=== PATIENT | female | born 1985 | race Two or more races ===

== ENCOUNTER 2018-01-14 18:18 | Inpatient (IN) | payer MEDICAID ==
[~2018-01-14] VITALS: Ht 157.5 cm; Wt 57.2 kg
[2018-01-14] VITALS (9 sets, daily range): BP systolic 92–117; BP diastolic 47–64
[2018-01-14] MEDS: HYDROmorphone 2 MG/ML VIAL IVP PRN (21:13)
[2018-01-14] MEDS: IV RINGERS,LACTATED 1000ML 1,000 ML IV SCH (21:35)
[2018-01-14] MEDS: PANTOPRAZOLE SODIUM IV DRIP 80 MG in IV NORMAL SALINE 100ML 100 ML IV SCH (22:22)
[2018-01-14] MEDS ORDERED: 0.9 % SODIUM CHLORIDE 10 ML DISP.SYRIN. IV PRN (23:45)
[2018-01-14] MEDS ORDERED: BISACODYL 10 MG SUPP.RECT. PR PRN (23:45)
[2018-01-15] VITALS (23 sets, daily range): BP systolic 93–112; BP diastolic 47–78
[2018-01-15] MEDS: ONDANSETRON PF 4 MG/2 ML VIAL. IV PRN ×2 (01:19→17:48)
[2018-01-15] MEDS: HYDROmorphone 2 MG/ML VIAL IVP PRN ×7 (01:20→21:33)
[2018-01-15] MEDS: PANTOPRAZOLE SODIUM IV DRIP 80 MG in IV NORMAL SALINE 100ML 100 ML IV SCH ×2 (06:08→21:33)
[2018-01-15 06:35] LABS: BASO % 1 % (0-3); EOS # 0.1 x10^3/uL (0.0-0.7); EOS % 1 % (0-3); HEMATOCRIT 23.3 % (36.0-47.0); LYMPH # 0.9 x10^3/uL (1.0-4.8); LYMPH % 17 % (24-48); MEAN CORPUSCULAR HEMOGLOBIN 20 pg (25-35); MEAN CORPUSCULAR HGB CONC 30 g/dL (31-37); MEAN CORPUSCULAR VOLUME 65 fL (79-100); MONO # 0.3 x10^3/uL (0.0-1.1); MONO % 5 % (0-9); NEUT # 4.2 x10^3uL (1.8-7.7); NEUT % 76 % (31-73); PLATELET COUNT 324 x10^3/uL (140-400); RED BLOOD COUNT 3.61 x10^6/uL (3.50-5.40); RED CELL DISTRIBUTION WIDTH 18.2 % (11.5-14.5); WHITE BLOOD COUNT 5.5 x10^3/uL (4.0-11.0)
[2018-01-15 06:46] LABS: PROTHROMBIN TIME PATIENT 13.1 SEC (11.7-14.0)
[2018-01-15 06:49] LABS: ALBUMIN/GLOBULIN RATIO 0.9 (1.0-1.7); CALCIUM 8.1 mg/dL (8.5-10.1); CREATININE 0.6 mg/dL (0.6-1.0); GFR 117.4; POTASSIUM 3.5 mmol/L (3.5-5.1); TOTAL BILIRUBIN 1.2 mg/dL (0.2-1.0); TOTAL PROTEIN 6.4 g/dL (6.4-8.2)
[2018-01-15 07:32] LABS: PLT ESTIMATE ADEQUATE (ADEQUATE)
[2018-01-15 07:33] LABS: ANISOCYTOSIS MOD; HYPOCHROMIA SLIGHT; POLYCHROMASIA SLIGHT
[2018-01-15 07:34] LABS: MICROCYTOSIS MARKED
[2018-01-15 07:35] LABS: OVALOCYTES MOD; TEAR DROP CELLS FEW
[2018-01-15 07:36] LABS: TARGET CELLS FEW
[2018-01-15] MEDS: IV RINGERS,LACTATED 1000ML 1,000 ML IV SCH ×4 (09:54→21:34)
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
[2018-01-15] MEDS ORDERED: fentaNYL PF VIAL 100 MCG/2 ML VIAL IV PRN ×4 (10:00→10:30)
[2018-01-15] MEDS ORDERED: MIDAZOLAM HCL/PF 2 MG/2 ML VIAL. IV PRN (10:00)
[2018-01-15] MEDS ORDERED: LIDOCAINE 1% PF 2 ML VIAL. ID PRN ×2 (10:00→10:30)
[2018-01-15] MEDS ORDERED: IV RINGERS,LACTATED 1000ML 1,000 ML IV SCH (10:17)
[2018-01-15] MEDS ORDERED: ONDANSETRON PF 4 MG/2 ML VIAL. IV PRN (10:30)
[2018-01-15] MEDS ORDERED: PROCHLORPERAZINE 10 MG/2 ML VIAL. IV PRN (10:30)
[2018-01-15] MEDS ORDERED: HYDROmorphone 2 MG/ML VIAL IV PRN (10:30)
[2018-01-15] MEDS ORDERED: MORPHINE SULFATE 2 MG/ML VIAL. IV PRN (10:30)
[2018-01-15] MEDS ORDERED: PROPOFOL 20 ML IV ONE (13:58)
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
[2018-01-15] MEDS ORDERED: EPINEPHrine SYRINGE 1 MG/10 ML SYRINGE ONE (14:23)
[2018-01-15] MEDS ORDERED: EPINEPHrine 1 MG/ML VIAL INJ ONE (14:24)
--- NOTE | 2018-01-15 14:28 | PDOC4 ---
PROCEDURE Procedure hematemesis, prior ulcer EGD anesthesia- propofol Findings- normal esophagus- MW tear at GE junction- injected with epi 2 cc- bleeding controlled- prior gastric bypass, endoclip in place but no ulcers or bleeding seen at anastomosis Plan- slowly advance diet monitor BRENNAN HE MD Jan 15, 2018 14:28
[2018-01-15 22:24] LABS: HEMATOCRIT 30.7 % (36.0-47.0); HEMOGLOBIN 9.8 g/dL (12.0-15.5); RED BLOOD COUNT 4.43 x10^6/uL (3.50-5.40); RED CELL DISTRIBUTION WIDTH 22.9 % (11.5-14.5); WHITE BLOOD COUNT 5.8 x10^3/uL (4.0-11.0)
[2018-01-16] MEDS: HYDROmorphone 2 MG/ML VIAL IVP PRN ×8 (00:44→22:21)
[2018-01-16 03:00] VITALS: BP 103/65
[2018-01-16 04:58] LABS: HEMATOCRIT 31.3 % (36.0-47.0); HEMOGLOBIN 10.2 g/dL (12.0-15.5); RED BLOOD COUNT 4.52 x10^6/uL (3.50-5.40); RED CELL DISTRIBUTION WIDTH 23.2 % (11.5-14.5); WHITE BLOOD COUNT 7.4 x10^3/uL (4.0-11.0)
[2018-01-16] MEDS: PANTOPRAZOLE SODIUM IV DRIP 80 MG in IV NORMAL SALINE 100ML 100 ML IV SCH (06:26)
[2018-01-16 07:00] VITALS: BP 100/60
[2018-01-16] MEDS ORDERED: ACETAMINOPHEN/CODEINE 300/30MG TABLET. PO PRN (09:00)
[2018-01-16] MEDS ORDERED: ONDANSETRON ODT 4 MG TAB.RAPDIS. PO PRN (09:00)
[2018-01-16] MEDS ORDERED: ONDANSETRON PF 4 MG/2 ML VIAL. IV PRN (09:00)
[2018-01-16] MEDS ORDERED: ACETAMINOPHEN 500 MG TABLET PO PRN (09:00)
[2018-01-16] MEDS: ONDANSETRON PF 4 MG/2 ML VIAL. IV PRN ×3 (09:19→22:21)
[2018-01-16] MEDS: HYDROcodone/APAP 5/325MG 1 TAB TABLET PO PRN ×2 (10:31→21:02)
[2018-01-16 11:00] VITALS: BP 101/61
--- NOTE | 2018-01-16 11:48 | PDOC ---
PROGRESS NOTES Chief Complaint Chief Complaint Hematemesis, anemia Large GI bleed via EGD 01/15 s/p epi injection Acute blood loss anemia s.p BT H/o PUD and Dieulafoy's w/ recurrent GI bleeding - says last EGD 3 weeks ago @ [facility], on Carafate and PPI S/p gastrojejunostomy revision w/ Charleen-en-Y reconstruction (2017) H/o Crohn's disease s/p colectomy w/ ileostomy and proctectomy - can document normal ileoscopy by Dr. Mendoza in 2017 Cholelithiasis - noted on CT ?h/o pancreatitis History of Present Illness History of Present Illness Showed me a picture of still significant hematemesis post-EGD yesterday Otherwise hemodynamically stable Hemoglobin 10 from 7 after transfusion On a PPI drip She has an indwelling ileostomy since age 14 She has a huge mid vertical incision scar from her multiple surgeries/total gastrectomy with what sounds like total colectomy some years back in [place] She is staying here now in [place] with her mother for good for emotional and personal support from her multiple med issues She is on disability and not working But she otherwise tells me she is otherwise active PLAN: CPM Still nauseus with current diet SLow progression of diet is in accord AMbulate ad obdulio PPI gtt Follow GI recs STill on HH q8 hrs Vitals Vitals Vital Signs Date Time Temp Pulse Resp B/P (MAP) Pulse Ox O2 Delivery O2 Flow Rate FiO2 01/16/18 11:00 98.6 69 16 101/61 (74) 97 Room Air 98.6 Physical Exam General: Alert, Oriented X3, Cooperative Heart: Regular rate, Normal S1, Normal S2 Lungs: Clear Abdomen: Normal bowel sounds, Soft, No tenderness, Other (indwelling right ileostomy, midline vertical incision scar) Extremities: No clubbing, No cyanosis, No edema Skin: No rashes, No breakdown, No significant lesion Labs LABS Laboratory Tests Test 01/15/18 13:45 01/15/18 18:10 01/15/18 22:05 01/16/18 04:00 Glucose (Fingerstick) 90 mg/dL (70-99) 140 mg/dL (70-99) White Blood Count 5.8 x10^3/uL (4.0-11.0) 7.4 x10^3/uL (4.0-11.0) Red Blood Count 4.43 x10^6/uL (3.50-5.40) 4.52 x10^6/uL (3.50-5.40) Hemoglobin 9.8 g/dL (12.0-15.5) 10.2 g/dL (12.0-15.5) Hematocrit 30.7 % (36.0-47.0) 31.3 % (36.0-47.0) Mean Corpuscular Volume 69 fL (79-100) 69 fL (79-100) Mean Corpuscular Hemoglobin 22 pg (25-35) 23 pg (25-35) Mean Corpuscular Hemoglobin Concent 32 g/dL (31-37) 33 g/dL (31-37) Red Cell Distribution Width 22.9 % (11.5-14.5) 23.2 % (11.5-14.5) Platelet Count 272 x10^3/uL (140-400) 273 x10^3/uL (140-400) Test 01/16/18 07:37 Glucose (Fingerstick) 78 mg/dL (70-99) Review of Systems Review of Systems Nausea, hematemesis, otherwise rest of ROS 14 point negative Comment Review of Relevant I have reviewed the following items china (where applicable) has been applied. Labs Laboratory Tests Test 01/14/18 21:15 01/15/18 06:20 01/15/18 13:45 01/15/18 18:10 Nasal Screen MRSA (PCR) Negative (Negative) White Blood Count 5.5 x10^3/uL (4.0-11.0) Red Blood Count 3.61 x10^6/uL (3.50-5.40) Hemoglobin 7.0 g/dL (12.0-15.5) Hematocrit 23.3 % (36.0-47.0) Mean Corpuscular Volume 65 fL (79-100) Mean Corpuscular Hemoglobin 20 pg (25-35) Mean Corpuscular Hemoglobin Concent 30 g/dL (31-37) Red Cell Distribution Width 18.2 % (11.5-14.5) Platelet Count 324 x10^3/uL (140-400) Neutrophils (%) (Auto) 76 % (31-73) Lymphocytes (%) (Auto) 17 % (24-48) Monocytes (%) (Auto) 5 % (0-9) Eosinophils (%) (Auto) 1 % (0-3) Basophils (%) (Auto) 1 % (0-3) Neutrophils # (Auto) 4.2 x10^3uL (1.8-7.7) Lymphocytes # (Auto) 0.9 x10^3/uL (1.0-4.8) Monocytes # (Auto) 0.3 x10^3/uL (0.0-1.1) Eosinophils # (Auto) 0.1 x10^3/uL (0.0-0.7) Basophils # (Auto) 0.0 x10^3/uL (0.0-0.2) Platelet Estimate Adequate (ADEQUATE) Large Platelets Few Polychromasia Slight Hypochromasia Slight Anisocytosis Mod Microcytosis Marked Target Cells Few Tear Drop Cells Few Ovalocytes Mod Prothrombin Time 13.1 SEC (11.7-14.0) Prothromb Time International Ratio 1.0 (0.8-1.1) Activated Partial Thromboplast Time 35 SEC (24-38) Sodium Level 141 mmol/L (136-145) Potassium Level 3.5 mmol/L (3.5-5.1) Chloride Level 108 mmol/L (98-107) Carbon Dioxide Level 25 mmol/L (21-32) Anion Gap 8 (6-14) Blood Urea Nitrogen 10 mg/dL (7-20) Creatinine 0.6 mg/dL (0.6-1.0) Estimated GFR (Cockcroft-Gault) 117.4 BUN/Creatinine Ratio 17 (6-20) Glucose Level 85 mg/dL (70-99) Calcium Level 8.1 mg/dL (8.5-10.1) Total Bilirubin 1.2 mg/dL (0.2-1.0) Aspartate Amino Transf (AST/SGOT) 11 U/L (15-37) Alanine Aminotransferase (ALT/SGPT) 16 U/L (14-59) Alkaline Phosphatase 77 U/L (46-116) Total Protein 6.4 g/dL (6.4-8.2) Albumin 3.0 g/dL (3.4-5.0) Albumin/Globulin Ratio 0.9 (1.0-1.7) Glucose (Fingerstick) 90 mg/dL (70-99) 140 mg/dL (70-99) Test 01/15/18 22:05 01/16/18 04:00 01/16/18 07:37 White Blood Count 5.8 x10^3/uL (4.0-11.0) 7.4 x10^3/uL (4.0-11.0) Red Blood Count 4.43 x10^6/uL (3.50-5.40) 4.52 x10^6/uL (3.50-5.40) Hemoglobin 9.8 g/dL (12.0-15.5) 10.2 g/dL (12.0-15.5) Hematocrit 30.7 % (36.0-47.0) 31.3 % (36.0-47.0) Mean Corpuscular Volume 69 fL (79-100) 69 fL (79-100) Mean Corpuscular Hemoglobin 22 pg (25-35) 23 pg (25-35) Mean Corpuscular Hemoglobin Concent 32 g/dL (31-37) 33 g/dL (31-37) Red Cell Distribution Width 22.9 % (11.5-14.5) 23.2 % (11.5-14.5) Platelet Count 272 x10^3/uL (140-400) 273 x10^3/uL (140-400) Glucose (Fingerstick) 78 mg/dL (70-99) Laboratory Tests Test 01/15/18 13:45 01/15/18 18:10 01/15/18 22:05 01/16/18 04:00 Glucose (Fingerstick) 90 mg/dL (70-99) 140 mg/dL (70-99) White Blood Count 5.8 x10^3/uL (4.0-11.0) 7.4 x10^3/uL (4.0-11.0) Red Blood Count 4.43 x10^6/uL (3.50-5.40) 4.52 x10^6/uL (3.50-5.40) Hemoglobin 9.8 g/dL (12.0-15.5) 10.2 g/dL (12.0-15.5) Hematocrit 30.7 % (36.0-47.0) 31.3 % (36.0-47.0) Mean Corpuscular Volume 69 fL (79-100) 69 fL (79-100) Mean Corpuscular Hemoglobin 22 pg (25-35) 23 pg (25-35) Mean Corpuscular Hemoglobin Concent 32 g/dL (31-37) 33 g/dL (31-37) Red Cell Distribution Width 22.9 % (11.5-14.5) 23.2 % (11.5-14.5) Platelet Count 272 x10^3/uL (140-400) 273 x10^3/uL (140-400) Test 01/16/18 07:37 Glucose (Fingerstick) 78 mg/dL (70-99) Medications Current Medications Hydromorphone HCl (Dilaudid) 0.5 mg PRN Q3HRS PRN IVP PAIN Last administered on 01/16/18at 09:19; Start 01/14/18 at 20:45 Ondansetron HCl (Zofran) 4 mg PRN Q6HRS PRN IV NAUSEA/VOMITING Last administered on 01/16/18at 09:19; Start 01/14/18 at 20:45 Ringer's Solution 1,000 ml @ 75 mls/hr [id number] IV Last administered on at 21:34; Start 01/14/18 at 20:45 Pantoprazole Sodium 80 mg/ Sodium Chloride 100 ml @ 10 mls/hr Q10H IV Last administered on 01/16/18at 06:26; Start 01/14/18 at 22:15 Sodium Chloride (Normal Saline Flush) 3 ml QSHIFT PRN IV AFTER MEDS AND BLOOD DRAWS; Start 01/14/18 at 23:45 Bisacodyl (Dulcolax Supp) 10 mg PRN DAILY PRN FL CONSTIPATION; Start 01/14/18 at 23:45 Midazolam HCl (Versed) 2 mg PRN 1X PRN IV PRIOR TO PROCEDURE; Start 01/15/18 at 10:00; Stop 01/15/18 at 18:00; Status DC Fentanyl Citrate (Fentanyl 2ml Vial) 25 mcg PRN Q5MIN PRN IV X 2 DOSES FOR PAIN ; Start 01/15/18 at 10:00; Stop 01/15/18 at 18:00; Status DC Fentanyl Citrate (Fentanyl 2ml Vial) 50 mcg PRN Q5MIN PRN IV X 2 DOSES FOR PAIN Last administered on 01/15/18at 15:01; Start 01/15/18 at 10:00; Stop at 18:00; Status DC Ringer's Solution 1,000 ml @ 125 mls/hr Q8H IV ; Start 01/15/18 at 09:54; Stop 01/15/18 at 21:53; Status DC Lidocaine HCl (Xylocaine-Mpf 1% 2ml Vial) 2 ml 1X PRN PRN ID IV START; Start 01/15/18 at 10:00; Stop 01/15/18 at 18:00; Status DC Ondansetron HCl (Zofran) 4 mg PRN Q6HRS PRN IV NAUSEA/VOMITING; Start at 10:30; Stop 01/15/18 at 19:00; Status DC Fentanyl Citrate (Fentanyl 2ml Vial) 25 mcg PRN Q5MIN PRN IV MILD PAIN; Start 01/15/18 at 10:30; Stop 01/16/18 at 10:29; Status UNV Fentanyl Citrate (Fentanyl 2ml Vial) 50 mcg PRN Q5MIN PRN IV MODERATE TO SEVERE PAIN; Start 01/15/18 at 10:30; Stop 01/16/18 at 10:29; Status UNV Morphine Sulfate (Morphine Sulfate) 1 mg PRN Q10MIN PRN IV SEVERE PAIN; Start 01/15/18 at 10:30; Stop 01/15/18 at 19:00; Status DC Ringer's Solution 1,000 ml @ 30 mls/hr Q24H IV ; Start 01/15/18 at 10:17; Stop 01/15/18 at 22:16; Status UNV Lidocaine HCl (Xylocaine-Mpf 1% 2ml Vial) 2 ml 1X PRN PRN ID IV START; Start 01/15/18 at 10:30; Stop 01/16/18 at 10:29; Status UNV Hydromorphone HCl (Dilaudid) 0.5 mg PRN Q10MIN PRN IV SEV PAIN, Second choice; Start 01/15/18 at 10:30; Stop 01/16/18 at 10:29; Status UNV Prochlorperazine Edisylate (Compazine) 5 mg PACU PRN PRN IV NAUSEA, MRX1; Start 01/15/18 at 10:30; Stop 01/15/18 at 19:00; Status DC Propofol 20 ml @ As Directed STK-MED ONCE IV ; Start 01/15/18 at 13:58; Stop 01/15/18 at 14:05; Status DC Epinephrine HCl (EPINEPHrine SYRINGE) 1 mg STK-MED ONCE .ROUTE ; Start at 14:23; Stop 01/15/18 at 14:24; Status DC Epinephrine HCl (Adrenalin) 1 mg STK-MED ONCE INJ Last administered on at 14:24; Start 01/15/18 at 14:24; Stop 01/15/18 at 14:25; Status DC Ondansetron HCl (Zofran) 4 mg PRN Q6HRS PRN IV NAUSEA/VOMITING; Start at 09:00; Status UNV Ondansetron HCl (Zofran Odt) 4 mg PRN Q6HRS PRN PO NAUSEA/VOMITING; Start at 09:00 Acetaminophen (Tylenol) 500 mg PRN Q6HRS PRN PO MILD PAIN / TEMP; Start at 09:00 Acetaminophen/ Codeine Phosphate (Tylenol #3) 1 tab PRN Q6HRS PRN PO MODERATE PAIN; Start 01/16/18 at 09:00 Acetaminophen/ Hydrocodone Bitart (Lortab 5/325) 1 tab PRN Q4HRS PRN PO SEVERE PAIN Last administered on 01/16/18at 10:31; Start 01/16/18 at 09:00 Vitals/I & O Vital Sign - Last 24 Hours 01/15/18 01/15/18 01/15/18 01/15/18 12:00 12:00 13:00 13:00 Temp 98.9 98.9 Pulse 65 74 74 Resp 29 18 18 B/P (MAP) 103/64 (77) 110/64 (79) 110/64 (79) Pulse Ox 98 97 97 O2 Delivery Room Air Room Air Room Air Room Air 01/15/18 01/15/18 01/15/18 01/15/18 13:00 13:32 13:41 14:29 Temp 98.2 98.2 98.2 98.2 Pulse 74 95 99 Resp 18 20 20 B/P (MAP) 110/64 (79) 131/79 Pulse Ox 97 97 100 O2 Delivery Room Air Room Air Nasal Cannula 01/15/18 01/15/18 01/15/18 01/15/18 14:45 15:00 15:01 15:29 Pulse 90 92 Resp 20 20 18 B/P (MAP) 111/68 111/62 Pulse Ox 100 98 100 100 O2 Delivery Room Air Room Air Room Air Room Air 01/15/18 01/15/18 01/15/18 01/15/18 15:37 16:00 16:04 17:40 Temp 99.4 98.4 99.4 98.4 Pulse 108 82 Resp 20 18 B/P (MAP) 112/62 (79) 101/78 (86) Pulse Ox 100 98 99 O2 Delivery Room Air Room Air Room Air 01/15/18 01/15/18 01/15/18 01/15/18 18:34 19:00 20:00 21:33 Temp 99.3 99.3 Pulse 69 Resp 16 B/P (MAP) 95/47 (63) Pulse Ox 100 98 O2 Delivery Room Air Room Air Room Air Room Air 01/15/18 01/16/18 01/16/18 01/16/18 23:00 00:44 03:00 03:41 Temp 98.8 99.0 98.8 99.0 Pulse 70 74 Resp 16 16 B/P (MAP) 94/60 (71) 103/65 (78) Pulse Ox 94 98 O2 Delivery Room Air Room Air Room Air Room Air 01/16/18 01/16/18 01/16/18 01/16/18 06:29 07:00 08:00 09:19 Temp 99.7 99.7 Pulse 83 Resp 14 B/P (MAP) 100/60 (73) Pulse Ox 96 96 O2 Delivery Room Air Room Air Room Air Room Air 01/16/18 01/16/18 01/16/18 10:31 10:39 11:00 Temp 98.6 98.6 Pulse 69 Resp 16 B/P (MAP) 101/61 (74) Pulse Ox 96 96 97 O2 Delivery Room Air Room Air Room Air Intake and Output 01/15/18 01/15/18 01/16/18 15:00 23:00 07:00 Intake Total 1000 ml 200 ml 360 ml Balance 1000 ml 200 ml 360 ml SYDNEY HALE MD Jan 16, 2018 11:48
--- NOTE | 2018-01-16 12:12 | PDOC ---
Subjective: Subjective: "Not doing too well" - has nausea and abd pain ("all over"). Says vomited a little blood overnight. Taking a few sips of clears. Objective: Objective: Getting Dilaudid and Lortab, also has Tylenol #3 ordered. Vital Signs: Vital Signs Date Time Temp Pulse Resp B/P (MAP) Pulse Ox O2 Delivery O2 Flow Rate FiO2 01/16/18 11:00 98.6 69 16 101/61 (74) 97 Room Air 98.6 Labs: Laboratory Tests Test 01/15/18 13:45 01/15/18 18:10 01/15/18 22:05 01/16/18 04:00 Glucose (Fingerstick) 90 mg/dL 140 mg/dL White Blood Count 5.8 x10^3/uL 7.4 x10^3/uL Red Blood Count 4.43 x10^6/uL 4.52 x10^6/uL Hemoglobin 9.8 g/dL 10.2 g/dL Hematocrit 30.7 % 31.3 % Mean Corpuscular Volume 69 fL 69 fL Mean Corpuscular Hemoglobin 22 pg 23 pg Mean Corpuscular Hemoglobin Concent 32 g/dL 33 g/dL Red Cell Distribution Width 22.9 % 23.2 % Platelet Count 272 x10^3/uL 273 x10^3/uL Test 01/16/18 07:37 Glucose (Fingerstick) 78 mg/dL Imaging: EGD 01/15 normal esophagus- MW tear at GE junction- injected with epi 2 cc- bleeding controlled- prior gastric bypass, endoclip in place but no ulcers or bleeding seen at anastomosis PE: GEN: NAD LUNGS: CTAB HEART: RRR ABD: RLQ ileostomy w/ light brown stool, tender to light touch diffusely NEURO/PSYCH: A & O 3 A/P: Recurrent hematemesis and abd pain -on EGD: MW tear s/p inj -h/o Charleen-en-Y w/ endoclip in place - no bleeding or ulcers Anemia - stable s/p transfusion 2 units yesterday H/o Crohn's disease s/p colectomy w/ ileostomy ?and proctectomy -?rectum present on CT -normal ileoscopy 2017 Cholelithiasis -- Still struggling w/ nausea and abd pain today - will review any additional recs w/ Dr. Latham. Pain meds probably not helping nausea. Still on PPI drip - can change to IV push and eventually PO when reliably taking. Resume Carafate. PATI HOUSER Jan 16, 2018 12:12
[2018-01-16] MEDS ORDERED: DICYCLOMINE HCL 10 MG CAPSULE PO PRN (12:15)
[2018-01-16] MEDS: SUCRALFATE 1 GM/10 ML ORAL.SUSP. PEG SCH ×3 (13:00→21:00)
[2018-01-16] MEDS ORDERED: PROMETHAZINE 12.5 MG TABLET. PO PRN (13:15)
[2018-01-16 14:24] LABS: HEMATOCRIT 29.9 % (36.0-47.0); HEMOGLOBIN 9.7 g/dL (12.0-15.5); RED BLOOD COUNT 4.33 x10^6/uL (3.50-5.40); WHITE BLOOD COUNT 4.8 x10^3/uL (4.0-11.0)
[2018-01-16 15:00] VITALS: BP 118/69
--- NOTE | 2018-01-16 15:36 | RAD ---
TYLER, 01/16/2018: HISTORY: Abdominal pain, nausea There are radiopacities overlying the right lateral flank region apparently related to the patient's known ileostomy. The abdominal gas pattern is unremarkable without evidence of obstruction. A rectangular lucency projected over the lower pelvis probably represents a vaginal tampon. Clinical correlation is suggested. There are numerous surgical sutures and clips in the abdomen. No organomegaly is seen. IMPRESSION: 1. Postsurgical changes. 2. No acute abdominal abnormality is detected. Electronically signed by: Murray Duffy MD (01/16/2018 3:33 PM) [facility]
[2018-01-16] MEDS: IV RINGERS,LACTATED 1000ML 1,000 ML IV SCH (16:00)
[2018-01-16 19:15] VITALS: BP 100/58
[2018-01-16 22:31] LABS: HEMOGLOBIN 10.6 g/dL (12.0-15.5); RED BLOOD COUNT 4.72 x10^6/uL (3.50-5.40); RED CELL DISTRIBUTION WIDTH 23.1 % (11.5-14.5)
[2018-01-16 23:26] VITALS: BP 111/69
[2018-01-17] MEDS: HYDROmorphone 2 MG/ML VIAL IVP PRN ×3 (01:26→07:51)
[2018-01-17 03:52] VITALS: BP 105/62
[2018-01-17] MEDS: ONDANSETRON PF 4 MG/2 ML VIAL. IV PRN ×3 (04:29→20:02)
[2018-01-17 07:05] VITALS: BP 97/58
[2018-01-17] MEDS ORDERED: PANTOPRAZOLE IV PUSH 40 MG VIAL. IVP SCH (07:30)
[2018-01-17] MEDS: SUCRALFATE 1 GM/10 ML ORAL.SUSP. PEG SCH ×4 (07:51→20:03)
--- NOTE | 2018-01-17 10:53 | PDOC ---
PROGRESS NOTES Chief Complaint Chief Complaint Hematemesis, anemia Large GI bleed via EGD 01/15 s/p epi injection Acute blood loss anemia s.p BT H/o PUD and Dieulafoy's w/ recurrent GI bleeding - says last EGD 3 weeks ago @ [facility], on Carafate and PPI S/p gastrojejunostomy revision w/ Charleen-en-Y reconstruction (2017) H/o Crohn's disease s/p colectomy w/ ileostomy and proctectomy - can document normal ileoscopy by Dr. Mendoza in 2017 Cholelithiasis - noted on CT ?h/o pancreatitis History of Present Illness History of Present Illness Some nausea with liquid diet today PPI gtt to consume then started on PPI IV by GI GI note reviewed, narcotics probably not helping with the nausea I discussed with her the changes I made with narcotics-she seemed initially considered but after heavy education she did not fight me on that SHe empties her indwelling colostomy maybe twice a day normally - now minimal output as her PO intake is also minimal Plan: DC IV Dilaudid DC Tylenol 3-she never did get any Morphine low-dose 1 mg IV every 2 when necessary Hydrocodone by mouth Advance diet as tolerated or as per GI orders PPI drip to consume Discussed with RN She claims she ambulates Vitals Vitals Vital Signs Date Time Temp Pulse Resp B/P (MAP) Pulse Ox O2 Delivery O2 Flow Rate FiO2 01/17/18 07:58 Room Air 01/17/18 07:51 100 01/17/18 07:05 98.2 61 18 97/58 (71) 98.2 Physical Exam General: Alert, Oriented X3, Cooperative Heart: Regular rate, Normal S1, Normal S2 Lungs: Clear Abdomen: Normal bowel sounds, Soft, No tenderness, Other (indwelling right ileostomy, midline vertical incision scar) Extremities: No clubbing, No cyanosis, No edema Skin: No rashes, No breakdown, No significant lesion Labs LABS Laboratory Tests Test 01/16/18 12:01 01/16/18 14:20 01/16/18 17:05 01/16/18 20:53 Glucose (Fingerstick) 106 mg/dL (70-99) 117 mg/dL (70-99) 90 mg/dL (70-99) White Blood Count 4.8 x10^3/uL (4.0-11.0) Red Blood Count 4.33 x10^6/uL (3.50-5.40) Hemoglobin 9.7 g/dL (12.0-15.5) Hematocrit 29.9 % (36.0-47.0) Mean Corpuscular Volume 69 fL (79-100) Mean Corpuscular Hemoglobin 23 pg (25-35) Mean Corpuscular Hemoglobin Concent 33 g/dL (31-37) Red Cell Distribution Width 23.0 % (11.5-14.5) Platelet Count 243 x10^3/uL (140-400) Test 01/16/18 22:20 01/17/18 07:09 White Blood Count 5.0 x10^3/uL (4.0-11.0) Red Blood Count 4.72 x10^6/uL (3.50-5.40) Hemoglobin 10.6 g/dL (12.0-15.5) Hematocrit 33.0 % (36.0-47.0) Mean Corpuscular Volume 70 fL (79-100) Mean Corpuscular Hemoglobin 22 pg (25-35) Mean Corpuscular Hemoglobin Concent 32 g/dL (31-37) Red Cell Distribution Width 23.1 % (11.5-14.5) Platelet Count 271 x10^3/uL (140-400) Glucose (Fingerstick) 95 mg/dL (70-99) Review of Systems Review of Systems nausea, the rest of ROS 14 point negative Comment Review of Relevant I have reviewed the following items [place] (where applicable) has been applied. Labs Laboratory Tests Test 01/15/18 13:45 01/15/18 18:10 01/15/18 22:05 01/16/18 04:00 Glucose (Fingerstick) 90 mg/dL (70-99) 140 mg/dL (70-99) White Blood Count 5.8 x10^3/uL (4.0-11.0) 7.4 x10^3/uL (4.0-11.0) Red Blood Count 4.43 x10^6/uL (3.50-5.40) 4.52 x10^6/uL (3.50-5.40) Hemoglobin 9.8 g/dL (12.0-15.5) 10.2 g/dL (12.0-15.5) Hematocrit 30.7 % (36.0-47.0) 31.3 % (36.0-47.0) Mean Corpuscular Volume 69 fL (79-100) 69 fL (79-100) Mean Corpuscular Hemoglobin 22 pg (25-35) 23 pg (25-35) Mean Corpuscular Hemoglobin Concent 32 g/dL (31-37) 33 g/dL (31-37) Red Cell Distribution Width 22.9 % (11.5-14.5) 23.2 % (11.5-14.5) Platelet Count 272 x10^3/uL (140-400) 273 x10^3/uL (140-400) Test 01/16/18 07:37 01/16/18 12:01 01/16/18 14:20 01/16/18 17:05 Glucose (Fingerstick) 78 mg/dL (70-99) 106 mg/dL (70-99) 117 mg/dL (70-99) White Blood Count 4.8 x10^3/uL (4.0-11.0) Red Blood Count 4.33 x10^6/uL (3.50-5.40) Hemoglobin 9.7 g/dL (12.0-15.5) Hematocrit 29.9 % (36.0-47.0) Mean Corpuscular Volume 69 fL (79-100) Mean Corpuscular Hemoglobin 23 pg (25-35) Mean Corpuscular Hemoglobin Concent 33 g/dL (31-37) Red Cell Distribution Width 23.0 % (11.5-14.5) Platelet Count 243 x10^3/uL (140-400) Test 01/16/18 20:53 01/16/18 22:20 01/17/18 07:09 Glucose (Fingerstick) 90 mg/dL (70-99) 95 mg/dL (70-99) White Blood Count 5.0 x10^3/uL (4.0-11.0) Red Blood Count 4.72 x10^6/uL (3.50-5.40) Hemoglobin 10.6 g/dL (12.0-15.5) Hematocrit 33.0 % (36.0-47.0) Mean Corpuscular Volume 70 fL (79-100) Mean Corpuscular Hemoglobin 22 pg (25-35) Mean Corpuscular Hemoglobin Concent 32 g/dL (31-37) Red Cell Distribution Width 23.1 % (11.5-14.5) Platelet Count 271 x10^3/uL (140-400) Laboratory Tests Test 01/16/18 12:01 01/16/18 14:20 01/16/18 17:05 01/16/18 20:53 Glucose (Fingerstick) 106 mg/dL (70-99) 117 mg/dL (70-99) 90 mg/dL (70-99) White Blood Count 4.8 x10^3/uL (4.0-11.0) Red Blood Count 4.33 x10^6/uL (3.50-5.40) Hemoglobin 9.7 g/dL (12.0-15.5) Hematocrit 29.9 % (36.0-47.0) Mean Corpuscular Volume 69 fL (79-100) Mean Corpuscular Hemoglobin 23 pg (25-35) Mean Corpuscular Hemoglobin Concent 33 g/dL (31-37) Red Cell Distribution Width 23.0 % (11.5-14.5) Platelet Count 243 x10^3/uL (140-400) Test 01/16/18 22:20 01/17/18 07:09 White Blood Count 5.0 x10^3/uL (4.0-11.0) Red Blood Count 4.72 x10^6/uL (3.50-5.40) Hemoglobin 10.6 g/dL (12.0-15.5) Hematocrit 33.0 % (36.0-47.0) Mean Corpuscular Volume 70 fL (79-100) Mean Corpuscular Hemoglobin 22 pg (25-35) Mean Corpuscular Hemoglobin Concent 32 g/dL (31-37) Red Cell Distribution Width 23.1 % (11.5-14.5) Platelet Count 271 x10^3/uL (140-400) Glucose (Fingerstick) 95 mg/dL (70-99) Medications Current Medications Hydromorphone HCl (Dilaudid) 0.5 mg PRN Q3HRS PRN IVP PAIN Last administered on 01/17/18at 07:51; Start 01/14/18 at 20:45; Stop 01/17/18 at 08:29; Status DC Ondansetron HCl (Zofran) 4 mg PRN Q6HRS PRN IV NAUSEA/VOMITING Last administered on 01/17/18at 04:29; Start 01/14/18 at 20:45 Ringer's Solution 1,000 ml @ 75 mls/hr [id number] IV Last administered on at 16:00; Start 01/14/18 at 20:45 Pantoprazole Sodium 80 mg/ Sodium Chloride 100 ml @ 10 mls/hr Q10H IV Last administered on 01/16/18at 06:26; Start 01/14/18 at 22:15; Stop 01/16/18 at 12 :10; Status DC Sodium Chloride (Normal Saline Flush) 3 ml QSHIFT PRN IV AFTER MEDS AND BLOOD DRAWS; Start 01/14/18 at 23:45 Bisacodyl (Dulcolax Supp) 10 mg PRN DAILY PRN [place] CONSTIPATION; Start 01/14/18 at 23:45 Midazolam HCl (Versed) 2 mg PRN 1X PRN IV PRIOR TO PROCEDURE; Start 01/15/18 at 10:00; Stop 01/15/18 at 18:00; Status DC Fentanyl Citrate (Fentanyl 2ml Vial) 25 mcg PRN Q5MIN PRN IV X 2 DOSES FOR PAIN ; Start 01/15/18 at 10:00; Stop 01/15/18 at 18:00; Status DC Fentanyl Citrate (Fentanyl 2ml Vial) 50 mcg PRN Q5MIN PRN IV X 2 DOSES FOR PAIN Last administered on 01/15/18at 15:01; Start 01/15/18 at 10:00; Stop at 18:00; Status DC Ringer's Solution 1,000 ml @ 125 mls/hr Q8H IV ; Start 01/15/18 at 09:54; Stop 01/15/18 at 21:53; Status DC Lidocaine HCl (Xylocaine-Mpf 1% 2ml Vial) 2 ml 1X PRN PRN ID IV START; Start 01/15/18 at 10:00; Stop 01/15/18 at 18:00; Status DC Ondansetron HCl (Zofran) 4 mg PRN Q6HRS PRN IV NAUSEA/VOMITING; Start at 10:30; Stop 01/15/18 at 19:00; Status DC Fentanyl Citrate (Fentanyl 2ml Vial) 25 mcg PRN Q5MIN PRN IV MILD PAIN; Start 01/15/18 at 10:30; Stop 01/16/18 at 10:29; Status UNV Fentanyl Citrate (Fentanyl 2ml Vial) 50 mcg PRN Q5MIN PRN IV MODERATE TO SEVERE PAIN; Start 01/15/18 at 10:30; Stop 01/16/18 at 10:29; Status UNV Morphine Sulfate (Morphine Sulfate) 1 mg PRN Q10MIN PRN IV SEVERE PAIN; Start 01/15/18 at 10:30; Stop 01/15/18 at 19:00; Status DC Ringer's Solution 1,000 ml @ 30 mls/hr Q24H IV ; Start 01/15/18 at 10:17; Stop 01/15/18 at 22:16; Status UNV Lidocaine HCl (Xylocaine-Mpf 1% 2ml Vial) 2 ml 1X PRN PRN ID IV START; Start 01/15/18 at 10:30; Stop 01/16/18 at 10:29; Status UNV Hydromorphone HCl (Dilaudid) 0.5 mg PRN Q10MIN PRN IV SEV PAIN, Second choice; Start 01/15/18 at 10:30; Stop 01/16/18 at 10:29; Status UNV Prochlorperazine Edisylate (Compazine) 5 mg PACU PRN PRN IV NAUSEA, MRX1; Start 01/15/18 at 10:30; Stop 01/15/18 at 19:00; Status DC Propofol 20 ml @ As Directed STK-MED ONCE IV ; Start 01/15/18 at 13:58; Stop 01/15/18 at 14:05; Status DC Epinephrine HCl (EPINEPHrine SYRINGE) 1 mg STK-MED ONCE .ROUTE ; Start at 14:23; Stop 01/15/18 at 14:24; Status DC Epinephrine HCl (Adrenalin) 1 mg STK-MED ONCE INJ Last administered on at 14:24; Start 01/15/18 at 14:24; Stop 01/15/18 at 14:25; Status DC Ondansetron HCl (Zofran) 4 mg PRN Q6HRS PRN IV NAUSEA/VOMITING; Start at 09:00; Status UNV Ondansetron HCl (Zofran Odt) 4 mg PRN Q6HRS PRN PO NAUSEA/VOMITING 1st choice; Start 01/16/18 at 09:00 Acetaminophen (Tylenol) 500 mg PRN Q6HRS PRN PO MILD PAIN / TEMP; Start at 09:00 Acetaminophen/ Codeine Phosphate (Tylenol #3) 1 tab PRN Q6HRS PRN PO MODERATE PAIN; Start 01/16/18 at 09:00; Stop 01/17/18 at 08:29; Status DC Acetaminophen/ Hydrocodone Bitart (Lortab 5/325) 1 tab PRN Q4HRS PRN PO SEVERE PAIN Last administered on 01/16/18at 21:02; Start 01/16/18 at 09:00 Pantoprazole Sodium (PROTONIX VIAL for IV PUSH) 40 mg DAILYAC IVP Last administered on 01/17/18at 07:51; Start 01/17/18 at 07:30 Sucralfate (Carafate) 1 gm QIDACHS PEG Last administered on 01/17/18at 07:51; Start 01/16/18 at 12:30 Dicyclomine HCl (Bentyl) 10 mg PRN QID PRN PO abd pain; Start 01/16/18 at 12: 15 Promethazine HCl (Phenergan) 12.5 mg PRN Q6HRS PRN PO NAUSEA/VOMITING 2ND CHOICE; Start 01/16/18 at 13:15 Morphine Sulfate (Morphine Sulfate) 1 mg PRN Q2HR PRN IV PAIN; Start 01/17/18 at 08:30 Vitals/I & O Vital Sign - Last 24 Hours 01/16/18 01/16/18 01/16/18 01/16/18 11:00 12:55 15:00 15:50 Temp 98.6 98.9 98.6 98.9 Pulse 69 75 Resp 16 16 B/P (MAP) 101/61 (74) 118/69 (85) Pulse Ox 97 97 98 98 O2 Delivery Room Air Room Air Room Air 01/16/18 01/16/18 01/16/18 01/16/18 16:08 19:10 19:13 19:15 Temp 98.9 98.9 Pulse 71 Resp 18 B/P (MAP) 100/58 (72) Pulse Ox 98 98 98 98 O2 Delivery Room Air Room Air Room Air 01/16/18 01/16/18 01/16/18 01/16/18 20:00 21:02 22:02 22:21 O2 Delivery Room Air Room Air Room Air Room Air 01/16/18 01/17/18 01/17/18 01/17/18 23:26 01:26 03:52 04:29 Temp 98.8 98.4 98.8 98.4 Pulse 78 63 Resp 18 18 B/P (MAP) 111/69 (83) 105/62 (76) Pulse Ox 99 99 O2 Delivery Room Air Room Air Room Air Room Air 01/17/18 01/17/18 01/17/18 01/17/18 04:59 07:05 07:51 07:58 Temp 98.2 98.2 Pulse 61 Resp 18 B/P (MAP) 97/58 (71) Pulse Ox 100 100 O2 Delivery Room Air Room Air Room Air Room Air Intake and Output 01/16/18 01/16/18 01/17/18 15:00 23:00 07:00 Intake Total 460 ml 300 ml Balance 460 ml 300 ml SYDNEY HALE MD Jan 17, 2018 10:53
[2018-01-17] MEDS: MORPHINE SULFATE 2 MG/ML VIAL. IV PRN ×5 (11:13→23:18)
[2018-01-17 11:14] VITALS: BP 105/64
[2018-01-17] MEDS: IV RINGERS,LACTATED 1000ML 1,000 ML IV SCH ×2 (12:05→23:19)
--- NOTE | 2018-01-17 13:14 | PDOC ---
Subjective: Subjective: "Hangin in there." Vomited bile yesterday, got up to walk around today, ate some but still nauseous. Objective: Objective: Per RN - ate biscuits and gravy for breakfast. Vital Signs: Vital Signs Date Time Temp Pulse Resp B/P (MAP) Pulse Ox O2 Delivery O2 Flow Rate FiO2 01/17/18 12:05 99 Room Air 01/17/18 11:14 97.9 60 18 105/64 (78) 97.9 Labs: Laboratory Tests Test 01/16/18 14:20 01/16/18 17:05 01/16/18 20:53 01/16/18 22:20 White Blood Count 4.8 x10^3/uL 5.0 x10^3/uL Red Blood Count 4.33 x10^6/uL 4.72 x10^6/uL Hemoglobin 9.7 g/dL 10.6 g/dL Hematocrit 29.9 % 33.0 % Mean Corpuscular Volume 69 fL 70 fL Mean Corpuscular Hemoglobin 23 pg 22 pg Mean Corpuscular Hemoglobin Concent 33 g/dL 32 g/dL Red Cell Distribution Width 23.0 % 23.1 % Platelet Count 243 x10^3/uL 271 x10^3/uL Glucose (Fingerstick) 117 mg/dL 90 mg/dL Test 01/17/18 07:09 01/17/18 11:51 Glucose (Fingerstick) 95 mg/dL 85 mg/dL PE: GEN: NAD - looks better than yesterday LUNGS: clear HEART: RRR ABD: RLQ ileostomy, tender NEURO/PSYCH: A & O 3 A/P: Recurrent hematemesis and abd pain -on EGD this week: MW tear s/p inj, Charleen-en-Y w/ endoclip in place -h/o Crohn's s/p colectomy w/ ileostomy, had ileoscopy in 2017 -had cholelithiasis on imaging Anemia - stable -- Reviewed w/ Dr. Latham.. Ideally would avoid morphine - will schedule dicyclomine. Back to full liquids (avoiding vomiting w/ MW tear) and look toward DC. D/w CLINT. PATI HOUSER Jan 17, 2018 13:14
[2018-01-17] MEDS: DICYCLOMINE HCL 10 MG CAPSULE PO SCH ×3 (13:45→20:02)
[2018-01-17 15:00] VITALS: BP 116/68
[2018-01-17] MEDS: PANTOPRAZOLE 40 MG TABLET.DR. PO SCH (15:20)
[2018-01-17 19:48] VITALS: BP 101/53
[2018-01-17 23:28] VITALS: BP 90/49
[2018-01-18 03:00] VITALS: BP 93/52
[2018-01-18] MEDS: MORPHINE SULFATE 2 MG/ML VIAL. IV PRN ×3 (03:23→08:12)
[2018-01-18] MEDS: IV RINGERS,LACTATED 1000ML 1,000 ML IV SCH (04:45)
[2018-01-18 05:26] LABS: ALBUMIN 3.1 g/dL (3.4-5.0); ALBUMIN/GLOBULIN RATIO 0.9 (1.0-1.7); CALCIUM 8.4 mg/dL (8.5-10.1); CREATININE 0.6 mg/dL (0.6-1.0); GFR 117.4; POTASSIUM 3.7 mmol/L (3.5-5.1); TOTAL BILIRUBIN 0.9 mg/dL (0.2-1.0); TOTAL PROTEIN 6.4 g/dL (6.4-8.2)
[2018-01-18 07:00] VITALS: BP 97/49
[2018-01-18] MEDS: SUCRALFATE 1 GM/10 ML ORAL.SUSP. PEG SCH ×2 (08:12→12:08)
[2018-01-18] MEDS: DICYCLOMINE HCL 10 MG CAPSULE PO SCH ×2 (08:13→12:48)
[2018-01-18] MEDS: PANTOPRAZOLE 40 MG TABLET.DR. PO SCH (08:13)
[2018-01-18] MEDS ORDERED: HYDR-2758 PO (09:23)
[2018-01-18] MEDS ORDERED: Pantoprazole PO (09:23)
[2018-01-18] MEDS ORDERED: ONDA4TAB12 PO (09:23)
[2018-01-18] MEDS ORDERED: PROM12.56 PO (09:23)
[2018-01-18] MEDS ORDERED: DICY10CA3 PO (09:23)
[2018-01-18] MEDS ORDERED: SUCR1ORA5 PEG (09:23)
[2018-01-18] MEDS: HYDROcodone/APAP 5/325MG 1 TAB TABLET PO PRN (10:35)
[2018-01-18 11:00] VITALS: BP 102/49
--- NOTE | 2018-01-18 11:31 | PDOC ---
Subjective: Subjective: Feels better, would like to go home - says her brother's birthday is coming up and her nephew has an important appointment on Sunday. Tolerating PO - apparently had scrambled eggs for breakfast. Ostomy functioning w/o issue. Nausea and abd pain still present but improved. Objective: Vital Signs: Vital Signs Date Time Temp Pulse Resp B/P (MAP) Pulse Ox O2 Delivery O2 Flow Rate FiO2 01/18/18 10:35 99 Room Air 01/18/18 07:00 97.9 56 24 97/49 (65) 97.9 Labs: Laboratory Tests Test 01/17/18 11:51 01/17/18 16:49 01/17/18 20:42 01/18/18 03:30 Glucose (Fingerstick) 85 mg/dL 84 mg/dL 77 mg/dL Sodium Level 143 mmol/L Potassium Level 3.7 mmol/L Chloride Level 107 mmol/L Carbon Dioxide Level 25 mmol/L Anion Gap 11 Blood Urea Nitrogen 3 mg/dL Creatinine 0.6 mg/dL Estimated GFR (Cockcroft-Gault) 117.4 BUN/Creatinine Ratio 5 Glucose Level 74 mg/dL Calcium Level 8.4 mg/dL Total Bilirubin 0.9 mg/dL Aspartate Amino Transf (AST/SGOT) 21 U/L Alanine Aminotransferase (ALT/SGPT) 33 U/L Alkaline Phosphatase 93 U/L Total Protein 6.4 g/dL Albumin 3.1 g/dL Albumin/Globulin Ratio 0.9 Test 01/18/18 07:44 Glucose (Fingerstick) 92 mg/dL PE: GEN: NAD LUNGS: CTAB HEART: RRR ABD: less tender, RLQ ostomy NEURO/PSYCH: A & O 3, smiling A/P: MW tear s/p inj - hematemesis resolved S/p Charleen-en-Y H/o Crohn's s/p colectomy w/ ileostomy Cholelithiasis -- Improved - DC per primary. Continue Carafate, PPI, and dicyclomine. Should follow-up w/ GI re: Crohn's at some point - says she normally goes to [place]. PATI HOUSER Jan 18, 2018 11:31
--- NOTE | 2018-01-18 12:30 | PDOC3 ---
Discharge Summary Visit Information Date of Admission: Jan 14, 2018 Date of Discharge: Jan 18, 2018 Admitting Diagnosis Comment: Hematemesis, anemia Large GI bleed via EGD 01/15 s/p epi injection Acute blood loss anemia s.p BT H/o PUD and Dieulafoy's w/ recurrent GI bleeding - says last EGD 3 weeks ago @ [facility], on Carafate and PPI S/p gastrojejunostomy revision w/ Charleen-en-Y reconstruction (2017) H/o Crohn's disease s/p colectomy w/ ileostomy and proctectomy - can document normal ileoscopy by Dr. Mendoza in 2017 Cholelithiasis - noted on CT ?h/o pancreatitis Brief Hospital Course Allergies Allergies Coded Allergies Type Severity Reaction Last Updated Verified Penicillins Allergy Intermediate 01/15/18 Yes ketorolac Allergy Intermediate 01/15/18 Yes Vital Signs Vital Signs Date Time Temp Pulse Resp B/P (MAP) Pulse Ox O2 Delivery O2 Flow Rate FiO2 01/18/18 11:53 99 Room Air 01/18/18 11:00 98.4 54 20 102/49 (66) 98.4 Lab Results Laboratory Tests Test 01/16/18 14:20 01/16/18 17:05 01/16/18 20:53 01/16/18 22:20 White Blood Count 4.8 x10^3/uL (4.0-11.0) 5.0 x10^3/uL (4.0-11.0) Red Blood Count 4.33 x10^6/uL (3.50-5.40) 4.72 x10^6/uL (3.50-5.40) Hemoglobin 9.7 g/dL (12.0-15.5) 10.6 g/dL (12.0-15.5) Hematocrit 29.9 % (36.0-47.0) 33.0 % (36.0-47.0) Mean Corpuscular Volume 69 fL (79-100) 70 fL (79-100) Mean Corpuscular Hemoglobin 23 pg (25-35) 22 pg (25-35) Mean Corpuscular Hemoglobin Concent 33 g/dL (31-37) 32 g/dL (31-37) Red Cell Distribution Width 23.0 % (11.5-14.5) 23.1 % (11.5-14.5) Platelet Count 243 x10^3/uL (140-400) 271 x10^3/uL (140-400) Glucose (Fingerstick) 117 mg/dL (70-99) 90 mg/dL (70-99) Test 01/17/18 07:09 01/17/18 11:51 01/17/18 16:49 01/17/18 20:42 Glucose (Fingerstick) 95 mg/dL (70-99) 85 mg/dL (70-99) 84 mg/dL (70-99) 77 mg/dL (70-99) Test 01/18/18 03:30 01/18/18 07:44 01/18/18 11:49 Sodium Level 143 mmol/L (136-145) Potassium Level 3.7 mmol/L (3.5-5.1) Chloride Level 107 mmol/L (98-107) Carbon Dioxide Level 25 mmol/L (21-32) Anion Gap 11 (6-14) Blood Urea Nitrogen 3 mg/dL (7-20) Creatinine 0.6 mg/dL (0.6-1.0) Estimated GFR (Cockcroft-Gault) 117.4 BUN/Creatinine Ratio 5 (6-20) Glucose Level 74 mg/dL (70-99) Calcium Level 8.4 mg/dL (8.5-10.1) Total Bilirubin 0.9 mg/dL (0.2-1.0) Aspartate Amino Transf (AST/SGOT) 21 U/L (15-37) Alanine Aminotransferase (ALT/SGPT) 33 U/L (14-59) Alkaline Phosphatase 93 U/L (46-116) Total Protein 6.4 g/dL (6.4-8.2) Albumin 3.1 g/dL (3.4-5.0) Albumin/Globulin Ratio 0.9 (1.0-1.7) Glucose (Fingerstick) 92 mg/dL (70-99) 103 mg/dL (70-99) Laboratory Tests Test 01/17/18 16:49 01/17/18 20:42 01/18/18 03:30 01/18/18 07:44 Glucose (Fingerstick) 84 mg/dL (70-99) 77 mg/dL (70-99) 92 mg/dL (70-99) Sodium Level 143 mmol/L (136-145) Potassium Level 3.7 mmol/L (3.5-5.1) Chloride Level 107 mmol/L (98-107) Carbon Dioxide Level 25 mmol/L (21-32) Anion Gap 11 (6-14) Blood Urea Nitrogen 3 mg/dL (7-20) Creatinine 0.6 mg/dL (0.6-1.0) Estimated GFR (Cockcroft-Gault) 117.4 BUN/Creatinine Ratio 5 (6-20) Glucose Level 74 mg/dL (70-99) Calcium Level 8.4 mg/dL (8.5-10.1) Total Bilirubin 0.9 mg/dL (0.2-1.0) Aspartate Amino Transf (AST/SGOT) 21 U/L (15-37) Alanine Aminotransferase (ALT/SGPT) 33 U/L (14-59) Alkaline Phosphatase 93 U/L (46-116) Total Protein 6.4 g/dL (6.4-8.2) Albumin 3.1 g/dL (3.4-5.0) Albumin/Globulin Ratio 0.9 (1.0-1.7) Test 01/18/18 11:49 Glucose (Fingerstick) 103 mg/dL (70-99) Brief Hospital Course Ms. Clemente is a 32 old female who was given a second chance of life so to speak. She came from [place] but decided to move to [place] to be with her mother after a very significant medical history ER course at [place]. She has a lot of abdominal history she is diagnosed with Crohn's and maybe UC, with hx of recurrent GI bleeding. She said she was in the hospital in [place] for 1 month. Now she has a total gastrectomy with indwelling colostomy (no more colon left she claims). She empties her colostomy bag maybe twice a day on regular days. She is on disability but is very active she claims with her nephews and nieces. She comes in because of a GI bleed which was quite large via EGD at 01/15 status post cautery epi injection etc. Hemodynamically stable now. Course remarkable for very slow progress to regular diet. She will now going home on Carafate PPI and other meds that I have prescribed - pls see chart /prescription Cleared by GI. Consults performed GI Procedures performed EGD with cautery of a large gastric bleed 01/15/18 Significant counseling etc. She tends to like her pain medicines. But she is easy to console about this Discharge Information Condition at Discharge: Improved, Stable Disposition/Orders: D/C to Home Scheduled Dicyclomine Hcl (Dicyclomine Hcl) 10 Mg Capsule, 10 MG PO QID, #30 Prescribed by: SYDNEY HALE on 01/18/18922 Sucralfate (Carafate) 1 Gm/10 Ml Oral.susp, 1 GM PEG QIDACHS, #60 Prescribed by: SYDNEY HALE on 01/18/18922 [Pantoprazole] 40 MG TABLET.DR, 40 MG PO DAILYAC for 60 Days Prescribed by: SYDNEY HALE on 01/18/18922 Scheduled PRN Hydrocodone Bit/Acetaminophen (Hydrocodone-Apap 5-325 ) 1 Each Tablet, 1 TAB PO PRN Q4HRS PRN for SEVERE PAIN, #15 Prescribed by: SYDNEY HALE on 01/18/18922 Ondansetron (Ondansetron Odt) 4 Mg Tab.rapdis, 4 MG PO PRN Q6HRS PRN for NAUSEA/ VOMITING 1st choice, #60 Prescribed by: SYDNEY HALE on 01/18/18922 Promethazine Hcl (Promethazine Hcl) 12.5 Mg Tablet, 12.5 MG PO PRN Q6HRS PRN for NAUSEA/VOMITING 2ND CHOICE, #30 Prescribed by: SYDNEY HALE on 01/18/18922 SYDNEY HALE MD Jan 18, 2018 12:30
[2018-01-18 14:59] VITALS: BP 103/67
== END 2018-01-18 15:15 | disposition home or self-care (01) | DRG 369 ==
LOC: MERGE 19:59 → UNMERGE 19:59 → 1 WEST ICU 19:59 → 6 SOUTH 01-15 17:22
PROVIDERS: ADMIT Internal Medicine; ATTEND Internal Medicine
PROC: 30233N1 Transfusion of Nonautologous Red Blood Cells into Peripheral Vein, Percutaneous Approach (ICD-10-PCS; 2018-01-15)
PROC: 3E0G8GC Introduction of Other Therapeutic Substance into Upper GI, Via Natural or Artificial Opening Endoscopic (ICD-10-PCS; principal; 2018-01-15 14:00)
DX: K22.6 Gastro-esophageal laceration-hemorrhage syndrome (principal); E44.0 Moderate protein-calorie malnutrition; D62 Acute posthemorrhagic anemia; E11.9 Type 2 diabetes mellitus without complications; F43.10 Post-traumatic stress disorder, unspecified; G89.29 Other chronic pain; K80.20 Calculus of gallbladder without cholecystitis without obstruction; Z62.810 Personal history of physical and sexual abuse in childhood; Z68.23 Body mass index [BMI] 23.0-23.9, adult; Z88.6 Allergy status to analgesic agent; Z88.0 Allergy status to penicillin; Z87.11 Personal history of peptic ulcer disease; Z87.442 Personal history of urinary calculi; Z86.718 Personal history of other venous thrombosis and embolism; Z98.84 Bariatric surgery status; Z90.3 Acquired absence of stomach [part of]; Z90.49 Acquired absence of other specified parts of digestive tract; Z93.3 Colostomy status; Z83.3 Family history of diabetes mellitus
CPT/HCPCS: 36415; 43239; 74018; 80053; 82962; 85025; 85027; 85610; 85730; 86850; 86900; 86901; 86920; 87641; C9113; J0171; J1170; J2270; J2405; J2704; J3010; J7120; P9016; Q0169

== ENCOUNTER 2018-01-22 14:48 | Inpatient (IN) | payer MEDICAID ==
[~2018-01-22] VITALS: Ht 157.5 cm; Wt 57.3 kg
[~2018-01-22 14:48] MED LIST: DICY10CA3 PO; HYDR-2758 PO; ONDA4TAB12 PO; PROM12.56 PO; Pantoprazole PO; SUCR1ORA5 PEG
[2018-01-22] MEDS ORDERED: ONDANSETRON PF 4 MG/2 ML VIAL. IV ONE (16:15)
[2018-01-22] MEDS ORDERED: IV NORMAL SALINE 1000ML BAG 1,000 ML IV ONE (16:15)
[2018-01-22] MEDS ORDERED: fentaNYL PF VIAL 100 MCG/2 ML VIAL IV ONE (16:15)
--- NOTE | 2018-01-22 16:23 | PHYS DOC ---
Past Medical History Past Medical History: Diabetes-Type II Additional Past Medical Histor: CHROHN'S DZ, PTSD, ULCERS Additional Past Surgical Histo: ILEOSTOMY Alcohol Use: None Drug Use: None Adult General Chief Complaint Chief Complaint: ABDOMINAL PAIN HPI HPI 32-year-old female presents to ER with complaints of nausea and vomiting with blood in her emesis. Patient reports she was just discharged from [place] on Sunday following an upper GI bleed. Patient reports yesterday she started having vomiting episodes again and today it was more bloody. Patient reports she has had generalized fatigue. Patient denies any fever, urinary symptoms, chest pain, or shortness of air. Patient reports she was sent home with Carafate, Bentyl, and nausea medicine but has been unable to keep anything down due to vomiting. She has been having trouble getting in to see a GI doctor due to no available appointments at [facility]. She reports she has ileostomy due to history of Crohn's and ulcerative colitis-she reports she had some blood tense output yesterday denying any blood today. LMP last week. Review of Systems Review of Systems Constitutional: Denies fever or chills. Reports fatigue Eyes: Denies change in visual acuity, redness, or eye pain [] HENT: Denies nasal congestion or sore throat [] Respiratory: Denies cough or shortness of breath [] Cardiovascular: No additional information not addressed in HPI [] GI: Reports mid abd pain with nausea and blood- reports blood in emesis. Reports yest. Ileostomy : Denies dysuria or hematuria [] Musculoskeletal: Denies back pain or joint pain [] Integument: Denies rash, swelling or skin lesions [] Neurologic: Denies headache, focal weakness or sensory changes [] All other systems were reviewed and found to be within normal limits, except as documented in this note. Current Medications Current Medications Current Medications Medications (Trade) Dose Ordered Sig/Tia Start Time Stop Time Status Last Admin Dose Admin Fentanyl Citrate (Fentanyl 2ml Vial) 25 mcg 1X ONCE 01/22/18 16:15 01/22/18 16:17 DC 01/22/18 16:49 25 MCG Ondansetron HCl (Zofran) 4 mg 1X ONCE 01/22/18 16:15 01/22/18 16:17 DC 01/22/18 16:50 4 MG Sodium Chloride 1,000 ml @ 1,000 mls/hr 1X ONCE 01/22/18 16:15 01/22/18 17:14 DC 01/22/18 16:48 1,000 MLS/HR Allergies Allergies Allergies Coded Allergies Type Severity Reaction Last Updated Verified Penicillins Allergy Intermediate 01/15/18 Yes ketorolac Allergy Intermediate 01/15/18 Yes Physical Exam Physical Exam Constitutional: Well developed, well nourished, no acute distress, non-toxic appearance. [] HENT: Normocephalic, atraumatic, bilateral ears normal, oropharynx moist, no oral exudates, nose normal. [] Eyes: pupils equal, conjunctiva normal, no discharge. [] Neck: Normal range of motion, no tenderness, supple, no stridor. [] Cardiovascular:Heart rate regular rhythm, no murmur [] Lungs & Thorax: Bilateral breath sounds clear to auscultation respirations equal and nonlabored Abdomen: Bowel sounds normal, soft/no rigidity or distention, no masses, no pulsatile masses. Ileostomy right lower abdomen with no visible blood. Tender to palpation and upper abdomen with no focal area Skin: Warm, dry, no erythema, no rash. [] Back: No tenderness, no CVA tenderness. [] Extremities: No tenderness, no cyanosis, no clubbing, ROM intact, no edema. [] Neurologic: Alert and oriented X 3, normal motor function, normal sensory function, no focal deficits noted. [] Psychologic: Affect normal, judgement normal, mood normal. [] Current Patient Data Vital Signs Vital Signs Date Time Temp Pulse Resp B/P (MAP) Pulse Ox O2 Delivery O2 Flow Rate FiO2 01/22/18 16:49 18 95 Room Air 01/22/18 16:46 69 104/72 (83) 01/22/18 16:01 98.4 98.4 Lab Values Laboratory Tests Test 01/22/18 15:46 01/22/18 15:53 01/22/18 16:14 Urine Collection Type Unknown Urine Color Yellow Urine Clarity Clear Urine pH 6.0 Urine Specific [place] 1.015 Urine Protein Negative mg/dL (NEG-TRACE) Urine Glucose (UA) Negative mg/dL (NEG) Urine Ketones (Stick) Negative mg/dL (NEG) Urine Blood Negative (NEG) Urine Nitrite Negative (NEG) Urine Bilirubin Negative (NEG) Urine Urobilinogen Dipstick 0.2 mg/dL (0.2 mg/dL) Urine Leukocyte Esterase Negative (NEG) Urine RBC 0 /HPF (0-2) Urine WBC Occ /HPF (0-4) Urine Squamous Epithelial Cells Mod /LPF Urine Bacteria Few /HPF (0-FEW) Urine Mucus Mod /LPF POC Urine HCG, Qualitative Hcg negative (Negative) White Blood Count 6.8 x10^3/uL (4.0-11.0) Red Blood Count 5.39 x10^6/uL (3.50-5.40) Hemoglobin 12.0 g/dL (12.0-15.5) Hematocrit 37.6 % (36.0-47.0) Mean Corpuscular Volume 70 fL (79-100) L Mean Corpuscular Hemoglobin 22 pg (25-35) L Mean Corpuscular Hemoglobin Concent 32 g/dL (31-37) Red Cell Distribution Width 24.7 % (11.5-14.5) H Platelet Count 261 x10^3/uL (140-400) Neutrophils (%) (Auto) 58 % (31-73) Lymphocytes (%) (Auto) 31 % (24-48) Monocytes (%) (Auto) 7 % (0-9) Eosinophils (%) (Auto) 4 % (0-3) H Basophils (%) (Auto) 1 % (0-3) Neutrophils # (Auto) 3.9 x10^3uL (1.8-7.7) Lymphocytes # (Auto) 2.1 x10^3/uL (1.0-4.8) Monocytes # (Auto) 0.4 x10^3/uL (0.0-1.1) Eosinophils # (Auto) 0.3 x10^3/uL (0.0-0.7) Basophils # (Auto) 0.1 x10^3/uL (0.0-0.2) Platelet Estimate Adequate (ADEQUATE) Hypochromasia Slight Anisocytosis Mod Microcytosis Slight Sodium Level 137 mmol/L (136-145) Potassium Level 3.7 mmol/L (3.5-5.1) Chloride Level 103 mmol/L (98-107) Carbon Dioxide Level 21 mmol/L (21-32) Anion Gap 13 (6-14) Blood Urea Nitrogen 21 mg/dL (7-20) H Creatinine 0.6 mg/dL (0.6-1.0) Estimated GFR (Cockcroft-Gault) 117.4 BUN/Creatinine Ratio 35 (6-20) H Glucose Level 85 mg/dL (70-99) Calcium Level 9.2 mg/dL (8.5-10.1) Total Bilirubin 0.7 mg/dL (0.2-1.0) Aspartate Amino Transferase (AST) 18 U/L (15-37) Alanine Aminotransferase (ALT) 30 U/L (14-59) Alkaline Phosphatase 93 U/L (46-116) Total Protein 8.2 g/dL (6.4-8.2) Albumin 4.0 g/dL (3.4-5.0) Albumin/Globulin Ratio 1.0 (1.0-1.7) Lipase 191 U/L (73-393) Laboratory Tests 01/22/18 16:14 Laboratory Tests 01/22/18 16:14 EKG EKG [] Radiology/Procedures Radiology/Procedures PROCEDURE: CT ABDOMEN PELVIS WO CONTRAST Examination: CT ABDOMEN PELVIS WO CONTRAST History: HEMATEMESIS Comparison/Correlation: None Findings: Axial images of the abdomen and pelvis were obtained without contrast. Sagittal and coronal reformatted images were provided. Visualized lung bases are clear. Unenhanced liver, spleen, pancreas, and adrenal glands are unremarkable. There is a 0.2 cm diameter right renal inferior pole calyceal calculus. There are no radiopaque left renal calculus. Cholelithiasis is present without findings of cholecystitis or biliary dilatation. Suture material is present involving anterior right mid abdominal and left upper quadrant small bowel. No ascites or extraluminal gas. No pelvic free fluid. No significant distention of bowel. Colon is not identified. Tampon is noted within the vagina. Fibroid involvement of the uterus noted. Bony structures are unremarkable. Impression: No definite obstruction. No ascites or pelvic free fluid. Fibroid involves the uterus. Nonobstructive right renal calculus. Electronically signed by: Julian Noland MD (01/22/2018 10:55 PM) [facility] DICTATED and SIGNED BY: JULIAN NOLAND MD DATE: 01/22/18 2241 Course & Med Decision Making Course & Med Decision Making Pertinent Labs and Imaging studies reviewed. (See chart for details) Patient return to hospital for complaints of abdominal pain, nausea, and blood in emesis. With patient's recent hospitalization with cautery of large GI bleed admission was discussed for further monitoring. Patient did remain stable while in the ER with H&H stable at 12.0/37.6. Pt reports some relief in pain with txs received while in ER. IV flds were given. Pt has had no reported episodes of vomiting while in ER. Test results were discussed with pt- abd/pelivs report with "No definite obstruction. No ascites or pelvic free fluid". Spoke with hospitalist and discussed pt's case along with admission plans. Will consult GI with admit orders. Dragon Disclaimer Dragon Disclaimer This electronic medical record was generated, in whole or in part, using a voice recognition dictation system. Departure Departure Impression: Primary Impression: Nausea & vomiting Additional Impressions: Abdominal pain Hematemesis Disposition: ADMITTED INPATIENT Admitting Physician: Heri Velazquez Condition: GUARDED Referrals: NO PCP (PCP) Problem Qualifiers LUPIS LUX APRN Jan 22, 2018 16:23
[2018-01-22 16:31] LABS: BASO # 0.1 x10^3/uL (0.0-0.2); BASO % 1 % (0-3); EOS # 0.3 x10^3/uL (0.0-0.7); EOS % 4 % (0-3); HEMATOCRIT 37.6 % (36.0-47.0); LYMPH # 2.1 x10^3/uL (1.0-4.8); LYMPH % 31 % (24-48); MEAN CORPUSCULAR HEMOGLOBIN 22 pg (25-35); MEAN CORPUSCULAR HGB CONC 32 g/dL (31-37); MEAN CORPUSCULAR VOLUME 70 fL (79-100); MONO # 0.4 x10^3/uL (0.0-1.1); MONO % 7 % (0-9); NEUT # 3.9 x10^3uL (1.8-7.7); NEUT % 58 % (31-73); PLATELET COUNT 261 x10^3/uL (140-400); RED BLOOD COUNT 5.39 x10^6/uL (3.50-5.40); RED CELL DISTRIBUTION WIDTH 24.7 % (11.5-14.5); WHITE BLOOD COUNT 6.8 x10^3/uL (4.0-11.0)
[2018-01-22 16:36] LABS: CALCIUM 9.2 mg/dL (8.5-10.1); CREATININE 0.6 mg/dL (0.6-1.0); GFR 117.4; POTASSIUM 3.7 mmol/L (3.5-5.1)
[2018-01-22 16:49] LABS: TOTAL BILIRUBIN 0.7 mg/dL (0.2-1.0); TOTAL PROTEIN 8.2 g/dL (6.4-8.2)
[2018-01-22 17:01] LABS: PLT ESTIMATE ADEQUATE (ADEQUATE)
[2018-01-22 17:02] LABS: ANISOCYTOSIS MOD; HYPOCHROMIA SLIGHT; MICROCYTOSIS SLIGHT
[2018-01-22 17:14] LABS: BILIRUBIN,URINE NEGATIVE (NEG); CLARITY,URINE CLEAR; COLOR,URINE YELLOW; NITRITE,URINE NEGATIVE (NEG); PROTEIN,URINE NEGATIVE (NEG-TRACE); UROBILINOGEN,URINE 0.2 mg/dL (0.2 mg/dL)
[2018-01-22 17:40] LABS: BACTERIA,URINE FEW /HPF (0-FEW); RBC,URINE 0 /HPF (0-2); SQUAMOUS EPITHELIAL CELL,UR MOD /LPF; WBC,URINE OCC /HPF (0-4)
--- NOTE | 2018-01-22 18:46 | PDOC1 ---
History and Physical Date of Admission Date of Admission DATE: 01/22/18 TIME: 18:46 Identification/Chief Complaint Chief Complaint seen in er with hematemesis Patient reports she was just discharged from [facility] on Sunday following an upper GI bleed. started having vomiting episodes again and today it was more bloody. Patient reports she has had generalized fatigue. Patient denies any fever, urinary symptoms, chest pain, or shortness of air. reports she was sent home with Carafate, Bentyl, and nausea medicine but has been unable to keep anything down due to vomiting. He has been having trouble getting in to see a GI doctor due to no available appointments at [facility]. reports she has ileostomy due to history of Crohn's and ulcerative colitis saw greater than 30cc of blood in her emesis today Past Medical History Past Medical History Past Medical History: Diabetes-Type II Additional Past Medical Histor: CHROHN'S DZ, PTSD, ULCERS / ugi bleed 12/2017 Additional Past Surgical Histo: ILEOSTOMY Alcohol Use: None Drug Use: None Infectious disease: No pertinent hx Family History Family History: High Cholestrol Social History Smoke: No ALCOHOL: none Drugs: None Current Problem List Problem List Problems Medical Problems: (1) Nausea & vomiting Status: Acute Current Medications Current Medications Current Medications Sodium Chloride 1,000 ml @ 1,000 mls/hr 1X ONCE IV Last administered on 01/22at 16:48; Start 01/22/18 at 16:15; Stop 01/22/18 at 17:14; Status DC Ondansetron HCl (Zofran) 4 mg 1X ONCE IV Last administered on 01/22/18at 16:50 ; Start 01/22/18 at 16:15; Stop 01/22/18 at 16:17; Status DC Fentanyl Citrate (Fentanyl 2ml Vial) 25 mcg 1X ONCE IV Last administered on at 16:49; Start 01/22/18 at 16:15; Stop 01/22/18 at 16:17; Status DC Active Scripts Active [Pantoprazole] 40 MG Tablet.dr 40 Mg PO DAILYAC 60 Days Carafate (Sucralfate) 1 Gm/10 Ml Oral.susp 1 Gm PEG QIDACHS Ondansetron Odt (Ondansetron) 4 Mg Tab.rapdis 4 Mg PO PRN Q6HRS PRN Hydrocodone-Apap 5-325 (Hydrocodone Bit/Acetaminophen) 1 Each Tablet 1 Tab PO PRN Q4HRS PRN Dicyclomine Hcl 10 Mg Capsule 10 Mg PO QID Promethazine Hcl 12.5 Mg Tablet 12.5 Mg PO PRN Q6HRS PRN Allergies Allergies: Coded Allergies: Penicillins (Verified Allergy, Intermediate, 01/15/18) ketorolac (Verified Allergy, Intermediate, 01/15/18) ROS Review of System Review of Systems Constitutional: Denies fever or chills [] Eyes: Denies change in visual acuity, redness, or eye pain [] HENT: Denies nasal congestion or sore throat [] Respiratory: Denies cough or shortness of breath [] Cardiovascular: No additional information not addressed in HPI [] GI: Denies abdominal pain, nausea, vomiting, bloody stools or diarrhea [] : Denies dysuria or hematuria [] Musculoskeletal: Denies back pain or joint pain [] Integument: Denies rash or skin lesions [] Neurologic: Denies headache, focal weakness or sensory changes [] Endocrine: Denies polyuria or polydipsia [] 14 pt systems were reviewed and found to be within normal limits, except as documented Physical Exam Physical Exam Physical Exam Physical Exam Constitutional: Well developed, well nourished, mild acute distress, non-toxic appearance. [] HENT: Normocephalic, atraumatic, bilateral ears normal, oropharynx moist, no oral exudates, nose normal. [] Eyes: pupils equal, conjunctiva normal, no discharge. [] Neck: Normal range of motion, no tenderness, supple, no stridor. [] Cardiovascular:Heart rate regular rhythm, no murmur [] Lungs & Thorax: Bilateral breath sounds clear to auscultation [] Abdomen: Bowel sounds normal, soft, no masses, no pulsatile masses. [] Skin: Warm, dry, no erythema, no rash. [] Back: No tenderness, no CVA tenderness. [] Extremities: No tenderness, no cyanosis, no clubbing, ROM intact, no edema. [] Neurologic: Alert and oriented X 3, normal motor function, normal sensory function, no focal deficits noted. [] Psychologic: Affect normal, judgement normal, mood normal. [] General: Oriented X3, Cooperative Lungs: Clear to auscultation Breasts: Not examined Abdomen: Soft Rectal Exam: not examined Neuro: Normal speech, Cranial nerves 3-12 NL Psych/Mental Status: Mental status NL, Mood NL Vitals Vitals Vital Signs Date Time Temp Pulse Resp B/P (MAP) Pulse Ox O2 Delivery O2 Flow Rate FiO2 01/22/18 16:49 18 95 Room Air 01/22/18 16:01 98.4 71 120/73 (89) 98.4 Labs Labs Laboratory Tests Test 01/22/18 15:46 01/22/18 15:53 01/22/18 16:14 Urine Collection Type Unknown Urine Color Yellow Urine Clarity Clear Urine pH 6.0 Urine Specific [place] 1.015 Urine Protein Negative mg/dL (NEG-TRACE) Urine Glucose (UA) Negative mg/dL (NEG) Urine Ketones (Stick) Negative mg/dL (NEG) Urine Blood Negative (NEG) Urine Nitrite Negative (NEG) Urine Bilirubin Negative (NEG) Urine Urobilinogen Dipstick 0.2 mg/dL (0.2 mg/dL) Urine Leukocyte Esterase Negative (NEG) Urine RBC 0 /HPF (0-2) Urine WBC Occ /HPF (0-4) Urine Squamous Epithelial Cells Mod /LPF Urine Bacteria Few /HPF (0-FEW) Urine Mucus Mod /LPF Bedside Urine HCG, Qualitative Hcg negative (Negative) White Blood Count 6.8 x10^3/uL (4.0-11.0) Red Blood Count 5.39 x10^6/uL (3.50-5.40) Hemoglobin 12.0 g/dL (12.0-15.5) Hematocrit 37.6 % (36.0-47.0) Mean Corpuscular Volume 70 fL (79-100) Mean Corpuscular Hemoglobin 22 pg (25-35) Mean Corpuscular Hemoglobin Concent 32 g/dL (31-37) Red Cell Distribution Width 24.7 % (11.5-14.5) Platelet Count 261 x10^3/uL (140-400) Neutrophils (%) (Auto) 58 % (31-73) Lymphocytes (%) (Auto) 31 % (24-48) Monocytes (%) (Auto) 7 % (0-9) Eosinophils (%) (Auto) 4 % (0-3) Basophils (%) (Auto) 1 % (0-3) Neutrophils # (Auto) 3.9 x10^3uL (1.8-7.7) Lymphocytes # (Auto) 2.1 x10^3/uL (1.0-4.8) Monocytes # (Auto) 0.4 x10^3/uL (0.0-1.1) Eosinophils # (Auto) 0.3 x10^3/uL (0.0-0.7) Basophils # (Auto) 0.1 x10^3/uL (0.0-0.2) Platelet Estimate Adequate (ADEQUATE) Hypochromasia Slight Anisocytosis Mod Microcytosis Slight Sodium Level 137 mmol/L (136-145) Potassium Level 3.7 mmol/L (3.5-5.1) Chloride Level 103 mmol/L (98-107) Carbon Dioxide Level 21 mmol/L (21-32) Anion Gap 13 (6-14) Blood Urea Nitrogen 21 mg/dL (7-20) Creatinine 0.6 mg/dL (0.6-1.0) Estimated GFR (Cockcroft-Gault) 117.4 BUN/Creatinine Ratio 35 (6-20) Glucose Level 85 mg/dL (70-99) Calcium Level 9.2 mg/dL (8.5-10.1) Total Bilirubin 0.7 mg/dL (0.2-1.0) Aspartate Amino Transf (AST/SGOT) 18 U/L (15-37) Alanine Aminotransferase (ALT/SGPT) 30 U/L (14-59) Alkaline Phosphatase 93 U/L (46-116) Total Protein 8.2 g/dL (6.4-8.2) Albumin 4.0 g/dL (3.4-5.0) Albumin/Globulin Ratio 1.0 (1.0-1.7) Lipase 191 U/L (73-393) Laboratory Tests Test 01/22/18 15:46 01/22/18 15:53 01/22/18 16:14 Urine Collection Type Unknown Urine Color Yellow Urine Clarity Clear Urine pH 6.0 Urine Specific [place] 1.015 Urine Protein Negative mg/dL (NEG-TRACE) Urine Glucose (UA) Negative mg/dL (NEG) Urine Ketones (Stick) Negative mg/dL (NEG) Urine Blood Negative (NEG) Urine Nitrite Negative (NEG) Urine Bilirubin Negative (NEG) Urine Urobilinogen Dipstick 0.2 mg/dL (0.2 mg/dL) Urine Leukocyte Esterase Negative (NEG) Urine RBC 0 /HPF (0-2) Urine WBC Occ /HPF (0-4) Urine Squamous Epithelial Cells Mod /LPF Urine Bacteria Few /HPF (0-FEW) Urine Mucus Mod /LPF Bedside Urine HCG, Qualitative Hcg negative (Negative) White Blood Count 6.8 x10^3/uL (4.0-11.0) Red Blood Count 5.39 x10^6/uL (3.50-5.40) Hemoglobin 12.0 g/dL (12.0-15.5) Hematocrit 37.6 % (36.0-47.0) Mean Corpuscular Volume 70 fL (79-100) Mean Corpuscular Hemoglobin 22 pg (25-35) Mean Corpuscular Hemoglobin Concent 32 g/dL (31-37) Red Cell Distribution Width 24.7 % (11.5-14.5) Platelet Count 261 x10^3/uL (140-400) Neutrophils (%) (Auto) 58 % (31-73) Lymphocytes (%) (Auto) 31 % (24-48) Monocytes (%) (Auto) 7 % (0-9) Eosinophils (%) (Auto) 4 % (0-3) Basophils (%) (Auto) 1 % (0-3) Neutrophils # (Auto) 3.9 x10^3uL (1.8-7.7) Lymphocytes # (Auto) 2.1 x10^3/uL (1.0-4.8) Monocytes # (Auto) 0.4 x10^3/uL (0.0-1.1) Eosinophils # (Auto) 0.3 x10^3/uL (0.0-0.7) Basophils # (Auto) 0.1 x10^3/uL (0.0-0.2) Platelet Estimate Adequate (ADEQUATE) Hypochromasia Slight Anisocytosis Mod Microcytosis Slight Sodium Level 137 mmol/L (136-145) Potassium Level 3.7 mmol/L (3.5-5.1) Chloride Level 103 mmol/L (98-107) Carbon Dioxide Level 21 mmol/L (21-32) Anion Gap 13 (6-14) Blood Urea Nitrogen 21 mg/dL (7-20) Creatinine 0.6 mg/dL (0.6-1.0) Estimated GFR (Cockcroft-Gault) 117.4 BUN/Creatinine Ratio 35 (6-20) Glucose Level 85 mg/dL (70-99) Calcium Level 9.2 mg/dL (8.5-10.1) Total Bilirubin 0.7 mg/dL (0.2-1.0) Aspartate Amino Transf (AST/SGOT) 18 U/L (15-37) Alanine Aminotransferase (ALT/SGPT) 30 U/L (14-59) Alkaline Phosphatase 93 U/L (46-116) Total Protein 8.2 g/dL (6.4-8.2) Albumin 4.0 g/dL (3.4-5.0) Albumin/Globulin Ratio 1.0 (1.0-1.7) Lipase 191 U/L (73-393) VTE Prophylaxis Ordered VTE Prophylaxis Devices: Yes VTE Pharmacological Prophylaxi: Contraindicated Assessment/Plan Assessment/Plan impression Hematemesis, anemia Large GI bleed via EGD 01/15 s/p epi injection Acute blood loss anemia s.p BT H/o PUD and Dieulafoy's w/ recurrent GI bleeding - says last EGD 3 weeks ago @ [facility], on Carafate and PPI S/p gastrojejunostomy revision w/ Charleen-en-Y reconstruction (2017) H/o Crohn's disease s/p colectomy w/ ileostomy and proctectomy - can document normal ileoscopy by Dr. Mendoza in 2017 Cholelithiasis - noted on CT ?h/o pancreatitis plan cvc admit gi consult h/h q 8 hrs npo iv fluids scd's protonix drip iv zofran q 4 hrs prn IMER PATE MD Jan 22, 2018 18:46
[2018-01-22] MEDS ORDERED: fentaNYL PF VIAL 100 MCG/2 ML VIAL IV PRN (19:00)
[2018-01-22] MEDS ORDERED: ONDANSETRON PF 4 MG/2 ML VIAL. IV PRN (19:00)
[2018-01-22 19:42] VITALS: BP 114/59
[2018-01-22] MEDS: MORPHINE SULFATE 2 MG/ML VIAL. IV PRN (21:12)
[2018-01-22] MEDS: DICYCLOMINE HCL 10 MG CAPSULE PO SCH (21:56)
[2018-01-22] MEDS: SUCRALFATE 1 GM/10 ML ORAL.SUSP. PEG SCH (21:56)
[2018-01-22] MEDS ORDERED: PROMETHAZINE 12.5 MG TABLET. PO PRN (22:00)
[2018-01-22] MEDS ORDERED: ONDANSETRON ODT 4 MG TAB.RAPDIS. PO PRN (22:00)
[2018-01-22] MEDS ORDERED: HYDROcodone/APAP 5/325MG 1 TAB TABLET PO PRN (22:00)
[2018-01-22] MEDS: IV NORMAL SALINE 1000ML BAG 1,000 ML IV SCH (22:24)
[2018-01-22] MEDS: PANTOPRAZOLE SODIUM IV DRIP 80 MG in IV NORMAL SALINE 100ML 100 ML IV SCH (22:24)
--- NOTE | 2018-01-22 22:58 | RAD ---
Examination: CT ABDOMEN PELVIS WO CONTRAST History: HEMATEMESIS Comparison/Correlation: None Findings: Axial images of the abdomen and pelvis were obtained without contrast. Sagittal and coronal reformatted images were provided. Visualized lung bases are clear. Unenhanced liver, spleen, pancreas, and adrenal glands are unremarkable. There is a 0.2 cm diameter right renal inferior pole calyceal calculus. There are no radiopaque left renal calculus. Cholelithiasis is present without findings of cholecystitis or biliary dilatation. Suture material is present involving anterior right mid abdominal and left upper quadrant small bowel. No ascites or extraluminal gas. No pelvic free fluid. No significant distention of bowel. Colon is not identified. Tampon is noted within the vagina. Fibroid involvement of the uterus noted. Bony structures are unremarkable. Impression: No definite obstruction. No ascites or pelvic free fluid. Fibroid involves the uterus. Nonobstructive right renal calculus. Electronically signed by: Julian Pablo MD (01/22/2018 10:55 PM) [facility]
[2018-01-22 23:07] VITALS: BP 107/65
[2018-01-23] MEDS: MORPHINE SULFATE 2 MG/ML VIAL. IV PRN ×4 (00:17→10:04)
[2018-01-23 03:23] VITALS: BP 98/55
[2018-01-23 05:45] LABS: BASO # 0.1 x10^3/uL (0.0-0.2); BASO % 1 % (0-3); EOS # 0.4 x10^3/uL (0.0-0.7); EOS % 7 % (0-3); HEMATOCRIT 34.6 % (36.0-47.0); LYMPH # 2.3 x10^3/uL (1.0-4.8); LYMPH % 34 % (24-48); MEAN CORPUSCULAR HEMOGLOBIN 22 pg (25-35); MEAN CORPUSCULAR HGB CONC 32 g/dL (31-37); MEAN CORPUSCULAR VOLUME 70 fL (79-100); MONO # 0.5 x10^3/uL (0.0-1.1); MONO % 7 % (0-9); NEUT # 3.5 x10^3uL (1.8-7.7); NEUT % 51 % (31-73); PLATELET COUNT 237 x10^3/uL (140-400); RED BLOOD COUNT 4.93 x10^6/uL (3.50-5.40); RED CELL DISTRIBUTION WIDTH 25.1 % (11.5-14.5); WHITE BLOOD COUNT 6.8 x10^3/uL (4.0-11.0)
[2018-01-23] MEDS: PANTOPRAZOLE SODIUM IV DRIP 80 MG in IV NORMAL SALINE 100ML 100 ML IV SCH (06:10)
[2018-01-23] MEDS: ONDANSETRON PF 4 MG/2 ML VIAL. IV PRN ×2 (06:15→13:12)
[2018-01-23] MEDS: SUCRALFATE 1 GM/10 ML ORAL.SUSP. PEG SCH ×2 (07:30→13:27)
[2018-01-23 07:40] VITALS: BP 88/54
[2018-01-23] MEDS: IV NORMAL SALINE 1000ML BAG 1,000 ML IV SCH (08:14)
[2018-01-23] MEDS: DICYCLOMINE HCL 10 MG CAPSULE PO SCH ×2 (08:28→13:27)
--- NOTE | 2018-01-23 09:00 | PDOC ---
Subjective: Subjective: Please see GI consult, EGD report, and progress notes from last week. [place] fairly well after DC on 01/18 - taking Carafate, Protonix, Bentyl, and anti -emetics at home and tolerating soups her mom made. Over the weekend had some vomiting w/ streaks of red blood "like I usually do," then vomited a blood clot yesterday. Did have some increased abd pain yesterday and took one hydrocodone. Ostomy is functioning - saw some scant red blood in bag yesterday but none today. Currently, has some stabbing pain in right chest over ribs, some to epigastrium. Chronic abd pain has been better w/ Bentyl. Says someone called either from the hospital or the office to check on her and they told her she needed to come back to the hospital. Came to ER, says she didn't want to be admitted but she wanted to do what the doctor said. Denies bleeding since arriving at the hospital. Objective: Vital Signs: Vital Signs Date Time Temp Pulse Resp B/P (MAP) Pulse Ox O2 Delivery O2 Flow Rate FiO2 01/23/18 07:40 98.4 67 16 88/54 (65) 96 Room Air 98.4 Labs: Laboratory Tests Test 01/22/18 15:46 01/22/18 15:53 01/22/18 16:14 01/22/18 20:33 Urine Collection Type Unknown Urine Color Yellow Urine Clarity Clear Urine pH 6.0 Urine Specific [place] 1.015 Urine Protein Negative mg/dL Urine Glucose (UA) Negative mg/dL Urine Ketones (Stick) Negative mg/dL Urine Blood Negative Urine Nitrite Negative Urine Bilirubin Negative Urine Urobilinogen Dipstick 0.2 mg/dL Urine Leukocyte Esterase Negative Urine RBC 0 /HPF Urine WBC Occ /HPF Urine Squamous Epithelial Cells Mod /LPF Urine Bacteria Few /HPF Urine Mucus Mod /LPF Bedside Urine HCG, Qualitative Hcg negative White Blood Count 6.8 x10^3/uL Red Blood Count 5.39 x10^6/uL Hemoglobin 12.0 g/dL Hematocrit 37.6 % Mean Corpuscular Volume 70 fL Mean Corpuscular Hemoglobin 22 pg Mean Corpuscular Hemoglobin Concent 32 g/dL Red Cell Distribution Width 24.7 % Platelet Count 261 x10^3/uL Neutrophils (%) (Auto) 58 % Lymphocytes (%) (Auto) 31 % Monocytes (%) (Auto) 7 % Eosinophils (%) (Auto) 4 % Basophils (%) (Auto) 1 % Neutrophils # (Auto) 3.9 x10^3uL Lymphocytes # (Auto) 2.1 x10^3/uL Monocytes # (Auto) 0.4 x10^3/uL Eosinophils # (Auto) 0.3 x10^3/uL Basophils # (Auto) 0.1 x10^3/uL Platelet Estimate Adequate Hypochromasia Slight Anisocytosis Mod Microcytosis Slight Sodium Level 137 mmol/L Potassium Level 3.7 mmol/L Chloride Level 103 mmol/L Carbon Dioxide Level 21 mmol/L Anion Gap 13 Blood Urea Nitrogen 21 mg/dL Creatinine 0.6 mg/dL Estimated GFR (Cockcroft-Gault) 117.4 BUN/Creatinine Ratio 35 Glucose Level 85 mg/dL Calcium Level 9.2 mg/dL Total Bilirubin 0.7 mg/dL Aspartate Amino Transf (AST/SGOT) 18 U/L Alanine Aminotransferase (ALT/SGPT) 30 U/L Alkaline Phosphatase 93 U/L Total Protein 8.2 g/dL Albumin 4.0 g/dL Albumin/Globulin Ratio 1.0 Lipase 191 U/L Glucose (Fingerstick) 107 mg/dL Test 01/23/18 05:10 White Blood Count 6.8 x10^3/uL Red Blood Count 4.93 x10^6/uL Hemoglobin 11.0 g/dL Hematocrit 34.6 % Mean Corpuscular Volume 70 fL Mean Corpuscular Hemoglobin 22 pg Mean Corpuscular Hemoglobin Concent 32 g/dL Red Cell Distribution Width 25.1 % Platelet Count 237 x10^3/uL Neutrophils (%) (Auto) 51 % Lymphocytes (%) (Auto) 34 % Monocytes (%) (Auto) 7 % Eosinophils (%) (Auto) 7 % Basophils (%) (Auto) 1 % Neutrophils # (Auto) 3.5 x10^3uL Lymphocytes # (Auto) 2.3 x10^3/uL Monocytes # (Auto) 0.5 x10^3/uL Eosinophils # (Auto) 0.4 x10^3/uL Basophils # (Auto) 0.1 x10^3/uL PE: GEN: NAD HEENT: Atraumatic, PERRL LUNGS: CTAB HEART: RRR ABD: NABS, S/ND, RLQ ostomy w/ light brown stool and gas, right chest/ribs tender w/ discomfort in epigastrium - less tender compared to last week EXTREMITY: No edema SKIN: No rashes, no jaundice NEURO/PSYCH: A & O 3 A/P: Recurrent hematemesis Chronic abd pain - better w/ Bentyl MW tear s/p inj 01/15/18 S/p Charleen-en-Y - no bleeding at anastomosis last week, did note endoclip in place , has been on Carafate and PPI H/o Crohn's s/p colectomy w/ ileostomy -- Hgb improved compared to last week, BUN was elevated at 21. Reviewed w/ Dr. Latham. Continue Carafate, PPI, and Bentyl. As last week, would avoid pain meds if possible - has morphine and hydrocodone ordered. Try clears - if tolerates, can advance to full liquids and consider DCPATI LEON Jan 23, 2018 09:00
[2018-01-23 10:11] LABS: CREATININE 0.6 mg/dL (0.6-1.0); GFR 117.4; POTASSIUM 3.7 mmol/L (3.5-5.1)
[2018-01-23 10:45] VITALS: BP 98/56
--- NOTE | 2018-01-23 12:23 | PDOC ---
PROGRESS NOTES Chief Complaint Chief Complaint Acute hematemesis Acute anemia H/o large GI bleed via EGD 01/15 s/p epi injection H/o PUD H/o gastrojejunostomy revision w/Charleen-en-Y reconstruction (2017) H/o Crohn's disease s/p colectomy w/ileostomy and proctectomy H/o cholelithiasis History of Present Illness History of Present Illness Pt seen and examined while sitting up in bed Discussed plan w/pt Discussed w/RN Vitals Vitals Vital Signs Date Time Temp Pulse Resp B/P (MAP) Pulse Ox O2 Delivery O2 Flow Rate FiO2 01/23/18 10:45 97.5 71 16 98/56 (70) 95 Room Air 97.5 Physical Exam Physical Exam HEENT: PORSCHE b/l Neck: Supple. No JVD General: Alert, Oriented X3, Cooperative, mild distress (abdominal pain and nauseated) Heart: Regular rate, No murmurs Lungs: Clear Abdomen: Soft, Other (Tender abdomen and epigastrum, RLQ ostomy) Extremities: No edema Skin: No rashes Labs LABS Laboratory Tests Test 01/22/18 15:46 01/22/18 15:53 01/22/18 16:14 01/22/18 20:33 Urine Collection Type Unknown Urine Color Yellow Urine Clarity Clear Urine pH 6.0 Urine Specific [place] 1.015 Urine Protein Negative mg/dL (NEG-TRACE) Urine Glucose (UA) Negative mg/dL (NEG) Urine Ketones (Stick) Negative mg/dL (NEG) Urine Blood Negative (NEG) Urine Nitrite Negative (NEG) Urine Bilirubin Negative (NEG) Urine Urobilinogen Dipstick 0.2 mg/dL (0.2 mg/dL) Urine Leukocyte Esterase Negative (NEG) Urine RBC 0 /HPF (0-2) Urine WBC Occ /HPF (0-4) Urine Squamous Epithelial Cells Mod /LPF Urine Bacteria Few /HPF (0-FEW) Urine Mucus Mod /LPF Bedside Urine HCG, Qualitative Hcg negative (Negative) White Blood Count 6.8 x10^3/uL (4.0-11.0) Red Blood Count 5.39 x10^6/uL (3.50-5.40) Hemoglobin 12.0 g/dL (12.0-15.5) Hematocrit 37.6 % (36.0-47.0) Mean Corpuscular Volume 70 fL (79-100) Mean Corpuscular Hemoglobin 22 pg (25-35) Mean Corpuscular Hemoglobin Concent 32 g/dL (31-37) Red Cell Distribution Width 24.7 % (11.5-14.5) Platelet Count 261 x10^3/uL (140-400) Neutrophils (%) (Auto) 58 % (31-73) Lymphocytes (%) (Auto) 31 % (24-48) Monocytes (%) (Auto) 7 % (0-9) Eosinophils (%) (Auto) 4 % (0-3) Basophils (%) (Auto) 1 % (0-3) Neutrophils # (Auto) 3.9 x10^3uL (1.8-7.7) Lymphocytes # (Auto) 2.1 x10^3/uL (1.0-4.8) Monocytes # (Auto) 0.4 x10^3/uL (0.0-1.1) Eosinophils # (Auto) 0.3 x10^3/uL (0.0-0.7) Basophils # (Auto) 0.1 x10^3/uL (0.0-0.2) Platelet Estimate Adequate (ADEQUATE) Hypochromasia Slight Anisocytosis Mod Microcytosis Slight Sodium Level 137 mmol/L (136-145) Potassium Level 3.7 mmol/L (3.5-5.1) Chloride Level 103 mmol/L (98-107) Carbon Dioxide Level 21 mmol/L (21-32) Anion Gap 13 (6-14) Blood Urea Nitrogen 21 mg/dL (7-20) Creatinine 0.6 mg/dL (0.6-1.0) Estimated GFR (Cockcroft-Gault) 117.4 BUN/Creatinine Ratio 35 (6-20) Glucose Level 85 mg/dL (70-99) Calcium Level 9.2 mg/dL (8.5-10.1) Total Bilirubin 0.7 mg/dL (0.2-1.0) Aspartate Amino Transf (AST/SGOT) 18 U/L (15-37) Alanine Aminotransferase (ALT/SGPT) 30 U/L (14-59) Alkaline Phosphatase 93 U/L (46-116) Total Protein 8.2 g/dL (6.4-8.2) Albumin 4.0 g/dL (3.4-5.0) Albumin/Globulin Ratio 1.0 (1.0-1.7) Lipase 191 U/L (73-393) Glucose (Fingerstick) 107 mg/dL (70-99) Test 01/23/18 05:10 01/23/18 09:30 White Blood Count 6.8 x10^3/uL (4.0-11.0) Red Blood Count 4.93 x10^6/uL (3.50-5.40) Hemoglobin 11.0 g/dL (12.0-15.5) Hematocrit 34.6 % (36.0-47.0) Mean Corpuscular Volume 70 fL (79-100) Mean Corpuscular Hemoglobin 22 pg (25-35) Mean Corpuscular Hemoglobin Concent 32 g/dL (31-37) Red Cell Distribution Width 25.1 % (11.5-14.5) Platelet Count 237 x10^3/uL (140-400) Neutrophils (%) (Auto) 51 % (31-73) Lymphocytes (%) (Auto) 34 % (24-48) Monocytes (%) (Auto) 7 % (0-9) Eosinophils (%) (Auto) 7 % (0-3) Basophils (%) (Auto) 1 % (0-3) Neutrophils # (Auto) 3.5 x10^3uL (1.8-7.7) Lymphocytes # (Auto) 2.3 x10^3/uL (1.0-4.8) Monocytes # (Auto) 0.5 x10^3/uL (0.0-1.1) Eosinophils # (Auto) 0.4 x10^3/uL (0.0-0.7) Basophils # (Auto) 0.1 x10^3/uL (0.0-0.2) Sodium Level 140 mmol/L (136-145) Potassium Level 3.7 mmol/L (3.5-5.1) Chloride Level 109 mmol/L (98-107) Carbon Dioxide Level 23 mmol/L (21-32) Anion Gap 8 (6-14) Blood Urea Nitrogen 8 mg/dL (7-20) Creatinine 0.6 mg/dL (0.6-1.0) Estimated GFR (Cockcroft-Gault) 117.4 Glucose Level 84 mg/dL (70-99) Calcium Level 8.0 mg/dL (8.5-10.1) Review of Systems Review of Systems C/o nausea and abdominal pain Pt stated she vomited once earlier today and reported about a teaspoon of blood in her vomit Assessment and Plan Assessmemt and Plan Problems Medical Problems: (1) Nausea & vomiting Status: Acute Assessment: Acute hematemesis Acute anemia H/o large GI bleed via EGD 01/15 s/p epi injection H/o PUD H/o gastrojejunostomy revision w/Charleen-en-Y reconstruction (2016) H/o Crohn's disease s/p colectomy w/ileostomy and proctectomy H/o cholelithiasis plan Appreciate GI PPI PRN pain meds PRN antiemetics Labs IVF DVT ppx Comment Review of Relevant I have reviewed the following items [place] (where applicable) has been applied. Labs Laboratory Tests Test 01/22/18 15:46 01/22/18 15:53 01/22/18 16:14 01/22/18 20:33 Urine Collection Type Unknown Urine Color Yellow Urine Clarity Clear Urine pH 6.0 Urine Specific [place] 1.015 Urine Protein Negative mg/dL (NEG-TRACE) Urine Glucose (UA) Negative mg/dL (NEG) Urine Ketones (Stick) Negative mg/dL (NEG) Urine Blood Negative (NEG) Urine Nitrite Negative (NEG) Urine Bilirubin Negative (NEG) Urine Urobilinogen Dipstick 0.2 mg/dL (0.2 mg/dL) Urine Leukocyte Esterase Negative (NEG) Urine RBC 0 /HPF (0-2) Urine WBC Occ /HPF (0-4) Urine Squamous Epithelial Cells Mod /LPF Urine Bacteria Few /HPF (0-FEW) Urine Mucus Mod /LPF Bedside Urine HCG, Qualitative Hcg negative (Negative) White Blood Count 6.8 x10^3/uL (4.0-11.0) Red Blood Count 5.39 x10^6/uL (3.50-5.40) Hemoglobin 12.0 g/dL (12.0-15.5) Hematocrit 37.6 % (36.0-47.0) Mean Corpuscular Volume 70 fL (79-100) Mean Corpuscular Hemoglobin 22 pg (25-35) Mean Corpuscular Hemoglobin Concent 32 g/dL (31-37) Red Cell Distribution Width 24.7 % (11.5-14.5) Platelet Count 261 x10^3/uL (140-400) Neutrophils (%) (Auto) 58 % (31-73) Lymphocytes (%) (Auto) 31 % (24-48) Monocytes (%) (Auto) 7 % (0-9) Eosinophils (%) (Auto) 4 % (0-3) Basophils (%) (Auto) 1 % (0-3) Neutrophils # (Auto) 3.9 x10^3uL (1.8-7.7) Lymphocytes # (Auto) 2.1 x10^3/uL (1.0-4.8) Monocytes # (Auto) 0.4 x10^3/uL (0.0-1.1) Eosinophils # (Auto) 0.3 x10^3/uL (0.0-0.7) Basophils # (Auto) 0.1 x10^3/uL (0.0-0.2) Platelet Estimate Adequate (ADEQUATE) Hypochromasia Slight Anisocytosis Mod Microcytosis Slight Sodium Level 137 mmol/L (136-145) Potassium Level 3.7 mmol/L (3.5-5.1) Chloride Level 103 mmol/L (98-107) Carbon Dioxide Level 21 mmol/L (21-32) Anion Gap 13 (6-14) Blood Urea Nitrogen 21 mg/dL (7-20) Creatinine 0.6 mg/dL (0.6-1.0) Estimated GFR (Cockcroft-Gault) 117.4 BUN/Creatinine Ratio 35 (6-20) Glucose Level 85 mg/dL (70-99) Calcium Level 9.2 mg/dL (8.5-10.1) Total Bilirubin 0.7 mg/dL (0.2-1.0) Aspartate Amino Transf (AST/SGOT) 18 U/L (15-37) Alanine Aminotransferase (ALT/SGPT) 30 U/L (14-59) Alkaline Phosphatase 93 U/L (46-116) Total Protein 8.2 g/dL (6.4-8.2) Albumin 4.0 g/dL (3.4-5.0) Albumin/Globulin Ratio 1.0 (1.0-1.7) Lipase 191 U/L (73-393) Glucose (Fingerstick) 107 mg/dL (70-99) Test 01/23/18 05:10 01/23/18 09:30 White Blood Count 6.8 x10^3/uL (4.0-11.0) Red Blood Count 4.93 x10^6/uL (3.50-5.40) Hemoglobin 11.0 g/dL (12.0-15.5) Hematocrit 34.6 % (36.0-47.0) Mean Corpuscular Volume 70 fL (79-100) Mean Corpuscular Hemoglobin 22 pg (25-35) Mean Corpuscular Hemoglobin Concent 32 g/dL (31-37) Red Cell Distribution Width 25.1 % (11.5-14.5) Platelet Count 237 x10^3/uL (140-400) Neutrophils (%) (Auto) 51 % (31-73) Lymphocytes (%) (Auto) 34 % (24-48) Monocytes (%) (Auto) 7 % (0-9) Eosinophils (%) (Auto) 7 % (0-3) Basophils (%) (Auto) 1 % (0-3) Neutrophils # (Auto) 3.5 x10^3uL (1.8-7.7) Lymphocytes # (Auto) 2.3 x10^3/uL (1.0-4.8) Monocytes # (Auto) 0.5 x10^3/uL (0.0-1.1) Eosinophils # (Auto) 0.4 x10^3/uL (0.0-0.7) Basophils # (Auto) 0.1 x10^3/uL (0.0-0.2) Sodium Level 140 mmol/L (136-145) Potassium Level 3.7 mmol/L (3.5-5.1) Chloride Level 109 mmol/L (98-107) Carbon Dioxide Level 23 mmol/L (21-32) Anion Gap 8 (6-14) Blood Urea Nitrogen 8 mg/dL (7-20) Creatinine 0.6 mg/dL (0.6-1.0) Estimated GFR (Cockcroft-Gault) 117.4 Glucose Level 84 mg/dL (70-99) Calcium Level 8.0 mg/dL (8.5-10.1) Laboratory Tests Test 01/22/18 15:46 01/22/18 15:53 01/22/18 16:14 01/22/18 20:33 Urine Collection Type Unknown Urine Color Yellow Urine Clarity Clear Urine pH 6.0 Urine Specific [place] 1.015 Urine Protein Negative mg/dL (NEG-TRACE) Urine Glucose (UA) Negative mg/dL (NEG) Urine Ketones (Stick) Negative mg/dL (NEG) Urine Blood Negative (NEG) Urine Nitrite Negative (NEG) Urine Bilirubin Negative (NEG) Urine Urobilinogen Dipstick 0.2 mg/dL (0.2 mg/dL) Urine Leukocyte Esterase Negative (NEG) Urine RBC 0 /HPF (0-2) Urine WBC Occ /HPF (0-4) Urine Squamous Epithelial Cells Mod /LPF Urine Bacteria Few /HPF (0-FEW) Urine Mucus Mod /LPF Bedside Urine HCG, Qualitative Hcg negative (Negative) White Blood Count 6.8 x10^3/uL (4.0-11.0) Red Blood Count 5.39 x10^6/uL (3.50-5.40) Hemoglobin 12.0 g/dL (12.0-15.5) Hematocrit 37.6 % (36.0-47.0) Mean Corpuscular Volume 70 fL (79-100) Mean Corpuscular Hemoglobin 22 pg (25-35) Mean Corpuscular Hemoglobin Concent 32 g/dL (31-37) Red Cell Distribution Width 24.7 % (11.5-14.5) Platelet Count 261 x10^3/uL (140-400) Neutrophils (%) (Auto) 58 % (31-73) Lymphocytes (%) (Auto) 31 % (24-48) Monocytes (%) (Auto) 7 % (0-9) Eosinophils (%) (Auto) 4 % (0-3) Basophils (%) (Auto) 1 % (0-3) Neutrophils # (Auto) 3.9 x10^3uL (1.8-7.7) Lymphocytes # (Auto) 2.1 x10^3/uL (1.0-4.8) Monocytes # (Auto) 0.4 x10^3/uL (0.0-1.1) Eosinophils # (Auto) 0.3 x10^3/uL (0.0-0.7) Basophils # (Auto) 0.1 x10^3/uL (0.0-0.2) Platelet Estimate Adequate (ADEQUATE) Hypochromasia Slight Anisocytosis Mod Microcytosis Slight Sodium Level 137 mmol/L (136-145) Potassium Level 3.7 mmol/L (3.5-5.1) Chloride Level 103 mmol/L (98-107) Carbon Dioxide Level 21 mmol/L (21-32) Anion Gap 13 (6-14) Blood Urea Nitrogen 21 mg/dL (7-20) Creatinine 0.6 mg/dL (0.6-1.0) Estimated GFR (Cockcroft-Gault) 117.4 BUN/Creatinine Ratio 35 (6-20) Glucose Level 85 mg/dL (70-99) Calcium Level 9.2 mg/dL (8.5-10.1) Total Bilirubin 0.7 mg/dL (0.2-1.0) Aspartate Amino Transf (AST/SGOT) 18 U/L (15-37) Alanine Aminotransferase (ALT/SGPT) 30 U/L (14-59) Alkaline Phosphatase 93 U/L (46-116) Total Protein 8.2 g/dL (6.4-8.2) Albumin 4.0 g/dL (3.4-5.0) Albumin/Globulin Ratio 1.0 (1.0-1.7) Lipase 191 U/L (73-393) Glucose (Fingerstick) 107 mg/dL (70-99) Test 01/23/18 05:10 01/23/18 09:30 White Blood Count 6.8 x10^3/uL (4.0-11.0) Red Blood Count 4.93 x10^6/uL (3.50-5.40) Hemoglobin 11.0 g/dL (12.0-15.5) Hematocrit 34.6 % (36.0-47.0) Mean Corpuscular Volume 70 fL (79-100) Mean Corpuscular Hemoglobin 22 pg (25-35) Mean Corpuscular Hemoglobin Concent 32 g/dL (31-37) Red Cell Distribution Width 25.1 % (11.5-14.5) Platelet Count 237 x10^3/uL (140-400) Neutrophils (%) (Auto) 51 % (31-73) Lymphocytes (%) (Auto) 34 % (24-48) Monocytes (%) (Auto) 7 % (0-9) Eosinophils (%) (Auto) 7 % (0-3) Basophils (%) (Auto) 1 % (0-3) Neutrophils # (Auto) 3.5 x10^3uL (1.8-7.7) Lymphocytes # (Auto) 2.3 x10^3/uL (1.0-4.8) Monocytes # (Auto) 0.5 x10^3/uL (0.0-1.1) Eosinophils # (Auto) 0.4 x10^3/uL (0.0-0.7) Basophils # (Auto) 0.1 x10^3/uL (0.0-0.2) Sodium Level 140 mmol/L (136-145) Potassium Level 3.7 mmol/L (3.5-5.1) Chloride Level 109 mmol/L (98-107) Carbon Dioxide Level 23 mmol/L (21-32) Anion Gap 8 (6-14) Blood Urea Nitrogen 8 mg/dL (7-20) Creatinine 0.6 mg/dL (0.6-1.0) Estimated GFR (Cockcroft-Gault) 117.4 Glucose Level 84 mg/dL (70-99) Calcium Level 8.0 mg/dL (8.5-10.1) Medications Current Medications Sodium Chloride 1,000 ml @ 1,000 mls/hr 1X ONCE IV Last administered on 01/22at 16:48; Start 01/22/18 at 16:15; Stop 01/22/18 at 17:14; Status DC Ondansetron HCl (Zofran) 4 mg 1X ONCE IV Last administered on 01/22/18at 16:50 ; Start 01/22/18 at 16:15; Stop 01/22/18 at 16:17; Status DC Fentanyl Citrate (Fentanyl 2ml Vial) 25 mcg 1X ONCE IV Last administered on at 16:49; Start 01/22/18 at 16:15; Stop 01/22/18 at 16:17; Status DC Ondansetron HCl (Zofran) 4 mg PRN Q8HRS PRN IV NAUSEA/VOMITING; Start at 19:00; Stop 01/22/18 at 21:51; Status DC Fentanyl Citrate (Fentanyl 2ml Vial) 25 mcg PRN Q2HR PRN IV PAIN Last administered on 01/22/18at 19:33; Start 01/22/18 at 19:00; Stop 01/23/18 at 18 :59 Morphine Sulfate (Morphine Sulfate) 2 mg PRN Q3HRS PRN IV MODERATE PAIN Last administered on 01/23/18at 10:04; Start 01/22/18 at 21:00 Morphine Sulfate (Morphine Sulfate) 3 mg PRN Q3HRS PRN IV SEVERE PAIN Last administered on 01/23/18at 03:27; Start 01/22/18 at 21:15 Pantoprazole Sodium 80 mg/ Sodium Chloride 100 ml @ 10 mls/hr Q10H IV Last administered on 01/23/18at 06:10; Start 01/22/18 at 22:00; Stop 01/23/18 at 08 :59; Status DC Dicyclomine HCl (Bentyl) 10 mg QID PO ; Start 01/22/18 at 22:00 Acetaminophen/ Hydrocodone Bitart (Lortab 5/325) 1 tab PRN Q4HRS PRN PO SEVERE PAIN; Start 01/22/18 at 22:00 Ondansetron HCl (Zofran Odt) 4 mg PRN Q6HRS PRN PO NAUSEA/VOMITING 1st choice; Start 01/22/18 at 22:00 Promethazine HCl (Phenergan) 12.5 mg PRN Q6HRS PRN PO NAUSEA/VOMITING 2ND CHOICE; Start 01/22/18 at 22:00 Sucralfate (Carafate) 1 gm QIDACHS PEG ; Start 01/22/18 at 22:00 Ondansetron HCl (Zofran) 4 mg PRN Q6HRS PRN IV NAUSEA/VOMITING 1ST CHOICE IV Last administered on 01/23/18at 06:15; Start 01/22/18 at 22:00 Sodium Chloride 1,000 ml @ 100 mls/hr Q10H IV Last administered on 01/23/18at 08:14; Start 01/22/18 at 22:00 Pantoprazole Sodium (Protonix) 40 mg BIDAC PO ; Start 01/23/18 at 16:30 Active Scripts Active [Pantoprazole] 40 MG Tablet.dr 40 Mg PO DAILYAC 60 Days Carafate (Sucralfate) 1 Gm/10 Ml Oral.susp 1 Gm PEG QIDACHS Ondansetron Odt (Ondansetron) 4 Mg Tab.rapdis 4 Mg PO PRN Q6HRS PRN Hydrocodone-Apap 5-325 (Hydrocodone Bit/Acetaminophen) 1 Each Tablet 1 Tab PO PRN Q4HRS PRN Dicyclomine Hcl 10 Mg Capsule 10 Mg PO QID Promethazine Hcl 12.5 Mg Tablet 12.5 Mg PO PRN Q6HRS PRN Vitals/I & O Vital Sign - Last 24 Hours 01/22/18 01/22/18 01/22/18 01/22/18 15:34 16:01 16:46 16:49 Temp 98.4 98.4 98.4 98.4 Pulse 71 71 69 Resp 18 18 16 18 B/P (MAP) 120/73 (89) 120/73 (89) 104/72 (83) Pulse Ox 100 100 97 95 O2 Delivery Room Air Room Air Room Air Room Air 01/22/18 01/22/18 01/22/18 01/22/18 17:46 18:46 19:30 19:33 Pulse 86 79 Resp 16 16 16 B/P (MAP) 112/66 (81) 111/56 (74) Pulse Ox 99 98 99 O2 Delivery Room Air Room Air Room Air Room Air 01/22/18 01/22/18 01/22/18 01/22/18 19:42 20:02 20:03 21:12 Temp 98.8 98.8 Pulse 64 Resp 16 B/P (MAP) 114/59 (77) Pulse Ox 97 97 97 97 O2 Delivery Room Air Room Air Room Air Room Air 01/22/18 01/23/18 01/23/18 01/23/18 23:07 00:17 03:23 03:27 Temp 98.7 98.6 98.7 98.6 Pulse 74 60 Resp 16 16 B/P (MAP) 107/65 (79) 98/55 (69) Pulse Ox 96 96 99 99 O2 Delivery Room Air Room Air Room Air Room Air 01/23/18 01/23/18 01/23/18 01/23/18 04:08 06:15 06:40 07:29 Pulse Ox 99 99 99 O2 Delivery Room Air Room Air Room Air Room Air 01/23/18 01/23/18 01/23/18 07:40 10:04 10:45 Temp 98.4 97.5 98.4 97.5 Pulse 67 71 Resp 16 16 B/P (MAP) 88/54 (65) 98/56 (70) Pulse Ox 96 96 95 O2 Delivery Room Air Room Air Room Air Intake and Output 01/22/18 01/22/18 01/23/18 15:00 23:00 07:00 Intake Total 1000 ml 100 ml Output Total 0 ml 0 ml Balance 1000 ml 100 ml CAROL GONZALES III DO Jan 23, 2018 12:23
[2018-01-23] MEDS ORDERED: PANTOPRAZOLE 40 MG TABLET.DR. PO SCH (16:30)
== END 2018-01-23 14:45 | disposition home or self-care (01) | DRG 378 ==
LOC: ER 14:48 → UNMERGE 17:45 → MERGE 17:45 → 2 NORTH 17:45
PROVIDERS: ADMIT Family Medicine; ATTEND Family Medicine
DX: K29.01 Acute gastritis with bleeding (principal); K50.90 Crohn's disease, unspecified, without complications; D62 Acute posthemorrhagic anemia; K92.0 Hematemesis; E11.9 Type 2 diabetes mellitus without complications; F43.10 Post-traumatic stress disorder, unspecified; G89.29 Other chronic pain; Z87.11 Personal history of peptic ulcer disease; Z90.49 Acquired absence of other specified parts of digestive tract; Z93.2 Ileostomy status; Z88.0 Allergy status to penicillin; Z88.8 Allergy status to other drugs, medicaments and biological substances
CPT/HCPCS: 36415; 74176; 80048; 80053; 81001; 81025; 82962; 83690; 85025; 96361; 96374; 96375; 96376; C9113; J2270; J2405; J3010; J7030; 99285-25

== ENCOUNTER 2018-01-29 18:10 | Inpatient (IN) | payer MEDICAID ==
[~2018-01-29] VITALS: Ht 157.5 cm; Wt 56.4 kg
[2018-01-29] MEDS ORDERED: MORPHINE SULFATE 2 MG/ML VIAL. IV PRN (19:45)
[2018-01-29] MEDS ORDERED: DEXTROSE 50% 25 GM / 50ML DISP.SYRIN. IV PRN (19:45)
[2018-01-29] MEDS: MORPHINE SULFATE 4 MG/ML VIAL. IV PRN (20:15)
[2018-01-29] MEDS: ONDANSETRON PF 4 MG/2 ML VIAL. IV PRN (20:15)
[2018-01-29 21:07] LABS: HEMATOCRIT 35.2 % (36.0-47.0); HEMOGLOBIN 11.4 g/dL (12.0-15.5)
[2018-01-29] MEDS: PANTOPRAZOLE SODIUM IV DRIP 80 MG in IV NORMAL SALINE 100ML 100 ML IV SCH (21:35)
[2018-01-29 23:00] VITALS: BP 103/51
[2018-01-30] MEDS: MORPHINE SULFATE 4 MG/ML VIAL. IV PRN ×6 (00:19→21:34)
[2018-01-30 03:00] VITALS: BP 112/66
[2018-01-30 06:08] LABS: BASO # 0.1 x10^3/uL (0.0-0.2); BASO % 1 % (0-3); EOS # 0.3 x10^3/uL (0.0-0.7); EOS % 4 % (0-3); HEMATOCRIT 33.8 % (36.0-47.0); HEMOGLOBIN 10.7 g/dL (12.0-15.5); LYMPH # 1.9 x10^3/uL (1.0-4.8); LYMPH % 24 % (24-48); MEAN CORPUSCULAR HEMOGLOBIN 22 pg (25-35); MEAN CORPUSCULAR HGB CONC 32 g/dL (31-37); MEAN CORPUSCULAR VOLUME 71 fL (79-100); MONO # 0.4 x10^3/uL (0.0-1.1); MONO % 6 % (0-9); NEUT # 5.4 x10^3uL (1.8-7.7); NEUT % 66 % (31-73); PLATELET COUNT 380 x10^3/uL (140-400); RED BLOOD COUNT 4.78 x10^6/uL (3.50-5.40); RED CELL DISTRIBUTION WIDTH 25.8 % (11.5-14.5); WHITE BLOOD COUNT 8.1 x10^3/uL (4.0-11.0)
[2018-01-30 07:00] VITALS: BP 116/72
[2018-01-30] MEDS: INSULIN LISPRO 300 UNITS/3 ML INSULN.PEN. SQ SCH ×3 (08:00→17:00)
[2018-01-30] MEDS: ONDANSETRON PF 4 MG/2 ML VIAL. IV PRN ×2 (08:37→21:30)
--- NOTE | 2018-01-30 09:00 | PDOC ---
Subjective: Subjective: 32 y/o female who we have seen three weeks in a row. Transferred from [facility] - last name is incorrect here and new chart was created. Please see other chart ( [id number]) w/ GI consult from 01/15/18 w/ following progress notes and EGD report, and also see progress note from brief admission last week (on 01/23/18). She shows me a picture of her appointment scheduled w/ PCP at [facility] for 03/29/18. She called them yesterday after an episode of hematemesis (recurrent - just like last time - shows me a picture on her phone - associated w/ abd pain). She says she asked if she could be seen in the office or if she should go to the [facility] but was told to come to the closet ER ([facility]) "to get papers" so she could be seen in the office sooner. She says she did not want to be admitted or transferred but was told she would have to sign out AMA which she did not want to do. She is moving to this side of town to be closed to family and is not sure if she must change her insurance again (from [employer]). She is also supposed to travel to see her sister in [place] tomorrow and would like to go home today. Still taking PPI, Carafate, Bentyl. Says was doing well after last discharge until yesterday. Told me Bentyl was controlling/improving her chronic abd pain and that she did not need additional pain meds at home. Objective: Vital Signs: Vital Signs Date Time Temp Pulse Resp B/P (MAP) Pulse Ox O2 Delivery O2 Flow Rate FiO2 01/30/18 07:00 98.3 71 18 116/72 (87) 99 Room Air 98.3 Labs: Laboratory Tests Test 01/29/18 21:02 01/30/18 08:02 Glucose (Fingerstick) 89 mg/dL (70-99) 80 mg/dL (70-99) PE: GEN: NAD HEENT: Atraumatic, PERRL LUNGS: CTAB HEART: RRR ABD: typical tenderness - better overall - RLQ ostomy w/ light brown stool EXTREMITY: No edema SKIN: No rashes, no jaundice NEURO/PSYCH: A & O 3, calm A/P: Recurrent hematemesis - 3rd admission in 3 weeks Anemia - Hgb 11 when discharged on 01/23, 10.7 today MW tear s/p inj 01/15/18 S/p Charleen-en-Y - no bleeding at anastomosis on EGD 2 weeks ago, did note endoclip in place, has been on Carafate and PPI Chronic abd pain - better w/ Bentyl H/o Crohn's s/p colectomy w/ ileostomy -- Staff aware of incorrect name/new chart situation. Will check with Dr. Latham to make sure no new GI recs - assume will start clear liquids, continue PPI, Carafate, and Bentyl, and discharge per primary w/o pursuing another EGD for chronic symptoms. Has morphine ordered - would avoid if possible - defer to primary. PATI HOUSER Jan 30, 2018 09:00
[2018-01-30 11:00] VITALS: BP 136/87
[2018-01-30] MEDS: PANTOPRAZOLE SODIUM IV DRIP 80 MG in IV NORMAL SALINE 100ML 100 ML IV SCH (11:05)
--- NOTE | 2018-01-30 11:09 | PDOC1 ---
History and Physical Date of Admission Date of Admission DATE: 01/30/18 TIME: 11:04 Identification/Chief Complaint Chief Complaint Hematemesis Source Source: Caregiver, Chart review, Patient History of Present Illness History of Present Illness 32-year-old female known to me, she has had 3 admissions maybe in the last 2 months for the same reason, hematemesis She has a very complicated gastric history started at [place] but now has moved here in [place] to be with her mother so that they can take care of each other. She comes in again, shows me a picture of her hematemesis. She claims she is still throwing up, on liquid diet. She wants her PPI to be IV. She is status post PPI drip and shifted to PPI twice a day oral by GI. She was also restarted of Carafate. I'm still waiting on home medications. Apparently there is some record mismatch as name is not the same as what we currently have. In any case, admin knows about that. GIs plan is conservative treatment-watch in / observation. Patient has had recent numerous EGDs etc. Of course we will transfuse if needed, but so far hemoglobin has been stable-even in the last 2 admissions. I have noted GIs note that they would not recommend morphine. But patient is adamant that the morphine is helping her pain, and she requests it only to be every 4 hours Past Medical History GI: GERD, GI bleed, Inflam bowel disease Psych: Addictions, Depression Past Surgical History Past Surgical History: Colon Resection, No pertinent history (indwelling colostomy) Social History Smoke: No ALCOHOL: none Drugs: None Current Medications Current Medications Current Medications Morphine Sulfate (Morphine Sulfate) 2 mg PRN Q4HRS PRN IV PAIN MODERATE; Start 01/29/18 at 19:45; Stop 01/30/18 at 09:28; Status DC Morphine Sulfate (Morphine Sulfate) 4 mg PRN Q4HRS PRN IV PAIN SEVERE Last administered on 01/30/18at 08:45; Start 01/29/18 at 19:45 Ondansetron HCl (Zofran) 4 mg PRN Q6HRS PRN IV NAUSEA/VOMITING Last administered on 01/30/18at 08:37; Start 01/29/18 at 19:45 Pantoprazole Sodium 80 mg/ Sodium Chloride 100 ml @ 10 mls/hr Q10H IV Last administered on 01/29/18at 21:35; Start 01/29/18 at 20:00; Stop 01/30/18 at 08:57 ; Status DC Insulin Human Lispro (HumaLOG) 0-7 UNITS TIDWMEALS SQ ; Start 01/30/18 at 08:00 Dextrose (Dextrose 50%-Water Syringe) 12.5 gm PRN Q15MIN PRN IV SEE COMMENTS; Start 01/29/18 at 19:45 Pantoprazole Sodium (Protonix) 40 mg BIDAC PO ; Start 01/30/18 at 09:00 Sucralfate (Carafate) 1 gm QIDACHS PO ; Start 01/30/18 at 11:30 Dicyclomine HCl (Bentyl) 10 mg QID PO ; Start 01/30/18 at 09:00 Allergies Allergies: Coded Allergies: Penicillins (Verified Allergy, Severe, 01/29/18) ketorolac (Verified Allergy, Severe, 01/29/18) ROS Review of System *History of present illness, the rest of ROS 14 point negative Physical Exam General: Alert, Oriented X3, Cooperative, No acute distress HEENT: Atraumatic, PERRLA, EOMI Lungs: Clear to auscultation, Normal air movement Heart: S1S2, RRR, no thrills, no rubs, no gallops, no murmurs Cardiovascular: S1, S2 Breasts: Normal, Rt breast nml w/o mass, Lt breast nml w/o mass, Nipples normal Abdomen: Soft, Other (normoactive bowel sounds-indwelling colostomy with loose stools-chronic normal) Rectal Exam: not examined PELVIC: Nml ext genitalia Extremities: No clubbing, No cyanosis, No edema, Normal pulses, No tenderness/ swelling Skin: No rashes, No breakdown, No significant lesion Neuro: Normal gait, Normal speech, Strength at 5/5 X4 ext, Normal tone, Sensation intact, Cranial nerves 3-12 NL, Reflexes 2+ Psych/Mental Status: Mental status NL, Mood NL Vitals Vitals Vital Signs Date Time Temp Pulse Resp B/P (MAP) Pulse Ox O2 Delivery O2 Flow Rate FiO2 01/30/18 08:45 16 Room Air 01/30/18 07:00 98.3 71 116/72 (87) 99 98.3 Labs Labs Laboratory Tests Test 01/29/18 19:50 01/29/18 21:02 01/30/18 05:47 01/30/18 08:02 Hemoglobin 11.4 g/dL (12.0-15.5) 10.7 g/dL (12.0-15.5) Hematocrit 35.2 % (36.0-47.0) 33.8 % (36.0-47.0) Glucose (Fingerstick) 89 mg/dL (70-99) 80 mg/dL (70-99) White Blood Count 8.1 x10^3/uL (4.0-11.0) Red Blood Count 4.78 x10^6/uL (3.50-5.40) Mean Corpuscular Volume 71 fL (79-100) Mean Corpuscular Hemoglobin 22 pg (25-35) Mean Corpuscular Hemoglobin Concent 32 g/dL (31-37) Red Cell Distribution Width 25.8 % (11.5-14.5) Platelet Count 380 x10^3/uL (140-400) Neutrophils (%) (Auto) 66 % (31-73) Lymphocytes (%) (Auto) 24 % (24-48) Monocytes (%) (Auto) 6 % (0-9) Eosinophils (%) (Auto) 4 % (0-3) Basophils (%) (Auto) 1 % (0-3) Neutrophils # (Auto) 5.4 x10^3uL (1.8-7.7) Lymphocytes # (Auto) 1.9 x10^3/uL (1.0-4.8) Monocytes # (Auto) 0.4 x10^3/uL (0.0-1.1) Eosinophils # (Auto) 0.3 x10^3/uL (0.0-0.7) Basophils # (Auto) 0.1 x10^3/uL (0.0-0.2) SD-Wmr-I-Type Natriuretic Peptide 47 pg/mL (0-124) Laboratory Tests Test 01/29/18 19:50 01/29/18 21:02 01/30/18 05:47 01/30/18 08:02 Hemoglobin 11.4 g/dL (12.0-15.5) 10.7 g/dL (12.0-15.5) Hematocrit 35.2 % (36.0-47.0) 33.8 % (36.0-47.0) Glucose (Fingerstick) 89 mg/dL (70-99) 80 mg/dL (70-99) White Blood Count 8.1 x10^3/uL (4.0-11.0) Red Blood Count 4.78 x10^6/uL (3.50-5.40) Mean Corpuscular Volume 71 fL (79-100) Mean Corpuscular Hemoglobin 22 pg (25-35) Mean Corpuscular Hemoglobin Concent 32 g/dL (31-37) Red Cell Distribution Width 25.8 % (11.5-14.5) Platelet Count 380 x10^3/uL (140-400) Neutrophils (%) (Auto) 66 % (31-73) Lymphocytes (%) (Auto) 24 % (24-48) Monocytes (%) (Auto) 6 % (0-9) Eosinophils (%) (Auto) 4 % (0-3) Basophils (%) (Auto) 1 % (0-3) Neutrophils # (Auto) 5.4 x10^3uL (1.8-7.7) Lymphocytes # (Auto) 1.9 x10^3/uL (1.0-4.8) Monocytes # (Auto) 0.4 x10^3/uL (0.0-1.1) Eosinophils # (Auto) 0.3 x10^3/uL (0.0-0.7) Basophils # (Auto) 0.1 x10^3/uL (0.0-0.2) IC-Bik-R-Type Natriuretic Peptide 47 pg/mL (0-124) VTE Prophylaxis Ordered VTE Prophylaxis Devices: Contraindicated VTE Pharmacological Prophylaxi: Contraindicated Assessment/Plan Assessment/Plan Recurrent hematemesis - 3rd admission in 3 weeks Anemia - Hgb 11 when discharged on 01/23, 10.7 today MW tear s/p inj 01/15/18 S/p Charleen-en-Y - no bleeding at anastomosis on EGD 2 weeks ago, did note endoclip in place, has been on Carafate and PPI Chronic abd pain - better w/ Bentyl H/o Crohn's s/p colectomy w/ ileostomy PLAN: conservative treatment Transfuse if needed Liquid diet then ADA T Cutback on morphine make it 2 mg IV every 4 hours By mouth pain meds PPI I maintained at oral, continue Carafate oral Awaiting home meds She knows the plan SYDNEY HALE MD Jan 30, 2018 11:09
[2018-01-30 11:56] LABS: PLT ESTIMATE ADEQUATE (ADEQUATE)
[2018-01-30 11:58] LABS: ANISOCYTOSIS PRESENT; HYPOCHROMIA PRESENT; MICROCYTOSIS PRESENT; OVALOCYTES PRESENT
[2018-01-30] MEDS: DICYCLOMINE HCL 10 MG CAPSULE PO SCH ×4 (12:21→20:05)
[2018-01-30] MEDS: SUCRALFATE 1 GM TABLET. PO SCH ×3 (12:21→21:00)
[2018-01-30] MEDS: PANTOPRAZOLE 40 MG TABLET.DR. PO SCH ×2 (12:22→16:59)
[2018-01-30 15:00] VITALS: BP 120/72
[2018-01-30 19:00] VITALS: BP 102/56
[2018-01-30 23:00] VITALS: BP_SYST 110; BP_SYST 165; BP_DIAS 59; BP_DIAS 88
[2018-01-31] MEDS: MORPHINE SULFATE 4 MG/ML VIAL. IV PRN ×3 (01:55→10:17)
[2018-01-31 03:00] VITALS: BP 104/58
[2018-01-31 07:00] VITALS: BP 91/51
[2018-01-31] MEDS: INSULIN LISPRO 300 UNITS/3 ML INSULN.PEN. SQ SCH ×2 (08:00→11:55)
--- NOTE | 2018-01-31 09:31 | PDOC ---
Subjective: Subjective: Feeling better today and asks to leave. Says vomiting/bleeding occurred once yesterday after I saw her. Objective: Objective: D/w RN yesterday afternoon - pt reported nausea and then asked to eat a sandwich and then said she vomited w/ blood. Has a regular diet ordered. Looks like refused Carafate. 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 Considering past surgeries and recurrent symptoms, would recommend modifying diet - maybe sandwiches and biscuits and gravy aren't the most ideal foods to attempt with nausea. Hemogram ordered. Would low dose Reglan be beneficial? PATI HOUSER Jan 31, 2018 09:31
[2018-01-31 09:41] LABS: HEMATOCRIT 34.1 % (36.0-47.0); RED BLOOD COUNT 4.83 x10^6/uL (3.50-5.40); RED CELL DISTRIBUTION WIDTH 25.7 % (11.5-14.5); WHITE BLOOD COUNT 6.7 x10^3/uL (4.0-11.0)
[2018-01-31] MEDS: PANTOPRAZOLE 40 MG TABLET.DR. PO SCH (09:48)
[2018-01-31] MEDS: DICYCLOMINE HCL 10 MG CAPSULE PO SCH ×2 (09:48→12:48)
[2018-01-31] MEDS: ONDANSETRON PF 4 MG/2 ML VIAL. IV PRN (09:48)
[2018-01-31] MEDS: SUCRALFATE 1 GM TABLET. PO SCH ×2 (09:48→12:48)
--- NOTE | 2018-01-31 10:33 | PDOC3 ---
Discharge Summary Visit Information Date of Admission: Jan 29, 2018 Date of Discharge: Jan 31, 2018 Admitting Diagnosis Comment: Recurrent hematemesis - 3rd admission in 3 weeks Anemia - Hgb 11 when discharged on 01/23, 10.7 today MW tear s/p inj 01/15/18 S/p Charleen-en-Y - no bleeding at anastomosis on EGD 2 weeks ago, did note endoclip in place, has been on Carafate and PPI Chronic abd pain - better w/ Bentyl H/o Crohn's s/p colectomy w/ ileostomy Brief Hospital Course Allergies Allergies Coded Allergies Type Severity Reaction Last Updated Verified Penicillins Allergy Severe 01/29/18 Yes ketorolac Allergy Severe 01/29/18 Yes Vital Signs Vital Signs Date Time Temp Pulse Resp B/P (MAP) Pulse Ox O2 Delivery O2 Flow Rate FiO2 01/31/18 10:17 20 98 Room Air 01/31/18 07:00 98.1 65 91/51 (64) 98.1 Lab Results Laboratory Tests Test 01/29/18 19:50 01/29/18 21:02 01/30/18 05:47 01/30/18 08:02 Hemoglobin 11.4 g/dL (12.0-15.5) 10.7 g/dL (12.0-15.5) Hematocrit 35.2 % (36.0-47.0) 33.8 % (36.0-47.0) Glucose (Fingerstick) 89 mg/dL (70-99) 80 mg/dL (70-99) White Blood Count 8.1 x10^3/uL (4.0-11.0) Red Blood Count 4.78 x10^6/uL (3.50-5.40) Mean Corpuscular Volume 71 fL (79-100) Mean Corpuscular Hemoglobin 22 pg (25-35) Mean Corpuscular Hemoglobin Concent 32 g/dL (31-37) Red Cell Distribution Width 25.8 % (11.5-14.5) Platelet Count 380 x10^3/uL (140-400) Neutrophils (%) (Auto) 66 % (31-73) Lymphocytes (%) (Auto) 24 % (24-48) Monocytes (%) (Auto) 6 % (0-9) Eosinophils (%) (Auto) 4 % (0-3) Basophils (%) (Auto) 1 % (0-3) Neutrophils # (Auto) 5.4 x10^3uL (1.8-7.7) Lymphocytes # (Auto) 1.9 x10^3/uL (1.0-4.8) Monocytes # (Auto) 0.4 x10^3/uL (0.0-1.1) Eosinophils # (Auto) 0.3 x10^3/uL (0.0-0.7) Basophils # (Auto) 0.1 x10^3/uL (0.0-0.2) Platelet Estimate Adequate (ADEQUATE) Hypochromasia Present Anisocytosis Present Microcytosis Present Macrocytosis Present Ovalocytes Present PR-Uxe-L-Type Natriuretic Peptide 47 pg/mL (0-124) Test 01/30/18 16:58 01/30/18 20:29 01/31/18 07:26 01/31/18 09:00 Glucose (Fingerstick) 80 mg/dL (70-99) 87 mg/dL (70-99) 83 mg/dL (70-99) White Blood Count 6.7 x10^3/uL (4.0-11.0) Red Blood Count 4.83 x10^6/uL (3.50-5.40) Hemoglobin 11.0 g/dL (12.0-15.5) Hematocrit 34.1 % (36.0-47.0) Mean Corpuscular Volume 71 fL (79-100) Mean Corpuscular Hemoglobin 23 pg (25-35) Mean Corpuscular Hemoglobin Concent 32 g/dL (31-37) Red Cell Distribution Width 25.7 % (11.5-14.5) Platelet Count 393 x10^3/uL (140-400) Laboratory Tests Test 01/30/18 16:58 01/30/18 20:29 01/31/18 07:26 01/31/18 09:00 Glucose (Fingerstick) 80 mg/dL (70-99) 87 mg/dL (70-99) 83 mg/dL (70-99) White Blood Count 6.7 x10^3/uL (4.0-11.0) Red Blood Count 4.83 x10^6/uL (3.50-5.40) Hemoglobin 11.0 g/dL (12.0-15.5) Hematocrit 34.1 % (36.0-47.0) Mean Corpuscular Volume 71 fL (79-100) Mean Corpuscular Hemoglobin 23 pg (25-35) Mean Corpuscular Hemoglobin Concent 32 g/dL (31-37) Red Cell Distribution Width 25.7 % (11.5-14.5) Platelet Count 393 x10^3/uL (140-400) Brief Hospital Course Ms. Clemente is a 32 old [sex] who presented with [ ] 32-year-old female known to me, she has had 3 admissions maybe in the last 2 months for the same reason, hematemesis She has a very complicated gastric history started at [place] but now has moved here in [place] to be with her mother so that they can take care of each other. She comes in again, shows me a picture of her hematemesis. She claims she is still throwing up, on liquid diet. She is status post PPI drip and shifted to PPI twice a day oral by GI. She was also restarted of Carafate. Since she has had multiple EGDs and workup she was an observation stay with watch and wait plan. Hematemesis has resolved. Hemodynamically stable. Since we are watching and waiting diet can be tolerated at home or this can easily be done at home. She agrees for home discharge today with no Rx needed for me as she just got Rx for me the last recent admission this month. consult: GI Procedures performed none at all Discharge Information Condition at Discharge: Improved Disposition/Orders: D/C to Home SYDNEY HALE MD Jan 31, 2018 10:33
[2018-01-31 11:00] VITALS: BP 99/50
== END 2018-01-31 13:30 | disposition home or self-care (01) | DRG 379 ==
LOC: 5 NORTH 19:17 → MERGE 19:17
PROVIDERS: ADMIT Internal Medicine; ATTEND Internal Medicine
DX: K92.0 Hematemesis (principal); K21.9 Gastro-esophageal reflux disease without esophagitis; F32.9 Major depressive disorder, single episode, unspecified; D64.9 Anemia, unspecified; G89.29 Other chronic pain; E11.9 Type 2 diabetes mellitus without complications; Z90.49 Acquired absence of other specified parts of digestive tract; Z88.6 Allergy status to analgesic agent; Z88.0 Allergy status to penicillin; Z93.2 Ileostomy status
CPT/HCPCS: 36415; 82962; 83880; 85014; 85018; 85025; 85027; 90471; 90756; C9113; J1815; J2270; J2405; Q2035

== ENCOUNTER 2018-04-27 16:15 | Emergency (ER) | payer MEDICAID ==
[~2018-04-27] VITALS: Ht 149.9 cm; Wt 57.2 kg
[~2018-04-27 16:15] MED LIST changes: -HYDR-2758 PO; +HYDR-2761 PO; -PROM12.56 PO; +PROM12.58 PO
[2018-04-27] MEDS ORDERED: MORPHINE SULFATE 4 MG/ML VIAL. IV ONE (16:30)
[2018-04-27] MEDS ORDERED: IV NORMAL SALINE 1000ML BAG 1,000 ML IV ONE (16:30)
[2018-04-27] MEDS ORDERED: ONDANSETRON PF 4 MG/2 ML VIAL. IV ONE (16:30)
--- NOTE | 2018-04-27 16:34 | PHYS DOC ---
Past Medical History Past Medical History: Diabetes-Type II Additional Past Medical Histor: CHROHN'S DZ, PTSD, ULCERS Additional Past Surgical Histo: ILEOSTOMY Alcohol Use: None Drug Use: None Adult General Chief Complaint Chief Complaint: NAUSEA/VOMITING/DIARRHA HPI HPI Patient is a 32 year old female with a history of Crohn's disease, colitis, ileostomy, who presents today complaining of nausea as well as vomiting included blood in her vomit since yesterday. Patient is also complaining of generalized 8 out of 10 abdominal pain. Denies any fever. She also states her output is less than normal in the colostomy bag, she states it emerson when she voids. She states her doctor is at [facility] and she is currently at [facility] because she was around this part of town arranging for her wedding. Review of Systems Review of Systems Constitutional: Denies fever or chills [] Eyes: Denies change in visual acuity, redness, or eye pain [] HENT: Denies nasal congestion or sore throat [] Respiratory: Denies cough or shortness of breath [] Cardiovascular: No additional information not addressed in HPI [] GI: Reports abdominal pain generalized, nausea, vomiting, denies bloody stools or diarrhea [] : Denies dysuria or hematuria [] Musculoskeletal: Denies back pain or joint pain [] Integument: Denies rash or skin lesions [] Neurologic: Denies headache, focal weakness or sensory changes [] All other systems were reviewed and found to be within normal limits, except as documented in this note. Current Medications Current Medications Current Medications Medications (Trade) Dose Ordered Sig/[facility] Start Time Stop Time Status Last Admin Dose Admin Famotidine (Pepcid Vial) 20 mg 1X ONCE 04/27/18 16:45 04/27/18 16:46 DC 04/27/18 17:14 20 MG Info (CONTRAST GIVEN -- Rx MONITORING) 1 each PRN DAILY PRN 04/27/18 17:15 04/29/18 17:14 Iohexol (Omnipaque 300 Mg/ml) 100 ml 1X ONCE 04/27/18 17:15 04/27/18 17:16 DC 04/27/18 18:05 75 ML Morphine Sulfate (Morphine Sulfate) 5 mg 1X ONCE 04/27/18 18:15 04/27/18 18:16 DC 04/27/18 18:21 5 MG Multi-Ingredient Mouthwash/Gargle (Gi Cocktail) 20 ml 1X ONCE 04/27/18 18:15 04/27/18 18:16 DC 04/27/18 18:21 20 ML Ondansetron HCl (Zofran) 4 mg 1X ONCE 04/27/18 16:30 04/27/18 16:31 DC 04/27/18 16:26 4 MG Sodium Chloride 1,000 ml @ 1,000 mls/hr 1X ONCE 04/27/18 16:30 04/27/18 17:29 DC 04/27/18 16:20 1,000 MLS/HR Allergies Allergies Allergies Coded Allergies Type Severity Reaction Last Updated Verified Penicillins Allergy Intermediate 01/15/18 Yes ketorolac Allergy Intermediate 01/15/18 Yes Physical Exam Physical Exam Constitutional: Well developed, well nourished, no acute distress, non-toxic appearance. [] HENT: Normocephalic, atraumatic, bilateral external ears normal, oropharynx moist, no oral exudates, nose normal. [] Eyes: PERRLA, EOMI, conjunctiva normal, no discharge. [] Neck: Normal range of motion, no tenderness, supple, no stridor. [] Cardiovascular:Heart rate regular rhythm, no murmur [] Lungs & Thorax: Bilateral breath sounds clear to auscultation [] Abdomen: Ileostomy noted to the right upper quadrant with nonbloody stool. Old healed surgical incisions noted midline abdomen. Bowel sounds normal, soft, diffuse tenderness throughout the abdomen, no masses, no pulsatile masses. [] Skin: Warm, dry, no erythema, no rash. [] Back: No tenderness, no CVA tenderness. [] Extremities: No tenderness, no cyanosis, no clubbing, ROM intact, no edema. [] Neurologic: Alert and oriented X 3, normal motor function, normal sensory function, no focal deficits noted. [] Psychologic: Affect normal, judgement normal, mood normal. [] Current Patient Data Vital Signs Vital Signs Date Time Temp Pulse Resp B/P (MAP) Pulse Ox O2 Delivery O2 Flow Rate FiO2 04/27/18 18:21 18 100 Room Air 04/27/18 16:27 98.3 99 126/75 (92) 98.3 Lab Values Laboratory Tests Test 04/27/18 16:40 04/27/18 17:26 04/27/18 17:37 White Blood Count 7.4 x10^3/uL (4.0-11.0) Red Blood Count 4.18 x10^6/uL (3.50-5.40) Hemoglobin 8.7 g/dL (12.0-15.5) L Hematocrit 28.5 % (36.0-47.0) L Mean Corpuscular Volume 68 fL (79-100) L Mean Corpuscular Hemoglobin 21 pg (25-35) L Mean Corpuscular Hemoglobin Concent 30 g/dL (31-37) L Red Cell Distribution Width 18.5 % (11.5-14.5) H Platelet Count 532 x10^3/uL (140-400) H Neutrophils (%) (Auto) 67 % (31-73) Lymphocytes (%) (Auto) 25 % (24-48) Monocytes (%) (Auto) 4 % (0-9) Eosinophils (%) (Auto) 3 % (0-3) Basophils (%) (Auto) 1 % (0-3) Neutrophils # (Auto) 4.9 x10^3uL (1.8-7.7) Lymphocytes # (Auto) 1.8 x10^3/uL (1.0-4.8) Monocytes # (Auto) 0.3 x10^3/uL (0.0-1.1) Eosinophils # (Auto) 0.2 x10^3/uL (0.0-0.7) Basophils # (Auto) 0.1 x10^3/uL (0.0-0.2) Platelet Estimate Increased (ADEQUATE) Hypochromasia Marked Poikilocytosis Slight Anisocytosis Slight Microcytosis Mod Ovalocytes Few Sodium Level 143 mmol/L (136-145) Potassium Level 3.7 mmol/L (3.5-5.1) Chloride Level 105 mmol/L (98-107) Carbon Dioxide Level 25 mmol/L (21-32) Anion Gap 13 (6-14) Blood Urea Nitrogen 16 mg/dL (7-20) Creatinine 0.7 mg/dL (0.6-1.0) Estimated GFR (Cockcroft-Gault) 98.3 BUN/Creatinine Ratio 23 (6-20) H Glucose Level 93 mg/dL (70-99) Calcium Level 8.9 mg/dL (8.5-10.1) Total Bilirubin 0.4 mg/dL (0.2-1.0) Aspartate Amino Transferase (AST) 17 U/L (15-37) Alanine Aminotransferase (ALT) 21 U/L (14-59) Alkaline Phosphatase 90 U/L (46-116) Total Protein 7.9 g/dL (6.4-8.2) Albumin 3.6 g/dL (3.4-5.0) Albumin/Globulin Ratio 0.8 (1.0-1.7) L Lipase 128 U/L (73-393) Ethyl Alcohol Level < 10 mg/dL (0-10) Urine Collection Type Unknown Urine Color Yellow Urine Clarity Cloudy Urine pH 7.0 Urine Specific [place] 1.025 Urine Protein >=300 mg/dL (NEG-TRACE) Urine Glucose (UA) Negative mg/dL (NEG) Urine Ketones (Stick) Negative mg/dL (NEG) Urine Blood Large (NEG) Urine Nitrite Negative (NEG) Urine Bilirubin Negative (NEG) Urine Urobilinogen Dipstick 0.2 mg/dL (0.2 mg/dL) Urine Leukocyte Esterase Moderate (NEG) Urine RBC >40 /HPF (0-2) Urine WBC >40 /HPF (0-4) Urine Squamous Epithelial Cells Mod /LPF Urine Bacteria Moderate /HPF (0-FEW) Urine Opiates Screen Pos (NEG) Urine Methadone Screen Neg (NEG) Urine Barbiturates Neg (NEG) Urine Phencyclidine Screen Neg (NEG) Urine Amphetamine/Methamphetamine Neg (NEG) Urine Benzodiazepines Screen Neg (NEG) Urine Cocaine Screen Neg (NEG) Urine Cannabinoids Screen Neg (NEG) Urine Ethyl Alcohol Neg (NEG) POC Urine HCG, Qualitative Hcg negative (Negative) Laboratory Tests 04/27/18 16:40 Laboratory Tests 04/27/18 16:40 EKG EKG [] Radiology/Procedures Radiology/Procedures []PROCEDURE: CT ABD PELV W/ IV CONTRST ONLY EXAM: CT Abdomen and Pelvis with IV contrast CLINICAL HISTORY: abd pain, vomiting blood hx of ileostomy COMPARISON: 01/22/2018 TECHNIQUE: Helical CT of the abdomen and pelvis was performed following the administration of intravenous contrast. Axial, coronal and sagittal reformatted images were generated. PQRS compliance statement - One or more of the following individualized dose reduction techniques were utilized for this study: 1. Automated exposure control 2. Adjustment of the mA and/or kV according to patient size 3. Use of iterative reconstruction technique FINDINGS: Lower chest: Nodular opacity seen in the posterior left lower lobe measuring 1.1 cm, new compared to prior CT 01/22/2018. Abdomen and Pelvis: Subcentimeter hypodense right hepatic lobe lesion is too small to characterize. Several gallstones are seen within the gallbladder. No biliary ductal dilatation. Pancreas is unremarkable. Adrenal glands are normal. Focal hypodense lesion within the spleen is too small to accurately characterize. Symmetric nephrograms. No focal renal lesion. No hydronephrosis. No hydroureter. There is diffuse fat infiltration about the decompressed bladder, likely cystitis. Right lower quadrant ostomy is seen. Anastomotic suture line is seen within the left upper abdomen and right lower abdomen. No abnormal small or large bowel dilatation although the stomach is distended. A tampon is seen within the vaginal canal. High density structure within the endometrium possibly hemorrhagic products although abnormal uterine morphology such as subcutaneous uterus may have similar appearance. Bones: Osseous structures are grossly stable. No definite aggressive osseous lesion is identified. IMPRESSION: 1. No abnormal small or large bowel dilatation is seen to suggest bowel obstruction. 2. Wall thickening with fat infiltration about the bladder, may be seen with cystitis. 3. Left lower lobe nodular opacity is new compared to prior CT 01/22/2018. Although this size nodule of the greater than expected for malignancy and is favored to represent atelectasis or consolidative process, follow-up to resolution is recommended. 4. Linear high density within the endometrium, although may represent hemorrhagic products, abnormal uterine morphology such as septate uterus may result in similar appearance. Ultrasound may provide additional details as clinically indicated. Electronically signed by: Francesco Lee MD (04/27/2018 6:19 PM) [facility] DICTATED and SIGNED BY: FRANCESCO LEE MD DATE: 04/27/181809 Course & Med Decision Making Course & Med Decision Making Pertinent Labs and Imaging studies reviewed. (See chart for details) This is a 32-year-old female patient with history of Crohn's/colitis currently with an ileostomy presenting to the ED today complaining of nausea, bloody emesis symptoms began yesterday. Patient was given famotidine, IV fluids, morphine on arrival to the ED. She did have one episode of bloody emesis. CBC with a normal WBC, hemoglobin 8.7 hematocrit 28.5, patient runs a low hemoglobin and hematocrit. CMP with no acute findings, urine analysis is noted for moderate amount of leukocytes. CT of the abdomen and pelvic with IV contrast-No abnormal small or large bowel dilatation is seen to suggest bowel obstruction. Wall thickening with fat infiltration about the bladder, may be seen with cystitis. Left lower lobe nodular opacity is new compared to prior CT 01/22/2018. Although this size nodule of the greater than expected for malignancy and is favored to represent atelectasis or consolidative process, follow-up to resolution is recommended. Linear high density within the endometrium, although may represent hemorrhagic products, abnormal uterine morphology such as septate uterus may result in similar appearance. Ultrasound may provide additional details as clinically indicated. Above CT results discussed with patient. Patient was offered admission, she declined. She was discharged on cipro. Instructed to take famotidine every day. Instructed to return to the ED at any point symptoms worsen. She states she'll follow-up with her doctor next week. Dragon Disclaimer Dragon Disclaimer This electronic medical record was generated, in whole or in part, using a voice recognition dictation system. Departure Departure Impression: Primary Impression: Hematemesis Additional Impressions: Acute cystitis Abdominal pain Disposition: 01 HOME, SELF-CARE Condition: STABLE Referrals: NO PCP (PCP) follow up next week Patient Instructions: Abdominal Pain, Hematemesis, Urinary Tract Infection Additional Instructions: You were evaluated in the ED. Your CT is noted for bladder infection. Your CT is also noted for possible mass in your lungs or pneumonia. Complete the prescribed antibiotics. There is a copy of your CT in your paperwork, ensure you give it to your doctor. Come back to the ED at any point symptoms worsen. Scripts Ciprofloxacin Hcl (CIPRO) 500 Mg Tablet 1 TAB PO BID, #14 TAB Prov: MUTUNGA,REYNALDO [employer] 04/27/18 Famotidine (FAMOTIDINE) 20 Mg Tablet 20 MG PO DAILY, #7 TAB Prov: MUTUNGA,REYNALDO [employer]/STEWARDESS 04/27/18 Problem Qualifiers Primary Impression: Hematemesis Nausea presence: without nausea Qualified Codes: K92.0 - Hematemesis Additional Impressions: Acute cystitis Hematuria presence: without hematuria Qualified Codes: N30.00 - Acute cystitis without hematuria Abdominal pain Abdominal location: unspecified location Qualified Codes: R10.9 - Unspecified abdominal pain REYNALDO LOBO APRN Apr 27, 2018 16:34
[2018-04-27] MEDS ORDERED: FAMOTIDINE 20 MG/2 ML VIAL IVP ONE (16:45)
[2018-04-27 16:56] LABS: BASO # 0.1 x10^3/uL (0.0-0.2); BASO % 1 % (0-3); EOS # 0.2 x10^3/uL (0.0-0.7); EOS % 3 % (0-3); HEMATOCRIT 28.5 % (36.0-47.0); HEMOGLOBIN 8.7 g/dL (12.0-15.5); LYMPH # 1.8 x10^3/uL (1.0-4.8); LYMPH % 25 % (24-48); MEAN CORPUSCULAR HEMOGLOBIN 21 pg (25-35); MEAN CORPUSCULAR HGB CONC 30 g/dL (31-37); MEAN CORPUSCULAR VOLUME 68 fL (79-100); MONO # 0.3 x10^3/uL (0.0-1.1); MONO % 4 % (0-9); NEUT # 4.9 x10^3uL (1.8-7.7); NEUT % 67 % (31-73); PLATELET COUNT 532 x10^3/uL (140-400); RED BLOOD COUNT 4.18 x10^6/uL (3.50-5.40); RED CELL DISTRIBUTION WIDTH 18.5 % (11.5-14.5); WHITE BLOOD COUNT 7.4 x10^3/uL (4.0-11.0)
[2018-04-27 17:06] LABS: CALCIUM 8.9 mg/dL (8.5-10.1); CREATININE 0.7 mg/dL (0.6-1.0); GFR 98.3; POTASSIUM 3.7 mmol/L (3.5-5.1)
[2018-04-27 17:11] LABS: ALBUMIN 3.6 g/dL (3.4-5.0); ALBUMIN/GLOBULIN RATIO 0.8 (1.0-1.7); TOTAL BILIRUBIN 0.4 mg/dL (0.2-1.0); TOTAL PROTEIN 7.9 g/dL (6.4-8.2)
[2018-04-27] MEDS ORDERED: CONTRAST GIVEN. MC PRN (17:15)
[2018-04-27] MEDS ORDERED: IOHEXOL 300 MG/ML 100ML VIAL. IV ONE (17:15)
[2018-04-27 17:47] LABS: BILIRUBIN,URINE NEGATIVE (NEG); CLARITY,URINE CLOUDY; COLOR,URINE YELLOW; NITRITE,URINE NEGATIVE (NEG); PROTEIN,URINE >=300 mg/dL (NEG-TRACE); UROBILINOGEN,URINE 0.2 mg/dL (0.2 mg/dL)
[2018-04-27 17:55] LABS: BACTERIA,URINE MODERATE /HPF (0-FEW); RBC,URINE >40 /HPF (0-2); SQUAMOUS EPITHELIAL CELL,UR MOD /LPF; WBC,URINE >40 /HPF (0-4)
[2018-04-27 18:02] LABS: BARBITURATES NEG (NEG); BENZODIAZEPINES NEG (NEG); CANNABINOIDS NEG (NEG); COCAINE NEG (NEG); METHADONE NEG (NEG); OPIATES POS (NEG); PHENCYCLIDINE NEG (NEG)
[2018-04-27 18:07] LABS: PLT ESTIMATE INCREASED (ADEQUATE)
[2018-04-27 18:08] LABS: ANISOCYTOSIS SLIGHT; HYPOCHROMIA MARKED; MICROCYTOSIS MOD; OVALOCYTES FEW; POIKILOCYTOSIS SLIGHT
[2018-04-27 18:09] LABS: AMPHETAMINE/METHAMPHETAMINE NEG (NEG)
[2018-04-27] MEDS ORDERED: LIDO:MAALOX 1:1 20 ML SINGLE DOSE. SWSW ONE (18:15)
[2018-04-27] MEDS ORDERED: MORPHINE SULFATE 10 MG/ML VIAL. IV ONE (18:15)
--- NOTE | 2018-04-27 18:24 | RAD ---
EXAM: CT Abdomen and Pelvis with IV contrast CLINICAL HISTORY: abd pain, vomiting blood hx of ileostomy COMPARISON: 01/22/2018 TECHNIQUE: Helical CT of the abdomen and pelvis was performed following the administration of intravenous contrast. Axial, coronal and sagittal reformatted images were generated. PQRS compliance statement - One or more of the following individualized dose reduction techniques were utilized for this study: 1. Automated exposure control 2. Adjustment of the mA and/or kV according to patient size 3. Use of iterative reconstruction technique FINDINGS: Lower chest: Nodular opacity seen in the posterior left lower lobe measuring 1.1 cm, new compared to prior CT 01/22/2018. Abdomen and Pelvis: Subcentimeter hypodense right hepatic lobe lesion is too small to characterize. Several gallstones are seen within the gallbladder. No biliary ductal dilatation. Pancreas is unremarkable. Adrenal glands are normal. Focal hypodense lesion within the spleen is too small to accurately characterize. Symmetric nephrograms. No focal renal lesion. No hydronephrosis. No hydroureter. There is diffuse fat infiltration about the decompressed bladder, likely cystitis. Right lower quadrant ostomy is seen. Anastomotic suture line is seen within the left upper abdomen and right lower abdomen. No abnormal small or large bowel dilatation although the stomach is distended. A tampon is seen within the vaginal canal. High density structure within the endometrium possibly hemorrhagic products although abnormal uterine morphology such as subcutaneous uterus may have similar appearance. Bones: Osseous structures are grossly stable. No definite aggressive osseous lesion is identified. IMPRESSION: 1. No abnormal small or large bowel dilatation is seen to suggest bowel obstruction. 2. Wall thickening with fat infiltration about the bladder, may be seen with cystitis. 3. Left lower lobe nodular opacity is new compared to prior CT 01/22/2018. Although this size nodule of the greater than expected for malignancy and is favored to represent atelectasis or consolidative process, follow-up to resolution is recommended. 4. Linear high density within the endometrium, although may represent hemorrhagic products, abnormal uterine morphology such as septate uterus may result in similar appearance. Ultrasound may provide additional details as clinically indicated. Electronically signed by: Francesco Lee MD (04/27/2018 6:19 PM) [facility]
[2018-04-27 18:30] VITALS: BP 108/57
[2018-04-27] MEDS ORDERED: FAMO20TA5 PO (18:48)
[2018-04-27] MEDS ORDERED: CIPR500T94 PO (18:48)
== END 2018-04-27 19:00 | disposition home or self-care (01) ==
LOC: ER 16:15
DX: N30.00 Acute cystitis without hematuria (principal); K92.0 Hematemesis; R10.84 Generalized abdominal pain; K50.90 Crohn's disease, unspecified, without complications; E11.9 Type 2 diabetes mellitus without complications; Z93.2 Ileostomy status; Z88.0 Allergy status to penicillin; Z88.8 Allergy status to other drugs, medicaments and biological substances
CPT/HCPCS: 36415; 74177; 80053; 80307; 81001; 81025; 83690; 85025; 96361; 96374; 96375; 96376; 99284; G0480; J2270; J2405; J3490; J7030; Q9967; 87086

== ENCOUNTER 2018-07-27 18:26 | Inpatient (IN) | payer MEDICAID ==
[~2018-07-27] VITALS: Ht 152.4 cm; Wt 55.8 kg
[~2018-07-27 18:26] MED LIST changes: +CIPR500T94 PO; +FAMO20TA5 PO
[2018-07-27] MEDS ORDERED: IV NORMAL SALINE 1000ML BAG 1,000 ML IV ONE (19:15)
[2018-07-27] MEDS ORDERED: fentaNYL PF VIAL 100 MCG/2 ML VIAL IV ONE (19:15)
[2018-07-27] MEDS ORDERED: ONDANSETRON PF 4 MG/2 ML VIAL. IV ONE (19:15)
[2018-07-27 19:40] LABS: BASO % 1 % (0-3); EOS # 0.2 x10^3/uL (0.0-0.7); EOS % 3 % (0-3); HEMATOCRIT 36.5 % (36.0-47.0); LYMPH # 2.5 x10^3/uL (1.0-4.8); LYMPH % 38 % (24-48); MEAN CORPUSCULAR HEMOGLOBIN 28 pg (25-35); MEAN CORPUSCULAR HGB CONC 33 g/dL (31-37); MEAN CORPUSCULAR VOLUME 87 fL (79-100); MONO # 0.5 x10^3/uL (0.0-1.1); MONO % 7 % (0-9); NEUT # 3.5 x10^3uL (1.8-7.7); NEUT % 52 % (31-73); PLATELET COUNT 313 x10^3/uL (140-400); RED BLOOD COUNT 4.21 x10^6/uL (3.50-5.40); RED CELL DISTRIBUTION WIDTH 27.1 % (11.5-14.5); WHITE BLOOD COUNT 6.7 x10^3/uL (4.0-11.0)
[2018-07-27 19:45] LABS: CALCIUM 8.4 mg/dL (8.5-10.1); CREATININE 0.6 mg/dL (0.6-1.0); GFR 117.4; POTASSIUM 3.8 mmol/L (3.5-5.1)
[2018-07-27 19:45] LABS: BILIRUBIN,URINE NEGATIVE (NEG); CLARITY,URINE CLEAR; COLOR,URINE YELLOW; NITRITE,URINE NEGATIVE (NEG); PROTEIN,URINE NEGATIVE (NEG-TRACE); UROBILINOGEN,URINE 0.2 mg/dL (0.2 mg/dL)
[2018-07-27 19:50] LABS: PROTHROMBIN TIME PATIENT 11.8 SEC (11.7-14.0)
[2018-07-27 19:52] LABS: ALBUMIN 3.7 g/dL (3.4-5.0); TOTAL BILIRUBIN 0.3 mg/dL (0.2-1.0); TOTAL PROTEIN 7.4 g/dL (6.4-8.2)
[2018-07-27 19:57] LABS: FECAL OB PT POSITIVE (NEG)
[2018-07-27 20:08] LABS: BACTERIA,URINE FEW /HPF (0-FEW); RBC,URINE OCC /HPF (0-2); SQUAMOUS EPITHELIAL CELL,UR FEW /LPF
[2018-07-27] MEDS: PANTOPRAZOLE SODIUM IV DRIP 80 MG in IV NORMAL SALINE 100ML 100 ML IV SCH (20:16)
[2018-07-27] MEDS ORDERED: MORPHINE SULFATE 2 MG/ML VIAL. IV PRN (21:00)
[2018-07-27 21:03] LABS: HYPOCHROMIA SLIGHT; MICROCYTOSIS SLIGHT; OVALOCYTES OCC; PLT ESTIMATE ADEQUATE (ADEQUATE)
--- NOTE | 2018-07-27 21:23 | PDOC1 ---
History and Physical Date of Admission Date of Admission DATE: 07/27/18 TIME: 21:23 Source Source: Chart review, Patient History of Present Illness History of Present Illness Ms. Clemente admit, seen in the ER complaining of vomiting blood. she was admitted 3x last year for similar, has hx crohns disease, had ileostomy placed as a child, but has had more recent Charleen-en-y surg due to abd pain and gastritis and recurrent abd gastric bleeding. She had done well, but was admit here last december fo rMallory Bowles tear and acute GI bleeding. she now has chills due to severe pain, severe abd pain, but has vomited blood three times today and did notice blood in her ostomy bag. Past Medical History Infectious disease: No pertinent hx Family History Family History: High Cholestrol Social History Smoke: No ALCOHOL: none Drugs: None Current Medications Current Medications Current Medications Fentanyl Citrate (Fentanyl 2ml Vial) 50 mcg 1X ONCE IV Last administered on 07/27/18at 20:15; Start 07/27/18 at 19:15; Stop 07/27/18 at 19:16; Status DC Ondansetron HCl (Zofran) 4 mg 1X ONCE IV Last administered on 07/27/18at 20:15; Start 07/27/18 at 19:15; Stop 07/27/18 at 19:16; Status DC Sodium Chloride 1,000 ml @ 1,000 mls/hr 1X ONCE IV Last administered on 07/27/18at 20:15; Start 07/27/18 at 19:15; Stop 07/27/18 at 20:14; Status DC Pantoprazole Sodium 80 mg/ Sodium Chloride 100 ml @ 10 mls/hr Q10H IV Last administered on 07/27/18at 20:16; Start 07/27/18 at 19:30 Levofloxacin/ Dextrose 100 ml @ 100 mls/hr 1X ONCE IV Last administered on 07/27/18at 20:54; Start 07/27/18 at 20:15; Stop 07/27/18 at 21:14; Status DC Ondansetron HCl (Zofran) 4 mg PRN Q8HRS PRN IV NAUSEA/VOMITING; Start 07/27/18 at 21:00; Stop 07/28/18 at 20:59 Morphine Sulfate (Morphine Sulfate) 2 mg PRN Q2HR PRN IV PAIN Last administered on 07/27/18at 21:19; Start 07/27/18 at 21:00; Stop 07/28/18 at 20:59 Sodium Chloride 1,000 ml @ 100 mls/hr Q10H IV ; Start 07/27/18 at 20:48; Stop 07/28/18 at 20:47 Active Scripts Active Cipro (Ciprofloxacin Hcl) 500 Mg Tablet 1 Tab PO BID Famotidine 20 Mg Tablet 20 Mg PO DAILY [Pantoprazole] 40 MG Tablet.dr 40 Mg PO DAILYAC 60 Days Carafate (Sucralfate) 1 Gm/10 Ml Oral.susp 1 Gm PEG QIDACHS Ondansetron Odt (Ondansetron) 4 Mg Tab.rapdis 4 Mg PO PRN Q6HRS PRN Hydrocodone-Apap 5-325 (Hydrocodone Bit/Acetaminophen) 1 Each Tablet 1 Tab PO PRN Q4HRS PRN Dicyclomine Hcl 10 Mg Capsule 10 Mg PO QID Promethazine Hcl 12.5 Mg Tablet 12.5 Mg PO PRN Q6HRS PRN Allergies Allergies: Coded Allergies: Penicillins (Verified Allergy, Intermediate, 01/15/18) ketorolac (Verified Allergy, Intermediate, 01/15/18) ROS General: YES: Chills, Fatigue PSYCHOLOGICAL ROS: No: Anxiety, Behavioral Disorder, Concentration difficultie, Decreased libido, Depression, Disorientation, Hallucinations, Hostility, Irritablity, Memory difficulties, Mood Swings, Obsessive thoughts, Physical abuse, Sexual abuse, Sleep disturbances, Suicidal ideation, Other Eyes: No Blurry vision, No Decreased vision, No Double vision, No Dry eyes, No Excessive tearing, No Eye Pain, No Itchy Eyes, No Loss of vision, No Photophobia, No Scotomata, No Uses contacts, No Uses glasses, No Other Respiratory: No: Cough, Hemoptysis, Orthopnea, Pleuritic Pain, Shortness of breath, SOB with excertion, Sputum Changes, Stridor, Tachypnea, Wheezing, Other Cardiovascular: No Chest Pain, No Palpitations, No Orthopnea, No Paroxysmal Noc. Dyspnea, No Edema, No Lt Headedness, No Other Gastrointestinal: Yes Nausea, Yes Vomiting, Yes Abdominal Pain, Yes Other; No Diarrhea, No Constipation, No Melena, No Hematochezia Genitourinary: No Dysuria, No Frequency, No Incontinence, No Hematuria, No Retention, No Discharge, No Urgency, No Pain, No Flank Pain, No Other, No , No , No , No , No , No , No Musculoskeletal: No Gait Disturbance, No Joint Pain, No Joint Stiffness, No Joint Swelling, No Muscle Pain, No Muscular Weakness, No Pain In:, No Swelling I n:, No Other Neurological: No Behavorial Changes, No Bowel/Bladder ControlChng, No Confusion, No Dizziness, No Gait Disturbance, No Headaches, No Impaired Coord/balance, No Memory Loss, No Numbness/Tingling, No Seizures, No Speech Pro blems, No Tremors, No Visual Changes, No Weakness, No Other Skin: Yes Dry Skin; No Eczema, No Hair Changes, No Lumps, No Mole Changes, No Mottling, No Nail Changes, No Pruritus, No Rash, No Skin Lesion Changes, No Other, No Acne Physical Exam General: Alert, Cooperative, No acute distress HEENT: Mucous membr. moist/pink Lungs: Clear to auscultation Heart: S1S2, no gallops, no murmurs Abdomen: Normal bowel sounds, Soft, Other (ostomy with stool and dark blood) Rectal Exam: not examined Extremities: No edema Skin: No rashes Neuro: Cranial nerves 3-12 NL Psych/Mental Status: Mental status NL, Mood NL Vitals Vitals Vital Signs Date Time Temp Pulse Resp B/P (MAP) Pulse Ox O2 Delivery O2 Flow Rate FiO2 07/27/18 21:19 16 99 Room Air 07/27/18 20:00 86 123/73 (90) 07/27/18 19:00 98.0 98.0 Labs Labs Laboratory Tests Test 07/27/18 19:23 07/27/18 19:30 White Blood Count 6.7 x10^3/uL (4.0-11.0) Red Blood Count 4.21 x10^6/uL (3.50-5.40) Hemoglobin 12.0 g/dL (12.0-15.5) Hematocrit 36.5 % (36.0-47.0) Mean Corpuscular Volume 87 fL (79-100) Mean Corpuscular Hemoglobin 28 pg (25-35) Mean Corpuscular Hemoglobin Concent 33 g/dL (31-37) Red Cell Distribution Width 27.1 % (11.5-14.5) Platelet Count 313 x10^3/uL (140-400) Neutrophils (%) (Auto) 52 % (31-73) Lymphocytes (%) (Auto) 38 % (24-48) Monocytes (%) (Auto) 7 % (0-9) Eosinophils (%) (Auto) 3 % (0-3) Basophils (%) (Auto) 1 % (0-3) Neutrophils # (Auto) 3.5 x10^3uL (1.8-7.7) Lymphocytes # (Auto) 2.5 x10^3/uL (1.0-4.8) Monocytes # (Auto) 0.5 x10^3/uL (0.0-1.1) Eosinophils # (Auto) 0.2 x10^3/uL (0.0-0.7) Basophils # (Auto) 0.0 x10^3/uL (0.0-0.2) Platelet Estimate Adequate (ADEQUATE) Hypochromasia Slight Microcytosis Slight Macrocytosis Slight Ovalocytes Occ Prothrombin Time 11.8 SEC (11.7-14.0) Prothromb Time International Ratio 0.9 (0.8-1.1) Maternal Serum HCG Beta Subunit < 1 mIU/mL (0-5) Sodium Level 139 mmol/L (136-145) Potassium Level 3.8 mmol/L (3.5-5.1) Chloride Level 104 mmol/L (98-107) Carbon Dioxide Level 24 mmol/L (21-32) Anion Gap 11 (6-14) Blood Urea Nitrogen 12 mg/dL (7-20) Creatinine 0.6 mg/dL (0.6-1.0) Estimated GFR (Cockcroft-Gault) 117.4 BUN/Creatinine Ratio 20 (6-20) Glucose Level 87 mg/dL (70-99) Calcium Level 8.4 mg/dL (8.5-10.1) Total Bilirubin 0.3 mg/dL (0.2-1.0) Aspartate Amino Transf (AST/SGOT) 14 U/L (15-37) Alanine Aminotransferase (ALT/SGPT) 20 U/L (14-59) Alkaline Phosphatase 106 U/L (46-116) Total Protein 7.4 g/dL (6.4-8.2) Albumin 3.7 g/dL (3.4-5.0) Albumin/Globulin Ratio 1.0 (1.0-1.7) Lipase 153 U/L (73-393) Urine Collection Type Unknown Urine Color Yellow Urine Clarity Clear Urine pH 6.0 Urine Specific [place] 1.025 Urine Protein Negative mg/dL (NEG-TRACE) Urine Glucose (UA) Negative mg/dL (NEG) Urine Ketones (Stick) Negative mg/dL (NEG) Urine Blood Negative (NEG) Urine Nitrite Negative (NEG) Urine Bilirubin Negative (NEG) Urine Urobilinogen Dipstick 0.2 mg/dL (0.2 mg/dL) Urine Leukocyte Esterase Small (NEG) Urine RBC Occ /HPF (0-2) Urine WBC 11-20 /HPF (0-4) Urine Squamous Epithelial Cells Few /LPF Urine Bacteria Few /HPF (0-FEW) Urine Mucus Marked /LPF Stool Occult Blood Positive (NEG) Laboratory Tests Test 07/27/18 19:23 07/27/18 19:30 White Blood Count 6.7 x10^3/uL (4.0-11.0) Red Blood Count 4.21 x10^6/uL (3.50-5.40) Hemoglobin 12.0 g/dL (12.0-15.5) Hematocrit 36.5 % (36.0-47.0) Mean Corpuscular Volume 87 fL (79-100) Mean Corpuscular Hemoglobin 28 pg (25-35) Mean Corpuscular Hemoglobin Concent 33 g/dL (31-37) Red Cell Distribution Width 27.1 % (11.5-14.5) Platelet Count 313 x10^3/uL (140-400) Neutrophils (%) (Auto) 52 % (31-73) Lymphocytes (%) (Auto) 38 % (24-48) Monocytes (%) (Auto) 7 % (0-9) Eosinophils (%) (Auto) 3 % (0-3) Basophils (%) (Auto) 1 % (0-3) Neutrophils # (Auto) 3.5 x10^3uL (1.8-7.7) Lymphocytes # (Auto) 2.5 x10^3/uL (1.0-4.8) Monocytes # (Auto) 0.5 x10^3/uL (0.0-1.1) Eosinophils # (Auto) 0.2 x10^3/uL (0.0-0.7) Basophils # (Auto) 0.0 x10^3/uL (0.0-0.2) Platelet Estimate Adequate (ADEQUATE) Hypochromasia Slight Microcytosis Slight Macrocytosis Slight Ovalocytes Occ Prothrombin Time 11.8 SEC (11.7-14.0) Prothromb Time International Ratio 0.9 (0.8-1.1) Maternal Serum HCG Beta Subunit < 1 mIU/mL (0-5) Sodium Level 139 mmol/L (136-145) Potassium Level 3.8 mmol/L (3.5-5.1) Chloride Level 104 mmol/L (98-107) Carbon Dioxide Level 24 mmol/L (21-32) Anion Gap 11 (6-14) Blood Urea Nitrogen 12 mg/dL (7-20) Creatinine 0.6 mg/dL (0.6-1.0) Estimated GFR (Cockcroft-Gault) 117.4 BUN/Creatinine Ratio 20 (6-20) Glucose Level 87 mg/dL (70-99) Calcium Level 8.4 mg/dL (8.5-10.1) Total Bilirubin 0.3 mg/dL (0.2-1.0) Aspartate Amino Transf (AST/SGOT) 14 U/L (15-37) Alanine Aminotransferase (ALT/SGPT) 20 U/L (14-59) Alkaline Phosphatase 106 U/L (46-116) Total Protein 7.4 g/dL (6.4-8.2) Albumin 3.7 g/dL (3.4-5.0) Albumin/Globulin Ratio 1.0 (1.0-1.7) Lipase 153 U/L (73-393) Urine Collection Type Unknown Urine Color Yellow Urine Clarity Clear Urine pH 6.0 Urine Specific [place]aret 1.025 Urine Protein Negative mg/dL (NEG-TRACE) Urine Glucose (UA) Negative mg/dL (NEG) Urine Ketones (Stick) Negative mg/dL (NEG) Urine Blood Negative (NEG) Urine Nitrite Negative (NEG) Urine Bilirubin Negative (NEG) Urine Urobilinogen Dipstick 0.2 mg/dL (0.2 mg/dL) Urine Leukocyte Esterase Small (NEG) Urine RBC Occ /HPF (0-2) Urine WBC 11-20 /HPF (0-4) Urine Squamous Epithelial Cells Few /LPF Urine Bacteria Few /HPF (0-FEW) Urine Mucus Marked /LPF Stool Occult Blood Positive (NEG) VTE Prophylaxis Ordered VTE Prophylaxis Devices: No VTE Pharmacological Prophylaxi: Contraindicated Assessment/Plan Assessment/Plan Recurrent hematemesis - 3admits last year Hx of MW tear in dec 2017 crohns disease, with bleeding and pain, blood in ileostomy may need course of prednisone, GI consult S/p Charleen-en-Y - no bleeding at anastomosis on EGD 2 weeks ago, did note endoclip in place, has been on Carafate and PPI Chronic abd pain - better w/ Bentyl seizure disorder on keppra, missed home dose due to vomiting, will replace IV until she can take PO ALFONZO GONZALEZ MD July 27, 2018 21:23
--- NOTE | 2018-07-27 22:30 | NUR ---
The patient, MILO ROBERTS, 32 y/o, F admitted by ALFONZO GONZALEZ MD, was given written information regarding hospital policies, unit procedures and contact persons. Valuables were checked and left with her.
[2018-07-27 23:00] VITALS: BP 109/74
[2018-07-27] MEDS: MORPHINE SULFATE 4 MG/ML VIAL. IV PRN (23:55)
[2018-07-27] MEDS: IV NORMAL SALINE 1000ML BAG 1,000 ML IV SCH (23:56)
[2018-07-27] MEDS: levETIRAcetam 500 MG in IV DEXTROSE 5% 100ML 100 ML IV SCH (23:57)
[2018-07-28] MEDS ORDERED: SALIVA STIMULANT AGENT 44ML SPRAY BOTTLE. PO PRN
[2018-07-28] MEDS: MORPHINE SULFATE 4 MG/ML VIAL. IV PRN ×10 (02:05→21:20)
[2018-07-28 03:00] VITALS: BP 89/47
--- NOTE | 2018-07-28 04:07 | PHYS DOC ---
Past Medical History Past Medical History: Diabetes-Type II, Seizure Additional Past Medical Histor: CROHN'S DZ, PTSD, ULCERS Additional Past Surgical Histo: COLECTOMY W/ ILEOSTOMY, STOMACH REMOVED, PROCTECTOMY Alcohol Use: None Drug Use: None Adult General Chief Complaint Chief Complaint: ABDOMINAL PAIN HPI HPI Patient is a 32 year old female presenting with chief complaint of throwing up blood occurred approximately 4 times today there were some blood clots in it was more than she is used to seeing she has long history of Crohn's disease she's had an ileostomy since she was 12 years old she said her JUANCARLOS EN Y to severe gastric bleeding she had". Place on the last EGD. She has chronic abdominal pain described as cramping and burning pain worse associated with hematemesis earlier today she came to the emergency room for evaluation. No fever no chest pain Has Bentyl at home minimal relief also has seizure disorder has not been able to take her medications Review of Systems Review of Systems Constitutional: Denies fever or chills [] Eyes: Denies change in visual acuity, redness, or eye pain [] HENT: Denies nasal congestion or sore throat [] Respiratory: Denies cough or shortness of breath [] Cardiovascular: No additional information not addressed in HPI [] Integument: Denies rash or skin lesions [] Neurologic: Denies headache, focal weakness or sensory changes [] Endocrine: Denies polyuria or polydipsia [] All other systems were reviewed and found to be within normal limits, except as documented in this note. Current Medications Current Medications Current Medications Medications (Trade) Dose Ordered Sig/Tia Start Time Stop Time Status Last Admin Dose Admin Fentanyl Citrate (Fentanyl 2ml Vial) 50 mcg 1X ONCE 07/27/18 19:15 07/27/18 19:16 DC 07/27/18 20:15 50 MCG Levofloxacin/ Dextrose 100 ml @ 100 mls/hr 1X ONCE 07/27/18 20:15 07/27/18 21:14 DC 07/27/18 20:54 100 MLS/HR Ondansetron HCl (Zofran) 4 mg 1X ONCE 07/27/18 19:15 07/27/18 19:16 DC 07/27/18 20:15 4 MG Pantoprazole Sodium 80 mg/ Sodium Chloride 100 ml @ 10 mls/hr Q10H 07/27/18 19:30 07/27/18 20:16 10 MLS/HR Sodium Chloride 1,000 ml @ 1,000 mls/hr 1X ONCE 07/27/18 19:15 07/27/18 20:14 DC 07/27/18 20:15 1,000 MLS/HR Allergies Allergies Allergies Coded Allergies Type Severity Reaction Last Updated Verified Penicillins Allergy Intermediate 01/15/18 Yes ketorolac Allergy Intermediate 01/15/18 Yes Physical Exam Physical Exam Constitutional: Chronically ill-appearing pale HENT: Normocephalic, atraumatic, bilateral external ears normal, oropharynx moist, no oral exudates, nose normal. [] Eyes: PERRLA, EOMI, conjunctiva normal, no discharge. [] Neck: Normal range of motion, no tenderness, supple, no stridor. [] Cardiovascular:Heart rate regular rhythm, no murmur [] Lungs & Thorax: Bilateral breath sounds clear to auscultation [] Abdomen: Bowel sounds normal, soft, epigastric but no peritoneal signs tenderness, no masses, no pulsatile masses. [] There is some blood in ileostomy bag Skin: Warm, dry, no erythema, no rash. [] Back: No tenderness, no CVA tenderness. [] Extremities: No tenderness, no cyanosis, no clubbing, ROM intact, no edema. [] Neurologic: Alert and oriented X 3, normal motor function, normal sensory function, no focal deficits noted. [] Psychologic: Affect normal, judgement normal, mood normal. [] Current Patient Data Vital Signs Vital Signs Date Time Temp Pulse Resp B/P (MAP) Pulse Ox O2 Delivery O2 Flow Rate FiO2 07/27/18 20:15 100 Room Air 07/27/18 20:00 86 16 123/73 (90) 07/27/18 19:00 98.0 98.0 Lab Values Laboratory Tests Test 07/27/18 19:23 07/27/18 19:30 White Blood Count 6.7 x10^3/uL (4.0-11.0) Red Blood Count 4.21 x10^6/uL (3.50-5.40) Hemoglobin 12.0 g/dL (12.0-15.5) Hematocrit 36.5 % (36.0-47.0) Mean Corpuscular Volume 87 fL (79-100) Mean Corpuscular Hemoglobin 28 pg (25-35) Mean Corpuscular Hemoglobin Concent 33 g/dL (31-37) Red Cell Distribution Width 27.1 % (11.5-14.5) H Platelet Count 313 x10^3/uL (140-400) Neutrophils (%) (Auto) 52 % (31-73) Lymphocytes (%) (Auto) 38 % (24-48) Monocytes (%) (Auto) 7 % (0-9) Eosinophils (%) (Auto) 3 % (0-3) Basophils (%) (Auto) 1 % (0-3) Neutrophils # (Auto) 3.5 x10^3uL (1.8-7.7) Lymphocytes # (Auto) 2.5 x10^3/uL (1.0-4.8) Monocytes # (Auto) 0.5 x10^3/uL (0.0-1.1) Eosinophils # (Auto) 0.2 x10^3/uL (0.0-0.7) Basophils # (Auto) 0.0 x10^3/uL (0.0-0.2) Platelet Estimate Adequate (ADEQUATE) Hypochromasia Slight Microcytosis Slight Macrocytosis Slight Ovalocytes Occ Prothrombin Time 11.8 SEC (11.7-14.0) Prothrombin Time INR 0.9 (0.8-1.1) Maternal Serum HCG Beta Subunit < 1 mIU/mL (0-5) Sodium Level 139 mmol/L (136-145) Potassium Level 3.8 mmol/L (3.5-5.1) Chloride Level 104 mmol/L (98-107) Carbon Dioxide Level 24 mmol/L (21-32) Anion Gap 11 (6-14) Blood Urea Nitrogen 12 mg/dL (7-20) Creatinine 0.6 mg/dL (0.6-1.0) Estimated GFR (Cockcroft-Gault) 117.4 BUN/Creatinine Ratio 20 (6-20) Glucose Level 87 mg/dL (70-99) Calcium Level 8.4 mg/dL (8.5-10.1) L Total Bilirubin 0.3 mg/dL (0.2-1.0) Aspartate Amino Transferase (AST) 14 U/L (15-37) L Alanine Aminotransferase (ALT) 20 U/L (14-59) Alkaline Phosphatase 106 U/L (46-116) Total Protein 7.4 g/dL (6.4-8.2) Albumin 3.7 g/dL (3.4-5.0) Albumin/Globulin Ratio 1.0 (1.0-1.7) Lipase 153 U/L (73-393) Urine Collection Type Unknown Urine Color Yellow Urine Clarity Clear Urine pH 6.0 Urine Specific [place] 1.025 Urine Protein Negative mg/dL (NEG-TRACE) Urine Glucose (UA) Negative mg/dL (NEG) Urine Ketones (Stick) Negative mg/dL (NEG) Urine Blood Negative (NEG) Urine Nitrite Negative (NEG) Urine Bilirubin Negative (NEG) Urine Urobilinogen Dipstick 0.2 mg/dL (0.2 mg/dL) Urine Leukocyte Esterase Small (NEG) Urine RBC Occ /HPF (0-2) Urine WBC 11-20 /HPF (0-4) Urine Squamous Epithelial Cells Few /LPF Urine Bacteria Few /HPF (0-FEW) Urine Mucus Marked /LPF Stool Occult Blood Positive (NEG) Laboratory Tests 07/27/18 19:23 Laboratory Tests 07/27/18 19:23 EKG EKG [] Radiology/Procedures Radiology/Procedures [] Course & Med Decision Making Course & Med Decision Making Pertinent Labs and Imaging studies reviewed. (See chart for details) []UTI LEVAQUIN GIVEN HX OF CROHNS DISEASE MULTIPLE EPISODES OF BLEEDING IN THE PAST HIGH RISK STABLE IN ER STABLE CBC, STABLE BP D/W LISA PROTONIX DRIP INTIAITED PT GIVEN SOME PAIN CONTROL. NO PERITONEAL SIGNS ON EXAM, DEFER CT FOR NOW GIVEN YOUNG AGE. Dragon Disclaimer Dragon Disclaimer This electronic medical record was generated, in whole or in part, using a voice recognition dictation system. Departure Departure Impression: Primary Impression: Abdominal pain Disposition: ADMITTED INPATIENT Admitting Physician: Grazyna Blackburn Condition: STABLE Referrals: NO PCP (PCP) JENNI DUDLEY MD July 28, 2018 04:07
[2018-07-28] MEDS: ONDANSETRON PF 4 MG/2 ML VIAL. IV PRN ×2 (06:40→19:25)
[2018-07-28] MEDS: PANTOPRAZOLE SODIUM IV DRIP 80 MG in IV NORMAL SALINE 100ML 100 ML IV SCH ×2 (06:41→17:18)
[2018-07-28 07:00] VITALS: BP 83/46
[2018-07-28 07:58] LABS: BASO # 0.1 x10^3/uL (0.0-0.2); BASO % 1 % (0-3); EOS # 0.2 x10^3/uL (0.0-0.7); EOS % 4 % (0-3); HEMOGLOBIN 11.7 g/dL (12.0-15.5); LYMPH # 1.9 x10^3/uL (1.0-4.8); LYMPH % 44 % (24-48); MEAN CORPUSCULAR HEMOGLOBIN 29 pg (25-35); MEAN CORPUSCULAR HGB CONC 32 g/dL (31-37); MEAN CORPUSCULAR VOLUME 88 fL (79-100); MONO # 0.3 x10^3/uL (0.0-1.1); MONO % 6 % (0-9); NEUT # 1.9 x10^3uL (1.8-7.7); NEUT % 45 % (31-73); PLATELET COUNT 282 x10^3/uL (140-400); RED BLOOD COUNT 4.07 x10^6/uL (3.50-5.40); RED CELL DISTRIBUTION WIDTH 26.9 % (11.5-14.5); WHITE BLOOD COUNT 4.3 x10^3/uL (4.0-11.0)
[2018-07-28] MEDS: levETIRAcetam 500 MG in IV DEXTROSE 5% 100ML 100 ML IV SCH ×2 (08:57→21:03)
--- NOTE | 2018-07-28 10:19 | PDOC ---
PROGRESS NOTES History of Present Illness History of Present Illness Assessment/Plan Assessment/Plan Recurrent hematemesis - persisted today 5/5 MW tear in dec 2017 crohns disease, with bleeding and pain, blood in ileostomy may need course of prednisone, GI consult S/p Charleen-en-Y - no bleeding at anastomosis on EGD 2 weeks ago, did note endoclip in place, has been on Carafate and PPI Chronic abd pain - better w/ Bentyl seizure disorder on keppra, missed home dose due to vomiting, will replace IV until she can take PO 46 min pt exam, chart review, > 50% of time spent with exam, chart review, pt care coordination Vitals Vitals Vital Signs Date Time Temp Pulse Resp B/P (MAP) Pulse Ox O2 Delivery O2 Flow Rate FiO2 07/28/18 08:57 19 100 Room Air 07/28/18 07:00 98.1 56 83/46 (58) 98.1 Physical Exam General: Alert, Oriented X3, Cooperative, No acute distress Heart: Regular rate, Normal S1, Normal S2, No murmurs Lungs: Clear Abdomen: Normal bowel sounds, Soft, Other (ostomy with stool and dark blood) Extremities: No cyanosis, No edema, Normal pulses Skin: No rashes Labs LABS Laboratory Tests Test 07/27/18 19:23 07/27/18 19:30 07/28/18 07:20 White Blood Count 6.7 x10^3/uL (4.0-11.0) 4.3 x10^3/uL (4.0-11.0) Red Blood Count 4.21 x10^6/uL (3.50-5.40) 4.07 x10^6/uL (3.50-5.40) Hemoglobin 12.0 g/dL (12.0-15.5) 11.7 g/dL (12.0-15.5) Hematocrit 36.5 % (36.0-47.0) 36.0 % (36.0-47.0) Mean Corpuscular Volume 87 fL (79-100) 88 fL (79-100) Mean Corpuscular Hemoglobin 28 pg (25-35) 29 pg (25-35) Mean Corpuscular Hemoglobin Concent 33 g/dL (31-37) 32 g/dL (31-37) Red Cell Distribution Width 27.1 % (11.5-14.5) 26.9 % (11.5-14.5) Platelet Count 313 x10^3/uL (140-400) 282 x10^3/uL (140-400) Neutrophils (%) (Auto) 52 % (31-73) 45 % (31-73) Lymphocytes (%) (Auto) 38 % (24-48) 44 % (24-48) Monocytes (%) (Auto) 7 % (0-9) 6 % (0-9) Eosinophils (%) (Auto) 3 % (0-3) 4 % (0-3) Basophils (%) (Auto) 1 % (0-3) 1 % (0-3) Neutrophils # (Auto) 3.5 x10^3uL (1.8-7.7) 1.9 x10^3uL (1.8-7.7) Lymphocytes # (Auto) 2.5 x10^3/uL (1.0-4.8) 1.9 x10^3/uL (1.0-4.8) Monocytes # (Auto) 0.5 x10^3/uL (0.0-1.1) 0.3 x10^3/uL (0.0-1.1) Eosinophils # (Auto) 0.2 x10^3/uL (0.0-0.7) 0.2 x10^3/uL (0.0-0.7) Basophils # (Auto) 0.0 x10^3/uL (0.0-0.2) 0.1 x10^3/uL (0.0-0.2) Platelet Estimate Adequate (ADEQUATE) Hypochromasia Slight Microcytosis Slight Macrocytosis Slight Ovalocytes Occ Prothrombin Time 11.8 SEC (11.7-14.0) Prothromb Time International Ratio 0.9 (0.8-1.1) Maternal Serum HCG Beta Subunit < 1 mIU/mL (0-5) Sodium Level 139 mmol/L (136-145) Potassium Level 3.8 mmol/L (3.5-5.1) Chloride Level 104 mmol/L (98-107) Carbon Dioxide Level 24 mmol/L (21-32) Anion Gap 11 (6-14) Blood Urea Nitrogen 12 mg/dL (7-20) Creatinine 0.6 mg/dL (0.6-1.0) Estimated GFR (Cockcroft-Gault) 117.4 BUN/Creatinine Ratio 20 (6-20) Glucose Level 87 mg/dL (70-99) Calcium Level 8.4 mg/dL (8.5-10.1) Total Bilirubin 0.3 mg/dL (0.2-1.0) Aspartate Amino Transf (AST/SGOT) 14 U/L (15-37) Alanine Aminotransferase (ALT/SGPT) 20 U/L (14-59) Alkaline Phosphatase 106 U/L (46-116) Total Protein 7.4 g/dL (6.4-8.2) Albumin 3.7 g/dL (3.4-5.0) Albumin/Globulin Ratio 1.0 (1.0-1.7) Lipase 153 U/L (73-393) Urine Collection Type Unknown Urine Color Yellow Urine Clarity Clear Urine pH 6.0 Urine Specific [place] 1.025 Urine Protein Negative mg/dL (NEG-TRACE) Urine Glucose (UA) Negative mg/dL (NEG) Urine Ketones (Stick) Negative mg/dL (NEG) Urine Blood Negative (NEG) Urine Nitrite Negative (NEG) Urine Bilirubin Negative (NEG) Urine Urobilinogen Dipstick 0.2 mg/dL (0.2 mg/dL) Urine Leukocyte Esterase Small (NEG) Urine RBC Occ /HPF (0-2) Urine WBC 11-20 /HPF (0-4) Urine Squamous Epithelial Cells Few /LPF Urine Bacteria Few /HPF (0-FEW) Urine Mucus Marked /LPF Stool Occult Blood Positive (NEG) Comment Review of Relevant I have reviewed the following items [place] (where applicable) has been applied. Labs Laboratory Tests Test 07/27/18 19:23 07/27/18 19:30 07/28/18 07:20 White Blood Count 6.7 x10^3/uL (4.0-11.0) 4.3 x10^3/uL (4.0-11.0) Red Blood Count 4.21 x10^6/uL (3.50-5.40) 4.07 x10^6/uL (3.50-5.40) Hemoglobin 12.0 g/dL (12.0-15.5) 11.7 g/dL (12.0-15.5) Hematocrit 36.5 % (36.0-47.0) 36.0 % (36.0-47.0) Mean Corpuscular Volume 87 fL (79-100) 88 fL (79-100) Mean Corpuscular Hemoglobin 28 pg (25-35) 29 pg (25-35) Mean Corpuscular Hemoglobin Concent 33 g/dL (31-37) 32 g/dL (31-37) Red Cell Distribution Width 27.1 % (11.5-14.5) 26.9 % (11.5-14.5) Platelet Count 313 x10^3/uL (140-400) 282 x10^3/uL (140-400) Neutrophils (%) (Auto) 52 % (31-73) 45 % (31-73) Lymphocytes (%) (Auto) 38 % (24-48) 44 % (24-48) Monocytes (%) (Auto) 7 % (0-9) 6 % (0-9) Eosinophils (%) (Auto) 3 % (0-3) 4 % (0-3) Basophils (%) (Auto) 1 % (0-3) 1 % (0-3) Neutrophils # (Auto) 3.5 x10^3uL (1.8-7.7) 1.9 x10^3uL (1.8-7.7) Lymphocytes # (Auto) 2.5 x10^3/uL (1.0-4.8) 1.9 x10^3/uL (1.0-4.8) Monocytes # (Auto) 0.5 x10^3/uL (0.0-1.1) 0.3 x10^3/uL (0.0-1.1) Eosinophils # (Auto) 0.2 x10^3/uL (0.0-0.7) 0.2 x10^3/uL (0.0-0.7) Basophils # (Auto) 0.0 x10^3/uL (0.0-0.2) 0.1 x10^3/uL (0.0-0.2) Platelet Estimate Adequate (ADEQUATE) Hypochromasia Slight Microcytosis Slight Macrocytosis Slight Ovalocytes Occ Prothrombin Time 11.8 SEC (11.7-14.0) Prothromb Time International Ratio 0.9 (0.8-1.1) Maternal Serum HCG Beta Subunit < 1 mIU/mL (0-5) Sodium Level 139 mmol/L (136-145) Potassium Level 3.8 mmol/L (3.5-5.1) Chloride Level 104 mmol/L (98-107) Carbon Dioxide Level 24 mmol/L (21-32) Anion Gap 11 (6-14) Blood Urea Nitrogen 12 mg/dL (7-20) Creatinine 0.6 mg/dL (0.6-1.0) Estimated GFR (Cockcroft-Gault) 117.4 BUN/Creatinine Ratio 20 (6-20) Glucose Level 87 mg/dL (70-99) Calcium Level 8.4 mg/dL (8.5-10.1) Total Bilirubin 0.3 mg/dL (0.2-1.0) Aspartate Amino Transf (AST/SGOT) 14 U/L (15-37) Alanine Aminotransferase (ALT/SGPT) 20 U/L (14-59) Alkaline Phosphatase 106 U/L (46-116) Total Protein 7.4 g/dL (6.4-8.2) Albumin 3.7 g/dL (3.4-5.0) Albumin/Globulin Ratio 1.0 (1.0-1.7) Lipase 153 U/L (73-393) Urine Collection Type Unknown Urine Color Yellow Urine Clarity Clear Urine pH 6.0 Urine Specific [place] 1.025 Urine Protein Negative mg/dL (NEG-TRACE) Urine Glucose (UA) Negative mg/dL (NEG) Urine Ketones (Stick) Negative mg/dL (NEG) Urine Blood Negative (NEG) Urine Nitrite Negative (NEG) Urine Bilirubin Negative (NEG) Urine Urobilinogen Dipstick 0.2 mg/dL (0.2 mg/dL) Urine Leukocyte Esterase Small (NEG) Urine RBC Occ /HPF (0-2) Urine WBC 11-20 /HPF (0-4) Urine Squamous Epithelial Cells Few /LPF Urine Bacteria Few /HPF (0-FEW) Urine Mucus Marked /LPF Stool Occult Blood Positive (NEG) Laboratory Tests Test 07/27/18 19:23 07/27/18 19:30 07/28/18 07:20 White Blood Count 6.7 x10^3/uL (4.0-11.0) 4.3 x10^3/uL (4.0-11.0) Red Blood Count 4.21 x10^6/uL (3.50-5.40) 4.07 x10^6/uL (3.50-5.40) Hemoglobin 12.0 g/dL (12.0-15.5) 11.7 g/dL (12.0-15.5) Hematocrit 36.5 % (36.0-47.0) 36.0 % (36.0-47.0) Mean Corpuscular Volume 87 fL (79-100) 88 fL (79-100) Mean Corpuscular Hemoglobin 28 pg (25-35) 29 pg (25-35) Mean Corpuscular Hemoglobin Concent 33 g/dL (31-37) 32 g/dL (31-37) Red Cell Distribution Width 27.1 % (11.5-14.5) 26.9 % (11.5-14.5) Platelet Count 313 x10^3/uL (140-400) 282 x10^3/uL (140-400) Neutrophils (%) (Auto) 52 % (31-73) 45 % (31-73) Lymphocytes (%) (Auto) 38 % (24-48) 44 % (24-48) Monocytes (%) (Auto) 7 % (0-9) 6 % (0-9) Eosinophils (%) (Auto) 3 % (0-3) 4 % (0-3) Basophils (%) (Auto) 1 % (0-3) 1 % (0-3) Neutrophils # (Auto) 3.5 x10^3uL (1.8-7.7) 1.9 x10^3uL (1.8-7.7) Lymphocytes # (Auto) 2.5 x10^3/uL (1.0-4.8) 1.9 x10^3/uL (1.0-4.8) Monocytes # (Auto) 0.5 x10^3/uL (0.0-1.1) 0.3 x10^3/uL (0.0-1.1) Eosinophils # (Auto) 0.2 x10^3/uL (0.0-0.7) 0.2 x10^3/uL (0.0-0.7) Basophils # (Auto) 0.0 x10^3/uL (0.0-0.2) 0.1 x10^3/uL (0.0-0.2) Platelet Estimate Adequate (ADEQUATE) Hypochromasia Slight Microcytosis Slight Macrocytosis Slight Ovalocytes Occ Prothrombin Time 11.8 SEC (11.7-14.0) Prothromb Time International Ratio 0.9 (0.8-1.1) Maternal Serum HCG Beta Subunit < 1 mIU/mL (0-5) Sodium Level 139 mmol/L (136-145) Potassium Level 3.8 mmol/L (3.5-5.1) Chloride Level 104 mmol/L (98-107) Carbon Dioxide Level 24 mmol/L (21-32) Anion Gap 11 (6-14) Blood Urea Nitrogen 12 mg/dL (7-20) Creatinine 0.6 mg/dL (0.6-1.0) Estimated GFR (Cockcroft-Gault) 117.4 BUN/Creatinine Ratio 20 (6-20) Glucose Level 87 mg/dL (70-99) Calcium Level 8.4 mg/dL (8.5-10.1) Total Bilirubin 0.3 mg/dL (0.2-1.0) Aspartate Amino Transf (AST/SGOT) 14 U/L (15-37) Alanine Aminotransferase (ALT/SGPT) 20 U/L (14-59) Alkaline Phosphatase 106 U/L (46-116) Total Protein 7.4 g/dL (6.4-8.2) Albumin 3.7 g/dL (3.4-5.0) Albumin/Globulin Ratio 1.0 (1.0-1.7) Lipase 153 U/L (73-393) Urine Collection Type Unknown Urine Color Yellow Urine Clarity Clear Urine pH 6.0 Urine Specific [place] 1.025 Urine Protein Negative mg/dL (NEG-TRACE) Urine Glucose (UA) Negative mg/dL (NEG) Urine Ketones (Stick) Negative mg/dL (NEG) Urine Blood Negative (NEG) Urine Nitrite Negative (NEG) Urine Bilirubin Negative (NEG) Urine Urobilinogen Dipstick 0.2 mg/dL (0.2 mg/dL) Urine Leukocyte Esterase Small (NEG) Urine RBC Occ /HPF (0-2) Urine WBC 11-20 /HPF (0-4) Urine Squamous Epithelial Cells Few /LPF Urine Bacteria Few /HPF (0-FEW) Urine Mucus Marked /LPF Stool Occult Blood Positive (NEG) Medications Current Medications Fentanyl Citrate (Fentanyl 2ml Vial) 50 mcg 1X ONCE IV Last administered on 20:15; Start 07/27/18 at 19:15; Stop 07/27/18 at 19:16; Status DC Ondansetron HCl (Zofran) 4 mg 1X ONCE IV Last administered on 07/27/18 20:15; Start 07/27/18 at 19:15; Stop 07/27/18 at 19:16; Status DC Sodium Chloride 1,000 ml @ 1,000 mls/hr 1X ONCE IV Last administered on 07/27/18 20:15; Start 07/27/18 at 19:15; Stop 07/27/18 at 20:14; Status DC Pantoprazole Sodium 80 mg/ Sodium Chloride 100 ml @ 10 mls/hr Q10H IV Last administered on 07/28/18 06:41; Start 07/27/18 at 19:30 Levofloxacin/ Dextrose 100 ml @ 100 mls/hr 1X ONCE IV Last administered on 07/27/18 20:54; Start 07/27/18 at 20:15; Stop 07/27/18 at 21:14; Status DC Ondansetron HCl (Zofran) 4 mg PRN Q8HRS PRN IV NAUSEA/VOMITING Last administered on 07/28/18 06:40; Start 07/27/18 at 21:00; Stop 07/28/18 at 20:59 Morphine Sulfate (Morphine Sulfate) 2 mg PRN Q2HR PRN IV PAIN Last administered on 07/27/18 21:19; Start 07/27/18 at 21:00; Stop 07/27/18 at 21:25; Status DC Sodium Chloride 1,000 ml @ 100 mls/hr Q10H IV Last administered on 07/27/18 23:56; Start 07/27/18 at 20:48; Stop 07/28/18 at 20:47 Morphine Sulfate (Morphine Sulfate) 4 mg PRN Q2HR PRN IV PAIN Last administered on 07/28/18 08:57; Start 07/27/18 at 21:30 Levetiracetam 500 mg/Dextrose 105 ml @ 420 mls/hr Q12HR IV Last administered on 07/28/18at 08:57; Start 07/27/18 at 22:00 Saliva Substitute (Biotene Moisturizing Mouth) 2 spray PRN Q15MIN PRN PO DRY MOUTH; Start 07/28/18 at 00:00 Active Scripts Active Cipro (Ciprofloxacin Hcl) 500 Mg Tablet 1 Tab PO BID Famotidine 20 Mg Tablet 20 Mg PO DAILY [Pantoprazole] 40 MG Tablet.dr 40 Mg PO DAILYAC 60 Days Carafate (Sucralfate) 1 Gm/10 Ml Oral.susp 1 Gm PEG QIDACHS Ondansetron Odt (Ondansetron) 4 Mg Tab.rapdis 4 Mg PO PRN Q6HRS PRN Hydrocodone-Apap 5-325 (Hydrocodone Bit/Acetaminophen) 1 Each Tablet 1 Tab PO PRN Q4HRS PRN Dicyclomine Hcl 10 Mg Capsule 10 Mg PO QID Promethazine Hcl 12.5 Mg Tablet 12.5 Mg PO PRN Q6HRS PRN Vitals/I & O Vital Sign - Last 24 Hours 07/27/18 07/27/18 07/27/18 07/27/18 19:00 19:00 20:00 20:15 Temp 98.0 98.0 Pulse 80 87 86 Resp 16 16 16 B/P (MAP) 124/75 (91) 124/75 (91) 123/73 (90) Pulse Ox 100 100 100 100 O2 Delivery Room Air Room Air Room Air Room Air 07/27/18 07/27/18 07/27/18 07/27/18 21:00 21:19 21:34 22:30 Pulse 75 91 Resp 16 16 15 B/P (MAP) 102/69 (80) 123/66 (85) Pulse Ox 99 99 99 O2 Delivery Room Air Room Air Room Air Room Air 07/27/18 07/27/18 07/28/18 07/28/18 23:00 23:55 02:05 03:00 Temp 98.5 98.4 98.5 98.4 Pulse 81 54 Resp 16 18 18 16 B/P (MAP) 109/74 (86) 89/47 (61) Pulse Ox 99 99 99 99 O2 Delivery Room Air Room Air Room Air Room Air 07/28/18 07/28/18 07/28/18 07/28/18 04:17 04:47 06:40 07:00 Temp 98.1 98.1 Pulse 56 Resp 18 18 18 16 B/P (MAP) 83/46 (58) Pulse Ox 99 99 99 100 O2 Delivery Room Air Room Air Room Air Room Air 07/28/18 08:57 Resp 19 Pulse Ox 100 O2 Delivery Room Air Intake and Output 07/27/18 07/27/18 07/28/18 15:00 23:00 07:00 Intake Total 1010 ml 225 ml Output Total 0 ml Balance 1010 ml 225 ml IMER PATE MD July 28, 2018 10:19
[2018-07-28] MEDS: IV NORMAL SALINE 1000ML BAG 1,000 ML IV SCH ×2 (10:46→20:58)
[2018-07-28 11:00] VITALS: BP 103/64
[2018-07-28 14:53] VITALS: BP 93/56
[2018-07-28 19:00] VITALS: BP 105/64
[2018-07-28] MEDS: HYDROmorphone 2 MG/ML VIAL IVP PRN (22:52)
[2018-07-28 23:00] VITALS: BP 83/49
[2018-07-29] MEDS ORDERED: METO10TA81 PO (02:41)
[2018-07-29 03:00] VITALS: BP 125/70
[2018-07-29] MEDS: HYDROmorphone 2 MG/ML VIAL IVP PRN ×5 (03:23→20:23)
[2018-07-29] MEDS: PANTOPRAZOLE SODIUM IV DRIP 80 MG in IV NORMAL SALINE 100ML 100 ML IV SCH (03:27)
[2018-07-29 05:07] LABS: BASO # 0.1 x10^3/uL (0.0-0.2); BASO % 1 % (0-3); EOS # 0.2 x10^3/uL (0.0-0.7); EOS % 3 % (0-3); HEMATOCRIT 37.1 % (36.0-47.0); HEMOGLOBIN 11.9 g/dL (12.0-15.5); LYMPH % 17 % (24-48); MEAN CORPUSCULAR HEMOGLOBIN 29 pg (25-35); MEAN CORPUSCULAR HGB CONC 32 g/dL (31-37); MEAN CORPUSCULAR VOLUME 91 fL (79-100); MONO # 0.3 x10^3/uL (0.0-1.1); MONO % 5 % (0-9); NEUT # 4.7 x10^3uL (1.8-7.7); NEUT % 75 % (31-73); PLATELET COUNT 174 x10^3/uL (140-400); RED BLOOD COUNT 4.09 x10^6/uL (3.50-5.40); RED CELL DISTRIBUTION WIDTH 26.6 % (11.5-14.5); WHITE BLOOD COUNT 6.3 x10^3/uL (4.0-11.0)
[2018-07-29 05:32] LABS: CALCIUM 8.3 mg/dL (8.5-10.1); CREATININE 0.6 mg/dL (0.6-1.0); GFR 117.4; POTASSIUM 3.8 mmol/L (3.5-5.1)
[2018-07-29 07:00] VITALS: BP 94/53
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
--- NOTE | 2018-07-29 10:14 | PDOC ---
PROGRESS NOTES History of Present Illness History of Present Illness Assessment/Plan Assessment/Plan Recurrent hematemesis - persisted today 5/ MW tear in dec 2017 crohns disease, with bleeding and pain, blood in ileostomy may need course of prednisone, GI consult S/p Charleen-en-Y - no bleeding at anastomosis on EGD 2 weeks ago, did note endoclip in place, has been on Carafate and PPI Chronic abd pain - better w/ Bentyl seizure disorder on keppra, missed home dose due to vomiting, will replace IV until she can take PO HEADACHE TODAY 07/29, worse 36 min pt exam, chart review, > 50% of time spent with exam, chart review, pt care coordination Vitals Vitals Vital Signs Date Time Temp Pulse Resp B/P (MAP) Pulse Ox O2 Delivery O2 Flow Rate FiO2 07/29/18 08:08 18 99 Room Air 07/29/18 07:00 97.8 64 94/53 (67) 97.8 Physical Exam General: Alert, Oriented X3, Cooperative, No acute distress, mild distress Heart: Regular rate, Normal S1, Normal S2, No murmurs Lungs: Clear Abdomen: Normal bowel sounds, Soft, Other (ostomy with stool and dark blood) Extremities: No cyanosis, No edema, Normal pulses Skin: No rashes Labs LABS Laboratory Tests Test 07/29/18 04:35 White Blood Count 6.3 x10^3/uL (4.0-11.0) Red Blood Count 4.09 x10^6/uL (3.50-5.40) Hemoglobin 11.9 g/dL (12.0-15.5) Hematocrit 37.1 % (36.0-47.0) Mean Corpuscular Volume 91 fL (79-100) Mean Corpuscular Hemoglobin 29 pg (25-35) Mean Corpuscular Hemoglobin Concent 32 g/dL (31-37) Red Cell Distribution Width 26.6 % (11.5-14.5) Platelet Count 174 x10^3/uL (140-400) Neutrophils (%) (Auto) 75 % (31-73) Lymphocytes (%) (Auto) 17 % (24-48) Monocytes (%) (Auto) 5 % (0-9) Eosinophils (%) (Auto) 3 % (0-3) Basophils (%) (Auto) 1 % (0-3) Neutrophils # (Auto) 4.7 x10^3uL (1.8-7.7) Lymphocytes # (Auto) 1.0 x10^3/uL (1.0-4.8) Monocytes # (Auto) 0.3 x10^3/uL (0.0-1.1) Eosinophils # (Auto) 0.2 x10^3/uL (0.0-0.7) Basophils # (Auto) 0.1 x10^3/uL (0.0-0.2) Sodium Level 141 mmol/L (136-145) Potassium Level 3.8 mmol/L (3.5-5.1) Chloride Level 108 mmol/L (98-107) Carbon Dioxide Level 26 mmol/L (21-32) Anion Gap 7 (6-14) Blood Urea Nitrogen 3 mg/dL (7-20) Creatinine 0.6 mg/dL (0.6-1.0) Estimated GFR (Cockcroft-Gault) 117.4 Glucose Level 93 mg/dL (70-99) Calcium Level 8.3 mg/dL (8.5-10.1) Comment Review of Relevant I have reviewed the following items [place] (where applicable) has been applied. Labs Laboratory Tests Test 07/27/18 19:23 07/27/18 19:30 07/28/18 07:20 07/28/18 07:38 White Blood Count 6.7 x10^3/uL (4.0-11.0) 4.3 x10^3/uL (4.0-11.0) Red Blood Count 4.21 x10^6/uL (3.50-5.40) 4.07 x10^6/uL (3.50-5.40) Hemoglobin 12.0 g/dL (12.0-15.5) 11.7 g/dL (12.0-15.5) Hematocrit 36.5 % (36.0-47.0) 36.0 % (36.0-47.0) Mean Corpuscular Volume 87 fL (79-100) 88 fL (79-100) Mean Corpuscular Hemoglobin 28 pg (25-35) 29 pg (25-35) Mean Corpuscular Hemoglobin Concent 33 g/dL (31-37) 32 g/dL (31-37) Red Cell Distribution Width 27.1 % (11.5-14.5) 26.9 % (11.5-14.5) Platelet Count 313 x10^3/uL (140-400) 282 x10^3/uL (140-400) Neutrophils (%) (Auto) 52 % (31-73) 45 % (31-73) Lymphocytes (%) (Auto) 38 % (24-48) 44 % (24-48) Monocytes (%) (Auto) 7 % (0-9) 6 % (0-9) Eosinophils (%) (Auto) 3 % (0-3) 4 % (0-3) Basophils (%) (Auto) 1 % (0-3) 1 % (0-3) Neutrophils # (Auto) 3.5 x10^3uL (1.8-7.7) 1.9 x10^3uL (1.8-7.7) Lymphocytes # (Auto) 2.5 x10^3/uL (1.0-4.8) 1.9 x10^3/uL (1.0-4.8) Monocytes # (Auto) 0.5 x10^3/uL (0.0-1.1) 0.3 x10^3/uL (0.0-1.1) Eosinophils # (Auto) 0.2 x10^3/uL (0.0-0.7) 0.2 x10^3/uL (0.0-0.7) Basophils # (Auto) 0.0 x10^3/uL (0.0-0.2) 0.1 x10^3/uL (0.0-0.2) Platelet Estimate Adequate (ADEQUATE) Hypochromasia Slight Microcytosis Slight Macrocytosis Slight Ovalocytes Occ Prothrombin Time 11.8 SEC (11.7-14.0) Prothromb Time International Ratio 0.9 (0.8-1.1) Maternal Serum HCG Beta Subunit < 1 mIU/mL (0-5) Sodium Level 139 mmol/L (136-145) Potassium Level 3.8 mmol/L (3.5-5.1) Chloride Level 104 mmol/L (98-107) Carbon Dioxide Level 24 mmol/L (21-32) Anion Gap 11 (6-14) Blood Urea Nitrogen 12 mg/dL (7-20) Creatinine 0.6 mg/dL (0.6-1.0) Estimated GFR (Cockcroft-Gault) 117.4 BUN/Creatinine Ratio 20 (6-20) Glucose Level 87 mg/dL (70-99) Calcium Level 8.4 mg/dL (8.5-10.1) Total Bilirubin 0.3 mg/dL (0.2-1.0) Aspartate Amino Transf (AST/SGOT) 14 U/L (15-37) Alanine Aminotransferase (ALT/SGPT) 20 U/L (14-59) Alkaline Phosphatase 106 U/L (46-116) Total Protein 7.4 g/dL (6.4-8.2) Albumin 3.7 g/dL (3.4-5.0) Albumin/Globulin Ratio 1.0 (1.0-1.7) Lipase 153 U/L (73-393) Urine Collection Type Unknown Urine Color Yellow Urine Clarity Clear Urine pH 6.0 Urine Specific [place] 1.025 Urine Protein Negative mg/dL (NEG-TRACE) Urine Glucose (UA) Negative mg/dL (NEG) Urine Ketones (Stick) Negative mg/dL (NEG) Urine Blood Negative (NEG) Urine Nitrite Negative (NEG) Urine Bilirubin Negative (NEG) Urine Urobilinogen Dipstick 0.2 mg/dL (0.2 mg/dL) Urine Leukocyte Esterase Small (NEG) Urine RBC Occ /HPF (0-2) Urine WBC 11-20 /HPF (0-4) Urine Squamous Epithelial Cells Few /LPF Urine Bacteria Few /HPF (0-FEW) Urine Mucus Marked /LPF Stool Occult Blood Positive (NEG) Glucose (Fingerstick) 77 mg/dL (70-99) Test 07/29/18 04:35 White Blood Count 6.3 x10^3/uL (4.0-11.0) Red Blood Count 4.09 x10^6/uL (3.50-5.40) Hemoglobin 11.9 g/dL (12.0-15.5) Hematocrit 37.1 % (36.0-47.0) Mean Corpuscular Volume 91 fL (79-100) Mean Corpuscular Hemoglobin 29 pg (25-35) Mean Corpuscular Hemoglobin Concent 32 g/dL (31-37) Red Cell Distribution Width 26.6 % (11.5-14.5) Platelet Count 174 x10^3/uL (140-400) Neutrophils (%) (Auto) 75 % (31-73) Lymphocytes (%) (Auto) 17 % (24-48) Monocytes (%) (Auto) 5 % (0-9) Eosinophils (%) (Auto) 3 % (0-3) Basophils (%) (Auto) 1 % (0-3) Neutrophils # (Auto) 4.7 x10^3uL (1.8-7.7) Lymphocytes # (Auto) 1.0 x10^3/uL (1.0-4.8) Monocytes # (Auto) 0.3 x10^3/uL (0.0-1.1) Eosinophils # (Auto) 0.2 x10^3/uL (0.0-0.7) Basophils # (Auto) 0.1 x10^3/uL (0.0-0.2) Sodium Level 141 mmol/L (136-145) Potassium Level 3.8 mmol/L (3.5-5.1) Chloride Level 108 mmol/L (98-107) Carbon Dioxide Level 26 mmol/L (21-32) Anion Gap 7 (6-14) Blood Urea Nitrogen 3 mg/dL (7-20) Creatinine 0.6 mg/dL (0.6-1.0) Estimated GFR (Cockcroft-Gault) 117.4 Glucose Level 93 mg/dL (70-99) Calcium Level 8.3 mg/dL (8.5-10.1) Laboratory Tests Test 07/29/18 04:35 White Blood Count 6.3 x10^3/uL (4.0-11.0) Red Blood Count 4.09 x10^6/uL (3.50-5.40) Hemoglobin 11.9 g/dL (12.0-15.5) Hematocrit 37.1 % (36.0-47.0) Mean Corpuscular Volume 91 fL (79-100) Mean Corpuscular Hemoglobin 29 pg (25-35) Mean Corpuscular Hemoglobin Concent 32 g/dL (31-37) Red Cell Distribution Width 26.6 % (11.5-14.5) Platelet Count 174 x10^3/uL (140-400) Neutrophils (%) (Auto) 75 % (31-73) Lymphocytes (%) (Auto) 17 % (24-48) Monocytes (%) (Auto) 5 % (0-9) Eosinophils (%) (Auto) 3 % (0-3) Basophils (%) (Auto) 1 % (0-3) Neutrophils # (Auto) 4.7 x10^3uL (1.8-7.7) Lymphocytes # (Auto) 1.0 x10^3/uL (1.0-4.8) Monocytes # (Auto) 0.3 x10^3/uL (0.0-1.1) Eosinophils # (Auto) 0.2 x10^3/uL (0.0-0.7) Basophils # (Auto) 0.1 x10^3/uL (0.0-0.2) Sodium Level 141 mmol/L (136-145) Potassium Level 3.8 mmol/L (3.5-5.1) Chloride Level 108 mmol/L (98-107) Carbon Dioxide Level 26 mmol/L (21-32) Anion Gap 7 (6-14) Blood Urea Nitrogen 3 mg/dL (7-20) Creatinine 0.6 mg/dL (0.6-1.0) Estimated GFR (Cockcroft-Gault) 117.4 Glucose Level 93 mg/dL (70-99) Calcium Level 8.3 mg/dL (8.5-10.1) Medications Current Medications Fentanyl Citrate (Fentanyl 2ml Vial) 50 mcg 1X ONCE IV Last administered on 07/27/18at 20:15; Start 07/27/18 at 19:15; Stop 07/27/18 at 19:16; Status DC Ondansetron HCl (Zofran) 4 mg 1X ONCE IV Last administered on 07/27/18at 20:15; Start 07/27/18 at 19:15; Stop 07/27/18 at 19:16; Status DC Sodium Chloride 1,000 ml @ 1,000 mls/hr 1X ONCE IV Last administered on 07/27/18at 20:15; Start 07/27/18 at 19:15; Stop 07/27/18 at 20:14; Status DC Pantoprazole Sodium 80 mg/ Sodium Chloride 100 ml @ 10 mls/hr Q10H IV Last administered on 07/29/18at 03:27; Start 07/27/18 at 19:30 Levofloxacin/ Dextrose 100 ml @ 100 mls/hr 1X ONCE IV Last administered on 07/27/18 20:54; Start 07/27/18 at 20:15; Stop 07/27/18 at 21:14; Status DC Ondansetron HCl (Zofran) 4 mg PRN Q8HRS PRN IV NAUSEA/VOMITING Last administer ed on 07/28/18 19:25; Start 07/27/18 at 21:00; Stop 07/28/18 at 20:59; Status DC Morphine Sulfate (Morphine Sulfate) 2 mg PRN Q2HR PRN IV PAIN Last administered on 07/27/18 21:19; Start 07/27/18 at 21:00; Stop 07/27/18 at 21:25; Status DC Sodium Chloride 1,000 ml @ 100 mls/hr Q10H IV Last administered on 07/28/18at 20:58; Start 07/27/18 at 20:48; Stop 07/28/18 at 20:47; Status DC Morphine Sulfate (Morphine Sulfate) 4 mg PRN Q2HR PRN IV PAIN Last administered on 07/28/18 21:20; Start 07/27/18 at 21:30; Stop 07/28/18 at 22:40; Status DC Levetiracetam 500 mg/Dextrose 105 ml @ 420 mls/hr Q12HR IV Last administered on 07/28/18 21:03; Start 07/27/18 at 22:00 Saliva Substitute (Biotene Moisturizing Mouth) 2 spray PRN Q15MIN PRN PO DRY MOUTH; Start 07/28/18 at 00:00 Hydromorphone HCl (Dilaudid) 1 mg PRN Q4HRS PRN IVP PAIN Last administered on 07/29/18at 07:38; Start 07/28/18 at 22:45 Active Scripts Active Cipro (Ciprofloxacin Hcl) 500 Mg Tablet 1 Tab PO BID Famotidine 20 Mg Tablet 20 Mg PO DAILY [Pantoprazole] 40 MG Tablet.dr 40 Mg PO DAILYAC 60 Days Carafate (Sucralfate) 1 Gm/10 Ml Oral.susp 1 Gm PEG QIDACHS Ondansetron Odt (Ondansetron) 4 Mg Tab.rapdis 4 Mg PO PRN Q6HRS PRN Hydrocodone-Apap 5-325 (Hydrocodone Bit/Acetaminophen) 1 Each Tablet 1 Tab PO PRN Q4HRS PRN Dicyclomine Hcl 10 Mg Capsule 10 Mg PO QID Promethazine Hcl 12.5 Mg Tablet 12.5 Mg PO PRN Q6HRS PRN Reported Reglan (Metoclopramide Hcl) 10 Mg Tablet 10 Mg PO QIDACHS Vitals/I & O Vital Sign - Last 24 Hours 07/28/18 07/28/18 07/28/18 07/28/18 11:00 11:01 13:12 14:53 Temp 98.1 98.1 98.1 98.1 Pulse 62 66 Resp 16 16 14 16 B/P (MAP) 103/64 (77) 93/56 (68) Pulse Ox 99 100 100 99 O2 Delivery Room Air Room Air Room Air Room Air 07/28/18 07/28/18 07/28/18 07/28/18 15:10 17:18 19:00 19:25 Temp 97.5 97.5 Pulse 57 Resp 14 16 18 B/P (MAP) 105/64 (78) Pulse Ox 99 99 99 O2 Delivery Room Air Room Air Room Air 07/28/18 07/28/18 07/28/18 07/28/18 20:00 21:20 21:50 22:52 Resp 18 18 18 Pulse Ox 99 99 99 O2 Delivery Room Air Room Air Room Air Room Air 07/28/18 07/29/18 07/29/18 07/29/18 23:00 03:00 03:23 07:00 Temp 97.6 97.3 97.8 97.6 97.3 97.8 Pulse 61 54 64 Resp 16 18 18 14 B/P (MAP) 83/49 (60) 125/70 (88) 94/53 (67) Pulse Ox 98 99 99 100 O2 Delivery Room Air Room Air Room Air Room Air 07/29/18 07/29/18 07/29/18 07:38 08:00 08:08 Resp 14 18 Pulse Ox 99 99 O2 Delivery Room Air Room Air Room Air Intake and Output 07/28/18 07/28/18 07/29/18 15:00 23:00 07:00 Intake Total 470 ml 1795 ml 600 ml Balance 470 ml 1795 ml 600 ml IMER PATE MD July 29, 2018 10:14
[2018-07-29] MEDS: levETIRAcetam 500 MG in IV DEXTROSE 5% 100ML 100 ML IV SCH ×2 (10:44→20:37)
[2018-07-29] MEDS: ONDANSETRON PF 4 MG/2 ML VIAL. IV PRN (11:01)
[2018-07-29 11:06] VITALS: BP 105/65
[2018-07-29] MEDS: SUCRALFATE 1 GM/10 ML ORAL.SUSP. PEG SCH ×3 (11:46→20:30)
[2018-07-29] MEDS: PANTOPRAZOLE 40 MG TABLET.DR. PO SCH ×2 (11:49→15:14)
[2018-07-29] MEDS ORDERED: ACETAMINOPHEN 325 MG TABLET. PO PRN (12:00)
--- NOTE | 2018-07-29 14:08 | NUR ---
SW following pt for anticipated dc needs. Chart reviewed. Pt lives at home with family. No discharge needs noted at this time.
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
[2018-07-29] MEDS ORDERED: SUMAtriptan SUCC 6 MG/0.5 ML VIAL. SQ ONE (15:00)
[2018-07-29 15:02] VITALS: BP 102/60
[2018-07-29] MEDS: IV NORMAL SALINE 1000ML BAG 1,000 ML IV SCH (15:15)
[2018-07-29 19:00] VITALS: BP 94/57
[2018-07-29] MEDS: DICYCLOMINE HCL 10 MG CAPSULE PO PRN (20:22)
[2018-07-29 22:36] VITALS: BP 80/44
[2018-07-30] MEDS: HYDROmorphone 2 MG/ML VIAL IVP PRN ×6 (00:52→22:45)
[2018-07-30] MEDS: IV NORMAL SALINE 1000ML BAG 1,000 ML IV SCH ×3 (00:52→20:15)
[2018-07-30 02:40] VITALS: BP 84/44
[2018-07-30 06:31] VITALS: BP 80/45
[2018-07-30] MEDS ORDERED: fentaNYL PF VIAL 100 MCG/2 ML VIAL IV PRN ×2 (07:00)
[2018-07-30] MEDS ORDERED: MORPHINE SULFATE 2 MG/ML VIAL. IV PRN (07:00)
[2018-07-30] MEDS ORDERED: IV RINGERS,LACTATED 1000ML 1,000 ML IV SCH (07:00)
[2018-07-30] MEDS ORDERED: HYDROmorphone 2 MG/ML VIAL IV PRN (07:00)
[2018-07-30] MEDS: ONDANSETRON PF 4 MG/2 ML VIAL. IV PRN (08:42)
--- NOTE | 2018-07-30 08:58 | EEG ---
DATE OF SERVICE: 07/30/2018 ELECTROENCEPHALOGRAM REPORT: EEG NUMBER: [id number]. OBJECTIVE: The patient is a 32-year-old female with history of seizures. DESCRIPTION: This is a digital study. Electrodes are placed according to the International 10-20 system. Bipolar and referential montages are available. Activation procedures typically include hyperventilation and intermittent photic stimulation. INTERPRETATION: The waking background consists of 8-9 Hz, 20-50 microvolt activity, symmetrically distributed over parietooccipital regions and reactive to eye opening. Hyperventilation and intermittent photic stimulation are noncontributory, although, hyperventilation was cut little bit short because the patient developed increased headache. Stage 2 sleep is achieved with normal electroencephalogram patterns. IMPRESSION: This electroencephalogram with the patient awake and asleep is within normal limits. There is no focal, paroxysmal, or epileptiform activity. Thank you for letting us help with the patient's care. SOBIA DEL ROSARIO MD DR: LIZ/augusto JOB#: [id number] / [id number] ALFONZO Kirkpatrick MD
[2018-07-30] MEDS: levETIRAcetam 500 MG in IV DEXTROSE 5% 100ML 100 ML IV SCH (09:33)
--- NOTE | 2018-07-30 09:46 | NUR ---
Lactated Ringers - non-admin - surgery area only
[2018-07-30] MEDS: PANTOPRAZOLE 40 MG TABLET.DR. PO SCH ×2 (09:51→17:43)
[2018-07-30] MEDS: SUCRALFATE 1 GM/10 ML ORAL.SUSP. PEG SCH ×4 (09:51→21:06)
--- NOTE | 2018-07-30 09:51 | NUR ---
Patient back in room after procedure, for morning medications.
[2018-07-30] MEDS: CITALOPRAM 20 MG TABLET. PO SCH (10:06)
--- NOTE | 2018-07-30 10:30 | PDOC ---
PROGRESS NOTES Assessment New headache, migraine, Excellent response to sumatriptan injection History of epilepsy, normal EEG this morning Acute illness, gastrointestinal, which may have precipitated the migraine rather than vice versa. She has been taking a little bit orally. Plan Await MRI of the brain Continue levetiracetam, switch to by mouth Oral sumatriptan PRN Citalopram for migraine prophylaxis. Side effects discussed including risk of serotonin syndrome. Discharge when medically stable Follow-up with me in 4-6 weeks. Subjective Headache much better with the sumatriptan but she thinks it may be coming back. Objective Vital Signs Date Time Temp Pulse Resp B/P (MAP) Pulse Ox O2 Delivery O2 Flow Rate FiO2 07/30/18 10:06 99 Room Air 07/30/18 06:31 98.7 64 15 80/45 (57) 98.7 Intake and Output 07/30/18 06:59 Intake Total 1945 ml Output Total 0 ml Balance 1945 ml Intake Oral 740 ml IV Total 1205 ml Output Urine Total 0 ml # Voids 1 # Bowel Movements 1 PHYSICAL EXAM Alert. Oriented to time, place and person. PERRL. EOMI. CN: no focal findings. Muscle tone: normal. Muscle strength: 5/5 DTR: 2+ Plantar reflex: flexor Gait: not examined in bed. Sensory exam: no abnormal findings. No cerebellar signs elicited. Review of Relevant I have reviewed the following items [place] (where applicable) has been applied. Labs Laboratory Tests Test 07/29/18 04:35 White Blood Count 6.3 x10^3/uL (4.0-11.0) Red Blood Count 4.09 x10^6/uL (3.50-5.40) Hemoglobin 11.9 g/dL (12.0-15.5) Hematocrit 37.1 % (36.0-47.0) Mean Corpuscular Volume 91 fL (79-100) Mean Corpuscular Hemoglobin 29 pg (25-35) Mean Corpuscular Hemoglobin Concent 32 g/dL (31-37) Red Cell Distribution Width 26.6 % (11.5-14.5) Platelet Count 174 x10^3/uL (140-400) Neutrophils (%) (Auto) 75 % (31-73) Lymphocytes (%) (Auto) 17 % (24-48) Monocytes (%) (Auto) 5 % (0-9) Eosinophils (%) (Auto) 3 % (0-3) Basophils (%) (Auto) 1 % (0-3) Neutrophils # (Auto) 4.7 x10^3uL (1.8-7.7) Lymphocytes # (Auto) 1.0 x10^3/uL (1.0-4.8) Monocytes # (Auto) 0.3 x10^3/uL (0.0-1.1) Eosinophils # (Auto) 0.2 x10^3/uL (0.0-0.7) Basophils # (Auto) 0.1 x10^3/uL (0.0-0.2) Sodium Level 141 mmol/L (136-145) Potassium Level 3.8 mmol/L (3.5-5.1) Chloride Level 108 mmol/L (98-107) Carbon Dioxide Level 26 mmol/L (21-32) Anion Gap 7 (6-14) Blood Urea Nitrogen 3 mg/dL (7-20) Creatinine 0.6 mg/dL (0.6-1.0) Estimated GFR (Cockcroft-Gault) 117.4 Glucose Level 93 mg/dL (70-99) Calcium Level 8.3 mg/dL (8.5-10.1) Microbiology 07/27/18 Urine Culture - Final, Complete 07/27/18 Urine Culture Result 1 (JONNY) - Final, Complete Medications Current Medications Fentanyl Citrate (Fentanyl 2ml Vial) 50 mcg 1X ONCE IV Last administered on 07/27/18at 20:15; Start 07/27/18 at 19:15; Stop 07/27/18 at 19:16; Status DC Ondansetron HCl (Zofran) 4 mg 1X ONCE IV Last administered on 07/27/18at 20:15; Start 07/27/18 at 19:15; Stop 07/27/18 at 19:16; Status DC Sodium Chloride 1,000 ml @ 1,000 mls/hr 1X ONCE IV Last administered on 07/27/18at 20:15; Start 07/27/18 at 19:15; Stop 07/27/18 at 20:14; Status DC Pantoprazole Sodium 80 mg/ Sodium Chloride 100 ml @ 10 mls/hr Q10H IV Last administered on 07/29/18at 03:27; Start 07/27/18 at 19:30; Stop 07/29/18 at 10:47; Status DC Levofloxacin/ Dextrose 100 ml @ 100 mls/hr 1X ONCE IV Last administered on 07/27/18 20:54; Start 07/27/18 at 20:15; Stop 07/27/18 at 21:14; Status DC Ondansetron HCl (Zofran) 4 mg PRN Q8HRS PRN IV NAUSEA/VOMITING Last administered on 07/28/18 19:25; Start 07/27/18 at 21:00; Stop 07/28/18 at 20:59; Status DC Morphine Sulfate (Morphine Sulfate) 2 mg PRN Q2HR PRN IV PAIN Last administered on 07/27/18 21:19; Start 07/27/18 at 21:00; Stop 07/27/18 at 21:25; Status DC Sodium Chloride 1,000 ml @ 100 mls/hr Q10H IV Last administered on 07/28/18 20:58; Start 07/27/18 at 20:48; Stop 07/28/18 at 20:47; Status DC Morphine Sulfate (Morphine Sulfate) 4 mg PRN Q2HR PRN IV PAIN Last administered on 07/28/18 21:20; Start 07/27/18 at 21:30; Stop 07/28/18 at 22:40; Status DC Levetiracetam 500 mg/Dextrose 105 ml @ 420 mls/hr Q12HR IV Last administered on 07/30/18 09:33; Start 07/27/18 at 22:00 Saliva Substitute (Biotene Moisturizing Mouth) 2 spray PRN Q15MIN PRN PO DRY MOUTH; Start 07/28/18 at 00:00 Hydromorphone HCl (Dilaudid) 1 mg PRN Q4HRS PRN IVP PAIN Last administered on 07/30/18 09:32; Start 07/28/18 at 22:45 Pantoprazole Sodium (Protonix) 40 mg BIDAC PO Last administered on 07/30/18 09:51; Start 07/29/18 at 11:30 Sucralfate (Carafate) 1 gm QIDACHS PEG Last administered on 07/30/18 09:51; Start 07/29/18 at 11:30 Dicyclomine HCl (Bentyl) 10 mg QID PRN PO abd pain Last administered on 07/29/18at 20:22; Start 07/29/18 at 10:45 Ondansetron HCl (Zofran) 4 mg PRN Q8HRS PRN IV NAUSEA/VOMITING Last administered on 07/30/18at 08:42; Start 07/29/18 at 11:00 Acetaminophen (Tylenol) 650 mg PRN Q6HRS PRN PO HEADACHE Last administered on 07/29/18at 12:16; Start 07/29/18 at 12:00 Sodium Chloride 1,000 ml @ 100 mls/hr Q10H IV Last administered on 07/30/18at 10:09; Start 07/29/18 at 14:15 Sumatriptan Succinate (Imitrex) 6 mg 1X ONCE SQ Last administered on 07/29/18at 15:18; Start 07/29/18 at 15:00; Stop 07/29/18 at 15:01; Status DC Fentanyl Citrate (Fentanyl 2ml Vial) 25 mcg PRN Q5MIN PRN IV MILD PAIN; Start 07/30/18 at 07:00; Stop 07/31/18 at 06:59 Fentanyl Citrate (Fentanyl 2ml Vial) 50 mcg PRN Q5MIN PRN IV MODERATE TO SEVERE PAIN; Start 07/30/18 at 07:00; Stop 07/31/18 at 06:59 Morphine Sulfate (Morphine Sulfate) 1 mg PRN Q10MIN PRN IV SEVERE PAIN; Start 07/30/18 at 07:00; Stop 07/31/18 at 06:59 Ringer's Solution 1,000 ml @ 30 mls/hr Q24H IV ; Start 07/30/18 at 07:00; Stop 07/30/18 at 18:59 Hydromorphone HCl (Dilaudid) 0.5 mg PRN Q10MIN PRN IV SEV PAIN, Second choice; Start 07/30/18 at 07:00; Stop 07/31/18 at 06:59 Sumatriptan Succinate (Imitrex) 100 mg PRN Q2HR PRN PO MIGRAINE HEADACHE; Start 07/30/18 at 09:15 Citalopram Hydrobromide (CeleXA) 20 mg DAILY PO Last administered on 07/30/18at 10:06; Start 07/30/18 at 09:15 Active Scripts Active Cipro (Ciprofloxacin Hcl) 500 Mg Tablet 1 Tab PO BID Famotidine 20 Mg Tablet 20 Mg PO DAILY [Pantoprazole] 40 MG Tablet.dr 40 Mg PO DAILYAC 60 Days Carafate (Sucralfate) 1 Gm/10 Ml Oral.susp 1 Gm PEG QIDACHS Ondansetron Odt (Ondansetron) 4 Mg Tab.rapdis 4 Mg PO PRN Q6HRS PRN Hydrocodone-Apap 5-325 (Hydrocodone Bit/Acetaminophen) 1 Each Tablet 1 Tab PO PRN Q4HRS PRN Dicyclomine Hcl 10 Mg Capsule 10 Mg PO QID Promethazine Hcl 12.5 Mg Tablet 12.5 Mg PO PRN Q6HRS PRN Reported Reglan (Metoclopramide Hcl) 10 Mg Tablet 10 Mg PO QIDACHS Vitals/I & O Vital Sign - Last 24 Hours 07/29/18 07/29/18 07/29/18 07/29/18 11:06 11:44 15:02 16:04 Temp 98.3 98.0 98.3 98.0 Pulse 69 55 Resp 16 16 14 16 B/P (MAP) 105/65 (78) 102/60 (74) Pulse Ox 100 100 99 99 O2 Delivery Room Air Room Air Room Air Room Air 07/29/18 07/29/18 07/29/18 07/29/18 19:00 20:00 20:23 22:36 Temp 98.0 98.6 98.0 98.6 Pulse 69 72 Resp 15 18 16 B/P (MAP) 94/57 (69) 80/44 (56) Pulse Ox 100 100 98 O2 Delivery Room Air Room Air Room Air Room Air 07/30/18 07/30/18 07/30/18 07/30/18 00:52 02:40 05:11 05:41 Temp 98.3 98.3 Pulse 61 Resp 18 15 18 18 B/P (MAP) 84/44 (57) Pulse Ox 98 98 98 O2 Delivery Room Air Room Air Room Air 07/30/18 07/30/18 07/30/18 06:31 09:32 10:06 Temp 98.7 98.7 Pulse 64 Resp 15 B/P (MAP) 80/45 (57) Pulse Ox 99 99 99 O2 Delivery Room Air Room Air Room Air Intake and Output 07/29/18 07/29/18 07/30/18 14:59 22:59 06:59 Intake Total 100 ml 645 ml 1200 ml Output Total 0 ml Balance 100 ml 645 ml 1200 ml SOBIA DEL ROSARIO MD July 30, 2018 10:30
--- NOTE | 2018-07-30 10:40 | PDOC ---
PROGRESS NOTES History of Present Illness History of Present Illness Assessment/Plan Assessment/Plan Recurrent hematemesis - persisted today 07/30 MW tear in dec 2017 crohns disease, with bleeding and pain, blood in ileostomy may need course of prednisone, GI consult S/p Charleen-en-Y - no bleeding at anastomosis on EGD 2 weeks ago, did note endoclip in place, has been on Carafate and PPI Chronic abd pain - better w/ Bentyl seizure disorder on keppra, HEADACHE TODAY 07/29, worse here is no structural abnormality to account for patient's seizures. vomiting blood streaks today 07/30 46 min pt exam, chart review, > 50% of time spent with exam, chart review, pt care coordination Vitals Vitals Vital Signs Date Time Temp Pulse Resp B/P (MAP) Pulse Ox O2 Delivery O2 Flow Rate FiO2 07/30/18 10:06 99 Room Air 07/30/18 06:31 98.7 64 15 80/45 (57) 98.7 Physical Exam General: Alert, Oriented X3, Cooperative, No acute distress, mild distress Heart: Regular rate, Normal S1, Normal S2, No murmurs Lungs: Clear Abdomen: Normal bowel sounds, Soft, Other (ostomy with stool and dark blood) Extremities: No clubbing, No cyanosis, No edema, Normal pulses Skin: No rashes Labs LABS SEX: F EXAM STATUS: ADM IN ORD. PHYSICIAN: SOBIA DEL ROSARIO MD REASON: headache, h/o sz, needs anesthesia sedation PROCEDURE: BRAIN W/O CONTRAST EXAMINATION: Magnetic resonance imaging (MRI) of the brain and brainstem without contrast 07/30/2018 2:33 PM HISTORY: Headache with history of seizures TECHNIQUE: Multiplanar multi-weighted MRI of the brain and brainstem was performed without intravenous contrast using the general brain protocol. COMPARISON: None available. FINDINGS: The scalp and calvarium are normal. The superior sagittal sinus demonstrates normal venous flow. The corpus callosum is normal in shape and signal intensity. The posterior fossa is unremarkable. The pituitary and sella are normal. The brainstem and craniocervical junction are unremarkable. Hippocampi are symmetric in signal intensity and morphology. There is no heterotopic larios matter identified. No confirmation of cortical development is suspected. Diffusion weighted images reveal no hyperintensities to suggest acute cerebral infarction. The susceptibility weighted sequences reveal no evidence of acute or chronic hemorrhage. The ventricles are normal in size and position without evidence of hydrocephalus. The paranasal sinuses are normal. The visualized portions of the mastoids are unremarkable. The orbits appear normal. Normal flow voids are demonstrated in the carotid arteries and basilar artery. IMPRESSION: There is no structural abnormality to account for patient's seizures. Electronically signed by: Can Hensley MD (07/30/2018 4:40 PM) [id number] DICTATED and SIGNED BY: CAN HENSLEY MD DATE: 07/30/18 1640 Comment Review of Relevant I have reviewed the following items [place] (where applicable) has been applied. Labs Laboratory Tests Test 07/29/18 04:35 White Blood Count 6.3 x10^3/uL (4.0-11.0) Red Blood Count 4.09 x10^6/uL (3.50-5.40) Hemoglobin 11.9 g/dL (12.0-15.5) Hematocrit 37.1 % (36.0-47.0) Mean Corpuscular Volume 91 fL (79-100) Mean Corpuscular Hemoglobin 29 pg (25-35) Mean Corpuscular Hemoglobin Concent 32 g/dL (31-37) Red Cell Distribution Width 26.6 % (11.5-14.5) Platelet Count 174 x10^3/uL (140-400) Neutrophils (%) (Auto) 75 % (31-73) Lymphocytes (%) (Auto) 17 % (24-48) Monocytes (%) (Auto) 5 % (0-9) Eosinophils (%) (Auto) 3 % (0-3) Basophils (%) (Auto) 1 % (0-3) Neutrophils # (Auto) 4.7 x10^3uL (1.8-7.7) Lymphocytes # (Auto) 1.0 x10^3/uL (1.0-4.8) Monocytes # (Auto) 0.3 x10^3/uL (0.0-1.1) Eosinophils # (Auto) 0.2 x10^3/uL (0.0-0.7) Basophils # (Auto) 0.1 x10^3/uL (0.0-0.2) Sodium Level 141 mmol/L (136-145) Potassium Level 3.8 mmol/L (3.5-5.1) Chloride Level 108 mmol/L (98-107) Carbon Dioxide Level 26 mmol/L (21-32) Anion Gap 7 (6-14) Blood Urea Nitrogen 3 mg/dL (7-20) Creatinine 0.6 mg/dL (0.6-1.0) Estimated GFR (Cockcroft-Gault) 117.4 Glucose Level 93 mg/dL (70-99) Calcium Level 8.3 mg/dL (8.5-10.1) Microbiology 07/27/18 Urine Culture - Final, Complete 07/27/18 Urine Culture Result 1 (JONNY) - Final, Complete Medications Current Medications Fentanyl Citrate (Fentanyl 2ml Vial) 50 mcg 1X ONCE IV Last administered on 07/27/18 20:15; Start 07/27/18 at 19:15; Stop 07/27/18 at 19:16; Status DC Ondansetron HCl (Zofran) 4 mg 1X ONCE IV Last administered on 07/27/18 20:15; Start 07/27/18 at 19:15; Stop 07/27/18 at 19:16; Status DC Sodium Chloride 1,000 ml @ 1,000 mls/hr 1X ONCE IV Last administered on 07/27/18at 20:15; Start 07/27/18 at 19:15; Stop 07/27/18 at 20:14; Status DC Pantoprazole Sodium 80 mg/ Sodium Chloride 100 ml @ 10 mls/hr Q10H IV Last administered on 07/29/18at 03:27; Start 07/27/18 at 19:30; Stop 07/29/18 at 10:47; Status DC Levofloxacin/ Dextrose 100 ml @ 100 mls/hr 1X ONCE IV Last administered on 07/27/18at 20:54; Start 07/27/18 at 20:15; Stop 07/27/18 at 21:14; Status DC Ondansetron HCl (Zofran) 4 mg PRN Q8HRS PRN IV NAUSEA/VOMITING Last administered on 07/28/18 19:25; Start 07/27/18 at 21:00; Stop 07/28/18 at 20:59; Status DC Morphine Sulfate (Morphine Sulfate) 2 mg PRN Q2HR PRN IV PAIN Last administered on 07/27/18at 21:19; Start 07/27/18 at 21:00; Stop 07/27/18 at 21:25; Status DC Sodium Chloride 1,000 ml @ 100 mls/hr Q10H IV Last administered on 07/28/18 20:58; Start 07/27/18 at 20:48; Stop 07/28/18 at 20:47; Status DC Morphine Sulfate (Morphine Sulfate) 4 mg PRN Q2HR PRN IV PAIN Last administered on 07/28/18 21:20; Start 07/27/18 at 21:30; Stop 07/28/18 at 22:40; Status DC Levetiracetam 500 mg/Dextrose 105 ml @ 420 mls/hr Q12HR IV Last administered on 07/30/18 09:33; Start 07/27/18 at 22:00; Stop 07/30/18 at 10:32; Status DC Saliva Substitute (Biotene Moisturizing Mouth) 2 spray PRN Q15MIN PRN PO DRY MOUTH; Start 07/28/18 at 00:00 Hydromorphone HCl (Dilaudid) 1 mg PRN Q4HRS PRN IVP PAIN Last administered on 07/30/18 09:32; Start 07/28/18 at 22:45 Pantoprazole Sodium (Protonix) 40 mg BIDAC PO Last administered on 07/30/18 0 9:51; Start 07/29/18 at 11:30 Sucralfate (Carafate) 1 gm QIDACHS PEG Last administered on 07/30/18 09:51; Start 07/29/18 at 11:30 Dicyclomine HCl (Bentyl) 10 mg QID PRN PO abd pain Last administered on 07/29/18 20:22; Start 07/29/18 at 10:45 Ondansetron HCl (Zofran) 4 mg PRN Q8HRS PRN IV NAUSEA/VOMITING Last administered on 07/30/18 08:42; Start 07/29/18 at 11:00 Acetaminophen (Tylenol) 650 mg PRN Q6HRS PRN PO HEADACHE Last administered on 07/29/18 12:16; Start 07/29/18 at 12:00 Sodium Chloride 1,000 ml @ 100 mls/hr Q10H IV Last administered on 5/7/19at 10:09; Start 07/29/18 at 14:15 Sumatriptan Succinate (Imitrex) 6 mg 1X ONCE SQ Last administered on 07/29/18at 15:18; Start 07/29/18 at 15:00; Stop 07/29/18 at 15:01; Status DC Fentanyl Citrate (Fentanyl 2ml Vial) 25 mcg PRN Q5MIN PRN IV MILD PAIN; Start 07/30/18 at 07:00; Stop 07/31/18 at 06:59 Fentanyl Citrate (Fentanyl 2ml Vial) 50 mcg PRN Q5MIN PRN IV MODERATE TO SEVERE PAIN; Start 07/30/18 at 07:00; Stop 07/31/18 at 06:59 Morphine Sulfate (Morphine Sulfate) 1 mg PRN Q10MIN PRN IV SEVERE PAIN; Start 07/30/18 at 07:00; Stop 07/31/18 at 06:59 Ringer's Solution 1,000 ml @ 30 mls/hr Q24H IV ; Start 07/30/18 at 07:00; Stop 07/30/18 at 18:59 Hydromorphone HCl (Dilaudid) 0.5 mg PRN Q10MIN PRN IV SEV PAIN, Second choice; Start 07/30/18 at 07:00; Stop 07/31/18 at 06:59 Sumatriptan Succinate (Imitrex) 100 mg PRN Q2HR PRN PO MIGRAINE HEADACHE; Sta rt 07/30/18 at 09:15 Citalopram Hydrobromide (CeleXA) 20 mg DAILY PO Last administered on 07/30/18at 10:06; Start 07/30/18 at 09:15 Levetiracetam (Keppra) 500 mg BID PO ; Start 07/30/18 at 21:00 Active Scripts Active Cipro (Ciprofloxacin Hcl) 500 Mg Tablet 1 Tab PO BID Famotidine 20 Mg Tablet 20 Mg PO DAILY [Pantoprazole] 40 MG Tablet.dr 40 Mg PO DAILYAC 60 Days Carafate (Sucralfate) 1 Gm/10 Ml Oral.susp 1 Gm PEG QIDACHS Ondansetron Odt (Ondansetron) 4 Mg Tab.rapdis 4 Mg PO PRN Q6HRS PRN Hydrocodone-Apap 5-325 (Hydrocodone Bit/Acetaminophen) 1 Each Tablet 1 Tab PO PRN Q4HRS PRN Dicyclomine Hcl 10 Mg Capsule 10 Mg PO QID Promethazine Hcl 12.5 Mg Tablet 12.5 Mg PO PRN Q6HRS PRN Reported Reglan (Metoclopramide Hcl) 10 Mg Tablet 10 Mg PO QIDACHS Vitals/I & O Vital Sign - Last 24 Hours 07/29/18 07/29/18 07/29/18 07/29/18 11:06 11:44 15:02 16:04 Temp 98.3 98.0 98.3 98.0 Pulse 69 55 Resp 16 16 14 16 B/P (MAP) 105/65 (78) 102/60 (74) Pulse Ox 100 100 99 99 O2 Delivery Room Air Room Air Room Air Room Air 07/29/18 07/29/18 07/29/18 07/29/18 19:00 20:00 20:23 22:36 Temp 98.0 98.6 98.0 98.6 Pulse 69 72 Resp 15 18 16 B/P (MAP) 94/57 (69) 80/44 (56) Pulse Ox 100 100 98 O2 Delivery Room Air Room Air Room Air Room Air 07/30/18 07/30/18 07/30/18 07/30/18 00:52 02:40 05:11 05:41 Temp 98.3 98.3 Pulse 61 Resp 18 15 18 18 B/P (MAP) 84/44 (57) Pulse Ox 98 98 98 O2 Delivery Room Air Room Air Room Air 07/30/18 07/30/18 07/30/18 06:31 09:32 10:06 Temp 98.7 98.7 Pulse 64 Resp 15 B/P (MAP) 80/45 (57) Pulse Ox 99 99 99 O2 Delivery Room Air Room Air Room Air Intake and Output 07/29/18 07/29/18 07/30/18 15:00 23:00 07:00 Intake Total 100 ml 645 ml 1200 ml Output Total 0 ml Balance 100 ml 645 ml 1200 ml IMER PATE MD July 30, 2018 10:40
[2018-07-30 11:07] VITALS: BP 102/62
--- NOTE | 2018-07-30 13:37 | PDOC ---
Subjective: Subjective: Try clears still, vomited a little red blood earlier, c/o headache and says she's to have an MRI. Objective: Vital Signs: Vital Signs Date Time Temp Pulse Resp B/P (MAP) Pulse Ox O2 Delivery O2 Flow Rate FiO2 07/30/18 11:07 98.3 68 16 102/62 (75) 100 Room Air 98.3 Imaging: EEG IMPRESSION: This electroencephalogram with the patient awake and asleep is within normal limits. There is no focal, paroxysmal, or epileptiform activity. PE: GEN: was asleep, looks uncomfortable when awakens, minimal amount of thin red blood in emesis basin LUNGS: CTAB HEART: RRR ABD: tender to light palpation (stable), brown stool in ostomy NEURO/PSYCH: A & O 3 A/P: Recurrent hematemesis, chronic abd pain, +fecal occult -multiple EGDs in the past, last 12/2017 -s/p Charleen-en-Y, h/o MW tear, on chronic Carafate and PPI -has cholelithiasis and remote h/o pancreatitis -h/o Crohn's s/p colectomy w/ ileostomy, off steroids >1 year, last ileoscopy in 2017 Headache -- Can try full liquid diet - had orders to [facility] yesterday. Reviewed w/ Dr. Latham - same issues as in the past (workup per consult note). Monitor Hgb and hold on EGD for now. Continue PPI and Carafate, also has Bentyl. Getting Dilaudid, hopefully can wean this. PATI HOUSER July 30, 2018 13:37
[2018-07-30] MEDS ORDERED: MIDAZOLAM HCL/PF 2 MG/2 ML VIAL. ONE ×2 (15:27)
[2018-07-30] MEDS ORDERED: fentaNYL PF VIAL 250 MCG/5 ML VIAL ONE (15:28)
--- NOTE | 2018-07-30 16:43 | RAD ---
EXAMINATION: Magnetic resonance imaging (MRI) of the brain and brainstem without contrast 07/30/2018 2:33 PM HISTORY: Headache with history of seizures TECHNIQUE: Multiplanar multi-weighted MRI of the brain and brainstem was performed without intravenous contrast using the general brain protocol. COMPARISON: None available. FINDINGS: The scalp and calvarium are normal. The superior sagittal sinus demonstrates normal venous flow. The corpus callosum is normal in shape and signal intensity. The posterior fossa is unremarkable. The pituitary and sella are normal. The brainstem and craniocervical junction are unremarkable. Hippocampi are symmetric in signal intensity and morphology. There is no heterotopic larios matter identified. No confirmation of cortical development is suspected. Diffusion weighted images reveal no hyperintensities to suggest acute cerebral infarction. The susceptibility weighted sequences reveal no evidence of acute or chronic hemorrhage. The ventricles are normal in size and position without evidence of hydrocephalus. The paranasal sinuses are normal. The visualized portions of the mastoids are unremarkable. The orbits appear normal. Normal flow voids are demonstrated in the carotid arteries and basilar artery. IMPRESSION: There is no structural abnormality to account for patient's seizures. Electronically signed by: Suyapa Rowe MD (07/30/2018 4:40 PM) [id number]
[2018-07-30 17:32] LABS: HEMATOCRIT 37.2 % (36.0-47.0); RED BLOOD COUNT 4.16 x10^6/uL (3.50-5.40); RED CELL DISTRIBUTION WIDTH 26.3 % (11.5-14.5); WHITE BLOOD COUNT 4.6 x10^3/uL (4.0-11.0)
[2018-07-30 19:00] VITALS: BP 97/47
[2018-07-30] MEDS: levETIRAcetam 500 MG TABLET PO SCH (21:06)
[2018-07-30 23:00] VITALS: BP 100/59
[2018-07-31] MEDS: IV NORMAL SALINE 1000ML BAG 1,000 ML IV SCH ×2 (02:59→16:14)
[2018-07-31 03:00] VITALS: BP 110/61
[2018-07-31] MEDS: HYDROmorphone 2 MG/ML VIAL IVP PRN ×5 (03:00→20:31)
[2018-07-31 07:00] VITALS: BP 105/61
[2018-07-31] MEDS: PANTOPRAZOLE 40 MG TABLET.DR. PO SCH ×2 (07:39→16:12)
[2018-07-31] MEDS: SUCRALFATE 1 GM/10 ML ORAL.SUSP. PEG SCH ×4 (07:39→20:31)
[2018-07-31 08:28] LABS: BASO # 0.1 x10^3/uL (0.0-0.2); BASO % 1 % (0-3); EOS # 0.2 x10^3/uL (0.0-0.7); EOS % 6 % (0-3); HEMATOCRIT 36.6 % (36.0-47.0); HEMOGLOBIN 11.7 g/dL (12.0-15.5); LYMPH # 1.5 x10^3/uL (1.0-4.8); LYMPH % 36 % (24-48); MEAN CORPUSCULAR HEMOGLOBIN 29 pg (25-35); MEAN CORPUSCULAR HGB CONC 32 g/dL (31-37); MEAN CORPUSCULAR VOLUME 89 fL (79-100); MONO # 0.3 x10^3/uL (0.0-1.1); MONO % 7 % (0-9); NEUT # 2.1 x10^3uL (1.8-7.7); NEUT % 51 % (31-73); PLATELET COUNT 232 x10^3/uL (140-400); RED BLOOD COUNT 4.11 x10^6/uL (3.50-5.40); RED CELL DISTRIBUTION WIDTH 25.5 % (11.5-14.5); WHITE BLOOD COUNT 4.2 x10^3/uL (4.0-11.0)
[2018-07-31 08:40] LABS: CALCIUM 8.5 mg/dL (8.5-10.1); CREATININE 0.6 mg/dL (0.6-1.0); GFR 117.4; POTASSIUM 3.4 mmol/L (3.5-5.1)
[2018-07-31] MEDS: SUMAtriptan SUCCINATE 100 MG TABLET PO PRN (08:50)
[2018-07-31] MEDS: levETIRAcetam 500 MG TABLET PO SCH ×2 (08:50→20:31)
[2018-07-31] MEDS: CITALOPRAM 20 MG TABLET. PO SCH (08:51)
--- NOTE | 2018-07-31 09:35 | PDOC ---
PROGRESS NOTES Assessment New headache, migraine, Excellent response to sumatriptan injection History of epilepsy, normal EEG and MRI brain Acute illness, gastrointestinal, which may have precipitated the migraine rather than vice versa. She has been taking a little bit orally. Plan Continue levetiracetam, orally Oral sumatriptan PRN, she has not asked for it yet, does have a mild headache now so she will request Citalopram for migraine prophylaxis. Discharge when medically stable Follow-up with me in 4-6 weeks. Subjective Has a mild headache this morning, still has hematemesis Objective Vital Signs Date Time Temp Pulse Resp B/P (MAP) Pulse Ox O2 Delivery O2 Flow Rate FiO2 07/31/18 08:10 16 Room Air 07/31/18 07:00 99.0 62 105/61 (76) 99 99.0 Intake and Output 07/31/18 07:00 Intake Total 1300 ml Balance 1300 ml Intake Oral 300 ml IV Total 1000 ml # Voids 2 PHYSICAL EXAM Alert. Oriented to time, place and person. PERRL. EOMI. CN: no focal findings. Muscle tone: normal. Muscle strength: 5/5 DTR: 2+ Plantar reflex: flexor Gait: not examined in bed. Sensory exam: no abnormal findings. No cerebellar signs elicited. Review of Relevant I have reviewed the following items [place] (where applicable) has been applied. Labs Laboratory Tests Test 07/30/18 17:25 07/31/18 07:11 White Blood Count 4.6 x10^3/uL (4.0-11.0) 4.2 x10^3/uL (4.0-11.0) Red Blood Count 4.16 x10^6/uL (3.50-5.40) 4.11 x10^6/uL (3.50-5.40) Hemoglobin 12.0 g/dL (12.0-15.5) 11.7 g/dL (12.0-15.5) Hematocrit 37.2 % (36.0-47.0) 36.6 % (36.0-47.0) Mean Corpuscular Volume 90 fL (79-100) 89 fL (79-100) Mean Corpuscular Hemoglobin 29 pg (25-35) 29 pg (25-35) Mean Corpuscular Hemoglobin Concent 32 g/dL (31-37) 32 g/dL (31-37) Red Cell Distribution Width 26.3 % (11.5-14.5) 25.5 % (11.5-14.5) Platelet Count 237 x10^3/uL (140-400) 232 x10^3/uL (140-400) Neutrophils (%) (Auto) 51 % (31-73) Lymphocytes (%) (Auto) 36 % (24-48) Monocytes (%) (Auto) 7 % (0-9) Eosinophils (%) (Auto) 6 % (0-3) Basophils (%) (Auto) 1 % (0-3) Neutrophils # (Auto) 2.1 x10^3uL (1.8-7.7) Lymphocytes # (Auto) 1.5 x10^3/uL (1.0-4.8) Monocytes # (Auto) 0.3 x10^3/uL (0.0-1.1) Eosinophils # (Auto) 0.2 x10^3/uL (0.0-0.7) Basophils # (Auto) 0.1 x10^3/uL (0.0-0.2) Sodium Level 141 mmol/L (136-145) Potassium Level 3.4 mmol/L (3.5-5.1) Chloride Level 107 mmol/L (98-107) Carbon Dioxide Level 25 mmol/L (21-32) Anion Gap 9 (6-14) Blood Urea Nitrogen 5 mg/dL (7-20) Creatinine 0.6 mg/dL (0.6-1.0) Estimated GFR (Cockcroft-Gault) 117.4 Glucose Level 69 mg/dL (70-99) Calcium Level 8.5 mg/dL (8.5-10.1) Laboratory Tests Test 07/30/18 17:25 07/31/18 07:11 White Blood Count 4.6 x10^3/uL (4.0-11.0) 4.2 x10^3/uL (4.0-11.0) Red Blood Count 4.16 x10^6/uL (3.50-5.40) 4.11 x10^6/uL (3.50-5.40) Hemoglobin 12.0 g/dL (12.0-15.5) 11.7 g/dL (12.0-15.5) Hematocrit 37.2 % (36.0-47.0) 36.6 % (36.0-47.0) Mean Corpuscular Volume 90 fL (79-100) 89 fL (79-100) Mean Corpuscular Hemoglobin 29 pg (25-35) 29 pg (25-35) Mean Corpuscular Hemoglobin Concent 32 g/dL (31-37) 32 g/dL (31-37) Red Cell Distribution Width 26.3 % (11.5-14.5) 25.5 % (11.5-14.5) Platelet Count 237 x10^3/uL (140-400) 232 x10^3/uL (140-400) Neutrophils (%) (Auto) 51 % (31-73) Lymphocytes (%) (Auto) 36 % (24-48) Monocytes (%) (Auto) 7 % (0-9) Eosinophils (%) (Auto) 6 % (0-3) Basophils (%) (Auto) 1 % (0-3) Neutrophils # (Auto) 2.1 x10^3uL (1.8-7.7) Lymphocytes # (Auto) 1.5 x10^3/uL (1.0-4.8) Monocytes # (Auto) 0.3 x10^3/uL (0.0-1.1) Eosinophils # (Auto) 0.2 x10^3/uL (0.0-0.7) Basophils # (Auto) 0.1 x10^3/uL (0.0-0.2) Sodium Level 141 mmol/L (136-145) Potassium Level 3.4 mmol/L (3.5-5.1) Chloride Level 107 mmol/L (98-107) Carbon Dioxide Level 25 mmol/L (21-32) Anion Gap 9 (6-14) Blood Urea Nitrogen 5 mg/dL (7-20) Creatinine 0.6 mg/dL (0.6-1.0) Estimated GFR (Cockcroft-Gault) 117.4 Glucose Level 69 mg/dL (70-99) Calcium Level 8.5 mg/dL (8.5-10.1) Microbiology 07/27/18 Urine Culture - Final, Complete 07/27/18 Urine Culture Result 1 (JONNY) - Final, Complete Medications Current Medications Fentanyl Citrate (Fentanyl 2ml Vial) 50 mcg 1X ONCE IV Last administered on 07/27/18 20:15; Start 07/27/18 at 19:15; Stop 07/27/18 at 19:16; Status DC Ondansetron HCl (Zofran) 4 mg 1X ONCE IV Last administered on 07/27/18 20:15; Start 07/27/18 at 19:15; Stop 07/27/18 at 19:16; Status DC Sodium Chloride 1,000 ml @ 1,000 mls/hr 1X ONCE IV Last administered on 07/27/18at 20:15; Start 07/27/18 at 19:15; Stop 07/27/18 at 20:14; Status DC Pantoprazole Sodium 80 mg/ Sodium Chloride 100 ml @ 10 mls/hr Q10H IV Last administered on 07/29/18at 03:27; Start 07/27/18 at 19:30; Stop 07/29/18 at 10:47; Status DC Levofloxacin/ Dextrose 100 ml @ 100 mls/hr 1X ONCE IV Last administered on 07/27/18at 20:54; Start 07/27/18 at 20:15; Stop 07/27/18 at 21:14; Status DC Ondansetron HCl (Zofran) 4 mg PRN Q8HRS PRN IV NAUSEA/VOMITING Last adm inistered on 07/28/18 19:25; Start 07/27/18 at 21:00; Stop 07/28/18 at 20:59; Status DC Morphine Sulfate (Morphine Sulfate) 2 mg PRN Q2HR PRN IV PAIN Last administered on 07/27/18 21:19; Start 07/27/18 at 21:00; Stop 07/27/18 at 21:25; Status DC Sodium Chloride 1,000 ml @ 100 mls/hr Q10H IV Last administered on 07/28/18 20:58; Start 07/27/18 at 20:48; Stop 07/28/18 at 20:47; Status DC Morphine Sulfate (Morphine Sulfate) 4 mg PRN Q2HR PRN IV PAIN Last administered on 07/28/18 21:20; Start 07/27/18 at 21:30; Stop 07/28/18 at 22:40; Status DC Levetiracetam 500 mg/Dextrose 105 ml @ 420 mls/hr Q12HR IV Last administered on 07/30/18 09:33; Start 07/27/18 at 22:00; Stop 07/30/18 at 10:32; Status DC Saliva Substitute (Biotene Moisturizing Mouth) 2 spray PRN Q15MIN PRN PO DRY MOUTH; Start 07/28/18 at 00:00 Hydromorphone HCl (Dilaudid) 1 mg PRN Q4HRS PRN IVP PAIN Last administered on 07/31/18 07:40; Start 07/28/18 at 22:45 Pantoprazole Sodium (Protonix) 40 mg BIDAC PO Last administered on 07/31/18 07:39; Start 07/29/18 at 11:30 Sucralfate (Carafate) 1 gm QIDACHS PEG Last administered on 07/31/18 07:39; Start 07/29/18 at 11:30 Dicyclomine HCl (Bentyl) 10 mg QID PRN PO abd pain Last administered on 07/29/18 20:22; Start 07/29/18 at 10:45 Ondansetron HCl (Zofran) 4 mg PRN Q8HRS PRN IV NAUSEA/VOMITING Last administered on 07/30/18 08:42; Start 07/29/18 at 11:00 Acetaminophen (Tylenol) 650 mg PRN Q6HRS PRN PO HEADACHE Last administered on 07/29/18 12:16; Start 07/29/18 at 12:00 Sodium Chloride 1,000 ml @ 100 mls/hr Q10H IV Last administered on 07/31/18 02:59; Start 07/29/18 at 14:15 Sumatriptan Succinate (Imitrex) 6 mg 1X ONCE SQ Last administered on 07/29/18 15:18; Start 07/29/18 at 15:00; Stop 07/29/18 at 15:01; Status DC Fentanyl Citrate (Fentanyl 2ml Vial) 25 mcg PRN Q5MIN PRN IV MILD PAIN; Start 07/30/18 at 07:00; Stop 07/31/18 at 06:59; Status DC Fentanyl Citrate (Fentanyl 2ml Vial) 50 mcg PRN Q5MIN PRN IV MODERATE TO SEVERE PAIN; Start 07/30/18 at 07:00; Stop 07/31/18 at 06:59; Status DC Morphine Sulfate (Morphine Sulfate) 1 mg PRN Q10MIN PRN IV SEVERE PAIN; Start 07/30/18 at 07:00; Stop 07/31/18 at 06:59; Status DC Ringer's Solution 1,000 ml @ 30 mls/hr Q24H IV ; Start 07/30/18 at 07:00; Stop 07/30/18 at 18:59; Status DC Hydromorphone HCl (Dilaudid) 0.5 mg PRN Q10MIN PRN IV SEV PAIN, Second choice; Start 07/30/18 at 07:00; Stop 07/31/18 at 06:59; Status DC Sumatriptan Succinate (Imitrex) 100 mg PRN Q2HR PRN PO MIGRAINE HEADACHE Last administered on 07/31/18at 08:50; Start 07/30/18 at 09:15 Citalopram Hydrobromide (CeleXA) 20 mg DAILY PO Last administered on 07/31/18at 08:51; Start 07/30/18 at 09:15 Levetiracetam (Keppra) 500 mg BID PO Last administered on 07/31/18at 08:50; Start 07/30/18 at 21:00 Midazolam HCl (Versed) 2 mg STK-MED ONCE .ROUTE ; Start 07/30/18 at 15:27; Stop 07/30/18 at 15:28; Status DC Midazolam HCl (Versed) 2 mg STK-MED ONCE .ROUTE ; Start 07/30/18 at 15:27; Stop 07/30/18 at 15:28; Status DC Fentanyl Citrate (Fentanyl 5ml Vial) 250 mcg STK-MED ONCE .ROUTE ; Start 07/30/18 at 15:28; Stop 07/30/18 at 15:29; Status DC Active Scripts Active Cipro (Ciprofloxacin Hcl) 500 Mg Tablet 1 Tab PO BID Famotidine 20 Mg Tablet 20 Mg PO DAILY [Pantoprazole] 40 MG Tablet.dr 40 Mg PO DAILYAC 60 Days Carafate (Sucralfate) 1 Gm/10 Ml Oral.susp 1 Gm PEG QIDACHS Ondansetron Odt (Ondansetron) 4 Mg Tab.rapdis 4 Mg PO PRN Q6HRS PRN Hydrocodone-Apap 5-325 (Hydrocodone Bit/Acetaminophen) 1 Each Tablet 1 Tab PO PRN Q4HRS PRN Dicyclomine Hcl 10 Mg Capsule 10 Mg PO QID Promethazine Hcl 12.5 Mg Tablet 12.5 Mg PO PRN Q6HRS PRN Reported Reglan (Metoclopramide Hcl) 10 Mg Tablet 10 Mg PO QIDACHS Vitals/I & O Vital Sign - Last 24 Hours 07/30/18 07/30/18 07/30/18 07/30/18 11:07 13:58 16:12 16:27 Temp 98.3 97.4 98.3 97.4 Pulse 68 62 52 Resp 16 14 16 B/P (MAP) 102/62 (75) 97/53 102/60 Pulse Ox 100 100 98 100 O2 Delivery Room Air Room Air Room Air Room Air 07/30/18 07/30/18 07/30/18 07/30/18 16:42 18:13 18:43 19:00 Temp 99.0 99.0 Pulse 52 62 Resp 14 15 B/P (MAP) 105/62 97/47 (64) Pulse Ox 100 100 100 100 O2 Delivery Room Air Room Air Room Air 07/30/18 07/31/18 07/31/18 07/31/18 23:00 03:00 07:00 07:40 Temp 99.2 98.9 99.0 99.2 98.9 99.0 Pulse 73 70 62 Resp 15 15 18 18 B/P (MAP) 100/59 (73) 110/61 (77) 105/61 (76) Pulse Ox 99 99 99 O2 Delivery Room Air Room Air Room Air Room Air 07/31/18 08:10 Resp 16 O2 Delivery Room Air Intake and Output 07/30/18 07/30/18 07/31/18 15:00 23:00 07:00 Intake Total 0 ml 1300 ml Balance 0 ml 1300 ml Images Magnetic resonance imaging (MRI) of the brain and brainstem without contrast 07/30/2018 2:33 PM HISTORY: Headache with history of seizures TECHNIQUE: Multiplanar multi-weighted MRI of the brain and brainstem was performed without intravenous contrast using the general brain protocol. COMPARISON: None available. FINDINGS: The scalp and calvarium are normal. The superior sagittal sinus demonstrates normal venous flow. The corpus callosum is normal in shape and signal intensity. The posterior fossa is unremarkable. The pituitary and sella are normal. The brainstem and craniocervical junction are unremarkable. Hippocampi are symmetric in signal intensity and morphology. There is no heterotopic larios matter identified. No confirmation of cortical development is suspected. Diffusion weighted images reveal no hyperintensities to suggest acute cerebral infarction. The susceptibility weighted sequences reveal no evidence of acute or chronic hemorrhage. The ventricles are normal in size and position without evidence of hydrocephalus. The paranasal sinuses are normal. The visualized portions of the mastoids are unremarkable. The orbits appear normal. Normal flow voids are demonstrated in the carotid arteries and basilar artery. IMPRESSION: There is no structural abnormality to account for patient's seizures. SOBIA DEL ROSARIO MD July 31, 2018 09:35
--- NOTE | 2018-07-31 10:17 | PDOC ---
PROGRESS NOTES History of Present Illness History of Present Illness Assessment/Plan Assessment/Plan Recurrent hematemesis - persisted today 07/30 MW tear in dec 2017 crohns disease, with bleeding and pain, blood in ileostomy may need course of prednisone, GI consult S/p Charleen-en-Y - no bleeding at anastomosis on EGD 2 weeks ago, did note endoclip in place, has been on Carafate and PPI Chronic abd pain - better w/ Bentyl seizure disorder on keppra, HEADACHE TODAY 07/29, worse here is no structural abnormality to account for patient's seizures. vomiting blood streaks today 07/30 07/31 feels taste of bllod in throat 36 min pt exam, chart review, > 50% of time spent with exam, chart review, pt care coordination Vitals Vitals Vital Signs Date Time Temp Pulse Resp B/P (MAP) Pulse Ox O2 Delivery O2 Flow Rate FiO2 07/31/18 08:10 16 Room Air 07/31/18 07:00 99.0 62 105/61 (76) 99 99.0 Physical Exam General: Alert, Oriented X3, Cooperative, No acute distress, mild distress Heart: Regular rate, Normal S1, Normal S2, No murmurs Lungs: Clear Abdomen: Normal bowel sounds, Soft, Other (ostomy with stool and dark blood) Extremities: No clubbing, No cyanosis, No edema, Normal pulses Skin: No rashes Labs LABS Laboratory Tests Test 07/30/18 17:25 07/31/18 07:11 White Blood Count 4.6 x10^3/uL (4.0-11.0) 4.2 x10^3/uL (4.0-11.0) Red Blood Count 4.16 x10^6/uL (3.50-5.40) 4.11 x10^6/uL (3.50-5.40) Hemoglobin 12.0 g/dL (12.0-15.5) 11.7 g/dL (12.0-15.5) Hematocrit 37.2 % (36.0-47.0) 36.6 % (36.0-47.0) Mean Corpuscular Volume 90 fL (79-100) 89 fL (79-100) Mean Corpuscular Hemoglobin 29 pg (25-35) 29 pg (25-35) Mean Corpuscular Hemoglobin Concent 32 g/dL (31-37) 32 g/dL (31-37) Red Cell Distribution Width 26.3 % (11.5-14.5) 25.5 % (11.5-14.5) Platelet Count 237 x10^3/uL (140-400) 232 x10^3/uL (140-400) Neutrophils (%) (Auto) 51 % (31-73) Lymphocytes (%) (Auto) 36 % (24-48) Monocytes (%) (Auto) 7 % (0-9) Eosinophils (%) (Auto) 6 % (0-3) Basophils (%) (Auto) 1 % (0-3) Neutrophils # (Auto) 2.1 x10^3uL (1.8-7.7) Lymphocytes # (Auto) 1.5 x10^3/uL (1.0-4.8) Monocytes # (Auto) 0.3 x10^3/uL (0.0-1.1) Eosinophils # (Auto) 0.2 x10^3/uL (0.0-0.7) Basophils # (Auto) 0.1 x10^3/uL (0.0-0.2) Sodium Level 141 mmol/L (136-145) Potassium Level 3.4 mmol/L (3.5-5.1) Chloride Level 107 mmol/L (98-107) Carbon Dioxide Level 25 mmol/L (21-32) Anion Gap 9 (6-14) Blood Urea Nitrogen 5 mg/dL (7-20) Creatinine 0.6 mg/dL (0.6-1.0) Estimated GFR (Cockcroft-Gault) 117.4 Glucose Level 69 mg/dL (70-99) Calcium Level 8.5 mg/dL (8.5-10.1) Comment Review of Relevant I have reviewed the following items [place] (where applicable) has been applied. Labs Laboratory Tests Test 07/30/18 17:25 07/31/18 07:11 White Blood Count 4.6 x10^3/uL (4.0-11.0) 4.2 x10^3/uL (4.0-11.0) Red Blood Count 4.16 x10^6/uL (3.50-5.40) 4.11 x10^6/uL (3.50-5.40) Hemoglobin 12.0 g/dL (12.0-15.5) 11.7 g/dL (12.0-15.5) Hematocrit 37.2 % (36.0-47.0) 36.6 % (36.0-47.0) Mean Corpuscular Volume 90 fL (79-100) 89 fL (79-100) Mean Corpuscular Hemoglobin 29 pg (25-35) 29 pg (25-35) Mean Corpuscular Hemoglobin Concent 32 g/dL (31-37) 32 g/dL (31-37) Red Cell Distribution Width 26.3 % (11.5-14.5) 25.5 % (11.5-14.5) Platelet Count 237 x10^3/uL (140-400) 232 x10^3/uL (140-400) Neutrophils (%) (Auto) 51 % (31-73) Lymphocytes (%) (Auto) 36 % (24-48) Monocytes (%) (Auto) 7 % (0-9) Eosinophils (%) (Auto) 6 % (0-3) Basophils (%) (Auto) 1 % (0-3) Neutrophils # (Auto) 2.1 x10^3uL (1.8-7.7) Lymphocytes # (Auto) 1.5 x10^3/uL (1.0-4.8) Monocytes # (Auto) 0.3 x10^3/uL (0.0-1.1) Eosinophils # (Auto) 0.2 x10^3/uL (0.0-0.7) Basophils # (Auto) 0.1 x10^3/uL (0.0-0.2) Sodium Level 141 mmol/L (136-145) Potassium Level 3.4 mmol/L (3.5-5.1) Chloride Level 107 mmol/L (98-107) Carbon Dioxide Level 25 mmol/L (21-32) Anion Gap 9 (6-14) Blood Urea Nitrogen 5 mg/dL (7-20) Creatinine 0.6 mg/dL (0.6-1.0) Estimated GFR (Cockcroft-Gault) 117.4 Glucose Level 69 mg/dL (70-99) Calcium Level 8.5 mg/dL (8.5-10.1) Laboratory Tests Test 07/30/18 17:25 07/31/18 07:11 White Blood Count 4.6 x10^3/uL (4.0-11.0) 4.2 x10^3/uL (4.0-11.0) Red Blood Count 4.16 x10^6/uL (3.50-5.40) 4.11 x10^6/uL (3.50-5.40) Hemoglobin 12.0 g/dL (12.0-15.5) 11.7 g/dL (12.0-15.5) Hematocrit 37.2 % (36.0-47.0) 36.6 % (36.0-47.0) Mean Corpuscular Volume 90 fL (79-100) 89 fL (79-100) Mean Corpuscular Hemoglobin 29 pg (25-35) 29 pg (25-35) Mean Corpuscular Hemoglobin Concent 32 g/dL (31-37) 32 g/dL (31-37) Red Cell Distribution Width 26.3 % (11.5-14.5) 25.5 % (11.5-14.5) Platelet Count 237 x10^3/uL (140-400) 232 x10^3/uL (140-400) Neutrophils (%) (Auto) 51 % (31-73) Lymphocytes (%) (Auto) 36 % (24-48) Monocytes (%) (Auto) 7 % (0-9) Eosinophils (%) (Auto) 6 % (0-3) Basophils (%) (Auto) 1 % (0-3) Neutrophils # (Auto) 2.1 x10^3uL (1.8-7.7) Lymphocytes # (Auto) 1.5 x10^3/uL (1.0-4.8) Monocytes # (Auto) 0.3 x10^3/uL (0.0-1.1) Eosinophils # (Auto) 0.2 x10^3/uL (0.0-0.7) Basophils # (Auto) 0.1 x10^3/uL (0.0-0.2) Sodium Level 141 mmol/L (136-145) Potassium Level 3.4 mmol/L (3.5-5.1) Chloride Level 107 mmol/L (98-107) Carbon Dioxide Level 25 mmol/L (21-32) Anion Gap 9 (6-14) Blood Urea Nitrogen 5 mg/dL (7-20) Creatinine 0.6 mg/dL (0.6-1.0) Estimated GFR (Cockcroft-Gault) 117.4 Glucose Level 69 mg/dL (70-99) Calcium Level 8.5 mg/dL (8.5-10.1) Microbiology 07/27/18 Urine Culture - Final, Complete 07/27/18 Urine Culture Result 1 (JONNY) - Final, Complete Medications Current Medications Fentanyl Citrate (Fentanyl 2ml Vial) 50 mcg 1X ONCE IV Last administered on 07/27/18 20:15; Start 07/27/18 at 19:15; Stop 07/27/18 at 19:16; Status DC Ondansetron HCl (Zofran) 4 mg 1X ONCE IV Last administered on 07/27/18 20:15; Start 07/27/18 at 19:15; Stop 07/27/18 at 19:16; Status DC Sodium Chloride 1,000 ml @ 1,000 mls/hr 1X ONCE IV Last administered on 07/27/18at 20:15; Start 07/27/18 at 19:15; Stop 07/27/18 at 20:14; Status DC Pantoprazole Sodium 80 mg/ Sodium Chloride 100 ml @ 10 mls/hr Q10H IV Last administered on 07/29/18at 03:27; Start 07/27/18 at 19:30; Stop 07/29/18 at 10:47; Status DC Levofloxacin/ Dextrose 100 ml @ 100 mls/hr 1X ONCE IV Last administered on 07/27/18at 20:54; Start 07/27/18 at 20:15; Stop 07/27/18 at 21:14; Status DC Ondansetron HCl (Zofran) 4 mg PRN Q8HRS PRN IV NAUSEA/VOMITING Last administered on 07/28/18 19:25; Start 07/27/18 at 21:00; Stop 07/28/18 at 20:59; Status DC Morphine Sulfate (Morphine Sulfate) 2 mg PRN Q2HR PRN IV PAIN Last administered on 07/27/18at 21:19; Start 07/27/18 at 21:00; Stop 07/27/18 at 21:25; Status DC Sodium Chloride 1,000 ml @ 100 mls/hr Q10H IV Last administered on 07/28/18 20:58; Start 07/27/18 at 20:48; Stop 07/28/18 at 20:47; Status DC Morphine Sulfate (Morphine Sulfate) 4 mg PRN Q2HR PRN IV PAIN Last administered on 07/28/18 21:20; Start 07/27/18 at 21:30; Stop 07/28/18 at 22:40; Status DC Levetiracetam 500 mg/Dextrose 105 ml @ 420 mls/hr Q12HR IV Last administered on 07/30/18 09:33; Start 07/27/18 at 22:00; Stop 07/30/18 at 10:32; Status DC Saliva Substitute (Biotene Moisturizing Mouth) 2 spray PRN Q15MIN PRN PO DRY MOUTH; Start 07/28/18 at 00:00 Hydromorphone HCl (Dilaudid) 1 mg PRN Q4HRS PRN IVP PAIN Last administered on 07:40; Start 07/28/18 at 22:45 Pantoprazole Sodium (Protonix) 40 mg BIDAC PO Last administered on 07/31/18 07:39; Start 07/29/18 at 11:30 Sucralfate (Carafate) 1 gm QIDACHS PEG Last administered on 07/31/18 07:39; Start 07/29/18 at 11:30 Dicyclomine HCl (Bentyl) 10 mg QID PRN PO abd pain Last administered on 07/29/18 20:22; Start 07/29/18 at 10:45 Ondansetron HCl (Zofran) 4 mg PRN Q8HRS PRN IV NAUSEA/VOMITING Last administered on 07/30/18 08:42; Start 07/29/18 at 11:00 Acetaminophen (Tylenol) 650 mg PRN Q6HRS PRN PO HEADACHE Last administered on 07/29/18 12:16; Start 07/29/18 at 12:00 Sodium Chloride 1,000 ml @ 100 mls/hr Q10H IV Last administered on 07/31/18 02:59; Start 07/29/18 at 14:15 Sumatriptan Succinate (Imitrex) 6 mg 1X ONCE SQ Last administered on 07/29/18at 15:18; Start 07/29/18 at 15:00; Stop 07/29/18 at 15:01; Status DC Fentanyl Citrate (Fentanyl 2ml Vial) 25 mcg PRN Q5MIN PRN IV MILD PAIN; Start 07/30/18 at 07:00; Stop 07/31/18 at 06:59; Status DC Fentanyl Citrate (Fentanyl 2ml Vial) 50 mcg PRN Q5MIN PRN IV MODERATE TO SEVERE PAIN; Start 07/30/18 at 07:00; Stop 07/31/18 at 06:59; Status DC Morphine Sulfate (Morphine Sulfate) 1 mg PRN Q10MIN PRN IV SEVERE PAIN; Start 07/30/18 at 07:00; Stop 07/31/18 at 06:59; Status DC Ringer's Solution 1,000 ml @ 30 mls/hr Q24H IV ; Start 07/30/18 at 07:00; Stop 07/30/18 at 18:59; Status DC Hydromorphone HCl (Dilaudid) 0.5 mg PRN Q10MIN PRN IV SEV PAIN, Second choice; Start 07/30/18 at 07:00; Stop 07/31/18 at 06:59; Status DC Sumatriptan Succinate (Imitrex) 100 mg PRN Q2HR PRN PO MIGRAINE HEADACHE Last administered on 07/31/18at 08:50; Start 07/30/18 at 09:15 Citalopram Hydrobromide (CeleXA) 20 mg DAILY PO Last administered on 07/31/18at 08:51; Start 07/30/18 at 09:15 Levetiracetam (Keppra) 500 mg BID PO Last administered on 07/31/18at 08:50; Start 07/30/18 at 21:00 Midazolam HCl (Versed) 2 mg STK-MED ONCE .ROUTE ; Start 07/30/18 at 15:27; Stop 07/30/18 at 15:28; Status DC Midazolam HCl (Versed) 2 mg STK-MED ONCE .ROUTE ; Start 07/30/18 at 15:27; Stop 07/30/18 at 15:28; Status DC Fentanyl Citrate (Fentanyl 5ml Vial) 250 mcg STK-MED ONCE .ROUTE ; Start 07/30/18 at 15:28; Stop 07/30/18 at 15:29; Status DC Active Scripts Active Cipro (Ciprofloxacin Hcl) 500 Mg Tablet 1 Tab PO BID Famotidine 20 Mg Tablet 20 Mg PO DAILY [Pantoprazole] 40 MG Tablet.dr 40 Mg PO DAILYAC 60 Days Carafate (Sucralfate) 1 Gm/10 Ml Oral.susp 1 Gm PEG QIDACHS Ondansetron Odt (Ondansetron) 4 Mg Tab.rapdis 4 Mg PO PRN Q6HRS PRN Hydrocodone-Apap 5-325 (Hydrocodone Bit/Acetaminophen) 1 Each Tablet 1 Tab PO PRN Q4HRS PRN Dicyclomine Hcl 10 Mg Capsule 10 Mg PO QID Promethazine Hcl 12.5 Mg Tablet 12.5 Mg PO PRN Q6HRS PRN Reported Reglan (Metoclopramide Hcl) 10 Mg Tablet 10 Mg PO QIDACHS Vitals/I & O Vital Sign - Last 24 Hours 07/30/18 07/30/18 07/30/18 07/30/18 11:07 13:58 16:12 16:27 Temp 98.3 97.4 98.3 97.4 Pulse 68 62 52 Resp 16 14 16 B/P (MAP) 102/62 (75) 97/53 102/60 Pulse Ox 100 100 98 100 O2 Delivery Room Air Room Air Room Air Room Air 07/30/18 07/30/18 07/30/18 07/30/18 16:42 18:13 18:43 19:00 Temp 99.0 99.0 Pulse 52 62 Resp 14 15 B/P (MAP) 105/62 97/47 (64) Pulse Ox 100 100 100 100 O2 Delivery Room Air Room Air Room Air 07/30/18 07/31/18 07/31/18 07/31/18 23:00 03:00 07:00 07:40 Temp 99.2 98.9 99.0 99.2 98.9 99.0 Pulse 73 70 62 Resp 15 15 18 18 B/P (MAP) 100/59 (73) 110/61 (77) 105/61 (76) Pulse Ox 99 99 99 O2 Delivery Room Air Room Air Room Air Room Air 07/31/18 08:10 Resp 16 O2 Delivery Room Air Intake and Output 07/30/18 07/30/18 07/31/18 15:00 23:00 07:00 Intake Total 0 ml 1300 ml Balance 0 ml 1300 ml IMER PATE MD July 31, 2018 10:17
[2018-07-31 10:28] LABS: PLT ESTIMATE ADEQUATE (ADEQUATE)
[2018-07-31 10:29] LABS: ANISOCYTOSIS MARKED
[2018-07-31 11:00] VITALS: BP 118/65
[2018-07-31] MEDS: DICYCLOMINE HCL 10 MG CAPSULE PO PRN (11:57)
--- NOTE | 2018-07-31 12:59 | PDOC ---
Subjective: Subjective: Try full liquids, tastes blood in her throat, no vomiting. Objective: Objective: Reviewed w/ RN - nausea, no vomiting/bleeding. Vital Signs: Vital Signs Date Time Temp Pulse Resp B/P (MAP) Pulse Ox O2 Delivery O2 Flow Rate FiO2 07/31/18 11:57 18 Room Air 07/31/18 11:00 98.6 64 118/65 (82) 100 98.6 Labs: Laboratory Tests Test 07/30/18 17:25 07/31/18 07:11 07/31/18 11:18 White Blood Count 4.6 x10^3/uL 4.2 x10^3/uL Red Blood Count 4.16 x10^6/uL 4.11 x10^6/uL Hemoglobin 12.0 g/dL 11.7 g/dL Hematocrit 37.2 % 36.6 % Mean Corpuscular Volume 90 fL 89 fL Mean Corpuscular Hemoglobin 29 pg 29 pg Mean Corpuscular Hemoglobin Concent 32 g/dL 32 g/dL Red Cell Distribution Width 26.3 % 25.5 % Platelet Count 237 x10^3/uL 232 x10^3/uL Neutrophils (%) (Auto) 51 % Lymphocytes (%) (Auto) 36 % Monocytes (%) (Auto) 7 % Eosinophils (%) (Auto) 6 % Basophils (%) (Auto) 1 % Neutrophils # (Auto) 2.1 x10^3uL Lymphocytes # (Auto) 1.5 x10^3/uL Monocytes # (Auto) 0.3 x10^3/uL Eosinophils # (Auto) 0.2 x10^3/uL Basophils # (Auto) 0.1 x10^3/uL Platelet Estimate Adequate Anisocytosis Marked Sodium Level 141 mmol/L Potassium Level 3.4 mmol/L Chloride Level 107 mmol/L Carbon Dioxide Level 25 mmol/L Anion Gap 9 Blood Urea Nitrogen 5 mg/dL Creatinine 0.6 mg/dL Estimated GFR (Cockcroft-Gault) 117.4 Glucose Level 69 mg/dL Calcium Level 8.5 mg/dL Glucose (Fingerstick) 88 mg/dL PE: GEN: NAD - looks better today LUNGS: CTAB HEART: RRR ABD: BS+, tender per usual, brown stool in ostomy bag NEURO/PSYCH: A & O 3 A/P: Recurrent hematemesis, chronic abd pain -past workup per previous notes Headache -- ?better, Hgb stable still. Continue same per GI, will review w/ Dr. Latham. PATI HOUSER July 31, 2018 12:59
[2018-07-31] MEDS: POTASSIUM CHL 20MEQ PREMIX 50 ML IV SCH ×2 (13:53→16:09)
[2018-07-31 15:00] VITALS: BP 93/43
[2018-07-31] MEDS ORDERED: DEXTROSE 50% 25 GM / 50ML DISP.SYRIN. IV PRN (16:45)
[2018-07-31] MEDS ORDERED: INSULIN LISPRO 300 UNITS/3 ML INSULN.PEN. SQ SCH (17:00)
[2018-07-31 19:22] VITALS: BP 110/65
[2018-07-31 23:00] VITALS: BP 109/55
[2018-08-01] MEDS: HYDROmorphone 2 MG/ML VIAL IVP PRN ×3 (00:39→08:57)
[2018-08-01] MEDS: IV NORMAL SALINE 1000ML BAG 1,000 ML IV SCH ×3 (02:01→21:05)
[2018-08-01 02:31] VITALS: BP 101/65
[2018-08-01 07:00] VITALS: BP 97/48
[2018-08-01 08:21] LABS: BASO % 1 % (0-3); EOS # 0.3 x10^3/uL (0.0-0.7); EOS % 7 % (0-3); HEMATOCRIT 36.1 % (36.0-47.0); HEMOGLOBIN 11.7 g/dL (12.0-15.5); LYMPH # 1.7 x10^3/uL (1.0-4.8); LYMPH % 39 % (24-48); MEAN CORPUSCULAR HEMOGLOBIN 29 pg (25-35); MEAN CORPUSCULAR HGB CONC 32 g/dL (31-37); MEAN CORPUSCULAR VOLUME 89 fL (79-100); MONO # 0.4 x10^3/uL (0.0-1.1); MONO % 8 % (0-9); NEUT % 45 % (31-73); PLATELET COUNT 242 x10^3/uL (140-400); RED BLOOD COUNT 4.06 x10^6/uL (3.50-5.40); RED CELL DISTRIBUTION WIDTH 25.2 % (11.5-14.5); WHITE BLOOD COUNT 4.4 x10^3/uL (4.0-11.0)
[2018-08-01 08:27] LABS: CALCIUM 8.2 mg/dL (8.5-10.1); CREATININE 0.5 mg/dL (0.6-1.0); GFR 144.9; POTASSIUM 3.5 mmol/L (3.5-5.1)
[2018-08-01] MEDS: SUCRALFATE 1 GM/10 ML ORAL.SUSP. PEG SCH ×4 (08:56→21:01)
[2018-08-01] MEDS: DICYCLOMINE HCL 10 MG CAPSULE PO PRN (08:56)
--- NOTE | 2018-08-01 09:33 | PDOC ---
PROGRESS NOTES History of Present Illness History of Present Illness Assessment/Plan Assessment/Plan Recurrent hematemesis - persisted today 07/30, 07/31/ 08/01 MW tear in dec 2017 crohns disease, with bleeding and pain, blood in ileostomy may need course of prednisone, GI consult S/p Charleen-en-Y - no bleeding at anastomosis on EGD 2 weeks ago, did note endoclip in place, has been on Carafate and PPI Chronic abd pain - better w/ Bentyl seizure disorder on keppra, HEADACHE TODAY 07/29, worse here is no structural abnormality to account for patient's seizures. vomiting blood streaks today 07/30, 08/01 07/31 feels taste of blood in throat left lower lobe nodular opacity is new compared to prior CT 01/22/2018. Although this size nodule of the greater than expected for malignancy and is favored to represent atelectasis or consolidative process, follow-up to resolution is recommended. plan ct chest 08/01 46 min pt exam, chart review, > 50% of time spent with exam, chart review, pt care coordination Vitals Vitals Vital Signs Date Time Temp Pulse Resp B/P (MAP) Pulse Ox O2 Delivery O2 Flow Rate FiO2 08/01/18 08:57 18 97 Room Air 08/01/18 07:00 98.3 59 97/48 (64) 98.3 Physical Exam General: Alert, Oriented X3, Cooperative, No acute distress, mild distress Heart: Regular rate, Normal S1, Normal S2, No murmurs Lungs: Clear Abdomen: Normal bowel sounds, Soft, Other (ostomy with stool and dark blood) Extremities: No clubbing, No cyanosis, No edema, Normal pulses Skin: No rashes, No breakdown, No significant lesion Labs LABS STATUS: REG ER ORD. PHYSICIAN: REYNALDO LOBO APRN REASON: abd pain, vomiting blood hx of illeostomy PROCEDURE: CT ABD PELV W/ IV CONTRST ONLY EXAM: CT Abdomen and Pelvis with IV contrast CLINICAL HISTORY: abd pain, vomiting blood hx of ileostomy COMPARISON: 01/22/2018 TECHNIQUE: Helical CT of the abdomen and pelvis was performed following the administration of intravenous contrast. Axial, coronal and sagittal reformatted images were generated. PQRS compliance statement - One or more of the following individualized dose reduction techniques were utilized for this study: 1. Automated exposure control 2. Adjustment of the mA and/or kV according to patient size 3. Use of iterative reconstruction technique FINDINGS: Lower chest: Nodular opacity seen in the posterior left lower lobe measuring 1.1 cm, new compared to prior CT 01/22/2018. Abdomen and Pelvis: Subcentimeter hypodense right hepatic lobe lesion is too small to characterize. Several gallstones are seen within the gallbladder. No biliary ductal dilatation. Pancreas is unremarkable. Adrenal glands are normal. Focal hypodense lesion within the spleen is too small to accurately characterize. Symmetric nephrograms. No focal renal lesion. No hydronephrosis. No hydroureter. There is diffuse fat infiltration about the decompressed bladder, likely cystitis. Right lower quadrant ostomy is seen. Anastomotic suture line is seen within the left upper abdomen and right lower abdomen. No abnormal small or large bowel dilatation although the stomach is distended. A tampon is seen within the vaginal canal. High density structure within the endometrium possibly hemorrhagic products although abnormal uterine morphology such as subcutaneous uterus may have similar appearance. Bones: Osseous structures are grossly stable. No definite aggressive osseous lesion is identified. IMPRESSION: 1. No abnormal small or large bowel dilatation is seen to suggest bowel obstruction. 2. Wall thickening with fat infiltration about the bladder, may be seen with cystitis. 3. Left lower lobe nodular opacity is new compared to prior CT 01/22/2018. Although this size nodule of the greater than expected for malignancy and is favored to represent atelectasis or consolidative process, follow-up to resolution is recommended. 4. Linear high density within the endometrium, although may represent hemorrhagic products, abnormal uterine morphology such as septate uterus may result in similar appearance. Ultrasound may provide additional details as clinically indicated. Electronically signed by: Francesco Lee MD (04/27/2018 6:19 PM) [facility] Laboratory Tests Test 07/31/18 11:18 07/31/18 16:27 08/01/18 06:47 Glucose (Fingerstick) 88 mg/dL (70-99) 88 mg/dL (70-99) White Blood Count 4.4 x10^3/uL (4.0-11.0) Red Blood Count 4.06 x10^6/uL (3.50-5.40) Hemoglobin 11.7 g/dL (12.0-15.5) Hematocrit 36.1 % (36.0-47.0) Mean Corpuscular Volume 89 fL (79-100) Mean Corpuscular Hemoglobin 29 pg (25-35) Mean Corpuscular Hemoglobin Concent 32 g/dL (31-37) Red Cell Distribution Width 25.2 % (11.5-14.5) Platelet Count 242 x10^3/uL (140-400) Neutrophils (%) (Auto) 45 % (31-73) Lymphocytes (%) (Auto) 39 % (24-48) Monocytes (%) (Auto) 8 % (0-9) Eosinophils (%) (Auto) 7 % (0-3) Basophils (%) (Auto) 1 % (0-3) Neutrophils # (Auto) 2.0 x10^3uL (1.8-7.7) Lymphocytes # (Auto) 1.7 x10^3/uL (1.0-4.8) Monocytes # (Auto) 0.4 x10^3/uL (0.0-1.1) Eosinophils # (Auto) 0.3 x10^3/uL (0.0-0.7) Basophils # (Auto) 0.0 x10^3/uL (0.0-0.2) Sodium Level 140 mmol/L (136-145) Potassium Level 3.5 mmol/L (3.5-5.1) Chloride Level 106 mmol/L (98-107) Carbon Dioxide Level 25 mmol/L (21-32) Anion Gap 9 (6-14) Blood Urea Nitrogen 6 mg/dL (7-20) Creatinine 0.5 mg/dL (0.6-1.0) Estimated GFR (Cockcroft-Gault) 144.9 Glucose Level 79 mg/dL (70-99) Calcium Level 8.2 mg/dL (8.5-10.1) Comment Review of Relevant I have reviewed the following items [place] (where applicable) has been applied. Labs Laboratory Tests Test 07/30/18 17:25 07/31/18 07:11 07/31/18 11:18 07/31/18 16:27 White Blood Count 4.6 x10^3/uL (4.0-11.0) 4.2 x10^3/uL (4.0-11.0) Red Blood Count 4.16 x10^6/uL (3.50-5.40) 4.11 x10^6/uL (3.50-5.40) Hemoglobin 12.0 g/dL (12.0-15.5) 11.7 g/dL (12.0-15.5) Hematocrit 37.2 % (36.0-47.0) 36.6 % (36.0-47.0) Mean Corpuscular Volume 90 fL (79-100) 89 fL (79-100) Mean Corpuscular Hemoglobin 29 pg (25-35) 29 pg (25-35) Mean Corpuscular Hemoglobin Concent 32 g/dL (31-37) 32 g/dL (31-37) Red Cell Distribution Width 26.3 % (11.5-14.5) 25.5 % (11.5-14.5) Platelet Count 237 x10^3/uL (140-400) 232 x10^3/uL (140-400) Neutrophils (%) (Auto) 51 % (31-73) Lymphocytes (%) (Auto) 36 % (24-48) Monocytes (%) (Auto) 7 % (0-9) Eosinophils (%) (Auto) 6 % (0-3) Basophils (%) (Auto) 1 % (0-3) Neutrophils # (Auto) 2.1 x10^3uL (1.8-7.7) Lymphocytes # (Auto) 1.5 x10^3/uL (1.0-4.8) Monocytes # (Auto) 0.3 x10^3/uL (0.0-1.1) Eosinophils # (Auto) 0.2 x10^3/uL (0.0-0.7) Basophils # (Auto) 0.1 x10^3/uL (0.0-0.2) Platelet Estimate Adequate (ADEQUATE) Anisocytosis Marked Sodium Level 141 mmol/L (136-145) Potassium Level 3.4 mmol/L (3.5-5.1) Chloride Level 107 mmol/L (98-107) Carbon Dioxide Level 25 mmol/L (21-32) Anion Gap 9 (6-14) Blood Urea Nitrogen 5 mg/dL (7-20) Creatinine 0.6 mg/dL (0.6-1.0) Estimated GFR (Cockcroft-Gault) 117.4 Glucose Level 69 mg/dL (70-99) Calcium Level 8.5 mg/dL (8.5-10.1) Glucose (Fingerstick) 88 mg/dL (70-99) 88 mg/dL (70-99) Test 08/01/18 06:47 White Blood Count 4.4 x10^3/uL (4.0-11.0) Red Blood Count 4.06 x10^6/uL (3.50-5.40) Hemoglobin 11.7 g/dL (12.0-15.5) Hematocrit 36.1 % (36.0-47.0) Mean Corpuscular Volume 89 fL (79-100) Mean Corpuscular Hemoglobin 29 pg (25-35) Mean Corpuscular Hemoglobin Concent 32 g/dL (31-37) Red Cell Distribution Width 25.2 % (11.5-14.5) Platelet Count 242 x10^3/uL (140-400) Neutrophils (%) (Auto) 45 % (31-73) Lymphocytes (%) (Auto) 39 % (24-48) Monocytes (%) (Auto) 8 % (0-9) Eosinophils (%) (Auto) 7 % (0-3) Basophils (%) (Auto) 1 % (0-3) Neutrophils # (Auto) 2.0 x10^3uL (1.8-7.7) Lymphocytes # (Auto) 1.7 x10^3/uL (1.0-4.8) Monocytes # (Auto) 0.4 x10^3/uL (0.0-1.1) Eosinophils # (Auto) 0.3 x10^3/uL (0.0-0.7) Basophils # (Auto) 0.0 x10^3/uL (0.0-0.2) Sodium Level 140 mmol/L (136-145) Potassium Level 3.5 mmol/L (3.5-5.1) Chloride Level 106 mmol/L (98-107) Carbon Dioxide Level 25 mmol/L (21-32) Anion Gap 9 (6-14) Blood Urea Nitrogen 6 mg/dL (7-20) Creatinine 0.5 mg/dL (0.6-1.0) Estimated GFR (Cockcroft-Gault) 144.9 Glucose Level 79 mg/dL (70-99) Calcium Level 8.2 mg/dL (8.5-10.1) Laboratory Tests Test 07/31/18 11:18 07/31/18 16:27 08/01/18 06:47 Glucose (Fingerstick) 88 mg/dL (70-99) 88 mg/dL (70-99) White Blood Count 4.4 x10^3/uL (4.0-11.0) Red Blood Count 4.06 x10^6/uL (3.50-5.40) Hemoglobin 11.7 g/dL (12.0-15.5) Hematocrit 36.1 % (36.0-47.0) Mean Corpuscular Volume 89 fL (79-100) Mean Corpuscular Hemoglobin 29 pg (25-35) Mean Corpuscular Hemoglobin Concent 32 g/dL (31-37) Red Cell Distribution Width 25.2 % (11.5-14.5) Platelet Count 242 x10^3/uL (140-400) Neutrophils (%) (Auto) 45 % (31-73) Lymphocytes (%) (Auto) 39 % (24-48) Monocytes (%) (Auto) 8 % (0-9) Eosinophils (%) (Auto) 7 % (0-3) Basophils (%) (Auto) 1 % (0-3) Neutrophils # (Auto) 2.0 x10^3uL (1.8-7.7) Lymphocytes # (Auto) 1.7 x10^3/uL (1.0-4.8) Monocytes # (Auto) 0.4 x10^3/uL (0.0-1.1) Eosinophils # (Auto) 0.3 x10^3/uL (0.0-0.7) Basophils # (Auto) 0.0 x10^3/uL (0.0-0.2) Sodium Level 140 mmol/L (136-145) Potassium Level 3.5 mmol/L (3.5-5.1) Chloride Level 106 mmol/L (98-107) Carbon Dioxide Level 25 mmol/L (21-32) Anion Gap 9 (6-14) Blood Urea Nitrogen 6 mg/dL (7-20) Creatinine 0.5 mg/dL (0.6-1.0) Estimated GFR (Cockcroft-Gault) 144.9 Glucose Level 79 mg/dL (70-99) Calcium Level 8.2 mg/dL (8.5-10.1) Microbiology 07/27/18 Urine Culture - Final, Complete 07/27/18 Urine Culture Result 1 (JONNY) - Final, Complete Medications Current Medications Fentanyl Citrate (Fentanyl 2ml Vial) 50 mcg 1X ONCE IV Last administered on 07/27/18 20:15; Start 07/27/18 at 19:15; Stop 07/27/18 at 19:16; Status DC Ondansetron HCl (Zofran) 4 mg 1X ONCE IV Last administered on 07/27/18 20:15; Start 07/27/18 at 19:15; Stop 07/27/18 at 19:16; Status DC Sodium Chloride 1,000 ml @ 1,000 mls/hr 1X ONCE IV Last administered on 07/27/18at 20:15; Start 07/27/18 at 19:15; Stop 07/27/18 at 20:14; Status DC Pantoprazole Sodium 80 mg/ Sodium Chloride 100 ml @ 10 mls/hr Q10H IV Last administered on 07/29/18at 03:27; Start 07/27/18 at 19:30; Stop 07/29/18 at 10:47; Status DC Levofloxacin/ Dextrose 100 ml @ 100 mls/hr 1X ONCE IV Last administered on 07/27/18 20:54; Start 07/27/18 at 20:15; Stop 07/27/18 at 21:14; Status DC Ondansetron HCl (Zofran) 4 mg PRN Q8HRS PRN IV NAUSEA/VOMITING Last administered on 07/28/18 19:25; Start 07/27/18 at 21:00; Stop 07/28/18 at 20:59; Status DC Morphine Sulfate (Morphine Sulfate) 2 mg PRN Q2HR PRN IV PAIN Last administered on 07/27/18 21:19; Start 07/27/18 at 21:00; Stop 07/27/18 at 21:25; Status DC Sodium Chloride 1,000 ml @ 100 mls/hr Q10H IV Last administered on 07/28/18at 20:58; Start 07/27/18 at 20:48; Stop 07/28/18 at 20:47; Status DC Morphine Sulfate (Morphine Sulfate) 4 mg PRN Q2HR PRN IV PAIN Last administered on 07/28/18 21:20; Start 07/27/18 at 21:30; Stop 07/28/18 at 22:40; Status DC Levetiracetam 500 mg/Dextrose 105 ml @ 420 mls/hr Q12HR IV Last administered on 07/30/18 09:33; Start 07/27/18 at 22:00; Stop 07/30/18 at 10:32; Status DC Saliva Substitute (Biotene Moisturizing Mouth) 2 spray PRN Q15MIN PRN PO DRY MOUTH; Start 07/28/18 at 00:00 Hydromorphone HCl (Dilaudid) 1 mg PRN Q4HRS PRN IVP PAIN Last administered on 08/01/18 08:57; Start 07/28/18 at 22:45 Pantoprazole Sodium (Protonix) 40 mg BIDAC PO Last administered on 07/31/18 16:12; Start 07/29/18 at 11:30 Sucralfate (Carafate) 1 gm QIDACHS PEG Last administered on 08/01/18 08:56; Start 07/29/18 at 11:30 Dicyclomine HCl (Bentyl) 10 mg QID PRN PO abd pain Last administered on 08/01/18 08:56; Start 07/29/18 at 10:45 Ondansetron HCl (Zofran) 4 mg PRN Q8HRS PRN IV NAUSEA/VOMITING Last administered on 07/30/18 08:42; Start 07/29/18 at 11:00 Acetaminophen (Tylenol) 650 mg PRN Q6HRS PRN PO HEADACHE Last administered on 07/29/18 12:16; Start 07/29/18 at 12:00 Sodium Chloride 1,000 ml @ 100 mls/hr Q10H IV Last administered on 08/01/18 02:01; Start 07/29/18 at 14:15 Sumatriptan Succinate (Imitrex) 6 mg 1X ONCE SQ Last administered on 07/29/18 15:18; Start 07/29/18 at 15:00; Stop 07/29/18 at 15:01; Status DC Fentanyl Citrate (Fentanyl 2ml Vial) 25 mcg PRN Q5MIN PRN IV MILD PAIN; Start 07/30/18 at 07:00; Stop 07/31/18 at 06:59; Status DC Fentanyl Citrate (Fentanyl 2ml Vial) 50 mcg PRN Q5MIN PRN IV MODERATE TO SEVERE PAIN; Start 07/30/18 at 07:00; Stop 07/31/18 at 06:59; Status DC Morphine Sulfate (Morphine Sulfate) 1 mg PRN Q10MIN PRN IV SEVERE PAIN; Start 07/30/18 at 07:00; Stop 07/31/18 at 06:59; Status DC Ringer's Solution 1,000 ml @ 30 mls/hr Q24H IV ; Start 07/30/18 at 07:00; Stop 07/30/18 at 18:59; Status DC Hydromorphone HCl (Dilaudid) 0.5 mg PRN Q10MIN PRN IV SEV PAIN, Second choice; Start 07/30/18 at 07:00; Stop 07/31/18 at 06:59; Status DC Sumatriptan Succinate (Imitrex) 100 mg PRN Q2HR PRN PO MIGRAINE HEADACHE Last administered on 07/31/18at 08:50; Start 07/30/18 at 09:15 Citalopram Hydrobromide (CeleXA) 20 mg DAILY PO Last administered on 07/31/18at 08:51; Start 07/30/18 at 09:15 Levetiracetam (Keppra) 500 mg BID PO Last administered on 07/31/18at 20:31; Start 07/30/18 at 21:00 Midazolam HCl (Versed) 2 mg STK-MED ONCE .ROUTE ; Start 07/30/18 at 15:27; Stop 07/30/18 at 15:28; Status DC Midazolam HCl (Versed) 2 mg STK-MED ONCE .ROUTE ; Start 07/30/18 at 15:27; Stop 07/30/18 at 15:28; Status DC Fentanyl Citrate (Fentanyl 5ml Vial) 250 mcg STK-MED ONCE .ROUTE ; Start 07/30/18 at 15:28; Stop 07/30/18 at 15:29; Status DC Potassium Chloride/Water 50 ml @ 50 mls/hr Q1H IV Last administered on 07/31/18at 16:09; Start 07/31/18 at 13:00; Stop 07/31/18 at 14:59; Status DC Insulin Human Lispro (HumaLOG) 0-5 UNITS TIDWMEALS SQ ; Start 07/31/18 at 17:00; Stop 07/31/18 at 17:19; Status DC Dextrose (Dextrose 50%-Water Syringe) 12.5 gm PRN Q15MIN PRN IV SEE COMMENTS; Start 07/31/18 at 16:45; Status Cancel Active Scripts Active Cipro (Ciprofloxacin Hcl) 500 Mg Tablet 1 Tab PO BID Famotidine 20 Mg Tablet 20 Mg PO DAILY [Pantoprazole] 40 MG Tablet.dr 40 Mg PO DAILYAC 60 Days Carafate (Sucralfate) 1 Gm/10 Ml Oral.susp 1 Gm PEG QIDACHS Ondansetron Odt (Ondansetron) 4 Mg Tab.rapdis 4 Mg PO PRN Q6HRS PRN Hydrocodone-Apap 5-325 (Hydrocodone Bit/Acetaminophen) 1 Each Tablet 1 Tab PO PRN Q4HRS PRN Dicyclomine Hcl 10 Mg Capsule 10 Mg PO QID Promethazine Hcl 12.5 Mg Tablet 12.5 Mg PO PRN Q6HRS PRN Reported Reglan (Metoclopramide Hcl) 10 Mg Tablet 10 Mg PO QIDACHS Vitals/I & O Vital Sign - Last 24 Hours 07/31/18 07/31/18 07/31/18 07/31/18 11:00 11:57 15:00 16:10 Temp 98.6 98.8 98.6 98.8 Pulse 64 64 Resp 18 18 18 16 B/P (MAP) 118/65 (82) 93/43 (60) Pulse Ox 100 98 O2 Delivery Room Air Room Air Room Air Room Air 07/31/18 07/31/18 07/31/18 08/01/18 16:40 19:22 23:00 02:31 Temp 98.5 98.6 98.4 98.5 98.6 98.4 Pulse 66 64 61 Resp 16 15 17 16 B/P (MAP) 110/65 (80) 109/55 (73) 101/65 (77) Pulse Ox 97 99 98 O2 Delivery Room Air Room Air Room Air Room Air 08/01/18 08/01/18 07:00 08:57 Temp 98.3 98.3 Pulse 59 Resp 18 18 B/P (MAP) 97/48 (64) Pulse Ox 97 97 O2 Delivery Room Air Room Air Intake and Output 07/31/18 07/31/18 08/01/18 15:00 23:00 07:00 Intake Total 1400 ml Output Total 0 ml 2 ml Balance 0 ml -2 ml 1400 ml IMER PATE MD August 01, 2018 09:33
[2018-08-01] MEDS: PANTOPRAZOLE 40 MG TABLET.DR. PO SCH ×2 (09:50→16:30)
[2018-08-01] MEDS: levETIRAcetam 500 MG TABLET PO SCH ×2 (09:50→21:01)
[2018-08-01] MEDS: SUMAtriptan SUCCINATE 100 MG TABLET PO PRN (09:50)
[2018-08-01] MEDS: CITALOPRAM 20 MG TABLET. PO SCH (09:50)
--- NOTE | 2018-08-01 10:11 | PDOC ---
Subjective: Subjective: Didn't feel like eating this morning but asks to advance diet to soft. Objective: Objective: Reviewed w/ RN - vomited some blood yesterday - about 30mL. Getting lots of Dilaudid. Vital Signs: Vital Signs Date Time Temp Pulse Resp B/P (MAP) Pulse Ox O2 Delivery O2 Flow Rate FiO2 08/01/18 08:57 18 97 Room Air 08/01/18 07:00 98.3 59 97/48 (64) 98.3 Labs: Laboratory Tests Test 07/31/18 11:18 07/31/18 16:27 08/01/18 06:47 Glucose (Fingerstick) 88 mg/dL 88 mg/dL White Blood Count 4.4 x10^3/uL Red Blood Count 4.06 x10^6/uL Hemoglobin 11.7 g/dL Hematocrit 36.1 % Mean Corpuscular Volume 89 fL Mean Corpuscular Hemoglobin 29 pg Mean Corpuscular Hemoglobin Concent 32 g/dL Red Cell Distribution Width 25.2 % Platelet Count 242 x10^3/uL Neutrophils (%) (Auto) 45 % Lymphocytes (%) (Auto) 39 % Monocytes (%) (Auto) 8 % Eosinophils (%) (Auto) 7 % Basophils (%) (Auto) 1 % Neutrophils # (Auto) 2.0 x10^3uL Lymphocytes # (Auto) 1.7 x10^3/uL Monocytes # (Auto) 0.4 x10^3/uL Eosinophils # (Auto) 0.3 x10^3/uL Basophils # (Auto) 0.0 x10^3/uL Sodium Level 140 mmol/L Potassium Level 3.5 mmol/L Chloride Level 106 mmol/L Carbon Dioxide Level 25 mmol/L Anion Gap 9 Blood Urea Nitrogen 6 mg/dL Creatinine 0.5 mg/dL Estimated GFR (Cockcroft-Gault) 144.9 Glucose Level 79 mg/dL Calcium Level 8.2 mg/dL PE: GEN: NAD LUNGS: CTAB HEART: RRR ABD: stable tenderness, brown stool in ostomy NEURO/PSYCH: A & O 3 A/P: Recurrent hematemesis, chronic abd pain -please refer to consult note for past workup -- Hgb remains stable. Recommend weaning Dilaudid as during past admissions. She requests soft diet. Continue Carafate and PPI. Update by RN later - now has CT chest and UGI w/ SBFT ordered, also c/o increased pain (now that Dilaudid stopped). PATI HOUSER August 01, 2018 10:11
[2018-08-01] MEDS: ONDANSETRON PF 4 MG/2 ML VIAL. IV PRN (10:39)
--- NOTE | 2018-08-01 10:41 | NUR ---
Pt c/o severe nausea r/t "taste of blood in the back of her throat". Walked into pt room to admin zofran ivp, pt was throwing up dark red, thick, blood. no clots, no granulation. C/o pain in abdomen, 12/03. Will rely information to providers. Will continue to monitor. Blood output approx. 30 ml.
[2018-08-01 11:00] VITALS: BP 119/68
[2018-08-01 12:24] LABS: BARBITURATES NEG (NEG); BENZODIAZEPINES NEG (NEG); CANNABINOIDS NEG (NEG); COCAINE NEG (NEG); METHADONE NEG (NEG); OPIATES POS (NEG); PHENCYCLIDINE NEG (NEG)
[2018-08-01 12:25] LABS: U PREG PATIENT NEGATIVE (NEG)
[2018-08-01 12:30] LABS: AMPHETAMINE/METHAMPHETAMINE NEG (NEG)
[2018-08-01] MEDS: HYDROmorphone 2 MG/ML VIAL IV PRN ×2 (12:54→19:42)
--- NOTE | 2018-08-01 14:21 | PDOC ---
PROGRESS NOTES Assessment New headache, migraine, Excellent response to sumatriptan injection History of epilepsy, normal EEG and MRI brain Acute illness, gastrointestinal, which may have precipitated the migraine rather than vice versa. She has been taking a little bit orally, still has hematemesis. Plan Continue levetiracetam, orally Oral sumatriptan PRN, she has not asked for it yet, does have a mild headache now so she will request Citalopram for migraine prophylaxis. Discharge when medically stable Follow-up with me in 4-6 weeks. Subjective Headaches are controlled, no neurological issues Objective Vital Signs Date Time Temp Pulse Resp B/P (MAP) Pulse Ox O2 Delivery O2 Flow Rate FiO2 08/01/18 13:24 16 Room Air 08/01/18 11:00 99.2 53 119/68 (85) 98 99.2 Intake and Output 08/01/18 06:59 Intake Total 1400 ml Output Total 2 ml Balance 1398 ml Intake Oral 400 ml IV Total 1000 ml Output Urine Total 2 ml # Voids 2 PHYSICAL EXAM Alert. Oriented to time, place and person. PERRL. EOMI. CN: no focal findings. Muscle tone: normal. Muscle strength: 5/5 DTR: 2+ Plantar reflex: flexor Gait: not examined in bed. Sensory exam: no abnormal findings. No cerebellar signs elicited. Review of Relevant I have reviewed the following items [place] (where applicable) has been applied. Labs Laboratory Tests Test 07/30/18 17:25 07/31/18 07:11 07/31/18 11:18 07/31/18 16:27 White Blood Count 4.6 x10^3/uL (4.0-11.0) 4.2 x10^3/uL (4.0-11.0) Red Blood Count 4.16 x10^6/uL (3.50-5.40) 4.11 x10^6/uL (3.50-5.40) Hemoglobin 12.0 g/dL (12.0-15.5) 11.7 g/dL (12.0-15.5) Hematocrit 37.2 % (36.0-47.0) 36.6 % (36.0-47.0) Mean Corpuscular Volume 90 fL (79-100) 89 fL (79-100) Mean Corpuscular Hemoglobin 29 pg (25-35) 29 pg (25-35) Mean Corpuscular Hemoglobin Concent 32 g/dL (31-37) 32 g/dL (31-37) Red Cell Distribution Width 26.3 % (11.5-14.5) 25.5 % (11.5-14.5) Platelet Count 237 x10^3/uL (140-400) 232 x10^3/uL (140-400) Neutrophils (%) (Auto) 51 % (31-73) Lymphocytes (%) (Auto) 36 % (24-48) Monocytes (%) (Auto) 7 % (0-9) Eosinophils (%) (Auto) 6 % (0-3) Basophils (%) (Auto) 1 % (0-3) Neutrophils # (Auto) 2.1 x10^3uL (1.8-7.7) Lymphocytes # (Auto) 1.5 x10^3/uL (1.0-4.8) Monocytes # (Auto) 0.3 x10^3/uL (0.0-1.1) Eosinophils # (Auto) 0.2 x10^3/uL (0.0-0.7) Basophils # (Auto) 0.1 x10^3/uL (0.0-0.2) Platelet Estimate Adequate (ADEQUATE) Anisocytosis Marked Sodium Level 141 mmol/L (136-145) Potassium Level 3.4 mmol/L (3.5-5.1) Chloride Level 107 mmol/L (98-107) Carbon Dioxide Level 25 mmol/L (21-32) Anion Gap 9 (6-14) Blood Urea Nitrogen 5 mg/dL (7-20) Creatinine 0.6 mg/dL (0.6-1.0) Estimated GFR (Cockcroft-Gault) 117.4 Glucose Level 69 mg/dL (70-99) Calcium Level 8.5 mg/dL (8.5-10.1) Glucose (Fingerstick) 88 mg/dL (70-99) 88 mg/dL (70-99) Test 08/01/18 06:47 08/01/18 12:05 White Blood Count 4.4 x10^3/uL (4.0-11.0) Red Blood Count 4.06 x10^6/uL (3.50-5.40) Hemoglobin 11.7 g/dL (12.0-15.5) Hematocrit 36.1 % (36.0-47.0) Mean Corpuscular Volume 89 fL (79-100) Mean Corpuscular Hemoglobin 29 pg (25-35) Mean Corpuscular Hemoglobin Concent 32 g/dL (31-37) Red Cell Distribution Width 25.2 % (11.5-14.5) Platelet Count 242 x10^3/uL (140-400) Neutrophils (%) (Auto) 45 % (31-73) Lymphocytes (%) (Auto) 39 % (24-48) Monocytes (%) (Auto) 8 % (0-9) Eosinophils (%) (Auto) 7 % (0-3) Basophils (%) (Auto) 1 % (0-3) Neutrophils # (Auto) 2.0 x10^3uL (1.8-7.7) Lymphocytes # (Auto) 1.7 x10^3/uL (1.0-4.8) Monocytes # (Auto) 0.4 x10^3/uL (0.0-1.1) Eosinophils # (Auto) 0.3 x10^3/uL (0.0-0.7) Basophils # (Auto) 0.0 x10^3/uL (0.0-0.2) Sodium Level 140 mmol/L (136-145) Potassium Level 3.5 mmol/L (3.5-5.1) Chloride Level 106 mmol/L (98-107) Carbon Dioxide Level 25 mmol/L (21-32) Anion Gap 9 (6-14) Blood Urea Nitrogen 6 mg/dL (7-20) Creatinine 0.5 mg/dL (0.6-1.0) Estimated GFR (Cockcroft-Gault) 144.9 Glucose Level 79 mg/dL (70-99) Calcium Level 8.2 mg/dL (8.5-10.1) Urine Test Negative (NEG) Urine Opiates Screen Pos (NEG) Urine Methadone Screen Neg (NEG) Urine Barbiturates Neg (NEG) Urine Phencyclidine Screen Neg (NEG) Urine Amphetamine/Methamphetamine Neg (NEG) Urine Benzodiazepines Screen Neg (NEG) Urine Cocaine Screen Neg (NEG) Urine Cannabinoids Screen Neg (NEG) Urine Ethyl Alcohol Neg (NEG) Laboratory Tests Test 07/31/18 16:27 08/01/18 06:47 08/01/18 12:05 Glucose (Fingerstick) 88 mg/dL (70-99) White Blood Count 4.4 x10^3/uL (4.0-11.0) Red Blood Count 4.06 x10^6/uL (3.50-5.40) Hemoglobin 11.7 g/dL (12.0-15.5) Hematocrit 36.1 % (36.0-47.0) Mean Corpuscular Volume 89 fL (79-100) Mean Corpuscular Hemoglobin 29 pg (25-35) Mean Corpuscular Hemoglobin Concent 32 g/dL (31-37) Red Cell Distribution Width 25.2 % (11.5-14.5) Platelet Count 242 x10^3/uL (140-400) Neutrophils (%) (Auto) 45 % (31-73) Lymphocytes (%) (Auto) 39 % (24-48) Monocytes (%) (Auto) 8 % (0-9) Eosinophils (%) (Auto) 7 % (0-3) Basophils (%) (Auto) 1 % (0-3) Neutrophils # (Auto) 2.0 x10^3uL (1.8-7.7) Lymphocytes # (Auto) 1.7 x10^3/uL (1.0-4.8) Monocytes # (Auto) 0.4 x10^3/uL (0.0-1.1) Eosinophils # (Auto) 0.3 x10^3/uL (0.0-0.7) Basophils # (Auto) 0.0 x10^3/uL (0.0-0.2) Sodium Level 140 mmol/L (136-145) Potassium Level 3.5 mmol/L (3.5-5.1) Chloride Level 106 mmol/L (98-107) Carbon Dioxide Level 25 mmol/L (21-32) Anion Gap 9 (6-14) Blood Urea Nitrogen 6 mg/dL (7-20) Creatinine 0.5 mg/dL (0.6-1.0) Estimated GFR (Cockcroft-Gault) 144.9 Glucose Level 79 mg/dL (70-99) Calcium Level 8.2 mg/dL (8.5-10.1) Urine Test Negative (NEG) Urine Opiates Screen Pos (NEG) Urine Methadone Screen Neg (NEG) Urine Barbiturates Neg (NEG) Urine Phencyclidine Screen Neg (NEG) Urine Amphetamine/Methamphetamine Neg (NEG) Urine Benzodiazepines Screen Neg (NEG) Urine Cocaine Screen Neg (NEG) Urine Cannabinoids Screen Neg (NEG) Urine Ethyl Alcohol Neg (NEG) Microbiology 07/27/18 Urine Culture - Final, Complete 07/27/18 Urine Culture Result 1 (JONNY) - Final, Complete Medications Current Medications Fentanyl Citrate (Fentanyl 2ml Vial) 50 mcg 1X ONCE IV Last administered on 07/27/18 20:15; Start 07/27/18 at 19:15; Stop 07/27/18 at 19:16; Status DC Ondansetron HCl (Zofran) 4 mg 1X ONCE IV Last administered on 07/27/18at 20:15; Start 07/27/18 at 19:15; Stop 07/27/18 at 19:16; Status DC Sodium Chloride 1,000 ml @ 1,000 mls/hr 1X ONCE IV Last administered on 07/27/18at 20:15; Start 07/27/18 at 19:15; Stop 07/27/18 at 20:14; Status DC Pantoprazole Sodium 80 mg/ Sodium Chloride 100 ml @ 10 mls/hr Q10H IV Last administered on 07/29/18at 03:27; Start 07/27/18 at 19:30; Stop 07/29/18 at 10:47; Status DC Levofloxacin/ Dextrose 100 ml @ 100 mls/hr 1X ONCE IV Last administered on 07/27/18at 20:54; Start 07/27/18 at 20:15; Stop 07/27/18 at 21:14; Status DC Ondansetron HCl (Zofran) 4 mg PRN Q8HRS PRN IV NAUSEA/VOMITING Last adminis tered on 07/28/18at 19:25; Start 07/27/18 at 21:00; Stop 07/28/18 at 20:59; Status DC Morphine Sulfate (Morphine Sulfate) 2 mg PRN Q2HR PRN IV PAIN Last administered on 07/27/18at 21:19; Start 07/27/18 at 21:00; Stop 07/27/18 at 21:25; Status DC Sodium Chloride 1,000 ml @ 100 mls/hr Q10H IV Last administered on 07/28/18 20:58; Start 07/27/18 at 20:48; Stop 07/28/18 at 20:47; Status DC Morphine Sulfate (Morphine Sulfate) 4 mg PRN Q2HR PRN IV PAIN Last administered on 07/28/18 21:20; Start 07/27/18 at 21:30; Stop 07/28/18 at 22:40; Status DC Levetiracetam 500 mg/Dextrose 105 ml @ 420 mls/hr Q12HR IV Last administered on 07/30/18 09:33; Start 07/27/18 at 22:00; Stop 07/30/18 at 10:32; Status DC Saliva Substitute (Biotene Moisturizing Mouth) 2 spray PRN Q15MIN PRN PO DRY MOUTH; Start 07/28/18 at 00:00 Hydromorphone HCl (Dilaudid) 1 mg PRN Q4HRS PRN IVP PAIN Last administered on 08/01/18 08:57; Start 07/28/18 at 22:45; Stop 08/01/18 at 09:33; Status DC Pantoprazole Sodium (Protonix) 40 mg BIDAC PO Last administered on 08/01/18 09:50; Start 07/29/18 at 11:30 Sucralfate (Carafate) 1 gm QIDACHS PEG Last administered on 08/01/18 08:56; Start 07/29/18 at 11:30 Dicyclomine HCl (Bentyl) 10 mg QID PRN PO abd pain Last administered on 08/01/18 08:56; Start 07/29/18 at 10:45 Ondansetron HCl (Zofran) 4 mg PRN Q8HRS PRN IV NAUSEA/VOMITING Last administered on 08/01/18 10:39; Start 07/29/18 at 11:00 Acetaminophen (Tylenol) 650 mg PRN Q6HRS PRN PO HEADACHE Last administered on 07/29/18 12:16; Start 07/29/18 at 12:00 Sodium Chloride 1,000 ml @ 100 mls/hr Q10H IV Last administered on 08/01/18 12:53; Start 07/29/18 at 14:15 Sumatriptan Succinate (Imitrex) 6 mg 1X ONCE SQ Last administered on 07/29/18at 15:18; Start 07/29/18 at 15:00; Stop 07/29/18 at 15:01; Status DC Fentanyl Citrate (Fentanyl 2ml Vial) 25 mcg PRN Q5MIN PRN IV MILD PAIN; Start 07/30/18 at 07:00; Stop 07/31/18 at 06:59; Status DC Fentanyl Citrate (Fentanyl 2ml Vial) 50 mcg PRN Q5MIN PRN IV MODERATE TO SEVERE PAIN; Start 07/30/18 at 07:00; Stop 07/31/18 at 06:59; Status DC Morphine Sulfate (Morphine Sulfate) 1 mg PRN Q10MIN PRN IV SEVERE PAIN; Start 07/30/18 at 07:00; Stop 07/31/18 at 06:59; Status DC Ringer's Solution 1,000 ml @ 30 mls/hr Q24H IV ; Start 07/30/18 at 07:00; Stop 07/30/18 at 18:59; Status DC Hydromorphone HCl (Dilaudid) 0.5 mg PRN Q10MIN PRN IV SEV PAIN, Second choice; Start 07/30/18 at 07:00; Stop 07/31/18 at 06:59; Status DC Sumatriptan Succinate (Imitrex) 100 mg PRN Q2HR PRN PO MIGRAINE HEADACHE Last administered on 08/01/18at 09:50; Start 07/30/18 at 09:15 Citalopram Hydrobromide (CeleXA) 20 mg DAILY PO Last administered on 08/01/18at 09:50; Start 07/30/18 at 09:15 Levetiracetam (Keppra) 500 mg BID PO Last administered on 08/01/18at 09:50; Start 07/30/18 at 21:00 Midazolam HCl (Versed) 2 mg STK-MED ONCE .ROUTE ; Start 07/30/18 at 15:27; Stop 07/30/18 at 15:28; Status DC Midazolam HCl (Versed) 2 mg STK-MED ONCE .ROUTE ; Start 07/30/18 at 15:27; Stop 07/30/18 at 15:28; Status DC Fentanyl Citrate (Fentanyl 5ml Vial) 250 mcg STK-MED ONCE .ROUTE ; Start 07/30/18 at 15:28; Stop 07/30/18 at 15:29; Status DC Potassium Chloride/Water 50 ml @ 50 mls/hr Q1H IV Last administered on 07/31/18at 16:09; Start 07/31/18 at 13:00; Stop 07/31/18 at 14:59; Status DC Insulin Human Lispro (HumaLOG) 0-5 UNITS TIDWMEALS SQ ; Start 07/31/18 at 17:00; Stop 07/31/18 at 17:19; Status DC Dextrose (Dextrose 50%-Water Syringe) 12.5 gm PRN Q15MIN PRN IV SEE COMMENTS; Start 07/31/18 at 16:45; Status Cancel Hydromorphone HCl (Dilaudid) 1 mg PRN Q6HRS PRN IV severe pain Last administered on 08/01/18at 12:54; Start 08/01/18 at 12:45 Active Scripts Active Cipro (Ciprofloxacin Hcl) 500 Mg Tablet 1 Tab PO BID Famotidine 20 Mg Tablet 20 Mg PO DAILY [Pantoprazole] 40 MG Tablet.dr 40 Mg PO DAILYAC 60 Days Carafate (Sucralfate) 1 Gm/10 Ml Oral.susp 1 Gm PEG QIDACHS Ondansetron Odt (Ondansetron) 4 Mg Tab.rapdis 4 Mg PO PRN Q6HRS PRN Hydrocodone-Apap 5-325 (Hydrocodone Bit/Acetaminophen) 1 Each Tablet 1 Tab PO PRN Q4HRS PRN Dicyclomine Hcl 10 Mg Capsule 10 Mg PO QID Promethazine Hcl 12.5 Mg Tablet 12.5 Mg PO PRN Q6HRS PRN Reported Reglan (Metoclopramide Hcl) 10 Mg Tablet 10 Mg PO QIDACHS Vitals/I & O Vital Sign - Last 24 Hours 07/31/18 07/31/18 07/31/18 07/31/18 15:00 16:10 16:40 19:22 Temp 98.8 98.5 98.8 98.5 Pulse 64 66 Resp 18 16 16 15 B/P (MAP) 93/43 (60) 110/65 (80) Pulse Ox 98 97 O2 Delivery Room Air Room Air Room Air Room Air 07/31/18 08/01/18 08/01/18 08/01/18 23:00 02:31 07:00 08:57 Temp 98.6 98.4 98.3 98.6 98.4 98.3 Pulse 64 61 59 Resp 17 16 18 18 B/P (MAP) 109/55 (73) 101/65 (77) 97/48 (64) Pulse Ox 99 98 97 97 O2 Delivery Room Air Room Air Room Air Room Air 08/01/18 08/01/18 08/01/18 11:00 12:54 13:24 Temp 99.2 99.2 Pulse 53 Resp 18 18 16 B/P (MAP) 119/68 (85) Pulse Ox 98 O2 Delivery Room Air Room Air Room Air Intake and Output 07/31/18 07/31/18 08/01/18 14:59 22:59 06:59 Intake Total 1400 ml Output Total 0 ml 2 ml Balance 0 ml -2 ml 1400 ml SOBIA DEL ROSARIO MD August 01, 2018 14:20
[2018-08-01 15:00] VITALS: BP 102/51
--- NOTE | 2018-08-01 15:58 | RAD ---
CT of the chest without contrast, 08/01/2018: HISTORY: Chest pain, hematemesis Noncontrast scans were obtained as requested. The thoracic aorta is unremarkable. Several small mediastinal lymph nodes are seen without evidence of pathologic enlargement. There are mild linear opacities in the lateral aspect of the right upper lobe and in the lung bases compatible with scarring and/or atelectasis. No pulmonary mass or dense consolidation is seen. There is no evidence of pleural fluid. Surgical sutures are noted related to bowel loops in the left upper quadrant of the abdomen. IMPRESSION: 1. Mild linear scarring and/or atelectasis in both lungs. 2. The chest is otherwise unremarkable. PQRS Compliance Statement: One or more of the following individualized dose reduction techniques were utilized for this examination: 1. Automated exposure control 2. Adjustment of the mA and/or kV according to patient size 3. Use of iterative reconstruction technique Electronically signed by: Murray Duffy MD (08/01/2018 3:54 PM) [facility]
[2018-08-01 19:00] VITALS: BP 109/58
[2018-08-01 23:00] VITALS: BP 107/52
[2018-08-02] MEDS: HYDROmorphone 2 MG/ML VIAL IV PRN ×4 (02:26→20:31)
[2018-08-02 03:00] VITALS: BP 94/55
[2018-08-02 05:32] LABS: BASO % 1 % (0-3); EOS # 0.3 x10^3/uL (0.0-0.7); EOS % 7 % (0-3); LYMPH # 1.6 x10^3/uL (1.0-4.8); LYMPH % 37 % (24-48); MEAN CORPUSCULAR HEMOGLOBIN 30 pg (25-35); MEAN CORPUSCULAR HGB CONC 33 g/dL (31-37); MEAN CORPUSCULAR VOLUME 89 fL (79-100); MONO # 0.3 x10^3/uL (0.0-1.1); MONO % 8 % (0-9); NEUT # 2.1 x10^3uL (1.8-7.7); NEUT % 48 % (31-73); PLATELET COUNT 216 x10^3/uL (140-400); RED BLOOD COUNT 4.04 x10^6/uL (3.50-5.40); RED CELL DISTRIBUTION WIDTH 24.4 % (11.5-14.5); WHITE BLOOD COUNT 4.4 x10^3/uL (4.0-11.0)
[2018-08-02 06:05] LABS: CREATININE 0.6 mg/dL (0.6-1.0); GFR 117.4; POTASSIUM 3.5 mmol/L (3.5-5.1)
[2018-08-02 07:00] VITALS: BP 103/62
[2018-08-02] MEDS: SUCRALFATE 1 GM/10 ML ORAL.SUSP. PEG SCH ×4 (07:06→20:30)
[2018-08-02] MEDS: PANTOPRAZOLE 40 MG TABLET.DR. PO SCH ×2 (07:07→16:45)
[2018-08-02] MEDS: levETIRAcetam 500 MG TABLET PO SCH ×3 (07:07→20:30)
[2018-08-02] MEDS: CITALOPRAM 20 MG TABLET. PO SCH (07:07)
[2018-08-02] MEDS: IV NORMAL SALINE 1000ML BAG 1,000 ML IV SCH ×2 (07:32→18:10)
--- NOTE | 2018-08-02 09:25 | PDOC ---
Subjective: Subjective: Bleeding yesterday, says was NPO last night and has been this morning. Pain stable, ostomy output okay. Objective: Vital Signs: Vital Signs Date Time Temp Pulse Resp B/P (MAP) Pulse Ox O2 Delivery O2 Flow Rate FiO2 08/02/18 08:39 98 Room Air 08/02/18 07:00 98.4 68 18 103/62 (76) 98.4 Labs: Laboratory Tests Test 08/01/18 12:05 08/02/18 04:45 Urine Test Negative Urine Opiates Screen Pos Urine Methadone Screen Neg Urine Barbiturates Neg Urine Phencyclidine Screen Neg Urine Amphetamine/Methamphetamine Neg Urine Benzodiazepines Screen Neg Urine Cocaine Screen Neg Urine Cannabinoids Screen Neg Urine Ethyl Alcohol Neg White Blood Count 4.4 x10^3/uL Red Blood Count 4.04 x10^6/uL Hemoglobin 12.0 g/dL Hematocrit 36.0 % Mean Corpuscular Volume 89 fL Mean Corpuscular Hemoglobin 30 pg Mean Corpuscular Hemoglobin Concent 33 g/dL Red Cell Distribution Width 24.4 % Platelet Count 216 x10^3/uL Neutrophils (%) (Auto) 48 % Lymphocytes (%) (Auto) 37 % Monocytes (%) (Auto) 8 % Eosinophils (%) (Auto) 7 % Basophils (%) (Auto) 1 % Neutrophils # (Auto) 2.1 x10^3uL Lymphocytes # (Auto) 1.6 x10^3/uL Monocytes # (Auto) 0.3 x10^3/uL Eosinophils # (Auto) 0.3 x10^3/uL Basophils # (Auto) 0.0 x10^3/uL Sodium Level 137 mmol/L Potassium Level 3.5 mmol/L Chloride Level 104 mmol/L Carbon Dioxide Level 23 mmol/L Anion Gap 10 Blood Urea Nitrogen 4 mg/dL Creatinine 0.6 mg/dL Estimated GFR (Cockcroft-Gault) 117.4 Glucose Level 95 mg/dL Calcium Level 8.0 mg/dL Imaging: Chest CT IMPRESSION: 1. Mild linear scarring and/or atelectasis in both lungs. 2. The chest is otherwise unremarkable. PE: GEN: NAD LUNGS: CTAB HEART: RRR ABD: NABS, S/ND/NT NEURO/PSYCH: A & O 3 A/P: Recurrent hematemesis, chronic abd pain -- Hgb up to 12 and BUN down to 4 w/ reports of ongoing bleeding. Pans for UGI/SBFT - await this and continue same per GI for now. Note she is back on Dilaudid. PATI HOUSER August 02, 2018 09:25
--- NOTE | 2018-08-02 09:56 | PDOC ---
PROGRESS NOTES History of Present Illness History of Present Illness Assessment/Plan Assessment/Plan Recurrent hematemesis - persisted today 07/30, 07/31/ 08/01 none 08/02 MW tear in dec 2017 crohns disease, with bleeding and pain, blood in ileostomy may need course of prednisone, GI consult S/p Charleen-en-Y - no bleeding at anastomosis on EGD 2 weeks ago, did note endoclip in place, has been on Carafate and PPI Chronic abd pain - better w/ Bentyl seizure disorder on keppra, HEADACHE TODAY 07/29, worse here is no structural abnormality to account for patient's seizures. vomiting blood streaks today 07/30, 08/01 07/31 feels taste of blood in throat left lower lobe nodular opacity is new compared to prior CT 01/22/2018. Although this size nodule of the greater than expected for malignancy and is favored to represent atelectasis or consolidative process, follow-up to resolution is recommended. plan ct chest 08/01 reviewed 26 min pt exam, chart review, > 50% of time spent with exam, chart review, pt care coordination Vitals Vitals Vital Signs Date Time Temp Pulse Resp B/P (MAP) Pulse Ox O2 Delivery O2 Flow Rate FiO2 08/02/18 08:39 98 Room Air 08/02/18 07:00 98.4 68 18 103/62 (76) 98.4 Physical Exam General: Alert, Oriented X3, Cooperative, No acute distress, mild distress Heart: Regular rate, Normal S1, Normal S2, No murmurs Lungs: Clear Abdomen: Normal bowel sounds, Soft, Other (ostomy with stool and dark blood) Extremities: No clubbing, No cyanosis, No edema, Normal pulses Skin: No rashes, No breakdown, No significant lesion Labs LABS STATUS: ADM IN ORD. PHYSICIAN: IMER PATE MD REASON: pneumonia, hematemesis PROCEDURE: CT CHEST WO CONTRAST CT of the chest without contrast, 08/01/2018: HISTORY: Chest pain, hematemesis Noncontrast scans were obtained as requested. The thoracic aorta is unremarkable. Several small mediastinal lymph nodes are seen without evidence of pathologic enlargement. There are mild linear opacities in the lateral aspect of the right upper lobe and in the lung bases compatible with scarring and/or atelectasis. No pulmonary mass or dense consolidation is seen. There is no evidence of pleural fluid. Surgical sutures are noted related to bowel loops in the left upper quadrant of the abdomen. IMPRESSION: 1. Mild linear scarring and/or atelectasis in both lungs. 2. The chest is otherwise unremarkable. RS Compliance Statement: One or more of the following individualized dose reduction techniques were utilized for this examination: 1. Automated exposure control 2. Adjustment of the mA and/or kV according to patient size 3. Use of iterative reconstruction technique Electronically signed by: Murray Duffy MD (08/01/2018 3:54 PM) [facility] Laboratory Tests Test 08/01/18 12:05 08/02/18 04:45 Urine Test Negative (NEG) Urine Opiates Screen Pos (NEG) Urine Methadone Screen Neg (NEG) Urine Barbiturates Neg (NEG) Urine Phencyclidine Screen Neg (NEG) Urine Amphetamine/Methamphetamine Neg (NEG) Urine Benzodiazepines Screen Neg (NEG) Urine Cocaine Screen Neg (NEG) Urine Cannabinoids Screen Neg (NEG) Urine Ethyl Alcohol Neg (NEG) White Blood Count 4.4 x10^3/uL (4.0-11.0) Red Blood Count 4.04 x10^6/uL (3.50-5.40) Hemoglobin 12.0 g/dL (12.0-15.5) Hematocrit 36.0 % (36.0-47.0) Mean Corpuscular Volume 89 fL (79-100) Mean Corpuscular Hemoglobin 30 pg (25-35) Mean Corpuscular Hemoglobin Concent 33 g/dL (31-37) Red Cell Distribution Width 24.4 % (11.5-14.5) Platelet Count 216 x10^3/uL (140-400) Neutrophils (%) (Auto) 48 % (31-73) Lymphocytes (%) (Auto) 37 % (24-48) Monocytes (%) (Auto) 8 % (0-9) Eosinophils (%) (Auto) 7 % (0-3) Basophils (%) (Auto) 1 % (0-3) Neutrophils # (Auto) 2.1 x10^3uL (1.8-7.7) Lymphocytes # (Auto) 1.6 x10^3/uL (1.0-4.8) Monocytes # (Auto) 0.3 x10^3/uL (0.0-1.1) Eosinophils # (Auto) 0.3 x10^3/uL (0.0-0.7) Basophils # (Auto) 0.0 x10^3/uL (0.0-0.2) Sodium Level 137 mmol/L (136-145) Potassium Level 3.5 mmol/L (3.5-5.1) Chloride Level 104 mmol/L (98-107) Carbon Dioxide Level 23 mmol/L (21-32) Anion Gap 10 (6-14) Blood Urea Nitrogen 4 mg/dL (7-20) Creatinine 0.6 mg/dL (0.6-1.0) Estimated GFR (Cockcroft-Gault) 117.4 Glucose Level 95 mg/dL (70-99) Calcium Level 8.0 mg/dL (8.5-10.1) Comment Review of Relevant I have reviewed the following items [place] (where applicable) has been applied. Labs Laboratory Tests Test 07/31/18 11:18 07/31/18 16:27 08/01/18 06:47 08/01/18 12:05 Glucose (Fingerstick) 88 mg/dL (70-99) 88 mg/dL (70-99) White Blood Count 4.4 x10^3/uL (4.0-11.0) Red Blood Count 4.06 x10^6/uL (3.50-5.40) Hemoglobin 11.7 g/dL (12.0-15.5) Hematocrit 36.1 % (36.0-47.0) Mean Corpuscular Volume 89 fL (79-100) Mean Corpuscular Hemoglobin 29 pg (25-35) Mean Corpuscular Hemoglobin Concent 32 g/dL (31-37) Red Cell Distribution Width 25.2 % (11.5-14.5) Platelet Count 242 x10^3/uL (140-400) Neutrophils (%) (Auto) 45 % (31-73) Lymphocytes (%) (Auto) 39 % (24-48) Monocytes (%) (Auto) 8 % (0-9) Eosinophils (%) (Auto) 7 % (0-3) Basophils (%) (Auto) 1 % (0-3) Neutrophils # (Auto) 2.0 x10^3uL (1.8-7.7) Lymphocytes # (Auto) 1.7 x10^3/uL (1.0-4.8) Monocytes # (Auto) 0.4 x10^3/uL (0.0-1.1) Eosinophils # (Auto) 0.3 x10^3/uL (0.0-0.7) Basophils # (Auto) 0.0 x10^3/uL (0.0-0.2) Sodium Level 140 mmol/L (136-145) Potassium Level 3.5 mmol/L (3.5-5.1) Chloride Level 106 mmol/L (98-107) Carbon Dioxide Level 25 mmol/L (21-32) Anion Gap 9 (6-14) Blood Urea Nitrogen 6 mg/dL (7-20) Creatinine 0.5 mg/dL (0.6-1.0) Estimated GFR (Cockcroft-Gault) 144.9 Glucose Level 79 mg/dL (70-99) Calcium Level 8.2 mg/dL (8.5-10.1) Urine Test Negative (NEG) Urine Opiates Screen Pos (NEG) Urine Methadone Screen Neg (NEG) Urine Barbiturates Neg (NEG) Urine Phencyclidine Screen Neg (NEG) Urine Amphetamine/Methamphetamine Neg (NEG) Urine Benzodiazepines Screen Neg (NEG) Urine Cocaine Screen Neg (NEG) Urine Cannabinoids Screen Neg (NEG) Urine Ethyl Alcohol Neg (NEG) Test 08/02/18 04:45 White Blood Count 4.4 x10^3/uL (4.0-11.0) Red Blood Count 4.04 x10^6/uL (3.50-5.40) Hemoglobin 12.0 g/dL (12.0-15.5) Hematocrit 36.0 % (36.0-47.0) Mean Corpuscular Volume 89 fL (79-100) Mean Corpuscular Hemoglobin 30 pg (25-35) Mean Corpuscular Hemoglobin Concent 33 g/dL (31-37) Red Cell Distribution Width 24.4 % (11.5-14.5) Platelet Count 216 x10^3/uL (140-400) Neutrophils (%) (Auto) 48 % (31-73) Lymphocytes (%) (Auto) 37 % (24-48) Monocytes (%) (Auto) 8 % (0-9) Eosinophils (%) (Auto) 7 % (0-3) Basophils (%) (Auto) 1 % (0-3) Neutrophils # (Auto) 2.1 x10^3uL (1.8-7.7) Lymphocytes # (Auto) 1.6 x10^3/uL (1.0-4.8) Monocytes # (Auto) 0.3 x10^3/uL (0.0-1.1) Eosinophils # (Auto) 0.3 x10^3/uL (0.0-0.7) Basophils # (Auto) 0.0 x10^3/uL (0.0-0.2) Sodium Level 137 mmol/L (136-145) Potassium Level 3.5 mmol/L (3.5-5.1) Chloride Level 104 mmol/L (98-107) Carbon Dioxide Level 23 mmol/L (21-32) Anion Gap 10 (6-14) Blood Urea Nitrogen 4 mg/dL (7-20) Creatinine 0.6 mg/dL (0.6-1.0) Estimated GFR (Cockcroft-Gault) 117.4 Glucose Level 95 mg/dL (70-99) Calcium Level 8.0 mg/dL (8.5-10.1) Laboratory Tests Test 08/01/18 12:05 08/02/18 04:45 Urine Test Negative (NEG) Urine Opiates Screen Pos (NEG) Urine Methadone Screen Neg (NEG) Urine Barbiturates Neg (NEG) Urine Phencyclidine Screen Neg (NEG) Urine Amphetamine/Methamphetamine Neg (NEG) Urine Benzodiazepines Screen Neg (NEG) Urine Cocaine Screen Neg (NEG) Urine Cannabinoids Screen Neg (NEG) Urine Ethyl Alcohol Neg (NEG) White Blood Count 4.4 x10^3/uL (4.0-11.0) Red Blood Count 4.04 x10^6/uL (3.50-5.40) Hemoglobin 12.0 g/dL (12.0-15.5) Hematocrit 36.0 % (36.0-47.0) Mean Corpuscular Volume 89 fL (79-100) Mean Corpuscular Hemoglobin 30 pg (25-35) Mean Corpuscular Hemoglobin Concent 33 g/dL (31-37) Red Cell Distribution Width 24.4 % (11.5-14.5) Platelet Count 216 x10^3/uL (140-400) Neutrophils (%) (Auto) 48 % (31-73) Lymphocytes (%) (Auto) 37 % (24-48) Monocytes (%) (Auto) 8 % (0-9) Eosinophils (%) (Auto) 7 % (0-3) Basophils (%) (Auto) 1 % (0-3) Neutrophils # (Auto) 2.1 x10^3uL (1.8-7.7) Lymphocytes # (Auto) 1.6 x10^3/uL (1.0-4.8) Monocytes # (Auto) 0.3 x10^3/uL (0.0-1.1) Eosinophils # (Auto) 0.3 x10^3/uL (0.0-0.7) Basophils # (Auto) 0.0 x10^3/uL (0.0-0.2) Sodium Level 137 mmol/L (136-145) Potassium Level 3.5 mmol/L (3.5-5.1) Chloride Level 104 mmol/L (98-107) Carbon Dioxide Level 23 mmol/L (21-32) Anion Gap 10 (6-14) Blood Urea Nitrogen 4 mg/dL (7-20) Creatinine 0.6 mg/dL (0.6-1.0) Estimated GFR (Cockcroft-Gault) 117.4 Glucose Level 95 mg/dL (70-99) Calcium Level 8.0 mg/dL (8.5-10.1) Microbiology 07/27/18 Urine Culture - Final, Complete 07/27/18 Urine Culture Result 1 (JONNY) - Final, Complete Medications Current Medications Fentanyl Citrate (Fentanyl 2ml Vial) 50 mcg 1X ONCE IV Last administered on 07/27/18at 20:15; Start 07/27/18 at 19:15; Stop 07/27/18 at 19:16; Status DC Ondansetron HCl (Zofran) 4 mg 1X ONCE IV Last administered on 07/27/18at 20:15; Start 07/27/18 at 19:15; Stop 07/27/18 at 19:16; Status DC Sodium Chloride 1,000 ml @ 1,000 mls/hr 1X ONCE IV Last administered on 07/27/18at 20:15; Start 07/27/18 at 19:15; Stop 07/27/18 at 20:14; Status DC Pantoprazole Sodium 80 mg/ Sodium Chloride 100 ml @ 10 mls/hr Q10H IV Last administered on 07/29/18 03:27; Start 07/27/18 at 19:30; Stop 07/29/18 at 10:47; Status DC Levofloxacin/ Dextrose 100 ml @ 100 mls/hr 1X ONCE IV Last administered on 07/27/18 20:54; Start 07/27/18 at 20:15; Stop 07/27/18 at 21:14; Status DC Ondansetron HCl (Zofran) 4 mg PRN Q8HRS PRN IV NAUSEA/VOMITING Last administered on 07/28/18 19:25; Start 07/27/18 at 21:00; Stop 07/28/18 at 20:59; Status DC Morphine Sulfate (Morphine Sulfate) 2 mg PRN Q2HR PRN IV PAIN Last administered on 07/27/18 21:19; Start 07/27/18 at 21:00; Stop 07/27/18 at 21:25; Status DC Sodium Chloride 1,000 ml @ 100 mls/hr Q10H IV Last administered on 07/28/18 20:58; Start 07/27/18 at 20:48; Stop 07/28/18 at 20:47; Status DC Morphine Sulfate (Morphine Sulfate) 4 mg PRN Q2HR PRN IV PAIN Last administered on 07/28/18 21:20; Start 07/27/18 at 21:30; Stop 07/28/18 at 22:40; Status DC Levetiracetam 500 mg/Dextrose 105 ml @ 420 mls/hr Q12HR IV Last administered on 07/30/18 09:33; Start 07/27/18 at 22:00; Stop 07/30/18 at 10:32; Status DC Saliva Substitute (Biotene Moisturizing Mouth) 2 spray PRN Q15MIN PRN PO DRY MOUTH; Start 07/28/18 at 00:00 Hydromorphone HCl (Dilaudid) 1 mg PRN Q4HRS PRN IVP PAIN Last administered on 08/01/18 08:57; Start 07/28/18 at 22:45; Stop 08/01/18 at 09:33; Status DC Pantoprazole Sodium (Protonix) 40 mg BIDAC PO Last administered on 5/9/19at 09:50; Start 07/29/18 at 11:30 Sucralfate (Carafate) 1 gm QIDACHS PEG Last administered on 08/01/18 21:01; Start 07/29/18 at 11:30 Dicyclomine HCl (Bentyl) 10 mg QID PRN PO abd pain Last administered on 08/01/18 08:56; Start 07/29/18 at 10:45 Ondansetron HCl (Zofran) 4 mg PRN Q8HRS PRN IV NAUSEA/VOMITING Last administered on 08/01/18 10:39; Start 07/29/18 at 11:00 Acetaminophen (Tylenol) 650 mg PRN Q6HRS PRN PO HEADACHE Last administered on 07/29/18 12:16; Start 07/29/18 at 12:00 Sodium Chloride 1,000 ml @ 100 mls/hr Q10H IV Last administered on 08/02/18 07:32; Start 07/29/18 at 14:15 Sumatriptan Succinate (Imitrex) 6 mg 1X ONCE SQ Last administered on 07/29/18at 15:18; Start 07/29/18 at 15:00; Stop 07/29/18 at 15:01; Status DC Fentanyl Citrate (Fentanyl 2ml Vial) 25 mcg PRN Q5MIN PRN IV MILD PAIN; Start 07/30/18 at 07:00; Stop 07/31/18 at 06:59; Status DC Fentanyl Citrate (Fentanyl 2ml Vial) 50 mcg PRN Q5MIN PRN IV MODERATE TO SEVERE PAIN; Start 07/30/18 at 07:00; Stop 07/31/18 at 06:59; Status DC Morphine Sulfate (Morphine Sulfate) 1 mg PRN Q10MIN PRN IV SEVERE PAIN; Start 07/30/18 at 07:00; Stop 07/31/18 at 06:59; Status DC Ringer's Solution 1,000 ml @ 30 mls/hr Q24H IV ; Start 07/30/18 at 07:00; Stop 07/30/18 at 18:59; Status DC Hydromorphone HCl (Dilaudid) 0.5 mg PRN Q10MIN PRN IV SEV PAIN, Second choice; Start 07/30/18 at 07:00; Stop 07/31/18 at 06:59; Status DC Sumatriptan Succinate (Imitrex) 100 mg PRN Q2HR PRN PO MIGRAINE HEADACHE Last administered on 08/01/18at 09:50; Start 07/30/18 at 09:15 Citalopram Hydrobromide (CeleXA) 20 mg DAILY PO Last administered on 08/01/18at 09:50; Start 07/30/18 at 09:15 Levetiracetam (Keppra) 500 mg BID PO Last administered on 08/01/18at 21:01; Start 07/30/18 at 21:00 Midazolam HCl (Versed) 2 mg STK-MED ONCE .ROUTE ; Start 07/30/18 at 15:27; Stop 07/30/18 at 15:28; Status DC Midazolam HCl (Versed) 2 mg STK-MED ONCE .ROUTE ; Start 07/30/18 at 15:27; Stop 07/30/18 at 15:28; Status DC Fentanyl Citrate (Fentanyl 5ml Vial) 250 mcg STK-MED ONCE .ROUTE ; Start 07/30/18 at 15:28; Stop 07/30/18 at 15:29; Status DC Potassium Chloride/Water 50 ml @ 50 mls/hr Q1H IV Last administered on 07/31/18at 16:09; Start 07/31/18 at 13:00; Stop 07/31/18 at 14:59; Status DC Insulin Human Lispro (HumaLOG) 0-5 UNITS TIDWMEALS SQ ; Start 07/31/18 at 17:00; Stop 07/31/18 at 17:19; Status DC Dextrose (Dextrose 50%-Water Syringe) 12.5 gm PRN Q15MIN PRN IV SEE COMMENTS; Start 07/31/18 at 16:45; Status Cancel Hydromorphone HCl (Dilaudid) 1 mg PRN Q6HRS PRN IV severe pain Last administered on 08/02/18at 08:39; Start 08/01/18 at 12:45 Active Scripts Active Cipro (Ciprofloxacin Hcl) 500 Mg Tablet 1 Tab PO BID Famotidine 20 Mg Tablet 20 Mg PO DAILY [Pantoprazole] 40 MG Tablet.dr 40 Mg PO DAILYAC 60 Days Carafate (Sucralfate) 1 Gm/10 Ml Oral.susp 1 Gm PEG QIDACHS Ondansetron Odt (Ondansetron) 4 Mg Tab.rapdis 4 Mg PO PRN Q6HRS PRN Hydrocodone-Apap 5-325 (Hydrocodone Bit/Acetaminophen) 1 Each Tablet 1 Tab PO PRN Q4HRS PRN Dicyclomine Hcl 10 Mg Capsule 10 Mg PO QID Promethazine Hcl 12.5 Mg Tablet 12.5 Mg PO PRN Q6HRS PRN Reported Reglan (Metoclopramide Hcl) 10 Mg Tablet 10 Mg PO QIDACHS Vitals/I & O Vital Sign - Last 24 Hours 08/01/18 08/01/18 08/01/18 08/01/18 11:00 12:54 13:24 15:00 Temp 99.2 98.6 99.2 98.6 Pulse 53 60 Resp 18 18 16 B/P (MAP) 119/68 (85) 102/51 (68) Pulse Ox 98 99 O2 Delivery Room Air Room Air Room Air Room Air 08/01/18 08/01/18 08/02/18 08/02/18 19:00 23:00 03:00 07:00 Temp 98.8 98.8 98.9 98.4 98.8 98.8 98.9 98.4 Pulse 54 55 62 68 Resp 20 20 20 18 B/P (MAP) 109/58 (75) 107/52 (70) 94/55 (68) 103/62 (76) Pulse Ox 100 99 99 98 O2 Delivery Room Air Room Air Room Air Room Air 08/02/18 08/02/18 07:00 08:39 Temp 98.4 98.4 Pulse 68 Resp 18 B/P (MAP) 103/62 (76) Pulse Ox 98 98 O2 Delivery Room Air Room Air Intake and Output 08/01/18 08/01/18 08/02/18 15:00 23:00 07:00 Intake Total 1000 ml 300 ml Output Total 31 ml Balance -31 ml 1000 ml 300 ml IMER PATE MD August 02, 2018 09:56
--- NOTE | 2018-08-02 09:57 | PDOC ---
PROGRESS NOTES Assessment New headache, migraine, Excellent response to sumatriptan injection History of epilepsy, normal EEG and MRI brain Acute illness, gastrointestinal, which may have precipitated the migraine rather than vice versa. She has been taking a little bit orally, still has hematemesis, abdominal pain, on Dilaudid. Plan Continue levetiracetam, orally Oral sumatriptan PRN Citalopram for migraine prophylaxis. Discharge when medically stable Follow-up with me in 4-6 weeks. Subjective Does have a 5/10 headache Objective Vital Signs Date Time Temp Pulse Resp B/P (MAP) Pulse Ox O2 Delivery O2 Flow Rate FiO2 08/02/18 08:39 98 Room Air 08/02/18 07:00 98.4 68 18 103/62 (76) 98.4 Intake and Output 08/02/18 07:00 Intake Total 1300 ml Output Total 31 ml Balance 1269 ml Intake Oral 300 ml IV Total 1000 ml Output Urine Total 1 ml Emesis 30 ml # Voids 2 PHYSICAL EXAM Alert. Oriented to time, place and person. PERRL. EOMI. CN: no focal findings. Muscle tone: normal. Muscle strength: 5/5 DTR: 2+ Plantar reflex: flexor Gait: not examined in bed. Sensory exam: no abnormal findings. No cerebellar signs elicited. Review of Relevant I have reviewed the following items [place] (where applicable) has been applied. Labs Laboratory Tests Test 07/31/18 11:18 07/31/18 16:27 08/01/18 06:47 08/01/18 12:05 Glucose (Fingerstick) 88 mg/dL (70-99) 88 mg/dL (70-99) White Blood Count 4.4 x10^3/uL (4.0-11.0) Red Blood Count 4.06 x10^6/uL (3.50-5.40) Hemoglobin 11.7 g/dL (12.0-15.5) Hematocrit 36.1 % (36.0-47.0) Mean Corpuscular Volume 89 fL (79-100) Mean Corpuscular Hemoglobin 29 pg (25-35) Mean Corpuscular Hemoglobin Concent 32 g/dL (31-37) Red Cell Distribution Width 25.2 % (11.5-14.5) Platelet Count 242 x10^3/uL (140-400) Neutrophils (%) (Auto) 45 % (31-73) Lymphocytes (%) (Auto) 39 % (24-48) Monocytes (%) (Auto) 8 % (0-9) Eosinophils (%) (Auto) 7 % (0-3) Basophils (%) (Auto) 1 % (0-3) Neutrophils # (Auto) 2.0 x10^3uL (1.8-7.7) Lymphocytes # (Auto) 1.7 x10^3/uL (1.0-4.8) Monocytes # (Auto) 0.4 x10^3/uL (0.0-1.1) Eosinophils # (Auto) 0.3 x10^3/uL (0.0-0.7) Basophils # (Auto) 0.0 x10^3/uL (0.0-0.2) Sodium Level 140 mmol/L (136-145) Potassium Level 3.5 mmol/L (3.5-5.1) Chloride Level 106 mmol/L (98-107) Carbon Dioxide Level 25 mmol/L (21-32) Anion Gap 9 (6-14) Blood Urea Nitrogen 6 mg/dL (7-20) Creatinine 0.5 mg/dL (0.6-1.0) Estimated GFR (Cockcroft-Gault) 144.9 Glucose Level 79 mg/dL (70-99) Calcium Level 8.2 mg/dL (8.5-10.1) Urine Test Negative (NEG) Urine Opiates Screen Pos (NEG) Urine Methadone Screen Neg (NEG) Urine Barbiturates Neg (NEG) Urine Phencyclidine Screen Neg (NEG) Urine Amphetamine/Methamphetamine Neg (NEG) Urine Benzodiazepines Screen Neg (NEG) Urine Cocaine Screen Neg (NEG) Urine Cannabinoids Screen Neg (NEG) Urine Ethyl Alcohol Neg (NEG) Test 08/02/18 04:45 White Blood Count 4.4 x10^3/uL (4.0-11.0) Red Blood Count 4.04 x10^6/uL (3.50-5.40) Hemoglobin 12.0 g/dL (12.0-15.5) Hematocrit 36.0 % (36.0-47.0) Mean Corpuscular Volume 89 fL (79-100) Mean Corpuscular Hemoglobin 30 pg (25-35) Mean Corpuscular Hemoglobin Concent 33 g/dL (31-37) Red Cell Distribution Width 24.4 % (11.5-14.5) Platelet Count 216 x10^3/uL (140-400) Neutrophils (%) (Auto) 48 % (31-73) Lymphocytes (%) (Auto) 37 % (24-48) Monocytes (%) (Auto) 8 % (0-9) Eosinophils (%) (Auto) 7 % (0-3) Basophils (%) (Auto) 1 % (0-3) Neutrophils # (Auto) 2.1 x10^3uL (1.8-7.7) Lymphocytes # (Auto) 1.6 x10^3/uL (1.0-4.8) Monocytes # (Auto) 0.3 x10^3/uL (0.0-1.1) Eosinophils # (Auto) 0.3 x10^3/uL (0.0-0.7) Basophils # (Auto) 0.0 x10^3/uL (0.0-0.2) Sodium Level 137 mmol/L (136-145) Potassium Level 3.5 mmol/L (3.5-5.1) Chloride Level 104 mmol/L (98-107) Carbon Dioxide Level 23 mmol/L (21-32) Anion Gap 10 (6-14) Blood Urea Nitrogen 4 mg/dL (7-20) Creatinine 0.6 mg/dL (0.6-1.0) Estimated GFR (Cockcroft-Gault) 117.4 Glucose Level 95 mg/dL (70-99) Calcium Level 8.0 mg/dL (8.5-10.1) Laboratory Tests Test 08/01/18 12:05 08/02/18 04:45 Urine Test Negative (NEG) Urine Opiates Screen Pos (NEG) Urine Methadone Screen Neg (NEG) Urine Barbiturates Neg (NEG) Urine Phencyclidine Screen Neg (NEG) Urine Amphetamine/Methamphetamine Neg (NEG) Urine Benzodiazepines Screen Neg (NEG) Urine Cocaine Screen Neg (NEG) Urine Cannabinoids Screen Neg (NEG) Urine Ethyl Alcohol Neg (NEG) White Blood Count 4.4 x10^3/uL (4.0-11.0) Red Blood Count 4.04 x10^6/uL (3.50-5.40) Hemoglobin 12.0 g/dL (12.0-15.5) Hematocrit 36.0 % (36.0-47.0) Mean Corpuscular Volume 89 fL (79-100) Mean Corpuscular Hemoglobin 30 pg (25-35) Mean Corpuscular Hemoglobin Concent 33 g/dL (31-37) Red Cell Distribution Width 24.4 % (11.5-14.5) Platelet Count 216 x10^3/uL (140-400) Neutrophils (%) (Auto) 48 % (31-73) Lymphocytes (%) (Auto) 37 % (24-48) Monocytes (%) (Auto) 8 % (0-9) Eosinophils (%) (Auto) 7 % (0-3) Basophils (%) (Auto) 1 % (0-3) Neutrophils # (Auto) 2.1 x10^3uL (1.8-7.7) Lymphocytes # (Auto) 1.6 x10^3/uL (1.0-4.8) Monocytes # (Auto) 0.3 x10^3/uL (0.0-1.1) Eosinophils # (Auto) 0.3 x10^3/uL (0.0-0.7) Basophils # (Auto) 0.0 x10^3/uL (0.0-0.2) Sodium Level 137 mmol/L (136-145) Potassium Level 3.5 mmol/L (3.5-5.1) Chloride Level 104 mmol/L (98-107) Carbon Dioxide Level 23 mmol/L (21-32) Anion Gap 10 (6-14) Blood Urea Nitrogen 4 mg/dL (7-20) Creatinine 0.6 mg/dL (0.6-1.0) Estimated GFR (Cockcroft-Gault) 117.4 Glucose Level 95 mg/dL (70-99) Calcium Level 8.0 mg/dL (8.5-10.1) Microbiology 07/27/18 Urine Culture - Final, Complete 07/27/18 Urine Culture Result 1 (JONNY) - Final, Complete Medications Current Medications Fentanyl Citrate (Fentanyl 2ml Vial) 50 mcg 1X ONCE IV Last administered on 07/27/18at 20:15; Start 07/27/18 at 19:15; Stop 07/27/18 at 19:16; Status DC Ondansetron HCl (Zofran) 4 mg 1X ONCE IV Last administered on 07/27/18 20:15; Start 07/27/18 at 19:15; Stop 07/27/18 at 19:16; Status DC Sodium Chloride 1,000 ml @ 1,000 mls/hr 1X ONCE IV Last administered on 07/27/18 20:15; Start 07/27/18 at 19:15; Stop 07/27/18 at 20:14; Status DC Pantoprazole Sodium 80 mg/ Sodium Chloride 100 ml @ 10 mls/hr Q10H IV Last administered on 07/29/18at 03:27; Start 07/27/18 at 19:30; Stop 07/29/18 at 10:47; Status DC Levofloxacin/ Dextrose 100 ml @ 100 mls/hr 1X ONCE IV Last administered on 07/27/18 20:54; Start 07/27/18 at 20:15; Stop 07/27/18 at 21:14; Status DC Ondansetron HCl (Zofran) 4 mg PRN Q8HRS PRN IV NAUSEA/VOMITING Last administered on 07/28/18 19:25; Start 07/27/18 at 21:00; Stop 07/28/18 at 20:59; Status DC Morphine Sulfate (Morphine Sulfate) 2 mg PRN Q2HR PRN IV PAIN Last administered on 07/27/18 21:19; Start 07/27/18 at 21:00; Stop 07/27/18 at 21:25; Status DC Sodium Chloride 1,000 ml @ 100 mls/hr Q10H IV Last administered on 07/28/18at 20:58; Start 07/27/18 at 20:48; Stop 07/28/18 at 20:47; Status DC Morphine Sulfate (Morphine Sulfate) 4 mg PRN Q2HR PRN IV PAIN Last administered on 07/28/18 21:20; Start 07/27/18 at 21:30; Stop 07/28/18 at 22:40; Status DC Levetiracetam 500 mg/Dextrose 105 ml @ 420 mls/hr Q12HR IV Last administered on 07/30/18 09:33; Start 07/27/18 at 22:00; Stop 07/30/18 at 10:32; Status DC Saliva Substitute (Biotene Moisturizing Mouth) 2 spray PRN Q15MIN PRN PO DRY MOUTH; Start 07/28/18 at 00:00 Hydromorphone HCl (Dilaudid) 1 mg PRN Q4HRS PRN IVP PAIN Last administered on 08/01/18 08:57; Start 07/28/18 at 22:45; Stop 08/01/18 at 09:33; Status DC Pantoprazole Sodium (Protonix) 40 mg BIDAC PO Last administered on 08/01/18 09:50; Start 07/29/18 at 11:30 Sucralfate (Carafate) 1 gm QIDACHS PEG Last administered on 08/01/18 21:01; Start 07/29/18 at 11:30 Dicyclomine HCl (Bentyl) 10 mg QID PRN PO abd pain Last administered on 08/01/18 08:56; Start 07/29/18 at 10:45 Ondansetron HCl (Zofran) 4 mg PRN Q8HRS PRN IV NAUSEA/VOMITING Last administered on 08/01/18 10:39; Start 07/29/18 at 11:00 Acetaminophen (Tylenol) 650 mg PRN Q6HRS PRN PO HEADACHE Last administered on 07/29/18 12:16; Start 07/29/18 at 12:00 Sodium Chloride 1,000 ml @ 100 mls/hr Q10H IV Last administered on 08/02/18at 07:32; Start 07/29/18 at 14:15 Sumatriptan Succinate (Imitrex) 6 mg 1X ONCE SQ Last administered on 07/29/18 15:18; Start 07/29/18 at 15:00; Stop 07/29/18 at 15:01; Status DC Fentanyl Citrate (Fentanyl 2ml Vial) 25 mcg PRN Q5MIN PRN IV MILD PAIN; Start 07/30/18 at 07:00; Stop 07/31/18 at 06:59; Status DC Fentanyl Citrate (Fentanyl 2ml Vial) 50 mcg PRN Q5MIN PRN IV MODERATE TO SEVERE PAIN; Start 07/30/18 at 07:00; Stop 07/31/18 at 06:59; Status DC Morphine Sulfate (Morphine Sulfate) 1 mg PRN Q10MIN PRN IV SEVERE PAIN; Start 07/30/18 at 07:00; Stop 07/31/18 at 06:59; Status DC Ringer's Solution 1,000 ml @ 30 mls/hr Q24H IV ; Start 07/30/18 at 07:00; Stop 07/30/18 at 18:59; Status DC Hydromorphone HCl (Dilaudid) 0.5 mg PRN Q10MIN PRN IV SEV PAIN, Second choice; Start 07/30/18 at 07:00; Stop 07/31/18 at 06:59; Status DC Sumatriptan Succinate (Imitrex) 100 mg PRN Q2HR PRN PO MIGRAINE HEADACHE Last administered on 08/01/18at 09:50; Start 07/30/18 at 09:15 Citalopram Hydrobromide (CeleXA) 20 mg DAILY PO Last administered on 08/01/18at 09:50; Start 07/30/18 at 09:15 Levetiracetam (Keppra) 500 mg BID PO Last administered on 08/01/18at 21:01; Start 07/30/18 at 21:00 Midazolam HCl (Versed) 2 mg STK-MED ONCE .ROUTE ; Start 07/30/18 at 15:27; Stop 07/30/18 at 15:28; Status DC Midazolam HCl (Versed) 2 mg STK-MED ONCE .ROUTE ; Start 07/30/18 at 15:27; Stop 07/30/18 at 15:28; Status DC Fentanyl Citrate (Fentanyl 5ml Vial) 250 mcg STK-MED ONCE .ROUTE ; Start 07/30/18 at 15:28; Stop 07/30/18 at 15:29; Status DC Potassium Chloride/Water 50 ml @ 50 mls/hr Q1H IV Last administered on 07/31/18at 16:09; Start 07/31/18 at 13:00; Stop 07/31/18 at 14:59; Status DC Insulin Human Lispro (HumaLOG) 0-5 UNITS TIDWMEALS SQ ; Start 07/31/18 at 17:00; Stop 07/31/18 at 17:19; Status DC Dextrose (Dextrose 50%-Water Syringe) 12.5 gm PRN Q15MIN PRN IV SEE COMMENTS; Start 07/31/18 at 16:45; Status Cancel Hydromorphone HCl (Dilaudid) 1 mg PRN Q6HRS PRN IV severe pain Last administered on 08/02/18at 08:39; Start 08/01/18 at 12:45 Active Scripts Active Cipro (Ciprofloxacin Hcl) 500 Mg Tablet 1 Tab PO BID Famotidine 20 Mg Tablet 20 Mg PO DAILY [Pantoprazole] 40 MG Tablet.dr 40 Mg PO DAILYAC 60 Days Carafate (Sucralfate) 1 Gm/10 Ml Oral.susp 1 Gm PEG QIDACHS Ondansetron Odt (Ondansetron) 4 Mg Tab.rapdis 4 Mg PO PRN Q6HRS PRN Hydrocodone-Apap 5-325 (Hydrocodone Bit/Acetaminophen) 1 Each Tablet 1 Tab PO PRN Q4HRS PRN Dicyclomine Hcl 10 Mg Capsule 10 Mg PO QID Promethazine Hcl 12.5 Mg Tablet 12.5 Mg PO PRN Q6HRS PRN Reported Reglan (Metoclopramide Hcl) 10 Mg Tablet 10 Mg PO QIDACHS Vitals/I & O Vital Sign - Last 24 Hours 08/01/18 08/01/18 08/01/18 08/01/18 11:00 12:54 13:24 15:00 Temp 99.2 98.6 99.2 98.6 Pulse 53 60 Resp 18 18 16 B/P (MAP) 119/68 (85) 102/51 (68) Pulse Ox 98 99 O2 Delivery Room Air Room Air Room Air Room Air 08/01/18 08/01/18 08/02/18 08/02/18 19:00 23:00 03:00 07:00 Temp 98.8 98.8 98.9 98.4 98.8 98.8 98.9 98.4 Pulse 54 55 62 68 Resp 20 20 20 18 B/P (MAP) 109/58 (75) 107/52 (70) 94/55 (68) 103/62 (76) Pulse Ox 100 99 99 98 O2 Delivery Room Air Room Air Room Air Room Air 08/02/18 08/02/18 07:00 08:39 Temp 98.4 98.4 Pulse 68 Resp 18 B/P (MAP) 103/62 (76) Pulse Ox 98 98 O2 Delivery Room Air Room Air Intake and Output 08/01/18 08/01/18 08/02/18 15:00 23:00 07:00 Intake Total 1000 ml 300 ml Output Total 31 ml Balance -31 ml 1000 ml 300 ml SOBIA DEL ROSARIO MD August 02, 2018 09:57
[2018-08-02] MEDS: SUMAtriptan SUCCINATE 100 MG TABLET PO PRN (10:13)
[2018-08-02] MEDS ORDERED: diphenhydrAMINE ORAL ELIXIR 12.5 MG/5 ML ML PO PRN (10:30)
[2018-08-02 11:00] VITALS: BP 113/67
[2018-08-02 14:48] VITALS: BP 112/66
[2018-08-02] MEDS ORDERED: predniSONE 20 MG TABLET PO ONE ×2 (18:00→23:00)
[2018-08-02 19:00] VITALS: BP 107/62
[2018-08-02 22:52] VITALS: BP 100/63
[2018-08-03] MEDS: HYDROmorphone 2 MG/ML VIAL IV PRN ×3 (02:33→18:06)
[2018-08-03 03:00] VITALS: BP 93/50
[2018-08-03] MEDS: IV NORMAL SALINE 1000ML BAG 1,000 ML IV SCH ×3 (04:04→23:49)
[2018-08-03] MEDS ORDERED: predniSONE 20 MG TABLET PO ONE (06:00)
[2018-08-03] MEDS ORDERED: HYDROmorphone 2 MG/ML VIAL IVP ONE (06:00)
[2018-08-03 07:00] VITALS: BP_SYST 91; BP_SYST 99; BP_DIAS 40; BP_DIAS 58
--- NOTE | 2018-08-03 08:30 | NUR ---
PATIENT REMAINS NPO AT THIS TIME, DROWSY BUT AROUSES EASILY, CONTINUES TO C/O ABD PAIN, PAIN MEDS NOT DUE AT THIS TIME. WILL ADMINISTER PO. BENADRYL PRIOR TO UPPER GI WITH SBFT ORDERED.
--- NOTE | 2018-08-03 08:52 | PDOC ---
PROGRESS NOTES History of Present Illness History of Present Illness Assessment/Plan Assessment/Plan Recurrent hematemesis - persisted today 07/30, 07/31/ 08/01 none 08/02 MW tear in dec 2017 crohns disease, with bleeding and pain, blood in ileostomy may need course of prednisone, GI consult S/p Charleen-en-Y - no bleeding at anastomosis on EGD 2 weeks ago, did note endoclip in place, has been on Carafate and PPI Chronic abd pain - better w/ Bentyl seizure disorder on keppra, HEADACHE TODAY 07/29, worse here is no structural abnormality to account for patient's seizures. vomiting blood streaks today 07/30, 08/01 07/31 feels taste of blood in throat left lower lobe nodular opacity is new compared to prior CT 01/22/2018. Although this size nodule of the greater than expected for malignancy and is favored to represent atelectasis or consolidative process, follow-up to resolution is recommended. plan ct chest 08/01 reviewed 26 min pt exam, chart review, > 50% of time spent with exam, chart review, pt care coordination ESOPHOGRAM 08/03 PAIN WORSE THIS AM 0530 Vitals Vitals Vital Signs Date Time Temp Pulse Resp B/P (MAP) Pulse Ox O2 Delivery O2 Flow Rate FiO2 08/03/18 07:00 99/58 (72) 08/03/18 07:00 98.6 53 18 99 Room Air 98.6 Physical Exam General: Alert, Oriented X3, Cooperative, No acute distress, mild distress Heart: Regular rate, Normal S1, Normal S2, No murmurs Lungs: Clear Abdomen: Normal bowel sounds, Soft, Other (ostomy with stool and dark blood) Extremities: No clubbing, No cyanosis, No edema, Normal pulses Skin: No rashes, No breakdown, No significant lesion Comment Review of Relevant I have reviewed the following items [place] (where applicable) has been applied. Labs Laboratory Tests Test 08/01/18 12:05 08/02/18 04:45 Urine Test Negative (NEG) Urine Opiates Screen Pos (NEG) Urine Methadone Screen Neg (NEG) Urine Barbiturates Neg (NEG) Urine Phencyclidine Screen Neg (NEG) Urine Amphetamine/Methamphetamine Neg (NEG) Urine Benzodiazepines Screen Neg (NEG) Urine Cocaine Screen Neg (NEG) Urine Cannabinoids Screen Neg (NEG) Urine Ethyl Alcohol Neg (NEG) White Blood Count 4.4 x10^3/uL (4.0-11.0) Red Blood Count 4.04 x10^6/uL (3.50-5.40) Hemoglobin 12.0 g/dL (12.0-15.5) Hematocrit 36.0 % (36.0-47.0) Mean Corpuscular Volume 89 fL (79-100) Mean Corpuscular Hemoglobin 30 pg (25-35) Mean Corpuscular Hemoglobin Concent 33 g/dL (31-37) Red Cell Distribution Width 24.4 % (11.5-14.5) Platelet Count 216 x10^3/uL (140-400) Neutrophils (%) (Auto) 48 % (31-73) Lymphocytes (%) (Auto) 37 % (24-48) Monocytes (%) (Auto) 8 % (0-9) Eosinophils (%) (Auto) 7 % (0-3) Basophils (%) (Auto) 1 % (0-3) Neutrophils # (Auto) 2.1 x10^3uL (1.8-7.7) Lymphocytes # (Auto) 1.6 x10^3/uL (1.0-4.8) Monocytes # (Auto) 0.3 x10^3/uL (0.0-1.1) Eosinophils # (Auto) 0.3 x10^3/uL (0.0-0.7) Basophils # (Auto) 0.0 x10^3/uL (0.0-0.2) Sodium Level 137 mmol/L (136-145) Potassium Level 3.5 mmol/L (3.5-5.1) Chloride Level 104 mmol/L (98-107) Carbon Dioxide Level 23 mmol/L (21-32) Anion Gap 10 (6-14) Blood Urea Nitrogen 4 mg/dL (7-20) Creatinine 0.6 mg/dL (0.6-1.0) Estimated GFR (Cockcroft-Gault) 117.4 Glucose Level 95 mg/dL (70-99) Calcium Level 8.0 mg/dL (8.5-10.1) Microbiology 07/27/18 Urine Culture - Final, Complete 07/27/18 Urine Culture Result 1 (JONNY) - Final, Complete Medications Current Medications Fentanyl Citrate (Fentanyl 2ml Vial) 50 mcg 1X ONCE IV Last administered on 07/27/18 20:15; Start 07/27/18 at 19:15; Stop 07/27/18 at 19:16; Status DC Ondansetron HCl (Zofran) 4 mg 1X ONCE IV Last administered on 07/27/18 20:15; Start 07/27/18 at 19:15; Stop 07/27/18 at 19:16; Status DC Sodium Chloride 1,000 ml @ 1,000 mls/hr 1X ONCE IV Last administered on 07/27/18 20:15; Start 07/27/18 at 19:15; Stop 07/27/18 at 20:14; Status DC Pantoprazole Sodium 80 mg/ Sodium Chloride 100 ml @ 10 mls/hr Q10H IV Last administered on 07/29/18 03:27; Start 07/27/18 at 19:30; Stop 07/29/18 at 10:47; Status DC Levofloxacin/ Dextrose 100 ml @ 100 mls/hr 1X ONCE IV Last administered on 07/27/18 20:54; Start 07/27/18 at 20:15; Stop 07/27/18 at 21:14; Status DC Ondansetron HCl (Zofran) 4 mg PRN Q8HRS PRN IV NAUSEA/VOMITING Last administered on 07/28/18 19:25; Start 07/27/18 at 21:00; Stop 07/28/18 at 20:59; Status DC Morphine Sulfate (Morphine Sulfate) 2 mg PRN Q2HR PRN IV PAIN Last administered on 07/27/18 21:19; Start 07/27/18 at 21:00; Stop 07/27/18 at 21:25; Status DC Sodium Chloride 1,000 ml @ 100 mls/hr Q10H IV Last administered on 07/28/18at 20:58; Start 07/27/18 at 20:48; Stop 07/28/18 at 20:47; Status DC Morphine Sulfate (Morphine Sulfate) 4 mg PRN Q2HR PRN IV PAIN Last administered on 07/28/18 21:20; Start 07/27/18 at 21:30; Stop 07/28/18 at 22:40; Status DC Levetiracetam 500 mg/Dextrose 105 ml @ 420 mls/hr Q12HR IV Last administered on 07/30/18 09:33; Start 07/27/18 at 22:00; Stop 07/30/18 at 10:32; Status DC Saliva Substitute (Biotene Moisturizing Mouth) 2 spray PRN Q15MIN PRN PO DRY MOUTH; Start 07/28/18 at 00:00 Hydromorphone HCl (Dilaudid) 1 mg PRN Q4HRS PRN IVP PAIN Last administered on 08/01/18 08:57; Start 07/28/18 at 22:45; Stop 08/01/18 at 09:33; Status DC Pantoprazole Sodium (Protonix) 40 mg BIDAC PO Last administered on 08/02/18 16:45; Start 07/29/18 at 11:30 Sucralfate (Carafate) 1 gm QIDACHS PEG Last administered on 08/02/18 20:30; Start 07/29/18 at 11:30 Dicyclomine HCl (Bentyl) 10 mg QID PRN PO abd pain Last administered on 08/01/18 08:56; Start 07/29/18 at 10:45 Ondansetron HCl (Zofran) 4 mg PRN Q8HRS PRN IV NAUSEA/VOMITING Last administered on 08/01/18 10:39; Start 07/29/18 at 11:00 Acetaminophen (Tylenol) 650 mg PRN Q6HRS PRN PO HEADACHE Last administered on 07/29/18 12:16; Start 07/29/18 at 12:00 Sodium Chloride 1,000 ml @ 100 mls/hr Q10H IV Last administered on 08/03/18 04:04; Start 07/29/18 at 14:15 Sumatriptan Succinate (Imitrex) 6 mg 1X ONCE SQ Last administered on 07/29/18 15:18; Start 07/29/18 at 15:00; Stop 07/29/18 at 15:01; Status DC Fentanyl Citrate (Fentanyl 2ml Vial) 25 mcg PRN Q5MIN PRN IV MILD PAIN; Start 07/30/18 at 07:00; Stop 07/31/18 at 06:59; Status DC Fentanyl Citrate (Fentanyl 2ml Vial) 50 mcg PRN Q5MIN PRN IV MODERATE TO SEVERE PAIN; Start 07/30/18 at 07:00; Stop 07/31/18 at 06:59; Status DC Morphine Sulfate (Morphine Sulfate) 1 mg PRN Q10MIN PRN IV SEVERE PAIN; Start 07/30/18 at 07:00; Stop 07/31/18 at 06:59; Status DC Ringer's Solution 1,000 ml @ 30 mls/hr Q24H IV ; Start 07/30/18 at 07:00; Stop 07/30/18 at 18:59; Status DC Hydromorphone HCl (Dilaudid) 0.5 mg PRN Q10MIN PRN IV SEV PAIN, Second choice; Start 07/30/18 at 07:00; Stop 07/31/18 at 06:59; Status DC Sumatriptan Succinate (Imitrex) 100 mg PRN Q2HR PRN PO MIGRAINE HEADACHE Last administered on 08/02/18at 10:13; Start 07/30/18 at 09:15 Citalopram Hydrobromide (CeleXA) 20 mg DAILY PO Last administered on 08/01/18at 09:50; Start 07/30/18 at 09:15 Levetiracetam (Keppra) 500 mg BID PO Last administered on 08/02/18at 20:30; Start 07/30/18 at 21:00 Midazolam HCl (Versed) 2 mg STK-MED ONCE .ROUTE ; Start 07/30/18 at 15:27; Stop 07/30/18 at 15:28; Status DC Midazolam HCl (Versed) 2 mg STK-MED ONCE .ROUTE ; Start 07/30/18 at 15:27; Stop 07/30/18 at 15:28; Status DC Fentanyl Citrate (Fentanyl 5ml Vial) 250 mcg STK-MED ONCE .ROUTE ; Start 07/30/18 at 15:28; Stop 07/30/18 at 15:29; Status DC Potassium Chloride/Water 50 ml @ 50 mls/hr Q1H IV Last administered on 07/31/18at 16:09; Start 07/31/18 at 13:00; Stop 07/31/18 at 14:59; Status DC Insulin Human Lispro (HumaLOG) 0-5 UNITS TIDWMEALS SQ ; Start 07/31/18 at 17:00; Stop 07/31/18 at 17:19; Status DC Dextrose (Dextrose 50%-Water Syringe) 12.5 gm PRN Q15MIN PRN IV SEE COMMENTS; Start 07/31/18 at 16:45; Status Cancel Hydromorphone HCl (Dilaudid) 1 mg PRN Q6HRS PRN IV severe pain Last administere d on 08/03/18at 02:33; Start 08/01/18 at 12:45 Prednisone (Prednisone) 20 mg 1X ONCE PO Last administered on 08/02/18at 18:10; Start 08/02/18 at 18:00; Stop 08/02/18 at 18:01; Status DC Prednisone (Prednisone) 20 mg 1X ONCE PO Last administered on 08/02/18at 23:17; Start 08/02/18 at 23:00; Stop 08/02/18 at 23:01; Status DC Prednisone (Prednisone) 20 mg 1X ONCE PO Last administered on 08/03/18at 05:51; Start 08/03/18 at 06:00; Stop 08/03/18 at 06:01; Status DC Diphenhydramine HCl (Benadryl Oral Elixir) 50 mg PRN 1X PRN PO 30 min before small bowel ; Start 08/02/18 at 10:30; Stop 08/03/18 at 18:00 Hydromorphone HCl (Dilaudid) 1 mg 1X ONCE IVP Last administered on 08/03/18at 05:51; Start 08/03/18 at 06:00; Stop 08/03/18 at 06:01; Status DC Active Scripts Active Cipro (Ciprofloxacin Hcl) 500 Mg Tablet 1 Tab PO BID Famotidine 20 Mg Tablet 20 Mg PO DAILY [Pantoprazole] 40 MG Tablet.dr 40 Mg PO DAILYAC 60 Days Carafate (Sucralfate) 1 Gm/10 Ml Oral.susp 1 Gm PEG QIDACHS Ondansetron Odt (Ondansetron) 4 Mg Tab.rapdis 4 Mg PO PRN Q6HRS PRN Hydrocodone-Apap 5-325 (Hydrocodone Bit/Acetaminophen) 1 Each Tablet 1 Tab PO PRN Q4HRS PRN Dicyclomine Hcl 10 Mg Capsule 10 Mg PO QID Promethazine Hcl 12.5 Mg Tablet 12.5 Mg PO PRN Q6HRS PRN Reported Reglan (Metoclopramide Hcl) 10 Mg Tablet 10 Mg PO QIDACHS Vitals/I & O Vital Sign - Last 24 Hours 08/02/18 08/02/18 08/02/18 08/02/18 11:00 14:30 14:48 19:00 Temp 98.7 98.6 99.0 98.7 98.6 99.0 Pulse 59 65 62 Resp 18 18 18 B/P (MAP) 113/67 (82) 112/66 (81) 107/62 (77) Pulse Ox 98 98 98 99 O2 Delivery Room Air Room Air Room Air Room Air 08/02/18 08/02/18 08/02/18 08/03/18 19:25 20:31 22:52 02:33 Temp 99.1 99.1 Pulse 55 Resp 16 18 15 B/P (MAP) 100/63 (75) Pulse Ox 99 99 99 O2 Delivery Room Air Room Air Room Air Room Air 08/03/18 08/03/18 08/03/18 08/03/18 03:00 03:15 05:51 06:17 Temp 98.6 98.6 Pulse 62 Resp 18 13 16 16 B/P (MAP) 93/50 (64) Pulse Ox 99 99 99 99 O2 Delivery Room Air Room Air Room Air Room Air 08/03/18 08/03/18 07:00 07:00 Temp 98.6 98.6 Pulse 53 Resp 18 B/P (MAP) 91/40 (57) 99/58 (72) Pulse Ox 99 O2 Delivery Room Air Intake and Output 08/02/18 08/02/18 08/03/18 14:59 22:59 06:59 Intake Total 1000 ml 0 ml Output Total 1 ml Balance 999 ml 0 ml IMER PATE MD August 03, 2018 08:52
[2018-08-03] MEDS ORDERED: BARIUM SULFATE 60% 355 ML SUSP PO ONE (09:30)
[2018-08-03 11:00] VITALS: BP 100/54
[2018-08-03] MEDS: SUCRALFATE 1 GM/10 ML ORAL.SUSP. PEG SCH ×4 (11:30→20:32)
--- NOTE | 2018-08-03 12:26 | RAD ---
Upper GI study to include a small bowel follow-through 08/03/2018 CLINICAL HISTORY: Hematemesis. Crohn's disease. Chronic abdominal pain. TECHNIQUE: A single contrast upper GI study was performed under fluoroscopic control. This was continued as a small bowel follow-through study which was performed under radiographic and intermittent fluoroscopic control. The total fluoroscopic time for both studies is 2.4 minutes. 8 digital spot radiographs were obtained. FINDINGS: Comparison is made to a CT scan of the abdomen and pelvis dated 01/22/2018. An AP supine digital radiograph abdomen/pelvis was obtained as a assembler caterpillar spider. This demonstrates surgical clips within the left upper quadrant of the abdomen and within the right lower quadrant of the abdomen. An ileostomy overlies the right lower quadrant of the abdomen. The abdominal bowel gas pattern is nonobstructive. No radiopaque calculus is seen. The osseous structures are grossly intact. Small calcified phleboliths are seen within the pelvis. The mucosal pattern of the esophagus and stomach is within normal limits. Esophageal motility is within normal limits. The patient is post gastrojejunostomy. The anastomosis is patent. No significant gastroesophageal reflux is seen. The mucosal pattern of the jejunum, ileum and terminal ileum is within normal limits. Contrast flows into the ileostomy on the 80 minute radiograph. The small bowel transit time is within normal limits. No stricture or area of ulceration is seen. No area of small bowel wall thickening is noted. No extrinsic mass effect upon the small intestine is seen. IMPRESSION: Postsurgical changes as discussed above. Otherwise negative study. Electronically signed by: Fidel Mansfield MD (08/03/2018 12:23 PM) [facility]
[2018-08-03] MEDS: PANTOPRAZOLE 40 MG TABLET.DR. PO SCH ×2 (13:11→16:54)
[2018-08-03] MEDS: CITALOPRAM 20 MG TABLET. PO SCH (13:11)
[2018-08-03] MEDS: levETIRAcetam 500 MG TABLET PO SCH ×2 (13:11→20:32)
[2018-08-03 15:00] VITALS: BP 103/62
--- NOTE | 2018-08-03 16:46 | PDOC ---
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 Objective Vitals Vital Signs Date Time Temp Pulse Resp B/P (MAP) Pulse Ox O2 Delivery O2 Flow Rate FiO2 08/03/18 15:00 98.9 70 18 103/62 (76) 99 Room Air 98.9 08/03/18 12:35 20 94 Room Air 08/03/18 12:04 20 94 Room Air 08/03/18 11:00 98.6 66 18 100/54 (69) 100 Room Air 98.6 08/03/18 08:00 Room Air 08/03/18 07:00 99/58 (72) 08/03/18 07:00 98.6 53 18 91/40 (57) 99 Room Air 98.6 08/03/18 06:17 16 99 Room Air 08/03/18 05:51 16 99 Room Air 08/03/18 03:00 98.6 62 18 93/50 (64) 99 Room Air 98.6 08/03/18 02:33 15 99 Room Air 08/02/18 22:52 99.1 55 18 100/63 (75) 99 Room Air 99.1 08/02/18 20:31 16 99 Room Air 08/02/18 19:25 Room Air 08/02/18 19:00 99.0 62 18 107/62 (77) 99 Room Air 99.0 Physical Exam Physical Exam Chest- clear cor- RRR abd- soft subjectively tender - normal bowel sounds, ileostomy Assessment Assessment Chronic n/v with prior hematemesis- stable with normal HGb and now negative UGI with SBFT (other than known surgery)- no strictures etc- need bariatric diet with small soft meals Chronic disproportionate abd pain with narcotic dependence- will add bentyl and Qhs Amitryptyline for pain management Ok for d/c soon from Gi point of view BRENNAN HE MD August 03, 2018 16:46
[2018-08-03 19:00] VITALS: BP 107/58
[2018-08-03] MEDS ORDERED: AMITRIPTYLINE HCL 25 MG TABLET. PO SCH (21:00)
[2018-08-03 23:00] VITALS: BP 112/62
[2018-08-04] MEDS ORDERED: HYDROcodone/APAP 5/325MG 1 TAB TABLET PO PRN (00:30)
[2018-08-04] MEDS: SUMAtriptan SUCCINATE 100 MG TABLET PO PRN (00:43)
[2018-08-04 03:00] VITALS: BP 104/56
[2018-08-04] MEDS: IV NORMAL SALINE 1000ML BAG 1,000 ML IV SCH (06:10)
[2018-08-04 07:00] VITALS: BP 114/58
[2018-08-04] MEDS: SUCRALFATE 1 GM/10 ML ORAL.SUSP. PEG SCH ×3 (08:42→16:44)
[2018-08-04] MEDS: CITALOPRAM 20 MG TABLET. PO SCH (08:42)
[2018-08-04] MEDS: PANTOPRAZOLE 40 MG TABLET.DR. PO SCH ×2 (08:43→16:44)
[2018-08-04] MEDS: levETIRAcetam 500 MG TABLET PO SCH (08:43)
[2018-08-04 11:00] VITALS: BP 106/62
--- NOTE | 2018-08-04 11:47 | PDOC ---
PROGRESS NOTES History of Present Illness History of Present Illness Assessment/Plan Assessment/Plan Recurrent hematemesis - persisted today 07/30, 07/31/ 08/01 none 08/02 MW tear in dec 2017 crohns disease, with bleeding and pain, blood in ileostomy may need course of prednisone, GI consult S/p Charleen-en-Y - no bleeding at anastomosis on EGD 2 weeks ago, did note endoclip in place, has been on Carafate and PPI Chronic abd pain - better w/ Bentyl seizure disorder on keppra, HEADACHE TODAY 07/29, worse here is no structural abnormality to account for patient's seizures. vomiting blood streaks today 07/30, 08/01 07/31 feels taste of blood in throat left lower lobe nodular opacity is new compared to prior CT 01/22/2018. Although this size nodule of the greater than expected for malignancy and is favored to represent atelectasis or consolidative process, follow-up to resolution is recommended. plan ct chest 08/01 reviewed 46 min pt exam d/c planning time, chart review, > 50% of time spent with exam, chart review, pt care coordination ESOPHOGRAM 08/03 PAIN WORSE THIS AM 0530 08/04 home today, bariatric diet, soft frequent meals Vitals Vitals Vital Signs Date Time Temp Pulse Resp B/P (MAP) Pulse Ox O2 Delivery O2 Flow Rate FiO2 08/04/18 11:00 98.3 64 18 106/62 (77) 100 Room Air 98.3 Physical Exam General: Alert, Oriented X3, Cooperative, No acute distress, mild distress Heart: Regular rate, Normal S1, Normal S2, No murmurs Lungs: Clear Abdomen: Normal bowel sounds, Soft, Other (ostomy wnl) Extremities: No clubbing, No cyanosis, No edema, Normal pulses Skin: No rashes, No breakdown, No significant lesion Comment Review of Relevant I have reviewed the following items [place] (where applicable) has been applied. Labs Microbiology 07/27/18 Urine Culture - Final, Complete 07/27/18 Urine Culture Result 1 (JONNY) - Final, Complete Medications Current Medications Fentanyl Citrate (Fentanyl 2ml Vial) 50 mcg 1X ONCE IV Last administered on 07/27/18at 20:15; Start 07/27/18 at 19:15; Stop 07/27/18 at 19:16; Status DC Ondansetron HCl (Zofran) 4 mg 1X ONCE IV Last administered on 07/27/18 20:15; Start 07/27/18 at 19:15; Stop 07/27/18 at 19:16; Status DC Sodium Chloride 1,000 ml @ 1,000 mls/hr 1X ONCE IV Last administered on 07/27/18 20:15; Start 07/27/18 at 19:15; Stop 07/27/18 at 20:14; Status DC Pantoprazole Sodium 80 mg/ Sodium Chloride 100 ml @ 10 mls/hr Q10H IV Last administered on 07/29/18 03:27; Start 07/27/18 at 19:30; Stop 07/29/18 at 10:47; Status DC Levofloxacin/ Dextrose 100 ml @ 100 mls/hr 1X ONCE IV Last administered on 07/27/18 20:54; Start 07/27/18 at 20:15; Stop 07/27/18 at 21:14; Status DC Ondansetron HCl (Zofran) 4 mg PRN Q8HRS PRN IV NAUSEA/VOMITING Last administered on 07/28/18 19:25; Start 07/27/18 at 21:00; Stop 07/28/18 at 20:59; Status DC Morphine Sulfate (Morphine Sulfate) 2 mg PRN Q2HR PRN IV PAIN Last administered on 07/27/18 21:19; Start 07/27/18 at 21:00; Stop 07/27/18 at 21:25; Status DC Sodium Chloride 1,000 ml @ 100 mls/hr Q10H IV Last administered on 07/28/18at 20:58; Start 07/27/18 at 20:48; Stop 07/28/18 at 20:47; Status DC Morphine Sulfate (Morphine Sulfate) 4 mg PRN Q2HR PRN IV PAIN Last administered on 07/28/18 21:20; Start 07/27/18 at 21:30; Stop 07/28/18 at 22:40; Status DC Levetiracetam 500 mg/Dextrose 105 ml @ 420 mls/hr Q12HR IV Last administered on 07/30/18at 09:33; Start 07/27/18 at 22:00; Stop 07/30/18 at 10:32; Status DC Saliva Substitute (Biotene Moisturizing Mouth) 2 spray PRN Q15MIN PRN PO DRY MOUTH; Start 07/28/18 at 00:00 Hydromorphone HCl (Dilaudid) 1 mg PRN Q4HRS PRN IVP PAIN Last administered on 08/01/18 08:57; Start 07/28/18 at 22:45; Stop 08/01/18 at 09:33; Status DC Pantoprazole Sodium (Protonix) 40 mg BIDAC PO Last administered on 08/04/18 08:43; Start 07/29/18 at 11:30 Sucralfate (Carafate) 1 gm QIDACHS PEG Last administered on 08/04/18 11:43; Start 07/29/18 at 11:30 Dicyclomine HCl (Bentyl) 10 mg QID PRN PO abd pain Last administered on 08/01/18 08:56; Start 07/29/18 at 10:45 Ondansetron HCl (Zofran) 4 mg PRN Q8HRS PRN IV NAUSEA/VOMITING Last administered on 08/01/18 10:39; Start 07/29/18 at 11:00 Acetaminophen (Tylenol) 650 mg PRN Q6HRS PRN PO HEADACHE Last administered on 07/29/18 12:16; Start 07/29/18 at 12:00 Sodium Chloride 1,000 ml @ 100 mls/hr Q10H IV Last administered on 08/04/18 06:10; Start 07/29/18 at 14:15 Sumatriptan Succinate (Imitrex) 6 mg 1X ONCE SQ Last administered on 07/29/18 15:18; Start 07/29/18 at 15:00; Stop 07/29/18 at 15:01; Status DC Fentanyl Citrate (Fentanyl 2ml Vial) 25 mcg PRN Q5MIN PRN IV MILD PAIN; Start 07/30/18 at 07:00; Stop 07/31/18 at 06:59; Status DC Fentanyl Citrate (Fentanyl 2ml Vial) 50 mcg PRN Q5MIN PRN IV MODERATE TO SEVERE PAIN; Start 07/30/18 at 07:00; Stop 07/31/18 at 06:59; Status DC Morphine Sulfate (Morphine Sulfate) 1 mg PRN Q10MIN PRN IV SEVERE PAIN; Start 07/30/18 at 07:00; Stop 07/31/18 at 06:59; Status DC Ringer's Solution 1,000 ml @ 30 mls/hr Q24H IV ; Start 07/30/18 at 07:00; Stop 07/30/18 at 18:59; Status DC Hydromorphone HCl (Dilaudid) 0.5 mg PRN Q10MIN PRN IV SEV PAIN, Second choice; Start 07/30/18 at 07:00; Stop 07/31/18 at 06:59; Status DC Sumatriptan Succinate (Imitrex) 100 mg PRN Q2HR PRN PO MIGRAINE HEADACHE Last administered on 08/04/18at 00:43; Start 07/30/18 at 09:15 Citalopram Hydrobromide (CeleXA) 20 mg DAILY PO Last administered on 08/04/18at 08:42; Start 07/30/18 at 09:15 Levetiracetam (Keppra) 500 mg BID PO Last administered on 08/04/18at 08:43; Start 07/30/18 at 21:00 Midazolam HCl (Versed) 2 mg STK-MED ONCE .ROUTE ; Start 07/30/18 at 15:27; Stop 07/30/18 at 15:28; Status DC Midazolam HCl (Versed) 2 mg STK-MED ONCE .ROUTE ; Start 07/30/18 at 15:27; Stop 07/30/18 at 15:28; Status DC Fentanyl Citrate (Fentanyl 5ml Vial) 250 mcg STK-MED ONCE .ROUTE ; Start 07/30/18 at 15:28; Stop 07/30/18 at 15:29; Status DC Potassium Chloride/Water 50 ml @ 50 mls/hr Q1H IV Last administered on 07/31/18at 16:09; Start 07/31/18 at 13:00; Stop 07/31/18 at 14:59; Status DC Insulin Human Lispro (HumaLOG) 0-5 UNITS TIDWMEALS SQ ; Start 07/31/18 at 17:00; Stop 07/31/18 at 17:19; Status DC Dextrose (Dextrose 50%-Water Syringe) 12.5 gm PRN Q15MIN PRN IV SEE COMMENTS; Start 07/31/18 at 16:45; Status Cancel Hydromorphone HCl (Dilaudid) 1 mg PRN Q6HRS PRN IV severe pain Last administered on 08/03/18at 18:06; Start 08/01/18 at 12:45; Stop 08/04/18 at 00:06; Status DC Prednisone (Prednisone) 20 mg 1X ONCE PO Last administered on 08/02/18at 18:10; Start 08/02/18 at 18:00; Stop 08/02/18 at 18:01; Status DC Prednisone (Prednisone) 20 mg 1X ONCE PO Last administered on 08/02/18at 23:17; Start 08/02/18 at 23:00; Stop 08/02/18 at 23:01; Status DC Prednisone (Prednisone) 20 mg 1X ONCE PO Last administered on 08/03/18at 05:51; Start 08/03/18 at 06:00; Stop 08/03/18 at 06:01; Status DC Diphenhydramine HCl (Benadryl Oral Elixir) 50 mg PRN 1X PRN PO 30 min before small bowel Last administered on 08/03/18at 09:01; Start 08/02/18 at 10:30; Stop 08/03/18 at 18:00; Status DC Hydromorphone HCl (Dilaudid) 1 mg 1X ONCE IVP Last administered on 08/03/18at 05:51; Start 08/03/18 at 06:00; Stop 08/03/18 at 06:01; Status DC Barium Sulfate (Liquid E-Z Paque) 710 ml 1X ONCE PO Last administered on 08/03/18at 09:40; Start 08/03/18 at 09:30; Stop 08/03/18 at 09:31; Status DC Amitriptyline HCl (Elavil) 25 mg QHS PO Last administered on 08/03/18at 20:32; Start 08/03/18 at 21:00 Acetaminophen/ Hydrocodone Bitart (Lortab 5/325) 1 tab PRN Q4HRS PRN PO MODERATE PAIN Last administered on 08/04/18at 00:43; Start 08/04/18 at 00:30 Active Scripts Active Cipro (Ciprofloxacin Hcl) 500 Mg Tablet 1 Tab PO BID Famotidine 20 Mg Tablet 20 Mg PO DAILY [Pantoprazole] 40 MG Tablet.dr 40 Mg PO DAILYAC 60 Days Carafate (Sucralfate) 1 Gm/10 Ml Oral.susp 1 Gm PEG QIDACHS Ondansetron Odt (Ondansetron) 4 Mg Tab.rapdis 4 Mg PO PRN Q6HRS PRN Hydrocodone-Apap 5-325 (Hydrocodone Bit/Acetaminophen) 1 Each Tablet 1 Tab PO PRN Q4HRS PRN Dicyclomine Hcl 10 Mg Capsule 10 Mg PO QID Promethazine Hcl 12.5 Mg Tablet 12.5 Mg PO PRN Q6HRS PRN Reported Reglan (Metoclopramide Hcl) 10 Mg Tablet 10 Mg PO QIDACHS Vitals/I & O Vital Sign - Last 24 Hours 08/03/18 08/03/18 08/03/18 08/03/18 12:04 12:35 15:00 18:06 Temp 98.9 98.9 Pulse 70 Resp 20 20 18 20 B/P (MAP) 103/62 (76) Pulse Ox 94 94 99 94 O2 Delivery Room Air Room Air Room Air Room Air 08/03/18 08/03/18 08/03/18 08/04/18 19:00 19:55 23:00 00:43 Temp 98.6 98.3 98.6 98.3 Pulse 66 57 Resp 14 13 16 B/P (MAP) 107/58 (74) 112/62 (79) Pulse Ox 98 100 100 O2 Delivery Room Air Room Air Room Air Room Air 08/04/18 08/04/18 08/04/18 08/04/18 01:45 03:00 07:00 08:00 Temp 98.3 98.3 98.3 98.3 Pulse 61 60 Resp 13 16 18 B/P (MAP) 104/56 (72) 114/58 (76) Pulse Ox 100 99 100 O2 Delivery Room Air Room Air Room Air Room Air 08/04/18 11:00 Temp 98.3 98.3 Pulse 64 Resp 18 B/P (MAP) 106/62 (77) Pulse Ox 100 O2 Delivery Room Air Intake and Output 08/03/18 08/03/18 08/04/18 14:59 22:59 06:59 Intake Total 0 ml 100 ml 200 ml Output Total 50 ml Balance 0 ml 100 ml 150 ml IMER PATE MD August 04, 2018 11:47
--- NOTE | 2018-08-04 14:38 | PDOC3 ---
Discharge Summary Date of Admission: July 27, 2018 Date of Discharge: August 04, 2018 Follow-Up: 3-5 days Admitting Diagnosis comment: discharge dx Assessment/Plan Recurrent hematemesis - persisted today 07/30, 07/31/ 08/01 none / MW tear in dec 2017 crohns disease, with bleeding and pain, blood in ileostomy may need course of prednisone, GI consult S/p Charleen-en-Y - no bleeding at anastomosis on EGD 2 weeks ago, did note endoclip in place, has been on Carafate and PPI Chronic abd pain - better w/ Bentyl seizure disorder on keppra, HEADACHE TODAY 07/29, worse here is no structural abnormality to account for patient's seizures. vomiting blood streaks today 07/30, 08/01 07/31 feels taste of blood in throat left lower lobe nodular opacity is new compared to prior CT 01/22/2018. Although this size nodule of the greater than expected for malignancy and is favored to represent atelectasis or consolidative process, follow-up to resolution is recommended. plan ct chest 08/01 reviewed 46 min pt exam d/c planning time, chart review, > 50% of time spent with exam, chart review, pt care coordination ESOPHOGRAM 08/03 PAIN WORSE THIS AM 0530 08/04 home today, bariatric diet, soft frequent meals Vitals Vitals Vital Signs Date Time Temp Pulse Resp B/P (MAP) Pulse Ox O2 Delivery O2 Flow Rate FiO2 08/04/18 11:00 98.3 64 18 106/62 (77) 100 Room Air 98.3 Physical Exam General: Alert, Oriented X3, Cooperative, No acute distress, cheerful Heart: Regular rate, Normal S1, Normal S2, No murmurs Lungs: Clear Abdomen: Normal bowel sounds, Soft, Other (ostomy wnl) Extremities: No clubbing, No cyanosis, No edema, Normal pulses Skin: No rashes, No breakdown, No significant lesion Brief Hospital Course Ms. Clemente is a 32 old [sex] who presented with [ hematemesis] CONDITION AT DISCHARGE: Improved Discharge Medications Current Medications Fentanyl Citrate (Fentanyl 2ml Vial) 50 mcg 1X ONCE IV Last administered on 07/27/18at 20:15; Start 07/27/18 at 19:15; Stop 07/27/18 at 19:16; Status DC Ondansetron HCl (Zofran) 4 mg 1X ONCE IV Last administered on 07/27/18 20:15; Start 07/27/18 at 19:15; Stop 07/27/18 at 19:16; Status DC Sodium Chloride 1,000 ml @ 1,000 mls/hr 1X ONCE IV Last administered on 07/27/18at 20:15; Start 07/27/18 at 19:15; Stop 07/27/18 at 20:14; Status DC Pantoprazole Sodium 80 mg/ Sodium Chloride 100 ml @ 10 mls/hr Q10H IV Last adm inistered on 07/29/18at 03:27; Start 07/27/18 at 19:30; Stop 07/29/18 at 10:47; Status DC Levofloxacin/ Dextrose 100 ml @ 100 mls/hr 1X ONCE IV Last administered on 07/27/18at 20:54; Start 07/27/18 at 20:15; Stop 07/27/18 at 21:14; Status DC Ondansetron HCl (Zofran) 4 mg PRN Q8HRS PRN IV NAUSEA/VOMITING Last administered on 07/28/18 19:25; Start 07/27/18 at 21:00; Stop 07/28/18 at 20:59; Status DC Morphine Sulfate (Morphine Sulfate) 2 mg PRN Q2HR PRN IV PAIN Last administered on 07/27/18 21:19; Start 07/27/18 at 21:00; Stop 07/27/18 at 21:25; Status DC Sodium Chloride 1,000 ml @ 100 mls/hr Q10H IV Last administered on 07/28/18at 20:58; Start 07/27/18 at 20:48; Stop 07/28/18 at 20:47; Status DC Morphine Sulfate (Morphine Sulfate) 4 mg PRN Q2HR PRN IV PAIN Last administered on 07/28/18 21:20; Start 07/27/18 at 21:30; Stop 07/28/18 at 22:40; Status DC Levetiracetam 500 mg/Dextrose 105 ml @ 420 mls/hr Q12HR IV Last administered on 07/30/18at 09:33; Start 07/27/18 at 22:00; Stop 07/30/18 at 10:32; Status DC Saliva Substitute (Biotene Moisturizing Mouth) 2 spray PRN Q15MIN PRN PO DRY MOUTH; Start 07/28/18 at 00:00 Hydromorphone HCl (Dilaudid) 1 mg PRN Q4HRS PRN IVP PAIN Last administered on 08/01/18 08:57; Start 07/28/18 at 22:45; Stop 08/01/18 at 09:33; Status DC Pantoprazole Sodium (Protonix) 40 mg BIDAC PO Last administered on 08/04/18 08:43; Start 07/29/18 at 11:30 Sucralfate (Carafate) 1 gm QIDACHS PEG Last administered on 08/04/18 11:43; Start 07/29/18 at 11:30 Dicyclomine HCl (Bentyl) 10 mg QID PRN PO abd pain Last administered on 08/01/18 08:56; Start 07/29/18 at 10:45 Ondansetron HCl (Zofran) 4 mg PRN Q8HRS PRN IV NAUSEA/VOMITING Last administered on 08/01/18 10:39; Start 07/29/18 at 11:00 Acetaminophen (Tylenol) 650 mg PRN Q6HRS PRN PO HEADACHE Last administered on 07/29/18 12:16; Start 07/29/18 at 12:00 Sodium Chloride 1,000 ml @ 100 mls/hr Q10H IV Last administered on 08/04/18 06:10; Start 07/29/18 at 14:15 Sumatriptan Succinate (Imitrex) 6 mg 1X ONCE SQ Last administered on 07/29/18at 15:18; Start 07/29/18 at 15:00; Stop 07/29/18 at 15:01; Status DC Fentanyl Citrate (Fentanyl 2ml Vial) 25 mcg PRN Q5MIN PRN IV MILD PAIN; Start 07/30/18 at 07:00; Stop 07/31/18 at 06:59; Status DC Fentanyl Citrate (Fentanyl 2ml Vial) 50 mcg PRN Q5MIN PRN IV MODERATE TO SEVERE PAIN; Start 07/30/18 at 07:00; Stop 07/31/18 at 06:59; Status DC Morphine Sulfate (Morphine Sulfate) 1 mg PRN Q10MIN PRN IV SEVERE PAIN; Start 07/30/18 at 07:00; Stop 07/31/18 at 06:59; Status DC Ringer's Solution 1,000 ml @ 30 mls/hr Q24H IV ; Start 07/30/18 at 07:00; Stop 07/30/18 at 18:59; Status DC Hydromorphone HCl (Dilaudid) 0.5 mg PRN Q10MIN PRN IV SEV PAIN, Second choice; Start 07/30/18 at 07:00; Stop 07/31/18 at 06:59; Status DC Sumatriptan Succinate (Imitrex) 100 mg PRN Q2HR PRN PO MIGRAINE HEADACHE Last administered on 08/04/18at 00:43; Start 07/30/18 at 09:15 Citalopram Hydrobromide (CeleXA) 20 mg DAILY PO Last administered on 08/04/18at 08:42; Start 07/30/18 at 09:15 Levetiracetam (Keppra) 500 mg BID PO Last administered on 08/04/18at 08:43; Start 07/30/18 at 21:00 Midazolam HCl (Versed) 2 mg STK-MED ONCE .ROUTE ; Start 07/30/18 at 15:27; Stop 07/30/18 at 15:28; Status DC Midazolam HCl (Versed) 2 mg STK-MED ONCE .ROUTE ; Start 07/30/18 at 15:27; Stop 07/30/18 at 15:28; Status DC Fentanyl Citrate (Fentanyl 5ml Vial) 250 mcg STK-MED ONCE .ROUTE ; Start 07/30/18 at 15:28; Stop 07/30/18 at 15:29; Status DC Potassium Chloride/Water 50 ml @ 50 mls/hr Q1H IV Last administered on 07/31/18at 16:09; Start 07/31/18 at 13:00; Stop 07/31/18 at 14:59; Status DC Insulin Human Lispro (HumaLOG) 0-5 UNITS TIDWMEALS SQ ; Start 07/31/18 at 17:00; Stop 07/31/18 at 17:19; Status DC Dextrose (Dextrose 50%-Water Syringe) 12.5 gm PRN Q15MIN PRN IV SEE COMMENTS; Start 07/31/18 at 16:45; Status Cancel Hydromorphone HCl (Dilaudid) 1 mg PRN Q6HRS PRN IV severe pain Last administered on 08/03/18 18:06; Start 08/01/18 at 12:45; Stop 08/04/18 at 00:06; Status DC Prednisone (Prednisone) 20 mg 1X ONCE PO Last administered on 08/02/18at 18:10; Start 08/02/18 at 18:00; Stop 08/02/18 at 18:01; Status DC Prednisone (Prednisone) 20 mg 1X ONCE PO Last administered on 08/02/18at 23:17; Start 08/02/18 at 23:00; Stop 08/02/18 at 23:01; Status DC Prednisone (Prednisone) 20 mg 1X ONCE PO Last administered on 08/03/18at 05:51; Start 08/03/18 at 06:00; Stop 08/03/18 at 06:01; Status DC Diphenhydramine HCl (Benadryl Oral Elixir) 50 mg PRN 1X PRN PO 30 min before small bowel Last administered on 08/03/18at 09:01; Start 08/02/18 at 10:30; Stop 08/03/18 at 18:00; Status DC Hydromorphone HCl (Dilaudid) 1 mg 1X ONCE IVP Last administered on 08/03/18at 05:51; Start 08/03/18 at 06:00; Stop 08/03/18 at 06:01; Status DC Barium Sulfate (Liquid E-Z Paque) 710 ml 1X ONCE PO Last administered on 08/03/18at 09:40; Start 08/03/18 at 09:30; Stop 08/03/18 at 09:31; Status DC Amitriptyline HCl (Elavil) 25 mg QHS PO Last administered on 08/03/18at 20:32; Start 08/03/18 at 21:00 Acetaminophen/ Hydrocodone Bitart (Lortab 5/325) 1 tab PRN Q4HRS PRN PO MODERATE PAIN Last administered on 08/04/18at 00:43; Start 08/04/18 at 00:30 Active Scripts Active Cipro (Ciprofloxacin Hcl) 500 Mg Tablet 1 Tab PO BID Famotidine 20 Mg Tablet 20 Mg PO DAILY [Pantoprazole] 40 MG Tablet.dr 40 Mg PO DAILYAC 60 Days Carafate (Sucralfate) 1 Gm/10 Ml Oral.susp 1 Gm PEG QIDACHS Ondansetron Odt (Ondansetron) 4 Mg Tab.rapdis 4 Mg PO PRN Q6HRS PRN Hydrocodone-Apap 5-325 (Hydrocodone Bit/Acetaminophen) 1 Each Tablet 1 Tab PO PRN Q4HRS PRN Dicyclomine Hcl 10 Mg Capsule 10 Mg PO QID Promethazine Hcl 12.5 Mg Tablet 12.5 Mg PO PRN Q6HRS PRN Reported Reglan (Metoclopramide Hcl) 10 Mg Tablet 10 Mg PO QIDACHS Vital Signs Vital Signs Date Time Temp Pulse Resp B/P (MAP) Pulse Ox O2 Delivery O2 Flow Rate FiO2 08/04/18 11:00 98.3 64 18 106/62 (77) 100 Room Air 98.3 Allergies Allergies Coded Allergies Type Severity Reaction Last Updated Verified Penicillins Allergy Intermediate 01/15/18 Yes ketorolac Allergy Intermediate 01/15/18 Yes Iodinated Contrast- Oral and IV Dye Allergy Mild 08/02/18 Yes carrot Allergy Mild 08/02/18 Yes Disposition/Orders: D/C to Home Patient Instructions d/c planning 46 min IMER PATE MD August 04, 2018 14:38
[2018-08-04] MEDS ORDERED: CITA20TA9 PO (14:41)
[2018-08-04] MEDS ORDERED: AMIT25TA PO (14:41)
[2018-08-04] MEDS ORDERED: LEVE500T56 PO (14:41)
[2018-08-04] MEDS ORDERED: SALI44.3 PO (14:41)
--- NOTE | 2018-08-04 14:41 | DISCH ---
DISCHARGE INSTRUCTIONS Condition on Discharge Condition on Discharge: Stable Activity After Discharge Activity Instructions for Disc: Activity as tolerated Lifting Instructions after Dis: No heavy lifting Exercise Instruction after Dis: Walk 10 min, 3 x per day Driving Instructions after Dis: Do not drive today Diet after Discharge Diet after Discharge: GI Soft Diet Texture: Regular Liquid Texture: Thin Liquid Checks after Discharge Checks after discharge: Check blood press - daily Contacting the DR. after DC Call your doctor for: If your condition worsens IMER PATE MD August 04, 2018 14:41
[2018-08-04 15:07] VITALS: BP 105/68
--- NOTE | 2018-08-04 17:00 | NUR ---
DISCHARGE INSTRUCTIONS GIVEN, QUESTIONS AND CONCERNS ANSWERED, PATIENT VERBALIZED UNDERSTANDING OF DISCHARGE INFORMATION INCLUDING TAKING ALL MEDICATION INSTRUCTED AND FOLLOWING UP WITH HER PRIMARY PROVIDER NEXT WEEK. ALL PERSONAL BELONGINGS GATHERED BY THE PATIENT AND PLACED IN BAGS FOR DISCHARGE, WILL PLACE CALL TO YELLOW CAB FOR DISCHARGE.
--- NOTE | 2018-08-04 18:45 | NUR ---
PATIENT LEAVES THE UNIT PER W/C, EMOTIONAL SUPPORT GIVEN, FOLLOW UP APPOINTMENTS ENCOURAGED.
== END 2018-08-04 18:45 | disposition home or self-care (01) | DRG 378 ==
LOC: ER 18:26 → 5 NORTH 20:15
PROVIDERS: ADMIT Internal Medicine; ATTEND Internal Medicine
DX: K92.0 Hematemesis (principal); F11.20 Opioid dependence, uncomplicated; K50.00 Crohn's disease of small intestine without complications; E11.9 Type 2 diabetes mellitus without complications; F40.240 Claustrophobia; F43.10 Post-traumatic stress disorder, unspecified; G40.909 Epilepsy, unspecified, not intractable, without status epilepticus; G43.909 Migraine, unspecified, not intractable, without status migrainosus; G89.29 Other chronic pain; K21.9 Gastro-esophageal reflux disease without esophagitis; F41.9 Anxiety disorder, unspecified; Z62.810 Personal history of physical and sexual abuse in childhood; F32.9 Major depressive disorder, single episode, unspecified; Z86.718 Personal history of other venous thrombosis and embolism; Z87.11 Personal history of peptic ulcer disease; Z87.19 Personal history of other diseases of the digestive system; Z87.442 Personal history of urinary calculi; Z90.49 Acquired absence of other specified parts of digestive tract; Z93.2 Ileostomy status; Z98.84 Bariatric surgery status
CPT/HCPCS: 36415; 70551; 71250; 74245; 80048; 80053; 80307; 81001; 81025; 82274; 82962; 83690; 84702; 85025; 85027; 85610; 87086; 95816; 96361; 96374; C9113; J1170; J1953; J1956; J2250; J2270; J2405; J3010; J3030; J3480; J7030; J7512; 99285-25